=== PATIENT | male | born 1970 | race Caucasian/White ===

== ENCOUNTER 2019-09-29 08:59 | Outpatient (CLI) | payer BC, SELFPAY ==
--- NOTE | 2019-09-29 09:00 | NEURO_ITS ---
TEST: ELECTROENCEPHALOGRAM DIAGNOSIS: SEIZURE PATIENT NUMBER: [id number] EEG NUMBER: [id number] RECORDING DATE: 09/29/19 CLINICAL HISTORY: Patient reports he has been a heavy drinker for 20+ years and stopped cold turkey last week and had a seizure CONDITION OF RECORDING: Awake and drowsy EEG DESCRIPTION: Basic resting occipital frequency consists of moderate amount of well organized low voltage 8-10hz alpha mixed with low voltage 15-18hz beta. During drowsiness low voltage beta activity is seen diffusely mixed with waxing and waning posterior alpha rhythms. Hyperventilation produced normal and symmetrical build-up. Photic stimulation produced normal drive. Multiple movement and muscle artifacts are noted. Nonparoxysmal. Nonfocal. Nonlateralizing. IMPRESSION: No significant abnormalities noted. MTDD
[2019-09-29 09:46] LABS: Alanine Aminotransferase 66 U/L (4-50); Albumin Level 4.2 g/dL (3.5-5.1); Alkaline Phosphatase 90 U/L (38-126); Aspartate Amino Transferase 102 U/L (17-59); Bilirubin,Total 0.6 mg/dL (0.2-1.3); Blood Urea Nitrogen 7 mg/dL (9-20); Calcium 8.7 mg/dL (8.4-10.2); Carbon Dioxide 32 mmol/L (22-30); Chloride 97 mmol/L (98-107); Estimated Glomerular Filt Rate > 60; Glucose 160 mg/dL (75-110); Potassium 3.2 mmol/L (3.4-5.0); Sodium 136 mmol/L (137-145)
== END 2019-09-29 09:00 | disposition home or self-care (01) ==
LOC: ANHNEURO 09:02
PROVIDERS: PCP Internal Medicine; Visit Provider Internal Medicine
DX: R56.9 Unspecified convulsions (principal); F10.988 Alcohol use, unspecified with other alcohol-induced disorder; E87.1 Hypo-osmolality and hyponatremia
CPT/HCPCS: 36415; 80053; 84443; 95816

== ENCOUNTER 2020-04-28 15:28 | Inpatient (IN) | payer BC, MEDICAID, SELFPAY ==
[2020-04-28] VITALS (7 sets, daily range): BP systolic 101–119; BP diastolic 67–92; PULSE 94–115; RESP 15–21; TEMP 36.2–37.5; O2SAT 98–100; BMI 25.0
--- NOTE | ~2020-04-28 | XR_ITS ---
EXAMINATION: XR chest ET placement INDICATION: Endotracheal tube insertion TECHNIQUE: Portable AP chest at 0610 hours COMPARISON: 04/28/2020 FINDINGS: An endotracheal tube has been inserted which ends 3.3 cm above the ariana. A Dobbhoff tube is in the stomach. There are minimal opacities in the right midlung zone. The cardiomediastinal silho uette is normal. The visualized osseous structures are unremarkable. IMPRESSION: 1. Endotracheal tube in adequate position. Dobbhoff tube in the stomach. 2. Airspace opacities of the right midlung zone, consistent with atelectasis versus pneumonia. Reviewed, dictated and finalized at location A. TRY FEED SUPERVISOR IMPRESSION: 1. Endotracheal tube in adequate position. Dobbhoff tube in the stomach. 2. Airspace opacities of the right midlung zone, consistent with atelectasis ve rsus pneumonia.
--- NOTE | ~2020-04-28 | XR_ITS ---
XR chest 1V portable 05/09/2020 06:13 Indication: Respiratory failure Procedure: AP portable chest Comparison: Comparison to multiple prior studies sequentially, with oldest reviewed study dated 05/05. Findings: Left subclavian central line tip in the right atrium. Bilateral airspace disease. No pleura l effusion or pneumothorax. No acute osseous abnormality. Impression: 1: Persistent predominantly perihilar airspace disease, right greater than left. Differential diagnos is includes edema versus pneumonia. Reviewed, dictated and finalized at location A. PTION MANAGER Impression: 1: Persistent predominantly perihilar airspace disease, right greater than left . Differential diagnosis includes edema versus pneumonia.
--- NOTE | ~2020-04-28 | XR_ITS ---
XR chest 1V portable 05/08/2020 05:56 Indication: Respiratory failure Procedure: AP portable chest Comparison: Comparison to multiple prior studies sequentially, with oldest reviewed study dated 09/2020. Findings: Endotracheal tube tip 3.2 cm above the ariana. Left subclavian PICC line tip in the right a trium. NG tube in the stomach. Bilateral airspace disease, right greater than left. Elevated right di aphragm. No significant effusion or pneumothorax. Impression: 1: Bilateral airspace disease may represent edema or pneumonia. Reviewed, dictated and finalized at location A. BUSINESS PROFESSOR Impression: 1: Bilateral airspace disease may represent edema or pneumonia.
--- NOTE | ~2020-04-28 | XR_ITS ---
EXAMINATION: XR chest 1V portable EXAM DATE: 05/10/2020 05:34 INDICATION: Respiratory failure. TECHNIQUE: Portable AP frontal chest x-ray was obtained. Comparison is made to prior examination from 05/09/2020. FINDINGS: Patient has been extubated. There is a left-sided PICC line with tip projecting over the ca voatrial junction. Small amount of bilateral atelectasis and/or pneumonia with interval improvement. No sizable pleural effusion. No pneumothorax. Cardiomediastinal silhouette is normal. Mild thoracic dextroscoliosis. IMPRESSION: Noticeable interval improvement in airspace disease. Reviewed, dictated and finalized at location A. LE AND HARNESS MAKER
--- NOTE | ~2020-04-28 | XR_ITS ---
EXAMINATION: XR fl Dobhoff insert/rad w img DATE: 05/04/2020 14:43 INDICATION: Poor oral intake. TECHNIQUE: I placed a nasoenteric tube under fluoroscopic guidance. The total number of images was 2. Fluoroscopy exposure time was 0.3 minutes. COMPARISON: Abdomen MRI 05/01/2020 FINDINGS: The nasoenteric tube tip is in the stomach. IMPRESSION: 1. Fluoroscopy guided nasoenteric tube placement with tip in the stomach. Reviewed, dictated and finalized at location A. S MAKER
--- NOTE | ~2020-04-28 | CT_ITS ---
EXAMINATION: CTA chest PE abdomen pel EXAM DATE: 04/28/2020 17:48 INDICATION: Unable to stand. COPD. Seizures. Elevated lipase. TECHNIQUE: Spiral CTA of the chest (pulmonary arteries) was performed with 100 cc Omnipaque 350 intr avenous contrast injection. Images were acquired during the pulmonary arterial phase. Coronal maxi mum intensity projection 3D-reconstructions were created by the technologist on dedicated workstation . Axial, coronal and sagittal reformatted images were reviewed. Spiral CT of the abdomen and pelvis was then performed with the same intravenous contrast injection. Axial, coronal and sagittal reform atted images were reviewed. The dose-length product (DLP) for this examination was 396.79 mGy-cm. T he exposure was tailored according to patient size (auto mA exposure control), and iterative reconst ruction (ASIR) was used as additional dose reduction technique. There is no prior study for comparis on. FINDINGS: CHEST: There are no pulmonary emboli in the 1st through 3rd order (central and interlobar) pulmonary arteries. Some loss of attenuation in the left basilar segmental pulmonary arteries without evidenc e of respiratory motion, but no intraluminal filling defects suspected. No thoracic aortic dissecti on. The lungs are clear. There are no pleural or pericardial effusions. Tracheobronchial tree is patent. There is no mediastinal, hilar or axillary lymphadenopathy. There is no pneumothorax. Heart normal in size. No evidence of coronary arterial calcification. ABDOMEN PELVIS: There is hepatic steatosis without suspicious focal lesion identified. Spleen, adrena l glands, pancreas are unremarkable. Gallbladder is unremarkable. No biliary obstruction. Portal a nd splenic veins are patent. Kidneys enhance symmetrically. There is no hydronephrosis. The prost ate is unremarkable. The bladder is unremarkable. There is no retroperitoneal or pelvic lymphadenop athy. There is mild scattered arteriosclerotic disease. The appendix is normal. The stomach and small bowel are unremarkable. Some circumferential rectal w all thickening, possible proctitis, with some presacral fat stranding likely edema. There is moderate amount of colonic stool. No free intraperitoneal gas. There are no osteoblastic or osteolytic le sions identified. IMPRESSION: 1. Presacral edema and apparent distal rectal wall thickening. Proctitis? 2. Hepatic steatosis. 3. No acute cardiopulmonary findings. Reviewed, dictated and finalized at location A. ERCIAL ASSISTANT
--- NOTE | ~2020-04-28 | XR_ITS ---
EXAMINATION: XR chest 1V portable INDICATION: Respiratory failure TECHNIQUE: Portable AP chest at 0531 hours COMPARISON: 05/05/2020 FINDINGS: The endotracheal tube ends approximately 3.3 cm above the araina. A left upper extremity PI CC has been inserted which ends with its tip at the superior cavoatrial junction. The Dobbhoff tube h as been removed and replaced with a nasogastric tube which ends in the stomach. Airspace opacities rodriguez ve developed in the right lung base. There appears to be a small right pleural effusion. No pneumotho rax is identified. IMPRESSION: 1. Right basilar airspace opacity which may reflect combination of atelectasis and/or pneumonia and/o r pleural effusion. 2. Left upper extremity PICC insertion and Dobbhoff replacement with a nasogastric tube. Reviewed, dictated and finalized at location A. Y FOAM INSTALLER IMPRESSION: 1. Right basilar airspace opacity which may reflect combination of atelectasis and/or pneumonia and/or pleural effusion. 2. Left upper extremity PICC insertion and Dobbhoff replacement with a nasogast jasson tube.
--- NOTE | ~2020-04-28 | XR_ITS ---
XR chest 1V portable DATE: 04/28/2020 16:07 INDICATION: COPD. Seizures. Weakness for 3 weeks. Unable to stand. TECHNIQUE: Portable AP chest on 04/28/2020 at 1603 hours COMPARISON: None FINDINGS: Normal heart size. No hilar or mediastinal enlargement. No pulmonary infiltrate or consolid ation, pleural effusion or pulmonary vascular congestion or pneumothorax. Mild thoracic dextroscoliosis. IMPRESSION: No active cardiopulmonary disease Reviewed, dictated and finalized at location B. BINDER
--- NOTE | ~2020-04-28 | MR_ITS ---
EXAMINATION: MR MRCP wo/w con/w 3D wo ind DATE: 05/01/2020 13:59 INDICATION: Abnormal liver function tests. TECHNIQUE: Magnetic resonance imaging (MRI) of the abdomen was performed without and with 14 mL Multi Franky intravenous contrast. Sequences included coronal T2-weighted FS FSE, coronal T2-weighted FSE, a xial T1-weighted LAVA, coronal FS FIESTA, axial dual-echo T1-weighted SPGR, coronal lava-FLEX, sagitt al T2-weighted FSE, axial T2-weighted FSE, and axial DWI. Thick-slab T2-weighted FSE images were obta ined for magnetic resonance cholangiopancreatography (MRCP). Maximum intensity projection 3-D reconst ructions of the volumetric data were created by the technologist. Postcontrast sequences included cor onal LAVA-flex and time course of axial T1-weighted LAVA. COMPARISON: Abdomen ultrasound 04/30/2020, CT abdomen and pelvis 04/28/2020 FINDINGS: ABDOMEN MRI: There is diffuse hepatic steatosis. The gallbladder is distended and demonstrates wall t hickening. There is sludge in the gallbladder. The spleen, pancreas, adrenal glands, and kidneys are normal. There are no dilated loops of bowel. There is a small volume of ascites. The bladder is diste nded. There are no pathologically enlarged lymph nodes. ABDOMEN MRCP: The common duct is normal and measures 3 mm. No choledocholithiasis. IMPRESSION: 1. Acute cholecystitis. 2. Small volume of ascites. 3. Diffuse hepatic steatosis. Reviewed, dictated and finalized at location A. ON INSPECTOR
--- NOTE | ~2020-04-28 | XR_ITS ---
EXAMINATION: XR chest 1V portable INDICATION: Respiratory failure TECHNIQUE: Portable AP chest at 0545 hours COMPARISON: 05/06/2020 FINDINGS: The endotracheal tube ends approximately 2.9 cm above the ariana. The nasogastric tube is f ollowed as far as the stomach. Its tip is beyond the inferior margin of the radiograph. A left upper extremity PICC ends with its tip in the right atrium. There are increasing airspace opacities through out the right lung. A small right pleural effusion is unchanged. There is no pneumothorax. The cardio mediastinal silhouette is stable. IMPRESSION: 1. Worsening airspace opacities in the right lung, consistent with pneumonia and/or atelectasis and/o r pleural effusion. Reviewed, dictated and finalized at location A. HER STRETCHER IMPRESSION: 1. Worsening airspace opacities in the right lung, consistent with pneumonia an d/or atelectasis and/or pleural effusion.
--- NOTE | ~2020-04-28 | CT_ITS ---
EXAMINATION: CT brain wo con EXAM DATE: 04/28/2020 20:22 INDICATION: Unable to stand. Seizures. Rule out acute stroke. TECHNIQUE: Spiral CT of the head was performed without contrast. Axial, coronal and sagittal images were reviewed. The dose-length product (DLP) for this examination was 605.33 mGy-cm. The exposure w as tailored according to patient size, and iterative reconstruction (ASIR) was used as additional dos e reduction technique. There is no prior study for comparison. FINDINGS: There is no acute intraparenchymal hemorrhage. No evidence of intraparenchymal brain mass lesion. No evidence of acute infarction. Please note that initial head CT has limited sensitivity f or small or acute infarctions. There is mild periventricular and subcortical hypodensity, nonspecific but probably related to small vessel ischemic disease. There is moderate prominence of the sulci a nd ventricles related to cerebral atrophy. There is intracranial carotid arteriosclerosis. There a re no extra-axial collections. There is no mass effect or midline shift. There is old right medial orbital wall fracture. Soft tissue is unremarkable. The visualized sinuses and mastoid air cells are well aerated. IMPRESSION: 1. No acute intracranial findings. 2. Chronic age related findings. Reviewed, dictated and finalized at location A. WHAT INSPECTOR AND PACKER
--- NOTE | ~2020-04-28 | US_ITS ---
US right upper quadrant INDICATION: Elevated liver function tests PROCEDURE: Realtime right upper abdominal ultrasound. COMPARISON: No prior studies for comparison. FINDINGS: The pancreas is normal without focal mass or pancreatic ductal dilation. Fatty infiltratio n of the liver. There is normal directional flow in the portal vein. Gallbladder is dilated and contains sludge. There is gallbladder wall thickening with pericholecystic fluid. Dilated common bile duct measuring 9 mm. No sonographic Sanchez's sign. IMPRESSION: 1: Dilated gallbladder containing sludge with gallbladder wall thickening and pericholecystic fluid. Mild biliary dilatation. This constellation of findings is compatible with cholecystitis. Clinically correlate. Reviewed, dictated and finalized at location A. ER CRAFTSMAN IMPRESSION: 1: Dilated gallbladder containing sludge with gallbladder wall thickening and p ericholecystic fluid. Mild biliary dilatation. This constellation of findings i s compatible with cholecystitis. Clinically correlate.
--- NOTE | ~2020-04-28 | XR_ITS ---
EXAMINATION: XR abdomen NG/feed tube insert DATE: 05/05/2020 11:54 INDICATION: Nasogastric tube placement. TECHNIQUE: A semiupright view of the abdomen was obtained. COMPARISON: CT 04/28/2020 FINDINGS: The lower abdomen and left lateral aspect of the abdomen are excluded. There are no dilated loops of bowel. There is a nasogastric tube with tip in the stomach. There is a nasoenteric tube wit h tip in the stomach. There are airspace opacities in right mid and lower lung zones. A left upper ex tremity peripherally inserted central venous catheter (PICC) is seen with tip in the right atrium. Th e endotracheal tube tip is 1.9 cm above the ariana. IMPRESSION: 1. New nasogastric tube tip in the stomach. 2. Nasoenteric tube tip in the stomach. 3. Airspace opacities in right mid and lower lung zones, consistent with atelectasis versus pneumonia . Reviewed, dictated and finalized at location A. OD CONSULTANT IMPRESSION: 1. New nasogastric tube tip in the stomach. 2. Nasoenteric tube tip in the stomach. 3. Airspace opacities in right mid and lower lung zones, consistent with atelec tasis versus pneumonia.
--- NOTE | 2020-04-28 15:45 | ED.GENADULT ---
HPI - General Adult General Chief complaint: Weakness <GWENDOLYN Santa Last Filed: 04/28/20 18:42> Stated complaint: WEAKNESS <GWENDOLYN Santa Last Filed: 04/28/20 18:42> Time Seen by Provider: 04/28/20 15:29 <GWENDOLYN Santa Last Filed: 04/28/20 18:42> Source: patient <GWENDOLYN Santa Last Filed: 04/28/20 18:42> Mode of arrival: ambulatory <GWENDOLYN Santa Last Filed: 04/28/20 18:42> Limitations: no limitations <GWENDOLYN Santa Last Filed: 04/28/20 18:42> History of Present Illness HPI narrative: Patient is a 49-year-old male who presents to emergency department for evaluation of worsening weakness noting that he lives at home by himself is weak to the point where he has difficulty performing daily activities and requires help with mobility and daily activities his sister has been coming to help him but called [address] today with concerns of worsening condition. Patient has history of seizures and was a alcoholic in the past but denies any current alcohol or drug abuse. Patient with history of COPD and is a current smoker. On arrival per EMS patient denies any illness vomiting diarrhea chest pain or other complaints. <GWENDOLYN Santa Last Filed: 04/28/20 18:42> Related Data Home medications: Home Medications Medication Instructions Recorded Confirmed folic acid 04/28/20 04/28/20 gabapentin 04/28/20 levetiracetam PO 04/28/20 thiamine HCl (vitamin B1) [Vitamin 04/28/20 B-1] tiotropium bromide [Spiriva INHALATION 04/28/20 Respimat] trazodone 04/28/20 <GWENDOLYN Santa Last Filed: 04/28/20 18:42> Allergies/adverse reactions: Allergies Allergy/AdvReac Type Severity Reaction Status Date / Time No Known Allergies Allergy Verified 04/28/20 17:35 <GWENDOLYN Santa Last Filed: 04/28/20 18:42> Review of Systems Review of Systems: All systems reviewed & are unremarkable except as noted in HPI and below <GWENDOLYN Santa Last Filed: 04/28/20 18:42> [facility] Past Medical History Medical History: Medical History (Updated 04/28/20 @ 18:41 by Leonid Singh PA-C) Alcoholism <Leonid Singh PA-C - Last Filed: 04/28/20 18:42> Social History Social History: Social History (Updated 04/28/20 @ 18:38 by Leonid Singh PA-C) Smoking status: Current every day smoker Alcohol intake: current Substance use: unknown Gender identity (if verbalized by the patient): Male <Leonid Singh PA-C - Last Filed: 04/28/20 18:42> Exam Narrative: Exam Narrative: GENERAL: Ill-appearing, malnourished, and in no acute distress. HEAD: Normocephalic, atraumatic. EYES: PERRLA and EOMI. ENT: Nares clear, no rhinorrhea or epistaxis. Mucous membranes moist. NECK: Supple. No adenopathy or masses. CHEST: Clear to auscultation. No respiratory distress. No wheezes rales or rhonchi HEART: Regular rate and rhythm. No murmur heard. Normal peripheral pulses. ABDOMEN: Soft, nontender, nondistended EXTREMITIES: Normal range of motion. No edema. SKIN: Warm, dry, no rash. NEURO: No focal deficits. Alert and oriented x3. Cranial nerves II through XII grossly intact PSYCH: Normal mood and affect. <Leonid Singh PA-C - Last Filed: 04/28/20 18:42> Course Course Emergency Course: Patient was evaluated for deconditioning patient has been at home difficulty taking care of himself patient sister did call and note that he is actually still drinking alcohol patient will be brought in the hospital was hydrated given banana bag and will have magnesium and potassium replacement no high risk changes in the imaging at this time patient denying any pain afebrile nontoxic-appearing <Leonid Singh PA-C - Last Filed: 04/28/20 18:42> AFLOAT CRYPTOLOGIC MANAGER/PA Physician Supervision Pt with a history of alcohol abuse, who has deconditioned recently and presented for generalized
--- NOTE | 2020-04-28 16:17 | ECG_ITS ---
Measurements Intervals Riddle Rate: 111 P: 64 NJ: 144 QRS: -29 QRSD: 94 T: 28 QT: 362 QTc: 493 Interpretive Statements SINUS TACHYCARDIA DELAYED PRECORDIAL R/S TRANSITION BORDERLINE ST-T WAVE ABNORMALITY- DIFFUSE LEADS BASELINE ARTIFACT- I, II, AVR, V6 ABNORMAL ECG Electronically Signed On 04-28-2020 20:32:33 SCIENCE EDITOR by Kostas Chong D.O.
[2020-04-28 16:18] LABS: Basophils Percent Auto 0.4 % (0.2-1.2); Hematocrit 29.4 % (42.0-52.0); Hemoglobin 10.8 g/dL (14.0-18.0); Immature Granulocyte Absolute 0.04 K/mm3 (0.00-0.031); Immature Granulocyte Percent A 0.8 % (0-0.5); Immature Platelet Fraction Pct 11.5 % (0.9-11.2); Lymphocytes Absolute Auto 0.66 K/mm3 (0.9-3.2); Mean Corpuscular HGB Conc 36.7 g/dl (32-36); Mean Corpuscular Hemoglobin 35.1 pg (26-34); Mean Corpuscular Volume 95.5 fl (80-100); Mean Platelet Volume 10.5 fl (7.4-10.4); Monocytes Absolute Auto 0.5 K/mm3 (0.1-0.6); Monocytes Percent Auto 11.4 % (2.6-8.5); Neutrophils Absolute Auto 3.5 K/mm3 (1.3-6.7); Neutrophils Percent Auto 73.4 % (45.5-73.1); Nucleated Red Blood Cells Perc 0.4 % (0.0-0.2); Platelet Count Result 140 k/mm3 (150-375); Red Blood Count 3.08 M/mm3 (4.6-6.20); Red Cell Distribution Width 11.4 % (11.5-14.5); White Blood Count 4.7 K/mm3 (4.5-10.0)
--- NOTE | 2020-04-28 16:20 | PC.NURSE ---
called lab to add on d dimer
[2020-04-28 16:33] LABS: Alanine Aminotransferase 33 U/L (4-50); Albumin Level 3.9 g/dL (3.5-5.1); Alkaline Phosphatase 125 U/L (38-126); Anion Gap 9 mmol/L (8-16); Aspartate Amino Transferase 110 U/L (17-59); Bilirubin,Total 1.9 mg/dL (0.2-1.3); Blood Urea Nitrogen 8 mg/dL (9-20); Carbon Dioxide 36 mmol/L (22-30); Chloride 79 mmol/L (98-107); Estimated CRCL calculation 112 ml/min; Estimated Glomerular Filt Rate > 60; Glucose 106 mg/dL (75-110); Lipase 599 U/L (23-300); Potassium 2.5 mmol/L (3.4-5.0); Sodium 124 mmol/L (137-145)
[2020-04-28 16:34] LABS: Ethanol < 10 mg/dL (<10)
[2020-04-28 16:56] LABS: D Dimer 1.51 ug/mL (<0.48)
--- NOTE | 2020-04-28 17:05 | PC.NURSE ---
called lab to add on mg
[2020-04-28 17:11] LABS: Magnesium 1.4 mg/dL (1.6-2.3)
[2020-04-28 17:14] LABS: INR 0.9; Prothrombin Time 12.7 Seconds (11.1-14.7)
[2020-04-28 17:15] LABS: Partial Thromboplastin Time 29.9 SECONDS (22.3-36.8)
[2020-04-28 17:23] LABS: HIV 1/2 Ab P24 Ag Result Negative (Negative)
[2020-04-28] MEDS: POTASSIUM CHLORIDE 20 MEQ PACKET (FOR LIQUID) 40 MEQ PO (17:51)
[2020-04-28] MEDS: MAGNESIUM SULF 2 GM/WATER 50ML 2 GM/50 ML BAG IVPB (17:52)
--- NOTE | 2020-04-28 17:53 | PC.NURSE ---
Received call from pt's sister Janett. Given update. Pt's sister reports that the patient is a heavy drinker, drinks daily, is an alcoholic. But the last six months he's gotten worse. He quit drinking about 3 days ago. I think he has something bad, like cancer or something . Aly GREGORIO made aware.
--- NOTE | 2020-04-28 18:02 | PC.NURSE ---
during orthostatic blood pressures, patient became very weak upon standing and could not complete the standing orthostatic blood pressure.
--- NOTE | 2020-04-28 18:06 | PC.NURSE ---
Pt failed orthostatics, could not stand to complete the procedure. Report to IVANIA Monique, to continue care.
[2020-04-28] MEDS: THIAMINE HCL INJ 100 MG, FOLIC ACID INJ 1 MG, MULTIVITAMINS-12 INJ VIAL 1 5 ML, MULTIVI... IV CONT (19:02)
--- NOTE | 2020-04-28 19:25 | ADMGEN ---
This patient, Chito Gill, was admitted to Medical Room 348-01. Patient/family oriented to hospital policies and general routines including ID bracelet, bed and alarms, visiting hours, pain management, procedures, bathroom and other care routines, personal items, smoking policy, room service/diet, and visiting hours. Information on how to activate the Rapid Response Team has been discussed. Patient/Family are encouraged to report perceived risks to care and to ask questions if they do not understand what they are told or what they should do.
--- NOTE | 2020-04-28 19:48 | PM.IMHP ---
H&P: HPI History of Present Illness Date/Time: 04/28/20 19:48 Chief Complaint: Generalized weakness Narrative: This is a 49 year old male with COPD and known to be a previous alcoholic and stopped drinking about 3 weeks ago and presented to the hospital with a complaint of three weeks of generalized weakness. He complains that he can't walk or even stand without help. He explains that his sister and a friend have been helping him. He denies any recent fever, chills, headache, nausea, vomiting, chest pain, shortness of breath, cough, abdominal pain, dysuria, hematuria, decreased urine output, diarrhea, or focal symptoms. On my encounter with the patient he appears confused and very slow to answer my questions. He denies any hallucinations. Routine labs demonstrated normocytic anemia, thrombocytopenia and various electrolyte disorders. No other complaints. Review of Systems Review of Systems: All systems reviewed & are unremarkable except as noted in HPI and below PMFSH Past Medical History Medical History (Updated 04/29/20 @ 06:08 by Tom Shah MD) Alcoholism COPD (chronic obstructive pulmonary disease) Tobacco dependence Social History Social History (Updated 04/28/20 @ 20:39 by Julia Ritter RN) Smoking status: Current every day smoker Tobacco type: cigarettes Alcohol intake: current Substance use: unknown Living arrangements: alone Occupation/Education: unemployed Gender identity (if verbalized by the patient): Male Spiritual care concerns: No Comments Past surgical and family medical histories are reviewed and noncontributory. Meds Home Medications and Allergies Home Medications Medication Instructions Recorded Confirmed Type folic acid 1 mg PO DAILY 04/28/20 04/28/20 History gabapentin 300 mg PO HS 04/28/20 04/28/20 History levetiracetam 500 mg PO BID 04/28/20 04/28/20 History thiamine HCl (vitamin B1) [Vitamin 100 mg PO BID 04/28/20 04/28/20 History B-1] tiotropium bromide [Spiriva 2 puff INHALATION DAILY 04/28/20 04/28/20 History Respimat] Allergies Allergy/AdvReac Type Severity Reaction Status Date / Time No Known Allergies Allergy Verified 04/28/20 20:15 Vital Signs Vital Signs - 24 hr 04/28/20 15:38 04/28/20 17:53 04/28/20 17:55 Temperature 37.5 C Pulse Rate 114 H 103 H 109 H Respiratory Rate 18 Blood Pressure 119/92 H 102/67 104/69 Pulse Oximetry 100 04/28/20 18:28 04/28/20 19:18 Temperature 36.6 C Pulse Rate 108 H 97 Respiratory Rate 16 15 Blood Pressure 101/78 103/76 Pulse Oximetry 100 99 Exam Const: General: no acute distress, alert and awake Nutritional Appearance: thin and underweight Orientation/consciousness: oriented to person, oriented to place and confusion HENMT: Head: normal to inspection General nose exam: Normal external nose present Face and sinus: normal facial exam Mouth: Yes dry mucous membranes Eyes: Pupils: Equal, round and reactive pupils present EOM: EOMs intact bilaterally Neck: Neck: supple and no JVD Thyroid: thyroid normal Lymphatic: lymphadenopathy not noted Resp: Effort & Inspection: normal respiratory effort Auscultation: clear to auscultation bilaterally Cardio: Rate: regular rate Rhythm: regular rhythm Heart sounds: no murmurs GI: Inspection: normal to inspection Auscultation: normal bowel sounds Skin: General skin exam: normal color and no rashes or lesions noted Neuro: General: oriented to person and oriented to place Cranial nerves: Yes CN's II-XII intact bilaterally and Yes Equal, round and reactive pupils present Speech: normal speech Motor exam (neuro): 5/5 motor strength present throughout Sensory Exam: normal sensation Extrem: General: normal to inspection and no edema Psych: Mental Status: mental status grossly normal Affect: Blunted affect present H&P: Results Labs Labs: Short CBC 04/28/20 04/28/20 Range/Units 16:10 16:10 WBC 4.7 (4.5
--- NOTE | 2020-04-28 20:11 | PC.NURSE ---
Patient left room to CT via bed
--- NOTE | 2020-04-28 20:25 | PC.NURSE ---
Patient returned to room from CT via bed
[2020-04-28] MEDS: FAMOTIDINE 20 MG/2 ML VIAL IV PUSH (21:08)
[2020-04-28] MEDS: KCL 20 MEQ/SW 100 ML 100 ML 50 MEQ IVPB (21:11)
[2020-04-28 22:04] LABS: Hematocrit 26.3 % (42.0-52.0); Hemoglobin 9.6 g/dL (14.0-18.0); Immature Platelet Fraction Pct 10.8 % (0.9-11.2); Mean Corpuscular HGB Conc 36.5 g/dl (32-36); Mean Platelet Volume 10.6 fl (7.4-10.4); Platelet Count Result 129 k/mm3 (150-375); Red Blood Count 2.74 M/mm3 (4.6-6.20); Red Cell Distribution Width 11.6 % (11.5-14.5); White Blood Count 4.6 K/mm3 (4.5-10.0)
[2020-04-28 22:12] LABS: Anion Gap 3 mmol/L (8-16); Blood Urea Nitrogen 7 mg/dL (9-20); Calcium 9.3 mg/dL (8.4-10.2); Carbon Dioxide 36 mmol/L (22-30); Chloride 87 mmol/L (98-107); Estimated CRCL calculation 136 ml/min; Estimated Glomerular Filt Rate > 60; Glucose 86 mg/dL (75-110); Potassium 3.3 mmol/L (3.4-5.0); Sodium 126 mmol/L (137-145)
[2020-04-29] VITALS (12 sets, daily range): BP systolic 101–112; BP diastolic 65–73; PULSE 87–180; RESP 16–20; TEMP 36.5–37; O2SAT 94–99; BMI 25.0
[2020-04-29 01:11] LABS: Amphetamine Screen Urine Negative (Negative); Barbiturate Screen Urine Negative (Negative); Benzodiazepines Screen Urine Negative (Negative); Cannabinoid Screen Urine Negative (Negative); Cocaine Screen Urine Negative (Negative); Methadone Screen Urine Negative (Negative); Opiate Screen Urine Negative (Negative); Phencyclidine Screen Urine Negative (Negative)
[2020-04-29 01:18] LABS: Add Urine Microscopic? YES; Appearance Urine Clear (Clear); Bacteria Urine Trace /hpf; Bilirubin Urine Negative (Negative); Blood Urine Negative (Negative); Color Urine Yellow (Yellow); Glucose Urine UA Negative (Negative); Ketones Urine Trace mg/dL (Negative); Leukocyte Esterase Ur Negative LEU/UL (Negative); Nitrate Urine Negative (Negative); Protein Urine Negative (Negative); RBC Urine 0-2 /hpf (0-2); Specific Grav Ur 1.031 (1.001-1.035); WBC Urine 0-3 /hpf
[2020-04-29 05:11] LABS: Free T4 Free Thyroxine Reflex 0.62 ng/dL (0.78-2.19)
[2020-04-29 06:07] LABS: Basophils Percent Auto 0.5 % (0.2-1.2); Eosinophils Percent Auto 0.9 % (0-4.4); Hematocrit 25.9 % (42.0-52.0); Hemoglobin 9.3 g/dL (14.0-18.0); Immature Granulocyte Absolute 0.03 K/mm3 (0.00-0.031); Immature Granulocyte Percent A 0.7 % (0-0.5); Lymphocytes Absolute Auto 1.19 K/mm3 (0.9-3.2); Lymphocytes Percent Auto 27.7 % (18.3-44.2); Mean Corpuscular HGB Conc 35.9 g/dl (32-36); Mean Corpuscular Volume 97.4 fl (80-100); Mean Platelet Volume 10.8 fl (7.4-10.4); Monocytes Absolute Auto 0.5 K/mm3 (0.1-0.6); Monocytes Percent Auto 11.4 % (2.6-8.5); Neutrophils Absolute Auto 2.5 K/mm3 (1.3-6.7); Neutrophils Percent Auto 58.8 % (45.5-73.1); Platelet Count Result 127 k/mm3 (150-375); Red Blood Count 2.66 M/mm3 (4.6-6.20); Red Cell Distribution Width 11.8 % (11.5-14.5); White Blood Count 4.3 K/mm3 (4.5-10.0)
[2020-04-29 06:19] LABS: Alanine Aminotransferase 29 U/L (4-50); Alkaline Phosphatase 96 U/L (38-126); Anion Gap 3 mmol/L (8-16); Aspartate Amino Transferase 86 U/L (17-59); Blood Urea Nitrogen 8 mg/dL (9-20); Calcium 9.1 mg/dL (8.4-10.2); Carbon Dioxide 35 mmol/L (22-30); Chloride 88 mmol/L (98-107); Estimated CRCL calculation 179 ml/min; Estimated Glomerular Filt Rate > 60; Glucose 86 mg/dL (75-110); Sodium 126 mmol/L (137-145)
[2020-04-29 07:52] LABS: Sodium Urine Random < 5 meq/L
[2020-04-29 08:11] LABS: IFOB Positive Control Positive; Immunochemical Fecal Occult Bl Positive (N)
[2020-04-29] MEDS: POTASSIUM CHLORIDE 20 MEQ TABLET 40 MEQ PO (09:23)
[2020-04-29] MEDS: levETIRAcetam 500 MG TABLET PO ×2 (09:23→17:19)
[2020-04-29] MEDS: THIAMINE HCL 100 MG TABLET PO ×2 (09:23→17:19)
[2020-04-29] MEDS: FAMOTIDINE 20 MG/2 ML VIAL IV PUSH ×2 (09:23→20:00)
[2020-04-29] MEDS: FOLIC ACID 1 MG TABLET PO (09:23)
[2020-04-29 10:03] LABS: Anion Gap 7 mmol/L (8-16); Blood Urea Nitrogen 9 mg/dL (9-20); Calcium 9.4 mg/dL (8.4-10.2); Carbon Dioxide 33 mmol/L (22-30); Chloride 84 mmol/L (98-107); Estimated CRCL calculation 147 ml/min; Estimated Glomerular Filt Rate > 60; Glucose 132 mg/dL (75-110); Potassium 3.2 mmol/L (3.4-5.0); Sodium 124 mmol/L (137-145)
[2020-04-29 10:34] LABS: Magnesium 1.8 mg/dL (1.6-2.3)
--- NOTE | 2020-04-29 13:11 | PM.IMPN ---
Progress Note: A&P Assessment and Plan (1) Generalized weakness: Code(s): R53.1 - Weakness Status: Acute Assessment and Plan: Ongoing for several months. On 09/23/2019 he had seizure at work and since that time has had limited mobility. Unclear if he had an injury during this event that caused his progressive weakness. His sister reports that since that time, he had been out of work and ambulating around the home using a cane. However, since about 1 month ago, he has been essentially immobile and his sister or his friend carry him around the home. This rapid progression of weakness is unusual. He does not appear to have any neurologic deficits but a demyelinating condition or other neurologic injury may be considered to explain progressive weakness. Additionally, suspect this is worsened by deconditioning, dehydration, and overall malnutrition. TSH is slightly abnormal. Continue treatment of electrolyte imbalances and continue with rehydration. PT/OT is evaluating patient. Care coordination following and notes that patient will likely require SNF placement I will place a consult to Neurology for their opinion. patient may benefit from an MRI or a nerve conduction study. Check B12 and folate. (2) Acute encephalopathy: Code(s): G93.40 - Encephalopathy, unspecified Status: Acute Assessment and Plan: Patient noted to be acutely confused upon arrival, was somnolent, and slow to answer questions. This is probably due to multiple electrolyte disorders. Head CT was negative for acute findings. urine drug screen negative. Urinalysis unremarkable. At the time of my evaluation, patient is A&O x4 and does not exhibit confusion in conversation. Continue IV hydration and correction of electrolyte imbalances. Monitor mental status closely (3) Electrolyte abnormality: Code(s): E87.8 - Other disorders of electrolyte and fluid balance, not elsewhere classified Status: Acute Assessment and Plan: Upon presentation, patient noted to have hypokalemia, hyponatremia, and hypomagnesiumia. Suspect this is from acute dehydration and malnutrition. Patient was started on IV fluids and potassium and magnesium was supplemented. Magnesium is within normal limits today. telemetry reviewed and showed sinus rhythm with no arrhythmias. Potassium low at 3.2 and will be replaced and monitored closely. Sodium low at 124 today. This may also be explained by chronic alcoholism. Urine sodium is low and osmolality is pending. Will continue with IV fluid hydration at this time and will monitor sodium Q6H Monitor on telemetry (4) Alcohol abuse: Code(s): F10.10 - Alcohol abuse, uncomplicated Status: Chronic Assessment and Plan: patient reports he has not drank alcohol in approximately 1, however his sister noted that he is still drinking every day and requires alcohol to function. He is unable to indicate if he has any history of withdrawal seizures or other symptoms of alcohol withdrawal. CIWA score is 8. Continue CIWA protocol. Ativan p.r.n. for CIWA >8 continue thiamine and folic acid alcohol cessation will be encouraged (5) Normocytic anemia: Code(s): D64.9 - Anemia, unspecified Status: Chronic Assessment and Plan: H&H is stable. No prior labs are available to establish baseline. Fecal occult blood test was positive. Patient denies GI bleeding and has no signs or symptoms to suggest active bleeding. Vital signs are stable. Monitor H&H closely and transfuse as needed with hemoglobin threshold <7.0 he will need outpatient follow-up for fecal occult blood, likely colonoscopy. This time this can be deferred while inpatient unless acute issue arises. Will check iron panel, B12, and folate (6) Thrombocytopenia: Code(s): D69.6 - Thrombocytopenia, unspecified Status: Chronic Assessment and Plan: I suspec
[2020-04-29] MEDS: SODIUM CHLORIDE 0.9% IV 1,000 ML 75 ML IV CONT (13:48)
[2020-04-29 16:27] LABS: Anion Gap 6 mmol/L (8-16); Blood Urea Nitrogen 11 mg/dL (9-20); Calcium 9.3 mg/dL (8.4-10.2); Carbon Dioxide 33 mmol/L (22-30); Chloride 85 mmol/L (98-107); Estimated CRCL calculation 179 ml/min; Estimated Glomerular Filt Rate > 60; Glucose 151 mg/dL (75-110); Potassium 3.3 mmol/L (3.4-5.0); Sodium 124 mmol/L (137-145)
[2020-04-29 18:26] LABS: Anion Gap 3 mmol/L (8-16); Blood Urea Nitrogen 11 mg/dL (9-20); Carbon Dioxide 34 mmol/L (22-30); Chloride 86 mmol/L (98-107); Estimated CRCL calculation 179 ml/min; Estimated Glomerular Filt Rate > 60; Glucose 171 mg/dL (75-110); Potassium 3.5 mmol/L (3.4-5.0); Sodium 123 mmol/L (137-145)
[2020-04-29 23:04] LABS: Anion Gap 3 mmol/L (8-16); Blood Urea Nitrogen 10 mg/dL (9-20); Calcium 8.6 mg/dL (8.4-10.2); Carbon Dioxide 35 mmol/L (22-30); Chloride 85 mmol/L (98-107); Estimated CRCL calculation 179 ml/min; Estimated Glomerular Filt Rate > 60; Glucose 123 mg/dL (75-110); Potassium 3.2 mmol/L (3.4-5.0); Sodium 123 mmol/L (137-145)
[2020-04-30] VITALS (12 sets, daily range): BP systolic 90–101; BP diastolic 58–73; PULSE 86–110; RESP 18; TEMP 36.6–36.8; O2SAT 96–100
[2020-04-30] MEDS: SODIUM CHLORIDE 0.9% IV 1,000 ML 75 ML IV CONT (03:11)
[2020-04-30 06:22] LABS: Hematocrit 23.5 % (42.0-52.0); Hemoglobin 8.4 g/dL (14.0-18.0); Mean Corpuscular HGB Conc 35.7 g/dl (32-36); Mean Corpuscular Hemoglobin 35.1 pg (26-34); Mean Corpuscular Volume 98.3 fl (80-100); Mean Platelet Volume 10.4 fl (7.4-10.4); Platelet Count Result 141 k/mm3 (150-375); Red Blood Count 2.39 M/mm3 (4.6-6.20); Red Cell Distribution Width 11.8 % (11.5-14.5); White Blood Count 4.8 K/mm3 (4.5-10.0)
[2020-04-30 06:35] LABS: Alanine Aminotransferase 47 U/L (4-50); Albumin Level 2.9 g/dL (3.5-5.1); Alkaline Phosphatase 185 U/L (38-126); Anion Gap 2 mmol/L (8-16); Aspartate Amino Transferase 266 U/L (17-59); Bilirubin,Total 1.5 mg/dL (0.2-1.3); Blood Urea Nitrogen 7 mg/dL (9-20); Calcium 8.5 mg/dL (8.4-10.2); Carbon Dioxide 34 mmol/L (22-30); Chloride 88 mmol/L (98-107); Estimated CRCL calculation 229 ml/min; Estimated Glomerular Filt Rate > 60; Glucose 106 mg/dL (75-110); Magnesium 1.6 mg/dL (1.6-2.3); Potassium 2.8 mmol/L (3.4-5.0); Sodium 124 mmol/L (137-145)
[2020-04-30 06:40] LABS: Phosphorus < 1.0 mg/dL (2.5-4.5)
[2020-04-30 06:46] LABS: Iron 45 ug/dL (49-181)
[2020-04-30 06:55] LABS: Percent Iron Saturation 26 % (20-50)
[2020-04-30 07:35] LABS: Folic Acid 14.5 ng/mL (2.76->20)
--- NOTE | 2020-04-30 08:22 | PCOTNOTE ---
Attempted to see patient this AM for skilled OT session. Patient was in bed upon entry, fidgeting/messing with IV site on Left arm. When asked patient stated, This thing is bugging me, can you get somebody to fix it? Patient was asked and reported of pain in the back and left shoulder/arm at this time. RN was notified of patient's pain and IV bothering patient. When asked if patient would like to participated in OT activities or get out of bed at this time, patient declined stating, No, I'm really not feeling up to it. STAPLES attempted to reinforce to encourage participation, or if STAPLES could attempt session pater this date, but patient refused again stating, I really just want to hang out in bed today, but thanks anyway. Patient declined OT session this date.
[2020-04-30] MEDS: levETIRAcetam 500 MG TABLET PO ×2 (08:24→16:38)
[2020-04-30] MEDS: FOLIC ACID 1 MG TABLET PO (08:24)
[2020-04-30] MEDS: THIAMINE HCL 100 MG TABLET PO ×2 (08:24→16:38)
[2020-04-30] MEDS: FAMOTIDINE 20 MG/2 ML VIAL IV PUSH ×2 (08:24→21:36)
--- NOTE | 2020-04-30 08:50 | PM.IMPN ---
Progress Note: A&P Assessment and Plan (1) Generalized weakness: Code(s): R53.1 - Weakness Status: Acute Assessment and Plan: Ongoing for several months. On 09/23/2019 he had seizure at work and since that time has had limited mobility. Unclear if he had an injury during this event that caused his progressive weakness. His sister reports that since that time, he had been out of work and ambulating around the home using a cane. However, since about 1 month ago, he has been essentially immobile and his sister or his friend carry him around the home. This rapid progression of weakness is unusual. He does not appear to have any neurologic deficits but a demyelinating condition or other neurologic injury may be considered to explain progressive weakness. Additionally, suspect this is worsened by deconditioning, dehydration, and overall malnutrition. TSH is slightly abnormal. Continue treatment of electrolyte imbalances and continue with rehydration. PT/OT is evaluating patient. Care coordination following and notes that patient will likely require SNF placement Appreciate neurology consult. Patient may benefit from an MRI, LP, or nerve conduction study. B12 and folate wnl. Will check RPR and Lyme disease panel. Check SHREYA. Check AChR antibodies. (2) Electrolyte abnormality: Code(s): E87.8 - Other disorders of electrolyte and fluid balance, not elsewhere classified Status: Acute Assessment and Plan: Upon presentation, patient noted to have hypokalemia, hyponatremia, and hypomagnesiumia. Started on IV fluids and potassium and magnesium was supplemented. Magnesium is within normal limits today. telemetry reviewed and showed sinus tachycardia with no arrhythmias. Potassium low at 2.8 this morning. Phosphorus <1. Suspect this is all related to patients malnutrition and possible refeeding syndrome. Sodium decreased at 124. 40 mEq KCl IV given. Will repeat potassium this afternoon. Will administer neutraphos PO packets QID. Unable to replace with IV phosphorus due to potassium content as he has already received IV potassium. Will monitor phosphate levels closely. Sodium remains low. This may also be explained by chronic alcoholism. Continue with IV fluid hydration at this time and will monitor sodium Q6H. Recheck urine sodium and urine creatinine. Monitor on telemetry (3) Alcohol abuse: Code(s): F10.10 - Alcohol abuse, uncomplicated Status: Chronic Assessment and Plan: Patient reports he has not drank alcohol in approximately 1 month, however his sister noted that he is still drinking every day. He is unable to indicate if he has any history of withdrawal seizures or other symptoms of alcohol withdrawal. CIWA scores <8 yesterday but today CIWA is 11. Patient is very confused, restless, and has mild tremor Continue CIWA protocol. Will add scheduled librium 50 mg q6h with taper. PRN ativan for CIWA >8 continue thiamine and folic acid alcohol cessation will be encouraged (4) Elevated LFTs: Code(s): R79.89 - Other specified abnormal findings of blood chemistry Status: Acute Assessment and Plan: AST and ALP elevated upon presentation with slight improvement the following the day. Thought to be maybe be secondary to alcohol abuse. Increased significantly today, therefore RUQ US was obtained which showed dilated gallbladder with sludge, gallbladder wall thickening, pericholecystic fluid, and mild biliary dilation, all consistent with cholecystitis. Patient is not having any abdominal pain and this would be an unusual presentation, but could explain his poor appetite/malnourishment. Total bili slightly elevated. No evidence of jaundice at this time. Will place consult to general surgery for gallbladder evaluation. Input is appreciated. Monitor LFTs closely. (5) Malnutrition: Qualifiers: Malnutrition type: protein-calorie malnutrition P
[2020-04-30] MEDS: POTASSIUM/PHOSPHORUS/SODIUM 1.5 GM PACKET 1 PACKET PO ×4 (09:20→21:37)
[2020-04-30 09:45] LABS: Creatine Kinase 518 U/L (55-170)
[2020-04-30 10:27] LABS: Hepatitis B Surface Antigen Negative (Negative)
[2020-04-30 10:32] LABS: HAV RESULT Negative (Negative); Hepatitis B Core IgM Result Negative (Negative)
[2020-04-30 10:44] LABS: Hepatitis C Virus Antibody Negative (Negative)
[2020-04-30] MEDS: LORazepam INJ (*CRX) 2 MG/ML VIAL 0.5 MG IV PUSH (12:21)
[2020-04-30 13:29] LABS: Sodium 125 mmol/L (137-145)
--- NOTE | 2020-04-30 14:17 | PCPTNOTE ---
PT attempted to see patient this afternoon for treatment, however patient did not follow directions for exercises or attempt to participate in mobility. Patient easily distracted with poor attention. PT will continue to follow per plan of care.
--- NOTE | 2020-04-30 15:23 | WPDNEURCNPN ---
Assessment and Plan Assessment and plan (1) Electrolyte abnormality: Code(s): E87.8 - Other disorders of electrolyte and fluid balance, not elsewhere classified Status: Acute (2) Acute encephalopathy: Code(s): G93.40 - Encephalopathy, unspecified Status: Acute (3) Tobacco dependence: Code(s): F17.200 - Nicotine dependence, unspecified, uncomplicated Status: Chronic (4) COPD (chronic obstructive pulmonary disease): Qualifiers: COPD type: unspecified COPD Qualified Code(s): J44.9 - Chronic obstructive pulmonary disease, unspecified Code(s): J44.9 - Chronic obstructive pulmonary disease, unspecified Status: Chronic (5) Alcohol abuse: Code(s): F10.10 - Alcohol abuse, uncomplicated Status: Chronic (6) Generalized weakness: Code(s): R53.1 - Weakness Status: Acute Additional Plan receiving all the vitamin supplements, anti convulsant treatment will be continued as such Consult date: 04/30/20 Time Seen: 15:00 HPI: Chito Gill is a 49 year old male admitted to the hospital for the complaints of generalized weakness ,patient carries the diagnosis of COPD and alcoholism in the past as well ,has stopped drinking about 3 weeks ago and complains of generalized weakness with no history of recent acute illnesses and no history of any unusual trauma . as mentioned before patient carries the diagnosis of alcoholism, COPD, tobacco dependence. Medications included gabapentin 300 p.o. HS Keppra 500 p.o. b.i.d. on routine lab anemic hypokalemic, somewhat low on serum iron elevated hepatic enzymes rest of the labs are pending, CT scan negative for the bleed and ultrasound of the right upper quadrant with the finding suggestive of cholecystitis Review of Systems Review of Systems: All systems reviewed & are unremarkable except as noted in HPI and below PMFSH Past Medical History Medical History Alcoholism COPD (chronic obstructive pulmonary disease) Tobacco dependence Social History Social History Smoking status: Current every day smoker Tobacco type: cigarettes Alcohol intake: current Substance use: unknown Living arrangements: alone Occupation/Education: unemployed Gender identity (if verbalized by the patient): Male Spiritual care concerns: No Meds Home Medications and Allergies Home Medications Medication Instructions Recorded Confirmed Type folic acid 1 mg PO DAILY 04/28/20 04/28/20 History gabapentin 300 mg PO HS 04/28/20 04/28/20 History levetiracetam 500 mg PO BID 04/28/20 04/28/20 History thiamine HCl (vitamin B1) [Vitamin 100 mg PO BID 04/28/20 04/28/20 History B-1] tiotropium bromide [Spiriva 2 puff INHALATION DAILY 04/28/20 04/28/20 History Respimat] Allergies Allergy/AdvReac Type Severity Reaction Status Date / Time No Known Allergies Allergy Verified 04/28/20 20:15 Vital Signs Vital Signs - 24 hr 04/29/20 16:00 04/29/20 20:00 04/29/20 20:04 Temperature 37.0 C Pulse Rate 97 101 H 92 Respiratory Rate 18 Blood Pressure 101/67 112/69 Pulse Oximetry 94 04/29/20 23:56 04/30/20 00:00 04/30/20 04:00 Temperature Pulse Rate 86 95 Respiratory Rate Blood Pressure 111/73 Pulse Oximetry 04/30/20 04:15 04/30/20 08:00 04/30/20 08:30 Temperature 36.6 C Pulse Rate 91 94 Respiratory Rate 18 Blood Pressure 101/73 101/73 Pulse Oximetry 96 04/30/20 12:00 04/30/20 14:00 Temperature 36.7 C Pulse Rate 91 110 H Respiratory Rate 18 Blood Pressure 101/73 98/58 L Pulse Oximetry 100 Exam Narrative: Exam Narrative: on exam awake alert cooperative obviously her nutrition pain and underweight head normocephalic with no cranial bruit neck is supple with no cervical bruit no lymphadenopathy or thyromegaly heart regular with no murmur lungs clear to auscultat
[2020-04-30] MEDS: chlordiazePOXIDE (*CRX) 25 MG CAPSULE 50 MG PO (16:39)
[2020-04-30 17:22] LABS: SARS-CoV-2 RNA PCR Negative
[2020-04-30 18:22] LABS: Creatinine Urine 49.5 mg/dL
[2020-04-30 18:24] LABS: Sodium Urine Random 66 meq/L
--- NOTE | 2020-04-30 18:43 | PC.NURSE ---
This patient, Chito Gill, was received from [facility] on 04/30/20 at 1800. Patient/family oriented to unit policies and routines
[2020-04-30 21:49] LABS: Potassium 5.1 mmol/L (3.4-5.0)
[2020-05-01] VITALS (8 sets, daily range): BP systolic 90–96; BP diastolic 63–70; PULSE 82–100; RESP 16–20; TEMP 36.1–36.3; O2SAT 95–100
[2020-05-01] MEDS: chlordiazePOXIDE (*CRX) 25 MG CAPSULE 50 MG PO ×4 (00:43→21:33)
[2020-05-01] MEDS: SODIUM CHLORIDE 0.9% IV 1,000 ML 100 ML IV CONT ×3 (00:48→21:33)
[2020-05-01 04:31] LABS: Hematocrit 23.9 % (42.0-52.0); Hemoglobin 8.3 g/dL (14.0-18.0); Mean Corpuscular HGB Conc 34.7 g/dl (32-36); Mean Corpuscular Hemoglobin 35.2 pg (26-34); Mean Corpuscular Volume 101.3 fl (80-100); Mean Platelet Volume 9.7 fl (7.4-10.4); Platelet Count Result 157 k/mm3 (150-375); Red Blood Count 2.36 M/mm3 (4.6-6.20); Red Cell Distribution Width 12.5 % (11.5-14.5); White Blood Count 4.1 K/mm3 (4.5-10.0)
[2020-05-01 04:44] LABS: Alanine Aminotransferase 88 U/L (4-50); Albumin Level 2.8 g/dL (3.5-5.1); Alkaline Phosphatase 219 U/L (38-126); Anion Gap 3 mmol/L (8-16); Aspartate Amino Transferase 167 U/L (17-59); Bilirubin,Total 1.2 mg/dL (0.2-1.3); Blood Urea Nitrogen 5 mg/dL (9-20); Calcium 8.6 mg/dL (8.4-10.2); Carbon Dioxide 30 mmol/L (22-30); Chloride 96 mmol/L (98-107); Estimated CRCL calculation 229 ml/min; Estimated Glomerular Filt Rate > 60; Glucose 88 mg/dL (75-110); Phosphorus 2.1 mg/dL (2.5-4.5); Potassium 2.9 mmol/L (3.4-5.0); Sodium 129 mmol/L (137-145)
[2020-05-01 04:50] LABS: Magnesium 1.6 mg/dL (1.6-2.3)
[2020-05-01] MEDS: MULTIVITAMINS THERAPEUTIC TAB (*BKC) 1 TABLET PO (08:59)
[2020-05-01] MEDS: FOLIC ACID 1 MG TABLET PO (08:59)
[2020-05-01] MEDS: POTASSIUM/PHOSPHORUS/SODIUM 1.5 GM PACKET 1 PACKET PO (08:59)
[2020-05-01] MEDS: FAMOTIDINE 20 MG/2 ML VIAL IV PUSH ×2 (08:59→20:01)
[2020-05-01] MEDS: THIAMINE HCL 100 MG TABLET PO ×2 (08:59→18:01)
[2020-05-01] MEDS: levETIRAcetam 500 MG TABLET PO ×2 (08:59→18:01)
--- NOTE | 2020-05-01 10:17 | PCPTNOTE ---
Attempted therapy session, Patient refused treatment at this time. Pt stated I don't want to do anything until I eat breakfast. Informed Pt on the importance of therapy and of getting out of bed. Pt continued to refuse.
--- NOTE | 2020-05-01 10:27 | PCPTNOTE ---
patient brought to IMU last eveneing...he was aggressive and non-compliant...spoke with nursing and clinician today, and patient is doing much better, he will not require re-eval, but may continue his treatment with [employer]
--- NOTE | 2020-05-01 10:33 | PM.IMPN ---
Progress Note: A&P Assessment and Plan (1) Generalized weakness: Code(s): R53.1 - Weakness Status: Acute Assessment and Plan: Ongoing for several months. On 09/23/2019 he had seizure at work and since that time has had limited mobility. Unclear if he had an injury during this event that caused his progressive weakness. His sister reports that since that time, he had been out of work and ambulating around the home using a cane. However, since about 1 month ago, he has been essentially immobile and his sister or his friend carry him around the home. This rapid progression of weakness is unusual. He does not appear to have any neurologic deficits but a demyelinating condition or other neurologic injury may be considered to explain progressive weakness. Additionally, suspect this is worsened by deconditioning, dehydration, and overall malnutrition. TSH is slightly abnormal. Continue treatment of electrolyte imbalances and continue with rehydration. PT/OT is evaluating patient. Care coordination following and notes that patient will likely require SNF placement Appreciate neurology consult. Patient may benefit from an MRI, LP, or nerve conduction study. B12 and folate wnl. Pending tests: RPR, Lyme disease panel, SHREYA, AChR antibodies. (2) Electrolyte abnormality: Code(s): E87.8 - Other disorders of electrolyte and fluid balance, not elsewhere classified Status: Acute Assessment and Plan: Upon presentation, patient noted to have hypokalemia, hyponatremia, and hypomagnesiumia. Started on IV fluids and potassium and magnesium was supplemented. Magnesium is within normal limits today. telemetry reviewed and showed sinus tachycardia with no arrhythmias. Potassium low at 2.9 this morning. Phosphorus improved at 2.1. Suspect this is all related to patients malnutrition and possible refeeding syndrome. Sodium improved at 129. 40 mEq KCl IV given. Will repeat potassium this afternoon. Continue neutraphos PO packets QID. Repeat phosphorus this afternoon. Sodium improving but still low. This may also be explained by chronic alcoholism. Continue with IV fluid hydration at this time and repeat sodium this afternoon. FENa is 0.3% suggesting pre-renal etiology. Monitor on telemetry (3) Alcohol abuse: Code(s): F10.10 - Alcohol abuse, uncomplicated Status: Chronic Assessment and Plan: Patient reports he has not drank alcohol in approximately 1 month, however his sister noted that he is still drinking every day and his last drink was 04/27/20. His CIWA scores were very elevated yesterday up to 26 but today has been <3. Continue CIWA protocol. Taper scheduled librium to 50 mg q8h and continue taper daily. PRN ativan for CIWA >8 continue thiamine and folic acid alcohol cessation will be encouraged (4) Elevated LFTs: Code(s): R79.89 - Other specified abnormal findings of blood chemistry Status: Acute Assessment and Plan: AST and ALP elevated upon presentation with slight improvement the following the day. Thought to be maybe be secondary to alcohol abuse. Increased significantly today, therefore RUQ US was obtained which showed dilated gallbladder with sludge, gallbladder wall thickening, pericholecystic fluid, and mild biliary dilation, all consistent with cholecystitis. Patient is not having any abdominal pain and this would be an unusual presentation. Total bili has normalized today. He may have passed a stone. No evidence of jaundice at this time. Appreciate general surgery and GI consult. Plan for MRCP today. Patient currently NPO. Monitor LFTs closely. (5) Malnutrition: Qualifiers: Malnutrition type: protein-calorie malnutrition Protein-calorie malnutrition severity: moderate Qualified Code(s): E44.0 - Moderate protein-calorie malnutrition Code(s): E46 - Unspecified protein-calorie malnutrition Status: Chronic Ass
--- NOTE | 2020-05-01 10:37 | PCOTNOTE ---
patient brought to IMU last eveneing for additional observation...he was aggressive and non-compliant...spoke with nursing and clinician today, and patient is doing much better, he will not require re-eval due to no medical change, but may continue his treatment with STAPLES
[2020-05-01 11:21] LABS: Lipase 452 U/L (23-300)
--- NOTE | 2020-05-01 11:52 | WPDGICN ---
Assessment and Plan Assessment and plan (1) Alcoholic hepatitis: Code(s): K70.10 - Alcoholic hepatitis without ascites Status: Acute Assessment and Plan: history consistent of alcoholic hepatitis and underlying liver disease, unknown if may have cirrhosis findings in ultrasound can also be seen in liver disease without cholecystitis, no abdominal pain monitor liver enzymes (2) Elevated LFTs: Code(s): R79.89 - Other specified abnormal findings of blood chemistry Status: Acute Assessment and Plan: probably from alcoholic hepatitis medical treatment, thiamine, mvi hepatitis panel negative MRCP ordered but probably from alcoholic hepatitis (3) Acute encephalopathy: Code(s): G93.40 - Encephalopathy, unspecified Status: Acute Assessment and Plan: get amonia level, also from etoh abuse and monitor for DT's neurology on board, ? Wernicke encephalopathy (4) Malnutrition: Qualifiers: Malnutrition type: protein-calorie malnutrition Protein-calorie malnutrition severity: moderate Qualified Code(s): E44.0 - Moderate protein-calorie malnutrition Code(s): E46 - Unspecified protein-calorie malnutrition Status: Chronic Assessment and Plan: at risk of refeeding syndrome, continue to monitor electrolytes and replace (5) Thrombocytopenia: Code(s): D69.6 - Thrombocytopenia, unspecified Status: Chronic Assessment and Plan: from liver disease and alcohol abuse (6) Generalized weakness: Code(s): R53.1 - Weakness Status: Acute (7) Acute blood loss anemia: Code(s): D62 - Acute posthemorrhagic anemia Status: Acute Assessment and Plan: probably will benefit from scopes, ? proctitic by CT scan occult blood in stools (8) Hypokalemia: Code(s): E87.6 - Hypokalemia Status: Acute Assessment and Plan: replacing (9) COPD (chronic obstructive pulmonary disease): Qualifiers: COPD type: unspecified COPD Qualified Code(s): J44.9 - Chronic obstructive pulmonary disease, unspecified Code(s): J44.9 - Chronic obstructive pulmonary disease, unspecified Status: Chronic (10) Occult blood in stools: Code(s): R19.5 - Other fecal abnormalities Status: Acute GI Consult Note Consult date/time: 05/01/20 11:52 Reason for consult: alcoholic hepatitis, confusion HPI: Chito Gill is a 49 year old male with history of alcohol abuse who stopped drinking about 3 weeks ago here with generalized weakness and history of falls and confusion. I can not get a good history from him and got most of history after reviewed notes. ER evaluation noted anemia with hb 9-10, occult blood in stools, transaminases 80-160, tb 1.5, platelets 140. CT scan showed presacral edema and apparent distal rectal wall thickening. Proctitis?, Hepatic steatosis. Ultrasound possible cholecystitis but he denies any abdominal pain. He is also confused, he thinks that he is at a rehabilitation center, was able to tell me month and year but he thinks that he is 43 year old, has tremors and can not elaborate much more. Hepatitis panel negative. Review of Systems Constitutional: Constitutional: Reports fatigue and Reports weakness Eyes: Eyes: Reports no additional eye complaints ENT: Reports Normal hearing present Cardiovascular: Cardiovascular: Denies chest pain Respiratory: Respiratory: Denies cough Gastrointestinal: Gastrointestinal: Denies abdominal pain Genitourinary: Genitourinary: Denies dysuria Integumentary/Breasts: Skin/Breast: Denies skin pain Neurologic: Reports confusion Psychiatric: Psychiatric: Reports anxiety PMFSH Past Medical History Medical History (Updated 05/01/20 @ 12:04 by Lul Grubbs MD) Acute blood loss anemia Alcoholic hepatitis Alcoholism COPD (chronic obstructive pulmonary disease) Occult blood in stools Tobacco dependence Social History
[2020-05-01 11:58] LABS: Ammonia < 9 umol/L (9-30)
--- NOTE | 2020-05-01 12:23 | PCOTNOTE ---
Attempted OT treatment this AM. Patient refused any/all activity stating he didn't want to do anything until he was able to eat. RN aware. Will continue to attempt.
--- NOTE | 2020-05-01 12:28 | PM.CNGS ---
Assessment and Plan Assessment and plan (1) Elevated LFTs: Code(s): R79.89 - Other specified abnormal findings of blood chemistry Status: Acute Assessment and Plan: likely ETOH induced, will check MRCP to r/o biliary obstruction (2) Alcohol abuse: Code(s): F10.10 - Alcohol abuse, uncomplicated Status: Chronic Assessment and Plan: withdrawl protocols (3) Cholelithiasis: Code(s): K80.20 - Calculus of gallbladder without cholecystitis without obstruction Status: Acute Assessment and Plan: exam benign, will f/u MRCP, cont diet for now History of Present Illness Consult details Consult date: 05/01/20 Reason for consult: gallstones Requesting physician: Lilli Raines PA-C Narrative: Pt is a 49 y/o M c multiple med issues including known ETOH abuse presenting c MS changes, failure to thrive. Pt very poor historian and confused so history mostly obtained via chart, nursing. Pt c very poor appetite although does not c/o abd pain, discomfort. Pt found to have elevated LFTs and workup, including U/S, significant for cholelithiasis. Review of Systems Review of Systems: ROS unobtainable: Yes unobtainable due to mental status PMFSH Past Medical History Medical History Acute blood loss anemia Alcoholic hepatitis Alcoholism COPD (chronic obstructive pulmonary disease) Occult blood in stools Tobacco dependence Social History Social History Smoking status: Current every day smoker Tobacco type: cigarettes Alcohol intake: current Substance use: unknown Living arrangements: alone Occupation/Education: unemployed Gender identity (if verbalized by the patient): Male Spiritual care concerns: No Comments no surgical history via chart, no FH of hepatobiliary dz Meds Home Medications and Allergies Home Medications Medication Instructions Recorded Confirmed Type folic acid 1 mg PO DAILY 04/28/20 04/28/20 History gabapentin 300 mg PO HS 04/28/20 04/28/20 History levetiracetam 500 mg PO BID 04/28/20 04/28/20 History thiamine HCl (vitamin B1) [Vitamin 100 mg PO BID 04/28/20 04/28/20 History B-1] tiotropium bromide [Spiriva 2 puff INHALATION DAILY 04/28/20 04/28/20 History Respimat] Allergies Allergy/AdvReac Type Severity Reaction Status Date / Time No Known Allergies Allergy Verified 04/28/20 20:15 Vital Signs Vital Signs - 24 hr 04/30/20 14:00 04/30/20 16:00 04/30/20 18:16 Temperature 36.7 C 36.8 C Pulse Rate 110 H 100 Respiratory Rate 18 18 Blood Pressure 98/58 L 98/58 L 90/65 L Pulse Oximetry 100 100 04/30/20 18:30 04/30/20 20:00 04/30/20 22:00 Temperature 36.8 C Pulse Rate 96 89 91 Respiratory Rate 18 Blood Pressure 90/69 L Pulse Oximetry 100 05/01/20 00:00 05/01/20 02:00 05/01/20 04:00 Temperature 36.3 C L Pulse Rate 85 88 87 Respiratory Rate 18 16 Blood Pressure 92/65 L 90/70 L Pulse Oximetry 98 100 05/01/20 06:00 05/01/20 08:46 Temperature 36.3 C L Pulse Rate 82 86 Respiratory Rate 20 Blood Pressure 96/65 L Pulse Oximetry 95 Exam Const: General: no acute distress, lethargic and tired appearing Nutritional Appearance: average body habitus Orientation/consciousness: oriented to time and confusion Limitations: altered mental status HENMT: Head: normal to inspection, normocephalic and atraumatic Ears: hearing grossly normal bilaterally General nose exam: Normal external nose present Face and sinus: normal facial exam Mouth: Yes Normal oral and palatal mucosa present and Yes moist mucous membranes Eyes: General: appearance normal, both eyes and all related structures Pupils: Equal, round and reactive pupils present EOM: EOMs intact bilaterally Neck: Neck: normal visual inspection, full ROM and no lymphadenopathy Chest: Chest palpation & inspection: normal inspe
--- NOTE | 2020-05-01 13:08 | PCOTNOTE ---
Attempted to see patient for OT treatment. Patient being brought down for MRI. Will continue to attempt.
[2020-05-01 15:13] LABS: Phosphorus 2.8 mg/dL (2.5-4.5); Potassium 3.4 mmol/L (3.4-5.0)
--- NOTE | 2020-05-01 15:17 | PC.NURSE ---
This patient, Chito Gill, was transferred to [facility] on 05/01/20 at 1517. Personal belongings sent with patient. Report given to Roman RN. Appropriate documentation sent with patient.
--- NOTE | 2020-05-01 15:25 | PC.NURSE ---
This patient, Chito Gill, was received from [facility] on 05/01/20 at 1525. Patient/family oriented to unit policies and routines. Received report from IVANIA Celeste.
[2020-05-02] MEDS: SODIUM CHLORIDE 0.9% IV 1,000 ML 100 ML IV CONT ×2 (04:24→15:12)
[2020-05-02 05:00] VITALS: BP 100/67; PULSE 92; RESP 18; TEMP 36.1; O2SAT 98
[2020-05-02] MEDS: chlordiazePOXIDE (*CRX) 25 MG CAPSULE 50 MG PO (05:50)
[2020-05-02 05:58] LABS: Hemoglobin 8.9 g/dL (14.0-18.0); Mean Corpuscular HGB Conc 34.2 g/dl (32-36); Mean Corpuscular Hemoglobin 35.3 pg (26-34); Mean Corpuscular Volume 103.2 fl (80-100); Mean Platelet Volume 9.6 fl (7.4-10.4); Platelet Count Result 217 k/mm3 (150-375); Red Blood Count 2.52 M/mm3 (4.6-6.20); Red Cell Distribution Width 12.9 % (11.5-14.5); White Blood Count 4.2 K/mm3 (4.5-10.0)
[2020-05-02 06:16] LABS: Alanine Aminotransferase 66 U/L (4-50); Albumin Level 2.7 g/dL (3.5-5.1); Alkaline Phosphatase 178 U/L (38-126); Anion Gap 4 mmol/L (8-16); Aspartate Amino Transferase 74 U/L (17-59); Bilirubin,Total 1.3 mg/dL (0.2-1.3); Blood Urea Nitrogen 4 mg/dL (9-20); Calcium 8.7 mg/dL (8.4-10.2); Carbon Dioxide 29 mmol/L (22-30); Chloride 99 mmol/L (98-107); Estimated CRCL calculation 229 ml/min; Estimated Glomerular Filt Rate > 60; Glucose 82 mg/dL (75-110); Magnesium 1.5 mg/dL (1.6-2.3); Phosphorus 3.3 mg/dL (2.5-4.5); Potassium 3.4 mmol/L (3.4-5.0); Sodium 132 mmol/L (137-145)
[2020-05-02 07:47] LABS: Lipase 354 U/L (23-300)
[2020-05-02 07:56] LABS: Free T4 Free Thyroxine Reflex 0.72 ng/dL (0.78-2.19)
[2020-05-02] MEDS: MAGNESIUM SULF 1 GM/D5W 100 ML 1 GM/100 ML BAG IVPB (09:01)
[2020-05-02] MEDS: THIAMINE HCL 100 MG TABLET PO ×2 (09:01→17:39)
[2020-05-02] MEDS: FAMOTIDINE 20 MG/2 ML VIAL IV PUSH ×2 (09:01→20:36)
[2020-05-02] MEDS: levETIRAcetam 500 MG TABLET PO ×2 (09:01→17:39)
[2020-05-02] MEDS: MULTIVITAMINS THERAPEUTIC TAB (*BKC) 1 TABLET PO (09:01)
[2020-05-02] MEDS: FOLIC ACID 1 MG TABLET PO (09:01)
--- NOTE | 2020-05-02 11:16 | PM.PNGS ---
Progress Note: A&P Assessment and Plan (1) Cholelithiasis: Code(s): K80.20 - Calculus of gallbladder without cholecystitis without obstruction Status: Acute Assessment and Plan: exam cont to be benign, daniel diet, will f/u as outpt as pt cont to be completely asymptomatic (2) Alcoholic hepatitis: Code(s): K70.10 - Alcoholic hepatitis without ascites Status: Acute Assessment and Plan: MRCP shows normal CBD, LFTs trending toward normal Subjective Subjective Date/Time Seen: 05/02/20 11:16 Pt seen and examined. Somewhat less confused this am, daniel reg diet. Pt denies any abd pain. Pt reports he does not want any surgical intervention at this point. Review of Systems Review of Systems: ROS unobtainable: Yes unobtainable due to mental status Exam Const: General: comfortable, no acute distress and confusion Nutritional Appearance: average body habitus Orientation/consciousness: oriented to person, oriented to place and oriented to time Limitations: altered mental status Resp: Effort & Inspection: normal respiratory effort Auscultation: clear to auscultation bilaterally Cardio: Rate: regular rate Rhythm: regular rhythm GI: Inspection: normal to inspection, no edema and non-distended GI Palp: Yes Soft to palpation, No Firmness to palpation present (GI), No Tenderness to palpation present (GI) and No Guarding due to palpation present (GI) Objective Data Vital Signs Vital Signs: Vital Signs - 24 hr 05/01/20 21:12 05/02/20 05:00 Temperature 36.1 C L 36.1 C L Pulse Rate 100 92 Respiratory Rate 20 18 Blood Pressure 92/63 L 100/67 Pulse Oximetry 98 98 Intake/Output Intake/Output: Intake & Output 04/29/20 04/30/20 05/01/20 05/02/20 23:59 23:59 23:59 23:59 Intake Total 3803.2 2403 3177 1100 Output Total 1150 620 300 800 Balance 2653.2 1783 2877 300 Meds/Results Medications: Active Medications Generic Name Dose Route Start Last Admin Trade Name Freq PRN Reason Stop Dose Admin Chlordiazepoxide HCl 25 mg 05/02/20 12:00 Chlordiazepoxide (*Crx) 25 Mg Capsule PO Q6HR [facility] Dextrose 12.5 gm 04/28/20 18:43 Dextrose 50% 25 Gm/50 Ml Syringe IV PUSH PRN PRN Hypoglycemia Protocol Famotidine 20 mg 04/28/20 21:00 05/02/20 09:01 Famotidine 20 Mg/2 Ml Vial IV PUSH 20 mg Q12HR ANGY Administration Folic Acid 1 mg 04/29/20 09:00 05/02/20 09:01 Folic Acid 1 Mg Tablet PO 1 mg DAILY ANGY Administration Glucagon 1 mg 04/28/20 18:43 Glucagon For Inj 1 Mg Vial IM PRN PRN Hypoglycemia Protocol Glucose 15 gm 04/28/20 18:43 Glucose Oral Gel 15 Gm Of Glucse In 37.5 Gm Tube PO PRN PRN Hypoglycemia Protocol Dextrose 1,000 mls @ 100 mls/hr 04/28/20 18:43 Dextrose 5% 1,000 Ml IVPB PRN PRN Hypoglycemia Protocol Sodium Chloride 1,000 mls @ 100 mls/hr 04/29/20 13:40 05/02/20 04:24 Normal Saline Iv IV CONT 100 mls/hr .Q10H ANGY Administration Levetiracetam 500 mg 04/29/20 09:00 05/02/20 09:01 Levetiracetam 500 Mg Tablet PO 500 mg BID ANGY Administration Lorazepam 0.5 mg 04/29/20 08:46 04/30/20 12:21 Lorazepam Inj (*Crx) 2 Mg/Ml Vial IV PUSH 0.5 mg Q6H PRN Administration CIWA >8 Multivitamins Therapeutic 1 tablet 05/01/20 09:00 05/02/20 09:01 Multivitamins Therapeutic Tab (*Bkc) PO 1 tablet QAM ANGY Administration Ondansetron HCl 4 mg 04/28/20 18:43 Ondansetron Inj 4 Mg/2 Ml Vial IV PUSH Q4H PRN Nausea Thiamine HCl 100 mg 04/29/20 09:00 05/02/20 09:01 Thiamine Hcl 100 Mg Tablet PO 100 mg BID ANGY Administration Tiotropium [place] 1 cap 04/30/20 09:00 05/02/20 09:02 Tiotropium [place] 18 Mcg Cap Diskus INHALATION 1 cap QAM ANGY Administration Radiology Results: ITS Impressions Chest X-Ray 04/28/20 16:11 IMPRESSION: No active cardiopulmonary disease Chest/Abdomen/Pelvis CTA 04/28/20
[2020-05-02] MEDS: chlordiazePOXIDE (*CRX) 25 MG CAPSULE PO ×2 (12:42→17:38)
--- NOTE | 2020-05-02 13:30 | WPDGIPROGNO ---
Progress Note: A&P Assessment and Plan (1) Alcoholic hepatitis: Code(s): K70.10 - Alcoholic hepatitis without ascites Status: Acute Assessment and Plan: continue with medical support, he is eating no abdominal pain, bili is normal now MRCP reviewed with cholelithiasis, normal biliary duct, possible cholecystitis however medical exam is benign and no fever or leukocytosis (similar imaging in alcoholic hepatitis)- surgery on board and tolerating diet (2) Acute encephalopathy: Code(s): G93.40 - Encephalopathy, unspecified Status: Acute Assessment and Plan: from alcohol abuse, dt prevention (3) Malnutrition: Qualifiers: Malnutrition type: protein-calorie malnutrition Protein-calorie malnutrition severity: moderate Qualified Code(s): E44.0 - Moderate protein-calorie malnutrition Code(s): E46 - Unspecified protein-calorie malnutrition Status: Chronic Assessment and Plan: failure to thrive and risk of refeeding syndrom replete lytes (4) Cholelithiasis: Code(s): K80.20 - Calculus of gallbladder without cholecystitis without obstruction Status: Acute (5) Normocytic anemia: Code(s): D64.9 - Anemia, unspecified Status: Chronic Assessment and Plan: at some point I can do scopes but most likely as outpatient once he is stronger (6) Alcohol abuse: Code(s): F10.10 - Alcohol abuse, uncomplicated Status: Chronic Assessment and Plan: thiamine, mvi, diet (7) Generalized weakness: Code(s): R53.1 - Weakness Status: Acute Subjective Date/time seen: 05/02/20 13:30 Interval history: he tolerated diet, no nausea or vomiting, afebrile, still somehow confused and weak Review of Systems Review of Systems: All systems reviewed & are unremarkable except as noted in HPI and below Exam Const: General: no acute distress, alert, awake and ill appearing chronically Nutritional Appearance: thin and underweight Orientation/consciousness: oriented to person, oriented to place and confusion HENMT: Head: normal to inspection General nose exam: Normal external nose present and Normal nares present Face and sinus: normal facial exam Eyes: Pupils: Equal, round and reactive pupils present Neck: Neck: supple and no JVD Resp: Effort & Inspection: normal respiratory effort Auscultation: clear to auscultation bilaterally Cardio: Rate: regular rate Rhythm: regular rhythm Heart sounds: no murmurs GI: Inspection: normal to inspection and non-distended GI Palp: Yes Soft to palpation, No Tenderness to palpation present (GI) and No Guarding due to palpation present (GI) Auscultation: normal bowel sounds Other: hill sign negative Skin: General skin exam: normal color Neuro: General: oriented to person and oriented to place Speech: normal speech Motor exam (neuro): 5/5 motor strength present throughout Other: tremors Extrem: General: normal to inspection and no edema Psych: Affect: Anxious affect present and Blunted affect present Objective Data Vital Signs Vital Signs: Vital Signs - 24 hr 05/01/20 21:12 05/02/20 05:00 Temperature 97 F L 97 F L Pulse Rate 100 92 Respiratory Rate 20 18 Blood Pressure 92/63 L 100/67 Pulse Oximetry 98 98 Intake/Output Intake/Output: Intake & Output 04/29/20 04/30/20 05/01/20 05/02/20 23:59 23:59 23:59 23:59 Intake Total 3803.2 2403 3177 1100 Output Total 1150 620 300 800 Balance 2653.2 1783 2877 300 Meds/Results Medications: Active Medications Generic Name Dose Route Start Last Admin Trade Name Freq PRN Reason Stop Dose Admin Chlordiazepoxide HCl 25 mg 05/02/20 12:00 05/02/20 12:42 Chlordiazepoxide (*Crx) 25 Mg Capsule PO 25 mg Q6HR ANGY Administration Dextrose 12.5 gm 04/28/20 18:43 Dextrose 50% 25 Gm/50 Ml Syringe IV PUSH PRN PRN Hypoglycemia Protocol Famotidine 20 mg 04/28/20 21:00 05/02/20 09:01 Famotidine 20
--- NOTE | 2020-05-02 13:59 | PM.IMPN ---
Progress Note: A&P Assessment and Plan (1) Generalized weakness: Code(s): R53.1 - Weakness Status: Acute Assessment and Plan: Ongoing for several months. On 09/23/2019 he had seizure at work and since that time has had limited mobility. Unclear if he had an injury during this event that caused his progressive weakness. His sister reports that since that time, he had been out of work and ambulating around the home using a cane. However, since about 1 month ago, he has been essentially immobile and his sister or his friend carry him around the home. This rapid progression of weakness is unusual. He does not appear to have any neurologic deficits but a demyelinating condition or other neurologic injury may be considered to explain progressive weakness. Additionally, suspect this is worsened by deconditioning, dehydration, and overall malnutrition. TSH is abnormal. Continue treatment of electrolyte imbalances and continue with rehydration. PT/OT is evaluating patient. Care coordination following and notes that patient will likely require SNF placement Appreciate neurology consult. Patient may benefit from an MRI, LP, or nerve conduction study. B12 and folate wnl. HIV negative. Pending tests: RPR, Lyme disease panel, SHREYA, AChR antibodies. (2) Electrolyte abnormality: Code(s): E87.8 - Other disorders of electrolyte and fluid balance, not elsewhere classified Status: Acute Assessment and Plan: Upon presentation, patient noted to have hypokalemia, hyponatremia, and hypomagnesiumia. Started on IV fluids and potassium and magnesium was supplemented. Telemetry reviewed and showed sinus tachycardia with no arrhythmias. Potassium 3.4 today. Phosphorus now wnl. Suspect this is all related to patients malnutrition and possible refeeding syndrome. Sodium improved at 132. FENa is 0.3% suggesting pre-renal etiology. Mag low at 1.5 Will administer 10 mEq KCl PO 1 g IV magnesium. Neutraphos PO packets discontinued. Monitor phosphorus closely Sodium improving. This may also be explained by chronic alcoholism. Continue with IV fluid hydration at this time. Monitor on telemetry (3) Alcohol abuse: Code(s): F10.10 - Alcohol abuse, uncomplicated Status: Chronic Assessment and Plan: Patient reports he has not drank alcohol in approximately 1 month, however his sister noted that he is still drinking every day and his last drink was 04/27/20. His CIWA scores were very elevated on 05/01 up to 26 and he was moved to IMU for further monitoring. Scores have been <3 for over 24 hours and he has been transitioned back to medical floor. Continue CIWA protocol. Taper scheduled librium to 25 mg q6h and continue taper daily. PRN ativan for CIWA >8 continue thiamine and folic acid alcohol cessation will be encouraged. He will benefit from a formal rehab program. Will ask CC to provide resources. (4) Alcoholic hepatitis: Code(s): K70.10 - Alcoholic hepatitis without ascites Status: Acute Assessment and Plan: AST and ALP elevated upon presentation, thought to be be secondary to alcohol abuse. RUQ US showed dilated gallbladder with sludge, gallbladder wall thickening, pericholecystic fluid, and mild biliary dilation, all consistent with cholecystitis, however Dr. Duenas notes that similar findings are seen in alcoholic hepatitis. Diffuse hepatic steatosis noted on MRCP. Viral hepatitis panel is negative. Total bili wnl today. LFTs trending down. Appreciate GI consult. Monitor LFTs closely. alcohol cessation is imperative (5) Cholelithiasis: Code(s): K80.20 - Calculus of gallbladder without cholecystitis without obstruction Status: Acute Assessment and Plan: RUQ US showed gallbladder sludge and findings consistent with acute cholecystitis as noted above. He had MRCP on 05/01/2019 which also showed finding consistent with acute cholecystitis. How
[2020-05-02 14:00] VITALS: BP 97/67; PULSE 99; RESP 14; TEMP 36.3; O2SAT 99
--- NOTE | 2020-05-02 14:21 | PCPTNOTE ---
Attempted therapy session. Pt refused therapy stating Yeah, I'm not getting up today. Maybe tomorrow. explained the importance of getting up and moving to improve functional mobility, independence, and strength. Pt stated I'm sorry, but I just don't feel up to doing anything today. Will continue to attempt.
[2020-05-02] MEDS: POTASSIUM CHLORIDE 10 MEQ TABLET PO (15:12)
[2020-05-02 17:42] LABS: Osmolality, Urine 309 mOsm/kg (50-1200)
[2020-05-02 21:52] VITALS: BP 93/62; PULSE 98; RESP 16; TEMP 36.6; O2SAT 99
[2020-05-03] MEDS: chlordiazePOXIDE (*CRX) 25 MG CAPSULE PO ×5 (00:04→23:54)
[2020-05-03] MEDS: SODIUM CHLORIDE 0.9% IV 1,000 ML 100 ML IV CONT (00:04)
[2020-05-03 05:49] LABS: Hematocrit 26.8 % (42.0-52.0); Hemoglobin 9.1 g/dL (14.0-18.0); Mean Corpuscular Hemoglobin 34.7 pg (26-34); Mean Corpuscular Volume 102.3 fl (80-100); Mean Platelet Volume 9.3 fl (7.4-10.4); Platelet Count Result 293 k/mm3 (150-375); Red Blood Count 2.62 M/mm3 (4.6-6.20); Red Cell Distribution Width 12.6 % (11.5-14.5); White Blood Count 6.1 K/mm3 (4.5-10.0)
[2020-05-03 06:00] VITALS: BP 125/82; PULSE 81; RESP 16; TEMP 36.1; O2SAT 100
[2020-05-03] MEDS: LEVOTHYROXINE SODIUM 25 MCG TABLET PO (06:00)
[2020-05-03 06:15] LABS: Alanine Aminotransferase 54 U/L (4-50); Albumin Level 2.8 g/dL (3.5-5.1); Alkaline Phosphatase 164 U/L (38-126); Anion Gap 3 mmol/L (8-16); Aspartate Amino Transferase 64 U/L (17-59); Bilirubin,Total 1.4 mg/dL (0.2-1.3); Blood Urea Nitrogen 4 mg/dL (9-20); Calcium 8.1 mg/dL (8.4-10.2); Carbon Dioxide 26 mmol/L (22-30); Chloride 99 mmol/L (98-107); Estimated CRCL calculation 229 ml/min; Estimated Glomerular Filt Rate > 60; Glucose 95 mg/dL (75-110); Magnesium 1.6 mg/dL (1.6-2.3); Phosphorus 3.7 mg/dL (2.5-4.5); Sodium 128 mmol/L (137-145)
[2020-05-03 07:10] LABS: Rapid Plasma Reagin Non-Reactive (NonReactive)
[2020-05-03] MEDS: THIAMINE HCL 100 MG TABLET PO ×2 (08:40→16:44)
[2020-05-03] MEDS: FAMOTIDINE 20 MG/2 ML VIAL IV PUSH ×2 (08:40→20:26)
[2020-05-03] MEDS: FOLIC ACID 1 MG TABLET PO (08:40)
[2020-05-03] MEDS: MULTIVITAMINS THERAPEUTIC TAB (*BKC) 1 TABLET PO (08:41)
[2020-05-03] MEDS: levETIRAcetam 500 MG TABLET PO ×2 (08:41→16:44)
--- NOTE | 2020-05-03 09:26 | PCPTNOTE ---
Attempted to see patient for PT, however patient refused, reported he did not feel up for it, maybe later. Therapy will continue to attempt.
[2020-05-03 14:00] VITALS: BP 96/63; PULSE 104; RESP 12; TEMP 36.9; O2SAT 93
[2020-05-03 15:19] LABS: Sodium 125 mmol/L (137-145)
--- NOTE | 2020-05-03 15:35 | PM.IMPN ---
Progress Note: A&P Assessment and Plan (1) Generalized weakness: Code(s): R53.1 - Weakness Status: Acute Assessment and Plan: Ongoing for several months. On 09/23/2019 he had seizure at work and since that time has had limited mobility. Unclear if he had an injury during this event that caused his progressive weakness. His sister reports that since that time, he had been out of work and ambulating around the home using a cane. However, since about 1 month ago, he has been essentially immobile and his sister or his friend carry him around the home. 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 Additionally, suspect this is worsened by deconditioning, dehydration, and overall malnutrition. Neurology following and input is appreciated. Continue treatment of electrolyte imbalances and continue with rehydration. PT/OT is evaluating patient. Care coordination following and notes that patient will likely require SNF placement B12 and folate wnl. HIV negative. RPR non-reactive. Additional pending tests: Lyme disease panel, SHREYA, AChR antibodies. (2) Acute encephalopathy: Code(s): G93.40 - Encephalopathy, unspecified Status: Acute Assessment and Plan: Patient noted to be acutely confused upon arrival, was somnolent, and slow to answer questions. This is probably due to multiple electrolyte disorders as well as chronic alcohol abuse. Head CT was negative for acute findings. urine drug screen negative. Urinalysis unremarkable. Possibly related to Wernicke's encephalopathy although no nystagmus is noted. He remains confused and somnolent. A&Ox3 today. Appreciate neurology input Continue IV hydration and correction of electrolyte imbalances. Monitor mental status closely Continue thiamine and folic acid (3) Electrolyte abnormality: Code(s): E87.8 - Other disorders of electrolyte and fluid balance, not elsewhere classified Status: Acute Assessment and Plan: Upon presentation, patient noted to have hypokalemia, hyponatremia, hypomagnesiumia, and hypophosphatemia. Started on IV fluids and electrolytes have been supplemented. Telemetry reviewed and showed sinus rhythm with no arrhythmias. Suspect this is all related to patients malnutrition and possible refeeding syndrome. Sodium declined to 128 today. Potassium 3.0. Mag 1.6. Phosphorus stable 3.7. 40 mEq KCl IV administered. Neutraphos PO packets discontinued. Monitor phosphorus closely Sodium declined today. FeNA suggests pre-renal etiology. This may also be explained by chronic alcoholism. Continue with IV fluid hydration at this time. Monitor sodium q6h Monitor CMP, mag, and phosphorus daily (4) Alcohol abuse: Code(s): F10.10 - Alcohol abuse, uncomplicated Status: Chronic Assessment and Plan: Patient reports he has not drank alcohol in approximately 1 month, however his sister noted that he is still drinking daily and his last drink was 04/27/20. Reportedly he drinks 1/2 pint vodka daily as well as beer. His CIWA scores were very elevated on 05/01 up to and he was moved to IMU for further monitoring. Scores have been <1 for over 24 hours and he has been transitioned back to medical floor. Continue CIWA protocol. Reduce scheduled librium to 25 mg q8h and continue taper daily. PRN ativan for CIWA >8 continue thiamine and folic acid alcohol cessation will be encouraged. He will benefit from a formal rehab program. Will ask CC to provide resources. (5) Alcoholic hepatitis: Code(s): K70.10 - Alcoholic hepatitis without ascites Status: Acute Assessment and Plan: AST and ALP elevated upon presentation, thought to be be secondary to alcohol abuse. RUQ US showed dilated gallbladder with sludge, gallbladder wall thickening, pericholecystic fluid, and mild biliary dilation, all consistent with cholecystitis, however Dr. Duenas notes that
[2020-05-03] MEDS: SODIUM CHLORIDE 0.9% IV 1,000 ML 85 ML IV CONT (16:44)
--- NOTE | 2020-05-03 17:31 | WPDGIPROGNO ---
Progress Note: A&P Assessment and Plan (1) Alcoholic hepatitis: Code(s): K70.10 - Alcoholic hepatitis without ascites Status: Acute Assessment and Plan: continue with medical support continue with nutrition support and avoid any more alcohol (already has neuropathy, malnutrition and encephalopathy) no abdominal pain (2) Acute encephalopathy: Code(s): G93.40 - Encephalopathy, unspecified Status: Acute Assessment and Plan: from alcohol abuse, dt prevention (3) Malnutrition: Qualifiers: Malnutrition type: protein-calorie malnutrition Protein-calorie malnutrition severity: moderate Qualified Code(s): E44.0 - Moderate protein-calorie malnutrition Code(s): E46 - Unspecified protein-calorie malnutrition Status: Chronic Assessment and Plan: failure to thrive and risk of refeeding syndrome replete lytes (4) Cholelithiasis: Code(s): K80.20 - Calculus of gallbladder without cholecystitis without obstruction Status: Acute Assessment and Plan: asymptomatic, afebrile (5) Normocytic anemia: Code(s): D64.9 - Anemia, unspecified Status: Chronic Assessment and Plan: at some point I can do scopes but most likely as outpatient once he is stronger (6) Alcohol abuse: Code(s): F10.10 - Alcohol abuse, uncomplicated Status: Chronic Assessment and Plan: thiamine, mvi, diet (7) Generalized weakness: Code(s): R53.1 - Weakness Status: Acute Subjective Date/time seen: 05/03/20 17:31 Interval history: no major changes, still weak, poor mobility Review of Systems Review of Systems: All systems reviewed & are unremarkable except as noted in HPI and below Exam Const: General: no acute distress, alert, awake and ill appearing chronically Nutritional Appearance: thin and underweight Orientation/consciousness: oriented to person, oriented to place and confusion HENMT: Head: normal to inspection General nose exam: Normal external nose present and Normal nares present Face and sinus: normal facial exam Eyes: Pupils: Equal, round and reactive pupils present Neck: Neck: supple and no JVD Resp: Effort & Inspection: normal respiratory effort Auscultation: clear to auscultation bilaterally Cardio: Rate: regular rate Rhythm: regular rhythm Heart sounds: no murmurs GI: Inspection: normal to inspection and non-distended GI Palp: Yes Soft to palpation, No Tenderness to palpation present (GI) and No Guarding due to palpation present (GI) Auscultation: normal bowel sounds Other: hill sign negative Skin: General skin exam: normal color Neuro: General: oriented to person and oriented to place Speech: normal speech Motor exam (neuro): 5/5 motor strength present throughout Other: tremors, confused Extrem: General: normal to inspection and no edema Psych: Affect: Anxious affect present and Blunted affect present Objective Data Vital Signs Vital Signs: Vital Signs - 24 hr 05/02/20 21:52 05/03/20 06:00 05/03/20 14:00 Temperature 97.9 F 97.0 F L 98.5 F Pulse Rate 98 81 104 H Respiratory Rate 16 16 12 Blood Pressure 93/62 L 125/82 96/63 L Pulse Oximetry 99 100 93 Intake/Output Intake/Output: Intake & Output 04/30/20 05/01/20 05/02/20 05/03/20 23:59 23:59 23:59 23:59 Intake Total 2403 3177 2944 2206 Output Total 620 300 800 Balance 1783 2877 2144 2206 Meds/Results Medications: Active Medications Generic Name Dose Route Start Last Admin Trade Name Freq PRN Reason Stop Dose Admin Chlordiazepoxide HCl 25 mg 05/03/20 08:00 05/03/20 16:44 Chlordiazepoxide (*Crx) 25 Mg Capsule PO 25 mg Q8H ANGY Administration Dextrose 12.5 gm 04/28/20 18:43 Dextrose 50% 25 Gm/50 Ml Syringe IV PUSH PRN PRN Hypoglycemia Protocol Famotidine 20 mg 04/28/20 21:00 05/03/20 08:40 Famotidine 20 Mg/2 Ml Vial IV PUSH 20 mg Q12HR ANGY Administration Folic Acid
[2020-05-03 21:45] LABS: Sodium Urine Random 76 meq/L
[2020-05-03 22:00] VITALS: BP 106/62; PULSE 110; RESP 16; TEMP 36.2; O2SAT 97
[2020-05-04] MEDS: SODIUM CHLORIDE 0.9% IV 1,000 ML 85 ML IV CONT (03:47)
[2020-05-04] MEDS: LEVOTHYROXINE SODIUM 25 MCG TABLET PO (05:50)
[2020-05-04 06:00] VITALS: BP 96/60; PULSE 112; RESP 20; TEMP 35.8; O2SAT 98
[2020-05-04 06:35] LABS: Hematocrit 26.2 % (42.0-52.0); Mean Corpuscular HGB Conc 34.4 g/dl (32-36); Mean Corpuscular Hemoglobin 34.9 pg (26-34); Mean Corpuscular Volume 101.6 fl (80-100); Mean Platelet Volume 9.4 fl (7.4-10.4); Platelet Count Result 373 k/mm3 (150-375); Red Blood Count 2.58 M/mm3 (4.6-6.20); Red Cell Distribution Width 12.7 % (11.5-14.5); White Blood Count 11.5 K/mm3 (4.5-10.0)
[2020-05-04 06:52] LABS: Alanine Aminotransferase 44 U/L (4-50); Albumin Level 2.4 g/dL (3.5-5.1); Alkaline Phosphatase 147 U/L (38-126); Anion Gap 4 mmol/L (8-16); Aspartate Amino Transferase 60 U/L (17-59); Bilirubin,Total 1.4 mg/dL (0.2-1.3); Blood Urea Nitrogen 4 mg/dL (9-20); Calcium 7.9 mg/dL (8.4-10.2); Carbon Dioxide 26 mmol/L (22-30); Chloride 98 mmol/L (98-107); Estimated CRCL calculation 229 ml/min; Estimated Glomerular Filt Rate > 60; Glucose 73 mg/dL (75-110); Lipase 44 U/L (23-300); Magnesium 1.5 mg/dL (1.6-2.3); Phosphorus 4.5 mg/dL (2.5-4.5); Potassium 2.9 mmol/L (3.4-5.0); Sodium 128 mmol/L (137-145)
[2020-05-04] MEDS: FAMOTIDINE 20 MG/2 ML VIAL IV PUSH ×2 (08:36→21:38)
[2020-05-04] MEDS: FOLIC ACID 1 MG TABLET PO (08:36)
[2020-05-04] MEDS: MULTIVITAMINS THERAPEUTIC TAB (*BKC) 1 TABLET PO (08:36)
[2020-05-04] MEDS: chlordiazePOXIDE (*CRX) 25 MG CAPSULE PO (08:36)
[2020-05-04] MEDS: levETIRAcetam 500 MG TABLET PO (08:36)
[2020-05-04] MEDS: POTASSIUM CHLORIDE 20 MEQ TABLET 40 MEQ PO (08:36)
[2020-05-04] MEDS: THIAMINE HCL 100 MG TABLET PO ×2 (08:36→23:11)
[2020-05-04] MEDS: MAGNESIUM SULF 2 GM/WATER 50ML 2 GM/50 ML BAG IVPB (08:37)
[2020-05-04] MEDS: MAGNESIUM OXIDE 400 MG TABLET PO (08:37)
[2020-05-04 08:45] VITALS: O2SAT 97
--- NOTE | 2020-05-04 10:48 | P.PNIM_ITS ---
Progress Note: A&P Assessment and Plan (1) Generalized weakness: Code(s): R53.1 - Weakness Status: Acute Assessment and Plan: Ongoing for several months. On 09/23/2019 he had seizure at work and since that time has had limited mobility. Unclear if he had an injury during this event that caused his progressive weakness. His sister reports that since that time, he had been out of work and ambulating around the home using a cane. However, since about 1 month ago, he has been essentially immobile and his sister or his friend carry him around the home. 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 Additionally, suspect this is worsened by deconditioning, dehydration, and overall malnutrition. * Neurology following and input is appreciated. * Continue treatment of electrolyte imbalances and continue with rehydration. * PT/OT is evaluating patient. Care coordination following and notes that patient will likely require SNF placement * B12 and folate wnl. HIV negative. RPR non-reactive. Additional pending tests: Lyme disease panel, SHREYA, AChR antibodies. 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 (2) Acute encephalopathy: Code(s): G93.40 - Encephalopathy, unspecified Status: Acute Assessment and Plan: Patient noted to be acutely confused upon arrival, was somnolent, and slow to answer questions. This is probably due to multiple electrolyte disorders as well as chronic alcohol abuse. Head CT was negative for acute findings. urine drug screen negative. Urinalysis unremarkable. Possibly related to Wernicke's encephalopathy although no nystagmus is noted. He remains confused and somnolent. A&Ox3 today. * Appreciate neurology input * Continue IV hydration and correction of electrolyte imbalances. * Monitor mental status closely * Continue thiamine and folic acid (3) Electrolyte abnormality: Code(s): E87.8 - Other disorders of electrolyte and fluid balance, not elsewhere cl assified Status: Acute Assessment and Plan: Upon presentation, patient noted to have hypokalemia, hyponatremia, hypomagnesiumia, and hypophosphatemia. Started on IV fluids and electrolytes have been supplemented. Telemetry reviewed and showed sinus rhythm with no arrhythmias. Suspect this is all related to patients malnutrition and possible refeeding syndrome. Sodium declined to 128 today. Potassium 3.0. Mag 1.6. Phosphorus stable 3.7. * 40 mEq KCl IV administered. * Neutraphos PO packets discontinued. Monitor phosphorus closely * Sodium declined today. FeNA suggests pre-renal etiology. This may also be explained by chronic alcoholism. Continue with IV fluid hydration at this time. Monitor sodium q6h * Monitor CMP, mag, and phosphorus daily (4) Alcohol abuse: Code(s): F10.10 - Alcohol abuse, uncomplicated Status: Chronic Assessment and Plan: Patient reports he has not drank alcohol in approximately 1 month, however his
--- NOTE | 2020-05-04 11:04 | PCPTNOTE ---
Attempted to see patient for PT, however patient refused and had difficulty waking up, patient shook his head no and reported he is too exhausted.
[2020-05-04 12:41] LABS: Lyme Disease Ab (IgM), Blot Negative (Negative); Lyme Disease Ab(IgG), Blot Negative (Negative)
--- NOTE | 2020-05-04 13:16 | PCNFU ---
Nutrition Follow-Up Complete: Malnutrition as related to ETOH abuse as evidenced by COPD associated with malnutrition in the context of chronic disease/condition. Goal: Meet estimated nutritional needs Limited progress with goal. We will continue current goal. Pt current nutrition is 2 gm Na. Nutrition recommendation: NGT tube feedings of Jevity 1.5 at 10 ml/hr Last recorded weight is 74.7 kg. Bowel Motility:+BM noted 05/03 Labs Reviewed:Glu 132,Na 124,K 3.2,Cr 0.5, Ca 7.9,Mg 1.5 Meds Noted:Folic Acid, Vit B-1, Keppra, MVI Additional Notes: Nutrition follow up. Patient current diet order is 2 gm Na. Oral intake's x 6 days has been minimal. Patient has been refusing to eat, refusing to work with therapy. I spoke with Dr. Simental today regarding patients nutritional status. Recommending: NGT feedings of Jevity 1.5 at 10 ml/hr due to high risk for refeeding syndrome. Nursing plans to speak with patient's sister regarding NGT feedings. Monitoring: weight, labs, tube feedings daily.
[2020-05-04 14:00] VITALS: BP 90/61; PULSE 99; RESP 22; TEMP 36.7; O2SAT 98
[2020-05-04] MEDS: levETIRAcetam 500MG/NACL 100ML 500 MG/100 ML BAG 400 MG IVPB (21:38)
[2020-05-04 21:52] VITALS: BP 101/71; PULSE 88; RESP 20; TEMP 35.8; O2SAT 95
[2020-05-05] VITALS (39 sets, daily range): BP systolic 82–128; BP diastolic 59–81; PULSE 42–98; RESP 16–24; TEMP 33.1–36.9; O2SAT 93–100; BMI 25.0
[2020-05-05] MEDS: SODIUM CHLORIDE 0.9% IV 1,000 ML 85 ML IV CONT ×2 (04:32→15:13)
[2020-05-05 05:48] LABS: Glucose Point of Care 93 (65-105)
[2020-05-05 06:07] LABS: Hematocrit 27.9 % (42.0-52.0); Mean Corpuscular HGB Conc 32.3 g/dl (32-36); Mean Corpuscular Hemoglobin 34.4 pg (26-34); Mean Corpuscular Volume 106.5 fl (80-100); Mean Platelet Volume 9.3 fl (7.4-10.4); Platelet Count Result 400 k/mm3 (150-375); Red Blood Count 2.62 M/mm3 (4.6-6.20); Red Cell Distribution Width 12.8 % (11.5-14.5); White Blood Count 11.2 K/mm3 (4.5-10.0)
--- NOTE | 2020-05-05 06:20 | WPDPROCEDUR ---
Procedures Intubation Intubation Date: 05/05/20 Intubation Time: 06:00 A pre-procedural Time-Out was completed immediately before starting the procedure and confirmed: Patient Identification, Site, Procedure, Patient Position and the Availability of Requisite Equipment: No (Emergent) Sedative: etomidate Mg given: 20 Paralytic: succinylcholine Mg given: 100 Laryngoscope: fiber optic video scope Assist device used: Bougie ET tube size: 8 Tube secured depth (cm): 25 Tube secured location: lips Tube placement confirmation: visualized tube passing through cords, equal breath sounds bilaterally, no breath sounds over epigastrium and confirmation by capnometry Patient tolerated procedure: well Intubation complications: other (A cuff popped on the 1st ET tube the tube had to subsequently be exchanged over a bougie)
--- NOTE | 2020-05-05 06:25 | P.RRN_ITS ---
Critical Care Event Note Summary Code activated: No Narrative: 05/05/2020 at 4:50 a.m. Nursing staff and respiratory therapy found the patient with is poor respiratory effort. As the patient was minimally responsive. Subsequently a rapid response was called at 4:41 a.m.. Arrived at the bedside around 0450 the patient was being bagged. He was maintaining oxygen saturations with bag-valve mask. The patient's oral airway was visualized he had a large amount of secretions posteriorly. The patient had Dobbhoff tube in place with milky appearing material and posterior oropharynx. The patient only had minimal gag reflex with posterior oral pharyngeal visualization with laryngeal blade. The patient was subsequently intubated with details noted in procedure note. Chest x-ray was reviewed and ET tube was in appropriate position. A the patient was transferred to the ICU. Initial ventilator settings were given with tidal volume of 400 peep of 5 rate of 18 with 50% FiO2. I have requested ABG following intubation. The patient has started to wake up and is bucking the vent. An order for 2 mg of Versed has been given and propofol. The patient's case was discussed with with echocardiograph technician who will assume care. 30 minutes spent in critical care activities. This case had a high probability of a clinically significant, sudden, or life threatening deterioration of this patient's condition which required my full and direct attention, intervention and personal management. Critical care time: 30 - 74 mins
[2020-05-05 06:40] LABS: Alveolar/Arterial O2 Gradient 222.6 mmHg; Carboxyhemoglobin 0.3 % THb (0-2.0); Fractional Inspired Oxygen 50 %; HCO3 ABG 22.8 mEq/l (22.0-26.0); Methemoglobin ABG 0.3 %THb (0-1.5); Oxygen Saturation ABG 95.9 % (95.0-100.0); Oxyhemoglobin 94.1 % THb (90.0-100.0); PCO2 ABG 43.1 mmHg (35.0-45.0); PO2 ABG 85.4 mmHg (80.0-100.0); PO2 FiO2 Ratio Arterial Blood 1.71 %; Reduced Hemoglobin 5.3 %THb (0-5.0); Total Hemoglobin 9.3 g/dL (12.0-18.0); pH ABG 7.341 (7.350-7.450)
[2020-05-05 06:41] LABS: Device VENTILATOR; Site Drawn RIGHT BRACHIAL
[2020-05-05 06:42] LABS: Arterial Blood Gas PEEP 5 cmH2O; Arterial Blood Gas Tidal Volume 400 ml; Arterial Blood Gas Vent Mode CMV; Arterial Blood Gas Ventilator rate 18 /MIN
--- NOTE | 2020-05-05 06:45 | PC.NURSE ---
pt electively intubated in 248 for respiratory failure 8.0 et tube 25 at [address] verified by Dr hamilton on xray
--- NOTE | 2020-05-05 06:55 | PC.NURSE ---
This patient, Chito Gill, was transferred to [ICU5] on 05/05/20 at 0656. Personal belongings sent with patient. Report given to [Bhargav Austin]. Appropriate documentation sent with patient. Patient's sister Janett Gill called and notified of situation and transfer to ICU-5.
[2020-05-05] MEDS: MIDAZOLAM HCL (*CRX) 2 MG/2 ML VIAL (07:05)
[2020-05-05 07:30] LABS: Anion Gap 2 mmol/L (8-16); Blood Urea Nitrogen 3 mg/dL (9-20); Calcium 8.1 mg/dL (8.4-10.2); Carbon Dioxide 28 mmol/L (22-30); Chloride 104 mmol/L (98-107); Estimated CRCL calculation 316 ml/min; Estimated Glomerular Filt Rate > 60; Glucose 92 mg/dL (75-110); Potassium 3.3 mmol/L (3.4-5.0); Sodium 134 mmol/L (137-145)
[2020-05-05] MEDS: LORazepam INJ (*CRX) 2 MG/ML VIAL 0.5 MG IV PUSH (07:30)
[2020-05-05] MEDS: FENTANYL 2,500MCG/NS250ML(*CRX 2,500 MCG/250 ML BAG IV CONT (08:25)
[2020-05-05] MEDS: MIDAZOLAM HCL (*CRX) 2 MG/2 ML VIAL IV PUSH (08:26)
[2020-05-05 09:01] LABS: Ammonia < 9 umol/L (9-30)
[2020-05-05] MEDS: LIDOCAINE HCL 1% PF INJ 5 ML VIAL INFILTRATE (09:15)
[2020-05-05] MEDS: PROPOFOL IV EMULSION 100 ML 13.45 MG IV CONT (09:45)
--- NOTE | 2020-05-05 10:10 | PM.IMPN ---
Progress Note: A&P Assessment and Plan (1) Generalized weakness: Code(s): R53.1 - Weakness Status: Acute Assessment and Plan: Ongoing for several months. On 09/23/2019 he had seizure at work and since that time has had limited mobility. Unclear if he had an injury during this event that caused his progressive weakness. His sister reports that since that time, he had been out of work and ambulating around the home using a cane. However, since about 1 month ago, he has been essentially immobile and his sister or his friend carry him around the home. 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 Additionally, suspect this is worsened by deconditioning, dehydration, and overall malnutrition. Neurology following and input is appreciated. Continue treatment of electrolyte imbalances and continue with rehydration. PT/OT is evaluating patient. Care coordination following and notes that patient will likely require SNF placement B12 and folate wnl. HIV negative. RPR non-reactive. Additional pending tests: Lyme disease panel, SHREYA, AChR antibodies. 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 (2) Acute encephalopathy: Code(s): G93.40 - Encephalopathy, unspecified Status: Acute Assessment and Plan: Patient noted to be acutely confused upon arrival, was somnolent, and slow to answer questions. This is probably due to multiple electrolyte disorders as well as chronic alcohol abuse. Head CT was negative for acute findings. urine drug screen negative. Urinalysis unremarkable. Possibly related to Wernicke's encephalopathy although no nystagmus is noted. He remains confused and somnolent. A&Ox3 today. Appreciate neurology input Continue IV hydration and correction of electrolyte imbalances. Monitor mental status closely Continue thiamine and folic acid (3) Electrolyte abnormality: Code(s): E87.8 - Other disorders of electrolyte and fluid balance, not elsewhere classified Status: Acute Assessment and Plan: Upon presentation, patient noted to have hypokalemia, hyponatremia, hypomagnesiumia, and hypophosphatemia. Started on IV fluids and electrolytes have been supplemented. Telemetry reviewed and showed sinus rhythm with no arrhythmias. Suspect this is all related to patients malnutrition and possible refeeding syndrome. Sodium declined to 128 today. Potassium 3.0. Mag 1.6. Phosphorus stable 3.7. 40 mEq KCl IV administered. Neutraphos PO packets discontinued. Monitor phosphorus closely Sodium declined today. FeNA suggests pre-renal etiology. This may also be explained by chronic alcoholism. Continue with IV fluid hydration at this time. Monitor sodium q6h Monitor CMP, mag, and phosphorus daily (4) Alcohol abuse: Code(s): F10.10 - Alcohol abuse, uncomplicated Status: Chronic Assessment and Plan: Patient reports he has not drank alcohol in approximately 1 month, however his sister noted that he is still drinking daily and his last drink was 04/27/20. Reportedly he drinks 1/2 pint vodka daily as well as beer. His CIWA scores were very elevated on 05/01 up to 26 and he was moved to IMU for further monitoring. Scores have been <1 for over 24 hours and he has been transitioned back to [facility]
[2020-05-05] MEDS: POTASSIUM CHLORIDE 20 MEQ PACKET (FOR LIQUID) 40 MEQ FEED TUBE ×2 (10:30→13:31)
--- NOTE | 2020-05-05 10:52 | PCDIET ---
Nutrition Follow-Up Complete: Nutrition Diagnosis: Malnutrition related to ETOH abuse as evidenced by COPD associated with malnutrition in the context of chronic disease/condition. Nutrition Goal: Meet estimated nutritional needs Goal in progress. Patient now intubated with MD order to resume tube feedings. MD ordered to start Jevity 1.5 at 30mL/hr goal for today and check electrolytes tomorrow due to concern for refeeding syndrome. Last recorded weight is 74.7 kg. Recommend daily weights. Bowel Motility: BM x 2 on 05/04/20. Labs Reviewed: Hgb (9.0), Hct (27.9), BUN (3), Cr (0.2), K (3.3), Na (134), Alb (2.4), [place] Ca (9.38) Meds Noted: Albumin, Pepcid, Fentanyl, Folic Acid, Synthroid, Mag-Ox, Versed, MVI, KCl, Vitamin B1, NS at 85mL/hr Additional Notes: No documented skin breakdown. Will continue to monitor with same goal. Nutrition Monitoring and Evaluation: Follow up every Sunday/Sunday. Follow daily in ICU rounds.
--- NOTE | 2020-05-05 11:05 | WPDCNINT ---
Assessment and Plan Assessment and plan (1) Acute respiratory failure: Code(s): J96.00 - Acute respiratory failure, unspecified whether with hypoxia or hypercapnia Status: Acute Assessment and Plan: Chest x-ray ABG and vent settings reviewed Continue full mechanical ventilation support to prevent hypoxemia/hypercarbia and end organ damage. Low tidal volume ventilation strategy to prevent volutrauma Bronchodilators ? aspiration. Empiric Zosyn (2) Generalized weakness: Code(s): R53.1 - Weakness Status: Acute Assessment and Plan: Ongoing for several months. On 09/23/2019 he had seizure at work and since that time has had limited mobility. Unclear if he had an injury during this event that caused his progressive weakness. His sister reports that since that time, he had been out of work and ambulating around the home using a cane. However, since about 1 month ago, he has been essentially immobile and his sister or his friend carry him around the home. 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 Additionally, suspect this is worsened by deconditioning, dehydration, and overall malnutrition. Neurology following and input is appreciated. B12 and folate wnl. HIV negative. RPR non-reactive. Additional pending tests: Lyme disease panel, SHREYA, AChR antibodies. . (3) Acute encephalopathy: Code(s): G93.40 - Encephalopathy, unspecified Status: Acute Assessment and Plan: Multifactorial patient presented acutely confused , was somnolent, and slow to answer questions. He had multiple electrolyte abnormality as well as chronic alcohol abuse. Head CT was negative for acute findings. urine drug screen negative. Wernicke's encephalopathy was suspect. He remained confused and somnolent through hospital stay with fluctuating mental status he was also getting Librium and Ativan. Patient was seen by Neurology At this point he sedated for mechanical ventilation. Monitor Continue thiamine and folic acid Ammonia level was normal (4) Electrolyte abnormality: Code(s): E87.8 - Other disorders of electrolyte and fluid balance, not elsewhere classified Status: Acute Assessment and Plan: Upon presentation, patient noted to have hypokalemia, hyponatremia, hypomagnesiumia, and hypophosphatemia. Patient was hydrated and electrolytes were replaced. Most have improved since then Will replace low potassium Monitor level (5) Alcohol abuse: Code(s): F10.10 - Alcohol abuse, uncomplicated Status: Chronic Assessment and Plan: Patient was getting Librium and p.r.n. Ativan on the floor Currently he is sedated with Versed infusion continue thiamine and folic acid (6) Alcoholic hepatitis: Code(s): K70.10 - Alcoholic hepatitis without ascites Status: Acute Assessment and Plan: AST and ALP elevated upon presentation, thought to be be secondary to alcohol abuse. RUQ US showed dilated gallbladder with sludge, gallbladder wall thickening, pericholecystic fluid, and mild biliary dilation, all consistent with cholecystitis, however Dr. Duenas notes that similar findings are seen in alcoholic hepatitis. Diffuse hepatic steatosis noted on MRCP. Viral hepatitis panel is negative. Total bili slight increase today. LFTs trending down. Appreciate GI consult. Monitor LFTs closely. (7) Cholelithiasis: Code(s): K80.20 - Calculus of gallbladder without cholecystitis without obstruction Status: Acute Assessment and Plan: RUQ US showed gallbladder sludge and findings consistent with acute cholecystitis as noted above. He had MRCP on 05/01/2019 which also showed finding consistent with acute cholecystitis. Patient was seen by general surgery and did not recommended any treatment at that time (8) Malnutrition: Qualifiers: Malnutrition type: protein-calorie malnutrition Protein-calorie
[2020-05-05] MEDS: ALBUMIN HUMAN 25% 25 GM/100 ML 100 ML IVPB ×3 (11:45→23:51)
[2020-05-05] MEDS: CENTRAL LINE FLUSH 10 ML IV PUSH ×2 (12:52→21:31)
[2020-05-05] MEDS: SODIUM CHLORIDE 0.9% IV 500 ML 999 ML IV CONT (14:00)
--- NOTE | 2020-05-05 15:53 | WPDGIPROGNO ---
Progress Note: A&P Assessment and Plan (1) Acute respiratory failure: Code(s): J96.00 - Acute respiratory failure, unspecified whether with hypoxia or hypercapnia Status: Acute Assessment and Plan: intubated, ? aspiration icu care (2) Alcoholic hepatitis: Code(s): K70.10 - Alcoholic hepatitis without ascites Status: Acute Assessment and Plan: ok to resume feeding with aspiration precaution by DHT (3) Malnutrition: Qualifiers: Malnutrition type: protein-calorie malnutrition Protein-calorie malnutrition severity: moderate Qualified Code(s): E44.0 - Moderate protein-calorie malnutrition Code(s): E46 - Unspecified protein-calorie malnutrition Status: Chronic (4) Acute encephalopathy: Code(s): G93.40 - Encephalopathy, unspecified Status: Acute Assessment and Plan: multifactorial, he is a heavy drinker (5) Normocytic anemia: Code(s): D64.9 - Anemia, unspecified Status: Chronic (6) COPD (chronic obstructive pulmonary disease): Qualifiers: COPD type: unspecified COPD Qualified Code(s): J44.9 - Chronic obstructive pulmonary disease, unspecified Code(s): J44.9 - Chronic obstructive pulmonary disease, unspecified Status: Chronic (7) Seizure: Code(s): R56.9 - Unspecified convulsions Status: Acute (8) Cholelithiasis: Code(s): K80.20 - Calculus of gallbladder without cholecystitis without obstruction Status: Acute Subjective Date/time seen: 05/05/20 15:53 Interval history: intubated yesterday after respiratory failure, now in ICU Review of Systems Review of Systems: ROS unobtainable: Yes unobtainable due to endotracheal tube, unobtainable due to medical condition and unobtainable due to mental status Exam Const: Other: cachectic, sedated and intubated HENMT: General nose exam: Normal nares present Other: ngt in place Eyes: General: appearance normal, both eyes and all related structures Resp: Auscultation: diminished lung sounds Cardio: Rate: regular rate GI: GI Palp: Yes Soft to palpation and No Tenderness to palpation present (GI) Auscultation: normal bowel sounds Urinary Catheter: Urinary Catheter: patent and draining Skin: General skin exam: normal color Neuro: Cognition (Neuro): abnormal cognition Extrem: General: normal to inspection Objective Data Vital Signs Vital Signs: Vital Signs - 24 hr 05/04/20 21:52 05/05/20 06:24 05/05/20 08:00 Temperature 96.5 F L 98 F Pulse Rate 88 75 Respiratory Rate 20 18 Blood Pressure 101/71 98/64 L Pulse Oximetry 95 98 99 05/05/20 08:25 05/05/20 08:26 05/05/20 08:55 Temperature Pulse Rate 90 90 83 Respiratory Rate 16 18 Blood Pressure Pulse Oximetry 99 05/05/20 09:00 05/05/20 09:30 05/05/20 09:45 Temperature Pulse Rate 80 79 98 Respiratory Rate 17 18 20 Blood Pressure Pulse Oximetry 05/05/20 10:00 05/05/20 10:30 05/05/20 11:20 Temperature Pulse Rate 71 75 85 Respiratory Rate 18 18 Blood Pressure 108/72 Pulse Oximetry 99 99 05/05/20 11:30 05/05/20 12:00 05/05/20 12:30 Temperature 97.7 F Pulse Rate 73 71 65 Respiratory Rate 18 18 18 Blood Pressure 90/67 L Pulse Oximetry 99 05/05/20 13:11 05/05/20 14:35 05/05/20 15:00 Temperature 97.6 F Pulse Rate 70 69 66 Respiratory Rate 18 18 Blood Pressure 90/67 L 97/66 L Pulse Oximetry 99 99 98 Intake/Output Intake/Output: Intake & Output 05/02/20 05/03/20 05/04/20 05/05/20 23:59 23:59 23:59 23:59 Intake Total 2944 2406 2799 1610 Output Total 800 200 400 Balance 2144 2406 0839 1210 Meds/Results Medications: Active Medications Generic Name Dose Route Start Last Admin Trade Name Freq PRN Reason Stop Dose Admin Dextrose 12.5 gm 04/28/20 18:43 Dextrose 50% 25 Gm/50 Ml Syringe IV PUSH PRN PRN Hypoglycemia Protocol Enoxaparin Sodium 40 mg 05/06/20 09:00
[2020-05-05] MEDS: THIAMINE HCL 100 MG TABLET PO (17:15)
[2020-05-05] MEDS: levETIRAcetam 500 MG TABLET PO (18:26)
[2020-05-05] MEDS: FAMOTIDINE 20 MG/2 ML VIAL IV PUSH (21:31)
[2020-05-05] MEDS: NOREPINEPHRINE 8 MG/D5W 250 ML 8 MG/250 ML BAG 9.38 MG IV CONT (22:25)
[2020-05-05 22:33] LABS: Lactic Acid Reflex < 0.5 mmol/L (0.7-2.1)
[2020-05-05] MEDS: DOPamine 400 MG/D5W 250 ML 400 MG/250 ML BAG 5.6 MG IV CONT (23:21)
[2020-05-05 23:30] LABS: Phosphorus 2.9 mg/dL (2.5-4.5)
[2020-05-05 23:36] LABS: Magnesium 1.7 mg/dL (1.6-2.3)
[2020-05-06] VITALS (30 sets, daily range): BP systolic 96–131; BP diastolic 64–82; PULSE 68–119; RESP 15–18; TEMP 35.6–38.2; O2SAT 93–98
[2020-05-06 04:16] LABS: Hematocrit 22.5 % (42.0-52.0); Hemoglobin 7.7 g/dL (14.0-18.0); Mean Corpuscular HGB Conc 34.2 g/dl (32-36); Mean Corpuscular Hemoglobin 34.7 pg (26-34); Mean Corpuscular Volume 101.4 fl (80-100); Mean Platelet Volume 8.7 fl (7.4-10.4); Platelet Count Result 330 k/mm3 (150-375); Red Blood Count 2.22 M/mm3 (4.6-6.20); Red Cell Distribution Width 12.5 % (11.5-14.5); White Blood Count 6.6 K/mm3 (4.5-10.0)
[2020-05-06 04:44] LABS: Alanine Aminotransferase 84 U/L (4-50); Albumin Level 2.8 g/dL (3.5-5.1); Alkaline Phosphatase 337 U/L (38-126); Anion Gap 5 mmol/L (8-16); Aspartate Amino Transferase 170 U/L (17-59); Bilirubin,Total 1.5 mg/dL (0.2-1.3); Calcium 8.4 mg/dL (8.4-10.2); Carbon Dioxide 26 mmol/L (22-30); Chloride 105 mmol/L (98-107); Estimated CRCL calculation 229 ml/min; Estimated Glomerular Filt Rate > 60; Glucose 91 mg/dL (75-110); Magnesium 1.7 mg/dL (1.6-2.3); Phosphorus 3.2 mg/dL (2.5-4.5); Potassium 2.6 mmol/L (3.4-5.0); Sodium 136 mmol/L (137-145)
[2020-05-06 04:47] LABS: Blood Urea Nitrogen < 2 mg/dL (9-20)
[2020-05-06 04:58] LABS: Alveolar/Arterial O2 Gradient 149.6 mmHg; Base Excess ABG -0.2 mEq/l (+/-2.0); Carboxyhemoglobin 0.2 % THb (0-2.0); Fractional Inspired Oxygen 40 %; HCO3 ABG 23.4 mEq/l (22.0-26.0); Methemoglobin ABG 0.6 %THb (0-1.5); Oxygen Content ABG 12.5 %vol (16.0-22.0); Oxygen Saturation ABG 97.7 % (95.0-100.0); Oxyhemoglobin 95.5 % THb (90.0-100.0); PCO2 ABG 33.8 mmHg (35.0-45.0); PO2 ABG 96.7 mmHg (80.0-100.0); PO2 FiO2 Ratio Arterial Blood 2.42 %; Reduced Hemoglobin 3.7 %THb (0-5.0); Total Hemoglobin 9.2 g/dL (12.0-18.0); pH ABG 7.458 (7.350-7.450)
[2020-05-06 04:59] LABS: Site Drawn RIGHT BRACHIAL
[2020-05-06 05:00] LABS: Arterial Blood Gas PEEP 5 cmH2O; Arterial Blood Gas Vent Mode CMV; Arterial Blood Gas Ventilator rate 18 /MIN; Device VENTILATOR
[2020-05-06 05:01] LABS: Arterial Blood Gas Tidal Volume 400 ml
[2020-05-06] MEDS: ALBUMIN HUMAN 25% 25 GM/100 ML 100 ML IVPB ×4 (05:57→23:41)
[2020-05-06] MEDS: MAGNESIUM SULF 2 GM/WATER 50ML 2 GM/50 ML BAG IVPB ×2 (05:58→09:59)
[2020-05-06] MEDS: CENTRAL LINE FLUSH 10 ML IV PUSH ×3 (06:06→21:03)
[2020-05-06] MEDS: LEVOTHYROXINE SODIUM 125 MCG TABLET PO (06:07)
[2020-05-06] MEDS: SODIUM CHLORIDE 0.9% IV 1,000 ML 85 ML IV CONT ×2 (06:23→23:41)
[2020-05-06] MEDS: levETIRAcetam 500 MG TABLET PO ×2 (08:35→17:07)
[2020-05-06] MEDS: FAMOTIDINE 20 MG/2 ML VIAL IV PUSH ×2 (08:35→20:58)
[2020-05-06] MEDS: ENOXAPARIN 40 MG/0.4 ML SYRINGE SUB-Q (08:35)
[2020-05-06] MEDS: MULTIVITAMINS THERAPEUTIC TAB (*BKC) 1 TABLET PO (08:36)
[2020-05-06] MEDS: THIAMINE HCL 100 MG TABLET PO ×2 (08:36→17:07)
[2020-05-06 09:56] LABS: Triglycerides 75 mg/dL (<150)
[2020-05-06] MEDS: POTASSIUM CHLORIDE 20 MEQ PACKET (FOR LIQUID) 40 MEQ FEED TUBE (10:56)
--- NOTE | 2020-05-06 13:05 | PCDIET ---
ICU Rounding Note: Patient tolerating Jevity 1.5 at 20mL/hr. MD order to increase to 30mL/hr later today. Given electrolyte abnormalities, would limit rate to 30mL/hr for today. Last recorded weight is 62.5kg which is decreased from last review. Bowel Motility: Last documented BM on 05/05/20. Labs Reviewed: Hgb (7.7), Hct (22.5), BUN (<2), Cr (0.3), K (2.6), Na (136), Alb (2.8) Meds Noted: Thiamine, Albumin, Dopamine, Pepcid, Fentanyl, Folic Acid, KCl, Synthroid, Mag-Ox, Magnesium Sulfate, MVI, Zosyn, Propofol (rate of 1.875mL/hr provides 50kcal per day) Additional Notes: No documented skin breakdown. Following daily in ICU rounds. Assessing/reassessing every Sunday/Sunday.
--- NOTE | 2020-05-06 14:40 | WPDGIPROGNO ---
Progress Note: A&P Assessment and Plan (1) Acute respiratory failure: Code(s): J96.00 - Acute respiratory failure, unspecified whether with hypoxia or hypercapnia Status: Acute Assessment and Plan: still intubated, ? aspiration- on [facility] icu care (2) Alcoholic hepatitis: Code(s): K70.10 - Alcoholic hepatitis without ascites Status: Acute Assessment and Plan: tolerating tube feeding also neuropathy, seizures and failure to thrive (3) Malnutrition: Qualifiers: Malnutrition type: protein-calorie malnutrition Protein-calorie malnutrition severity: moderate Qualified Code(s): E44.0 - Moderate protein-calorie malnutrition Code(s): E46 - Unspecified protein-calorie malnutrition Status: Chronic (4) Acute encephalopathy: Code(s): G93.40 - Encephalopathy, unspecified Status: Acute Assessment and Plan: multifactorial, he is a heavy drinker (5) Normocytic anemia: Code(s): D64.9 - Anemia, unspecified Status: Chronic Assessment and Plan: RN did not report GIB, continue to monitor (6) COPD (chronic obstructive pulmonary disease): Qualifiers: COPD type: unspecified COPD Qualified Code(s): J44.9 - Chronic obstructive pulmonary disease, unspecified Code(s): J44.9 - Chronic obstructive pulmonary disease, unspecified Status: Chronic (7) Seizure: Code(s): R56.9 - Unspecified convulsions Status: Acute Assessment and Plan: on antiseizure medication (8) Cholelithiasis: Code(s): K80.20 - Calculus of gallbladder without cholecystitis without obstruction Status: Acute Subjective Date/time seen: 05/06/20 14:40 Interval history: still intubated, tolerating tube feeding by [facility] Review of Systems Review of Systems: ROS unobtainable: Yes unobtainable due to endotracheal tube and unobtainable due to mental status Exam Const: Other: cachectic, sedated and intubated HENMT: General nose exam: Normal nares present Other: OGT in place Eyes: General: appearance normal, both eyes and all related structures Resp: Auscultation: diminished lung sounds Cardio: Rate: regular rate GI: GI Palp: Yes Soft to palpation and No Tenderness to palpation present (GI) Auscultation: normal bowel sounds Urinary Catheter: Urinary Catheter: patent and draining Skin: General skin exam: normal color Neuro: Cognition (Neuro): abnormal cognition Extrem: General: normal to inspection Objective Data Vital Signs Vital Signs: Vital Signs - 24 hr 05/05/20 15:00 05/05/20 17:00 05/05/20 17:30 Temperature 97.4 F L Pulse Rate 66 66 67 Respiratory Rate 18 18 18 Blood Pressure 97/66 L 88/64 L Pulse Oximetry 98 99 05/05/20 17:33 05/05/20 18:34 05/05/20 20:00 Temperature 95.6 F L Pulse Rate 72 65 58 L Respiratory Rate 18 24 H Blood Pressure 92/62 L Pulse Oximetry 99 100 05/05/20 20:08 05/05/20 21:00 05/05/20 21:15 Temperature 91.6 F L 92.7 F L Pulse Rate 58 L 73 66 Respiratory Rate 18 18 Blood Pressure 92/65 L 85/62 L Pulse Oximetry 100 99 97 05/05/20 21:30 05/05/20 21:45 05/05/20 22:00 Temperature 92.8 F L 92.9 F L 93.1 F L Pulse Rate 66 65 66 Respiratory Rate 18 18 18 Blood Pressure 86/62 L 83/61 L 85/62 L Pulse Oximetry 97 97 96 05/05/20 22:15 05/05/20 22:25 05/05/20 22:27 Temperature 93.4 F L Pulse Rate 68 67 68 Respiratory Rate 18 18 Blood Pressure 82/63 L 82/63 L Pulse Oximetry 96 05/05/20 22:45 05/05/20 23:00 05/05/20 23:15 Temperature 94.0 F L 94.3 F L 94.6 F L Pulse Rate 42 L 44 L 83 Respiratory Rate 18 18 18 Blood Pressure 128/80 128/81 88/64 L Pulse Oximetry 94 96 94 05/05/20 23:20 05/05/20 23:21 05/05/20 23:30 Temperature 95 F L Pulse Rate 82 58 L 83 Respiratory Rate 18 Blood Pressure 88/64 L 98/59 L Pulse Oximetry 93 93 05/05/20 23:45 05/06/20 00:00 05/06/20 00:15 Temperature 95.5 F L 96.0 F L 96.5 F L P
--- NOTE | 2020-05-06 15:17 | WPDINTPN ---
Progress Note: A&P Assessment and Plan (1) Acute respiratory failure: Code(s): J96.00 - Acute respiratory failure, unspecified whether with hypoxia or hypercapnia Status: Acute Assessment and Plan: Chest x-ray ABG and vent settings reviewed Continue full mechanical ventilation support to prevent hypoxemia/hypercarbia and end organ damage. Decrease respiratory rate to 15 Low tidal volume ventilation strategy to prevent volutrauma Bronchodilators ? aspiration. Continue empiric Zosyn (2) Generalized weakness: Code(s): R53.1 - Weakness Status: Acute Assessment and Plan: Ongoing for several months. On 09/23/2019 he had seizure at work and since that time has had limited mobility. Unclear if he had an injury during this event that caused his progressive weakness. His sister reports that since that time, he had been out of work and ambulating around the home using a cane. However, since about 1 month ago, he has been essentially immobile and his sister or his friend carry him around the home. 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 Additionally, suspect this is worsened by deconditioning, dehydration, and overall malnutrition. Neurology following and input is appreciated. B12 and folate wnl. HIV negative. RPR non-reactive. Additional pending tests: Lyme disease panel, SHREYA, AChR antibodies. . (3) Acute encephalopathy: Code(s): G93.40 - Encephalopathy, unspecified Status: Acute Assessment and Plan: Multifactorial patient presented acutely confused , was somnolent, and slow to answer questions. He had multiple electrolyte abnormality as well as chronic alcohol abuse. Head CT was negative for acute findings. urine drug screen negative. Wernicke's encephalopathy was suspect. He remained confused and somnolent through hospital stay with fluctuating mental status he was also getting Librium and Ativan. Patient was seen by Neurology At this point he sedated for mechanical ventilation. Will perform sedation holiday and switched to propofol for more reliable neuro exam Continue thiamine and folic acid Ammonia level was normal (4) Electrolyte abnormality: Code(s): E87.8 - Other disorders of electrolyte and fluid balance, not elsewhere classified Status: Acute Assessment and Plan: Upon presentation, patient noted to have hypokalemia, hyponatremia, hypomagnesiumia, and hypophosphatemia. Patient was hydrated and electrolytes were replaced. Most have improved since then Will replace low potassium and magnesium Monitor level (5) Alcohol abuse: Code(s): F10.10 - Alcohol abuse, uncomplicated Status: Chronic Assessment and Plan: Patient was getting Librium and p.r.n. Ativan on the floor Currently he is sedated with Versed infusion continue thiamine and folic acid (6) Alcoholic hepatitis: Code(s): K70.10 - Alcoholic hepatitis without ascites Status: Acute Assessment and Plan: AST and ALP elevated upon presentation, thought to be be secondary to alcohol abuse. RUQ US showed dilated gallbladder with sludge, gallbladder wall thickening, pericholecystic fluid, and mild biliary dilation, all consistent with cholecystitis, however Dr. Duenas notes that similar findings are seen in alcoholic hepatitis. Diffuse hepatic steatosis noted on MRCP. Viral hepatitis panel is negative. Total bili slight increase today. LFTs trending down. Appreciate GI consult. Monitor LFTs closely. (7) Cholelithiasis: Code(s): K80.20 - Calculus of gallbladder without cholecystitis without obstruction Status: Acute Assessment and Plan: RUQ US showed gallbladder sludge and findings consistent with acute cholecystitis as noted above. He had MRCP on 05/01/2019 which also showed finding consistent with acute cholecystitis. Patient was seen by general surgery and did not recommended any treatm
[2020-05-06 16:27] LABS: Anion Gap 5 mmol/L (8-16); Calcium 8.6 mg/dL (8.4-10.2); Carbon Dioxide 25 mmol/L (22-30); Chloride 107 mmol/L (98-107); Estimated CRCL calculation 209 ml/min; Estimated Glomerular Filt Rate > 60; Glucose 119 mg/dL (75-110); Potassium 4.3 mmol/L (3.4-5.0); Sodium 137 mmol/L (137-145)
[2020-05-06 16:32] LABS: Blood Urea Nitrogen < 2 mg/dL (9-20)
[2020-05-06 17:41] LABS: Acetylchol Receptor Binding Ab <0.30 nmol/L
[2020-05-06] MEDS: DOPamine 400 MG/D5W 250 ML 400 MG/250 ML BAG IV CONT (19:02)
[2020-05-07] VITALS (31 sets, daily range): BP systolic 110–135; BP diastolic 81–95; PULSE 63–107; RESP 15–30; TEMP 36.6–38.4; O2SAT 96–99
[2020-05-07] MEDS: ACETAMINOPHEN 325 MG TABLET 650 MG PO ×2 (02:30→17:02)
[2020-05-07 05:18] LABS: Alveolar/Arterial O2 Gradient 67.3 mmHg; Base Excess ABG -2.5 mEq/l (+/-2.0); Carboxyhemoglobin 0.3 % THb (0-2.0); Fractional Inspired Oxygen 30 %; HCO3 ABG 20.9 mEq/l (22.0-26.0); Methemoglobin ABG 0.5 %THb (0-1.5); Oxygen Saturation ABG 98.3 % (95.0-100.0); Oxyhemoglobin 96.3 % THb (90.0-100.0); PCO2 ABG 30.1 mmHg (35.0-45.0); PO2 ABG 111.2 mmHg (80.0-100.0); PO2 FiO2 Ratio Arterial Blood 3.71 %; Reduced Hemoglobin 2.9 %THb (0-5.0)
[2020-05-07 05:19] LABS: Mean Corpuscular HGB Conc 33.3 g/dl (32-36); Mean Corpuscular Hemoglobin 34.7 pg (26-34); Mean Corpuscular Volume 104.2 fl (80-100); Mean Platelet Volume 9.1 fl (7.4-10.4); Platelet Count Result 253 k/mm3 (150-375); Red Cell Distribution Width 13.3 % (11.5-14.5); White Blood Count 5.3 K/mm3 (4.5-10.0)
[2020-05-07 05:21] LABS: Modified Allen's Test Pass; Site Drawn RIGHT RADIAL; Total Hemoglobin 7.2 g/dL (12.0-18.0)
[2020-05-07 05:22] LABS: Arterial Blood Gas PEEP 5 cmH2O; Arterial Blood Gas Vent Mode CMV; Arterial Blood Gas Ventilator rate 15 /MIN; Device VENTILATOR
[2020-05-07 05:23] LABS: Arterial Blood Gas Tidal Volume 400 ml
[2020-05-07 05:24] LABS: Hematocrit 19.8 % (42.0-52.0); Hemoglobin 6.6 g/dL (14.0-18.0)
[2020-05-07] MEDS: ALBUMIN HUMAN 25% 25 GM/100 ML 100 ML IVPB ×4 (05:26→23:29)
[2020-05-07] MEDS: CENTRAL LINE FLUSH 10 ML IV PUSH ×3 (05:27→21:15)
[2020-05-07 05:28] LABS: Alanine Aminotransferase 155 U/L (4-50); Albumin Level 3.3 g/dL (3.5-5.1); Alkaline Phosphatase 447 U/L (38-126); Anion Gap 3 mmol/L (8-16); Aspartate Amino Transferase 375 U/L (17-59); Bilirubin,Total 1.2 mg/dL (0.2-1.3); Calcium 8.6 mg/dL (8.4-10.2); Carbon Dioxide 27 mmol/L (22-30); Chloride 105 mmol/L (98-107); Estimated CRCL calculation 161 ml/min; Estimated Glomerular Filt Rate > 60; Glucose 112 mg/dL (75-110); Magnesium 2.1 mg/dL (1.6-2.3); Phosphorus 2.5 mg/dL (2.5-4.5); Potassium 3.6 mmol/L (3.4-5.0); Sodium 135 mmol/L (137-145)
[2020-05-07 06:23] LABS: Blood Urea Nitrogen < 2 mg/dL (9-20)
[2020-05-07] MEDS: LEVOTHYROXINE SODIUM 125 MCG TABLET PO (06:30)
[2020-05-07] MEDS: KCL 20MEQ/0.9% SOD CHL 1,000 ML 50 ML IV CONT (07:54)
[2020-05-07] MEDS: PANTOPRAZOLE SODIUM IV 40 MG VIAL IV PUSH ×2 (07:54→21:16)
[2020-05-07] MEDS: levETIRAcetam 500 MG TABLET PO ×2 (08:03→17:20)
[2020-05-07] MEDS: MULTIVITAMINS THERAPEUTIC TAB (*BKC) 1 TABLET PO (08:03)
[2020-05-07] MEDS: THIAMINE HCL 100 MG TABLET PO ×2 (08:03→17:20)
--- NOTE | 2020-05-07 09:36 | WPDINTPN ---
Progress Note: A&P Assessment and Plan (1) Acute respiratory failure: Code(s): J96.00 - Acute respiratory failure, unspecified whether with hypoxia or hypercapnia Status: Acute Assessment and Plan: Chest x-ray ABG and vent settings reviewed Chest x-ray appears worse today. He also appears to be very weak and would not be able to manage his secretions. Not ready for weaning at this time Continue full mechanical ventilation support to prevent hypoxemia/hypercarbia and end organ damage. Patient placed on ASV mode Bronchodilators Continue empiric Zosyn for aspiration pneumonia (2) Generalized weakness: Code(s): R53.1 - Weakness Status: Acute Assessment and Plan: Ongoing for several months. On 09/23/2019 he had seizure at work and since that time has had limited mobility. Unclear if he had an injury during this event that caused his progressive weakness. His sister reports that since that time, he had been out of work and ambulating around the home using a cane. However, since about 1 month ago, he has been essentially immobile and his sister or his friend carry him around the home. 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 Additionally, suspect this is worsened by deconditioning, dehydration, and overall malnutrition. Neurology following and input is appreciated. B12 and folate wnl. HIV negative. RPR non-reactive. Additional pending tests: Lyme disease panel, SHREYA, AChR antibodies. Continue monitoring of sedation as much possible (3) Acute encephalopathy: Code(s): G93.40 - Encephalopathy, unspecified Status: Acute Assessment and Plan: Multifactorial patient presented acutely confused , was somnolent, and slow to answer questions. He had multiple electrolyte abnormality as well as chronic alcohol abuse. Head CT was negative for acute findings. urine drug screen negative. Wernicke's encephalopathy was suspect. He remained confused and somnolent through hospital stay with fluctuating mental status he was also getting Librium and Ativan. Patient was seen by Neurology At this point he sedated for mechanical ventilation. Will perform sedation holiday and switched to propofol for more reliable neuro exam Continue thiamine and folic acid Ammonia level was normal (4) Electrolyte abnormality: Code(s): E87.8 - Other disorders of electrolyte and fluid balance, not elsewhere classified Status: Acute Assessment and Plan: Upon presentation, patient noted to have hypokalemia, hyponatremia, hypomagnesiumia, and hypophosphatemia. Patient was hydrated and electrolytes were replaced. Most have improved since then Will replace low potassium Monitor level (5) Alcohol abuse: Code(s): F10.10 - Alcohol abuse, uncomplicated Status: Chronic Assessment and Plan: Patient was getting Librium and p.r.n. Ativan on the floor Currently he off of all sedation. Will use propofol if needed continue thiamine and folic acid (6) Alcoholic hepatitis: Code(s): K70.10 - Alcoholic hepatitis without ascites Status: Acute Assessment and Plan: AST and ALP elevated upon presentation, thought to be be secondary to alcohol abuse. RUQ US showed dilated gallbladder with sludge, gallbladder wall thickening, pericholecystic fluid, and mild biliary dilation, all consistent with cholecystitis, however Dr. Duenas notes that similar findings are seen in alcoholic hepatitis. Diffuse hepatic steatosis noted on MRCP. Viral hepatitis panel is negative. Total bili slight increase today.. Appreciate GI consult. Monitor LFTs closely. (7) Cholelithiasis: Code(s): K80.20 - Calculus of gallbladder without cholecystitis without obstruction Status: Acute Assessment and Plan: RUQ US showed gallbladder sludge and findings consistent with acute cholecystitis as noted above. He had MRCP on 05/01/2019 which also
--- NOTE | 2020-05-07 10:55 | PCDIET ---
Nutrition Follow-Up Complete: Nutrition Diagnosis: Malnutrition related to ETOH abuse as evidenced by COPD associated with malnutrition in the context of chronic disease/condition. Nutrition Goal: Meet estimated nutritional needs Goal in progress. RN increased Jevity 1.5 to goal rate of 50mL/hr with 30mL water flush every 4 hours. Patient to receive blood transfusion today. Last recorded weight is 61.3 kg which is decreased from last review. Bowel Motility: Last documented BM on 05/04/20 x 2. Labs Reviewed: Hgb (6.6), Hct (19.8), Glu (112), Cr (0.4), Na (135), Alb (3.3) Meds Noted: Albuterol, Folic Acid, Zosyn, KCl, Dopamine, Synthroid, MVI, Protonix, Thiamine Additional Notes: No documented skin breakdown. Will continue to monitor with same goal. Nutrition Monitoring and Evaluation: Will monitor every Sunday/Sunday.
--- NOTE | 2020-05-07 13:46 | WPDGIPROGNO ---
Progress Note: A&P Assessment and Plan (1) Acute respiratory failure: Code(s): J96.00 - Acute respiratory failure, unspecified whether with hypoxia or hypercapnia Status: Acute Assessment and Plan: still intubated, possible aspiration, cxr worse today- on zosyn icu care (2) Acute on chronic blood loss anemia: Code(s): D62 - Acute posthemorrhagic anemia Status: Acute Assessment and Plan: drop in hb but no signs of bleeding, will get one unit prbc continue to monitor iv protonix (3) Alcoholic hepatitis: Code(s): K70.10 - Alcoholic hepatitis without ascites Status: Acute Assessment and Plan: tolerating tube feeding also neuropathy, seizures and failure to thrive (4) Malnutrition: Qualifiers: Malnutrition type: protein-calorie malnutrition Protein-calorie malnutrition severity: moderate Qualified Code(s): E44.0 - Moderate protein-calorie malnutrition Code(s): E46 - Unspecified protein-calorie malnutrition Status: Chronic Assessment and Plan: failure to thrive on tube feeding now (5) Acute encephalopathy: Code(s): G93.40 - Encephalopathy, unspecified Status: Acute Assessment and Plan: multifactorial, he is a heavy drinker (6) COPD (chronic obstructive pulmonary disease): Qualifiers: COPD type: unspecified COPD Qualified Code(s): J44.9 - Chronic obstructive pulmonary disease, unspecified Code(s): J44.9 - Chronic obstructive pulmonary disease, unspecified Status: Chronic (7) Seizure: Code(s): R56.9 - Unspecified convulsions Status: Acute Assessment and Plan: on antiseizure medication (8) Cholelithiasis: Code(s): K80.20 - Calculus of gallbladder without cholecystitis without obstruction Status: Acute Subjective Date/time seen: 05/07/20 13:46 Interval history: still intubated, not ready for weaning trial and worsening CXR also noted drop in hb but no overt GIB (RN reports no melena or coffee ground emesis), will get one unit prbc on tube feeding at 50 ml/h Review of Systems Review of Systems: ROS unobtainable: Yes unobtainable due to endotracheal tube and unobtainable due to medical condition Exam Const: Other: cachectic, sedated and intubated HENMT: General nose exam: Normal nares present Other: OGT in place- tube feeding is running Eyes: General: appearance normal, both eyes and all related structures Resp: Auscultation: diminished lung sounds Cardio: Rate: regular rate GI: GI Palp: Yes Soft to palpation and No Tenderness to palpation present (GI) Auscultation: normal bowel sounds Urinary Catheter: Urinary Catheter: patent and draining Skin: General skin exam: normal color Neuro: Cognition (Neuro): abnormal cognition Extrem: General: normal to inspection Objective Data Vital Signs Vital Signs: Vital Signs - 24 hr 05/06/20 14:00 05/06/20 14:30 05/06/20 16:00 Temperature 99.5 F 100 F H Pulse Rate 101 H 90 107 H Respiratory Rate 15 16 Blood Pressure 102/74 98/70 L Pulse Oximetry 97 97 96 05/06/20 17:13 05/06/20 18:00 05/06/20 18:06 Temperature 100.2 F H Pulse Rate 118 H 98 100 Respiratory Rate 16 Blood Pressure 117/80 117/80 Pulse Oximetry 94 96 05/06/20 18:17 05/06/20 19:02 05/06/20 19:56 Temperature Pulse Rate 111 H 119 H 117 H Respiratory Rate Blood Pressure 105/70 102/70 Pulse Oximetry 97 05/06/20 20:00 05/06/20 22:00 05/06/20 23:13 Temperature 100.4 F H 100.8 F H Pulse Rate 116 H 113 H 111 H Respiratory Rate 15 16 Blood Pressure 102/71 106/74 Pulse Oximetry 97 98 97 05/07/20 00:00 05/07/20 01:43 05/07/20 02:00 Temperature 100.8 F H 101.1 F H Pulse Rate 107 H 105 H 102 H Respiratory Rate 16 18 Blood Pressure 110/81 116/89 Pulse Oximetry 97 98 98 05/07/20 02:30 05/07/20 04:00 05/07/20 05:05 Temperature 101.1 F H 99.5 F Pulse Rate 86 88 Respiratory Rate 18
[2020-05-07 15:42] LABS: Hematocrit 23.9 % (42.0-52.0); Hemoglobin 7.9 g/dL (14.0-18.0)
[2020-05-07] MEDS: PROPOFOL IV EMULSION 100 ML 1.88 MG IV CONT (21:25)
[2020-05-07] MEDS: SCOPOLAMINE 1.5 MG PATCH TRANSDERM (21:29)
[2020-05-07 23:51] LABS: Hematocrit 24.2 % (42.0-52.0); Hemoglobin 8.1 g/dL (14.0-18.0)
[2020-05-08] VITALS (18 sets, daily range): BP systolic 112–139; BP diastolic 77–99; PULSE 63–97; RESP 10–36; TEMP 36.7–37.2; O2SAT 95–100
--- NOTE | 2020-05-08 | ECHO_ITS ---
Patient Info Name: Chito Gill Age: 49 years : 1970 Gender: Male Ht: 68 in Wt: 137 lbs BSA: 1.72 m2 HR: 78 bpm BP: 108 / 73 mmHg Heart Rhythm: Sinus Rhythm Technical Quality: Good Exam Date: 05/08/2020 1:45 PM Exam Location: [facility] Pulmonary Exam Room: ICU 5 Patient Status: Inpatient Admit Date: 04/29/2020 Staff Ordering Physician: John Larios MD Human Resources Manager: Yara Rodriguez RDCS Attending Provider: Jarocho Simental MD Exam Type: CA echo doppler color flow Study Info Indications - PULM EDEMA ARF Complete two-dimensional, color flow and Doppler transthoracic echocardiogram is performed. Summary 1. Complete two-dimensional, color flow and Doppler transthoracic echocardiogram is performed. 2. Left ventricular chamber dimension is normal. 3. Left ventricular systolic function is normal, estimated at 55-60%. 4. There is no increased left ventricular wall thickness. 5. The left ventricular diastolic function is grade I diastolic dysfunction. 6. Left atrial chamber dimension is mildly enlarged. 7. There is mild mitral valve regurgitation. 8. There is mild tricuspid valve regurgitation. 9. Mild pulmonary hypertension, estimated pulmonary arterial systolic pressure is 37 mmHg. Left Ventricle Left ventricular chamber dimension is normal. Left ventricular systolic function is normal, estimated at 55-60%. There is no increased left ventricular wall thickness. The left ventricular diastolic function is grade I diastolic dysfunction. Right Ventricle Right ventricular chamber dimension is normal. Right ventricular systolic function is normal. Left Atria Left atrial chamber dimension is mildly enlarged. Right Atria Right atrial chamber dimension is normal. Atrial Septum Intact interatrial septum visualized by color flow imaging. Aortic Valve The aortic valve is trileaflet. There is mild aortic valve sclerosis. There is no aortic valve stenosis. There is trace aortic valve regurgitation. Pulmonic Valve The pulmonic valve is normal. There is no pulmonic valve stenosis. There is trace pulmonic regurgitation. Mitral Valve The mitral valve has normal leaflets. There is no mitral valve stenosis. There is mild mitral valve regurgitation. Tricuspid Valve The tricuspid valve leaflets are normal. There is no significant tricuspid valve stenosis. There is mild tricuspid valve regurgitation. Mild pulmonary hypertension, estimated pulmonary arterial systolic pressure is 37 mmHg. Pericardium/Pleural The pericardium appears normal. There is trivial pericardial effusion. Inferior Vena Cava Dilated inferior vena cava with <50% collapse upon inspiration consistent with elevated right atrial pressure, 10 mmHg. Aorta The aortic root size at the sinus of Valsalva is normal. The prox ascending aorta size is normal. Left Ventricular Outflow Tract Name Value Normal LVOT 2D LVOT Diameter 2.0 cm LVOT Doppler LVOT Peak Gradient 5 mmHg LVOT Mean Gradient 3 mmHg LVOT VTI 23 cm
[2020-05-08 04:40] LABS: Alveolar/Arterial O2 Gradient 52.4 mmHg; Base Excess ABG -4.1 mEq/l (+/-2.0); Carboxyhemoglobin 0.3 % THb (0-2.0); Fractional Inspired Oxygen 30 %; HCO3 ABG 19.4 mEq/l (22.0-26.0); Methemoglobin ABG 0.2 %THb (0-1.5); Oxygen Content ABG 13.4 %vol (16.0-22.0); Oxygen Saturation ABG 98.6 % (95.0-100.0); Oxyhemoglobin 97.3 % THb (90.0-100.0); PO2 ABG 126.3 mmHg (80.0-100.0); PO2 FiO2 Ratio Arterial Blood 4.21 %; Reduced Hemoglobin 2.2 %THb (0-5.0); Total Hemoglobin 9.6 g/dL (12.0-18.0); pH ABG 7.429 (7.350-7.450)
[2020-05-08 04:41] LABS: Device VENTILATOR; Modified Allen's Test Unable to perform; Site Drawn LEFT RADIAL
[2020-05-08 04:42] LABS: Arterial Blood Gas PEEP 5 cmH2O; Arterial Blood Gas Vent Mode ASV
[2020-05-08] MEDS: ALBUMIN HUMAN 25% 25 GM/100 ML 100 ML IVPB (05:24)
[2020-05-08] MEDS: CENTRAL LINE FLUSH 10 ML IV PUSH ×3 (05:25→20:20)
[2020-05-08] MEDS: LEVOTHYROXINE SODIUM 125 MCG TABLET PO (05:26)
[2020-05-08 05:38] LABS: Hematocrit 23.8 % (42.0-52.0); Hemoglobin 7.9 g/dL (14.0-18.0); Mean Corpuscular HGB Conc 33.2 g/dl (32-36); Mean Corpuscular Hemoglobin 33.6 pg (26-34); Mean Corpuscular Volume 101.3 fl (80-100); Platelet Count Result 230 k/mm3 (150-375); Red Blood Count 2.35 M/mm3 (4.6-6.20); Red Cell Distribution Width 15.4 % (11.5-14.5); White Blood Count 6.6 K/mm3 (4.5-10.0)
[2020-05-08 05:48] LABS: Alanine Aminotransferase 104 U/L (4-50); Albumin Level 3.7 g/dL (3.5-5.1); Alkaline Phosphatase 297 U/L (38-126); Anion Gap 6 mmol/L (8-16); Aspartate Amino Transferase 104 U/L (17-59); Bilirubin,Total 1.6 mg/dL (0.2-1.3); Blood Urea Nitrogen 5 mg/dL (9-20); Calcium 9.1 mg/dL (8.4-10.2); Carbon Dioxide 24 mmol/L (22-30); Chloride 104 mmol/L (98-107); Estimated CRCL calculation 208 ml/min; Estimated Glomerular Filt Rate > 60; Glucose 127 mg/dL (75-110); Phosphorus 2.3 mg/dL (2.5-4.5); Potassium 3.8 mmol/L (3.4-5.0); Sodium 134 mmol/L (137-145)
[2020-05-08] MEDS: KCL 20MEQ/0.9% SOD CHL 1,000 ML 50 ML IV CONT (06:56)
[2020-05-08] MEDS: levETIRAcetam 500 MG TABLET PO ×2 (08:24→17:51)
[2020-05-08] MEDS: THIAMINE HCL 100 MG TABLET PO ×2 (08:24→17:51)
[2020-05-08] MEDS: PANTOPRAZOLE SODIUM IV 40 MG VIAL IV PUSH ×2 (08:25→20:20)
[2020-05-08] MEDS: MULTIVITAMINS THERAPEUTIC TAB (*BKC) 1 TABLET PO (08:25)
[2020-05-08] MEDS: POTASSIUM PHOS,M-BASIC-D-BASIC 20 MMOL in SODIUM CHLORIDE 0.9% IV 250 ML 62.5 MMOL IVPB (09:15)
--- NOTE | 2020-05-08 09:28 | WPDINTPN ---
Progress Note: A&P Assessment and Plan (1) Acute respiratory failure: Code(s): J96.00 - Acute respiratory failure, unspecified whether with hypoxia or hypercapnia Status: Acute Assessment and Plan: Chest x-ray ABG and vent settings reviewed Chest x-ray appears worse today. Scopolamine patch started yesterday for secretions Sedation holiday and weaning trial today Discontinue IV fluids Continue full mechanical ventilation support to prevent hypoxemia/hypercarbia and end organ damage. Bronchodilators Continue empiric Zosyn for aspiration pneumonia Check BNP and echocardiogram (2) Generalized weakness: Code(s): R53.1 - Weakness Status: Acute Assessment and Plan: Ongoing for several months. On 09/23/2019 he had seizure at work and since that time has had limited mobility. Unclear if he had an injury during this event that caused his progressive weakness. His sister reports that since that time, he had been out of work and ambulating around the home using a cane. However, since about 1 month ago, he has been essentially immobile and his sister or his friend carry him around the home. 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 Additionally, suspect this is worsened by deconditioning, dehydration, and overall malnutrition. Neurology following and input is appreciated. B12 and folate wnl. HIV negative. RPR non-reactive. Additional pending tests: Lyme disease panel, SHREYA, AChR antibodies. Continue monitoring of sedation as much possible (3) Acute encephalopathy: Code(s): G93.40 - Encephalopathy, unspecified Status: Acute Assessment and Plan: Multifactorial patient presented acutely confused , was somnolent, and slow to answer questions. He had multiple electrolyte abnormality as well as chronic alcohol abuse. Head CT was negative for acute findings. urine drug screen negative. Wernicke's encephalopathy was suspect. He remained confused and somnolent through hospital stay with fluctuating mental status he was also getting Librium and Ativan. Patient was seen by Neurology At this point he sedated for mechanical ventilation. Will perform sedation holiday and switched to propofol for more reliable neuro exam Continue thiamine and folic acid Ammonia level was normal (4) Electrolyte abnormality: Code(s): E87.8 - Other disorders of electrolyte and fluid balance, not elsewhere classified Status: Acute Assessment and Plan: Upon presentation, patient noted to have hypokalemia, hyponatremia, hypomagnesiumia, and hypophosphatemia. Patient was hydrated and electrolytes were replaced. Most have improved since then Monitor level (5) Alcohol abuse: Code(s): F10.10 - Alcohol abuse, uncomplicated Status: Chronic Assessment and Plan: Patient was getting Librium and p.r.n. Ativan on the floor Currently is on low-dose propofol continue thiamine and folic acid (6) Alcoholic hepatitis: Code(s): K70.10 - Alcoholic hepatitis without ascites Status: Acute Assessment and Plan: AST and ALP elevated upon presentation, thought to be be secondary to alcohol abuse. RUQ US showed dilated gallbladder with sludge, gallbladder wall thickening, pericholecystic fluid, and mild biliary dilation, all consistent with cholecystitis, however Dr. Duenas notes that similar findings are seen in alcoholic hepatitis. Diffuse hepatic steatosis noted on MRCP. Viral hepatitis panel is negative. Total bili slight increase today.. Appreciate GI consult. Monitor LFTs closely which are improving (7) Cholelithiasis: Code(s): K80.20 - Calculus of gallbladder without cholecystitis without obstruction Status: Acute Assessment and Plan: RUQ US showed gallbladder sludge and findings consistent with acute cholecystitis as noted above. He had MRCP on 05/01/2019 which also showed finding consistent with acute
[2020-05-08 10:17] LABS: NT Pro B Type Natriuretic Pept 1320 PG/ML (5-100)
--- NOTE | 2020-05-08 10:48 | WPDGIPROGNO ---
Progress Note: A&P Assessment and Plan (1) Acute respiratory failure: Code(s): J96.00 - Acute respiratory failure, unspecified whether with hypoxia or hypercapnia Status: Acute Assessment and Plan: Patient remains intubated on ventilator in the intensive care unit. (2) Acute on chronic blood loss anemia: Code(s): D62 - Acute posthemorrhagic anemia Status: Acute Assessment and Plan: Patient remains on IV Protonix empirically. Stress ulceration cannot be excluded. Continue monitor hemoglobin closely. (3) Alcoholic hepatitis: Code(s): K70.10 - Alcoholic hepatitis without ascites Status: Acute Assessment and Plan: Patient appears to have underlying alcoholic liver disease. Elevated LFTs likely on this basis. (4) Cholelithiasis: Code(s): K80.20 - Calculus of gallbladder without cholecystitis without obstruction Status: Acute Assessment and Plan: Gallstones identified by scanning are felt to be asymptomatic. Surgery services follow the patient as well. Continued follow conservatively at this time. (5) COPD (chronic obstructive pulmonary disease): Qualifiers: COPD type: unspecified COPD Qualified Code(s): J44.9 - Chronic obstructive pulmonary disease, unspecified Code(s): J44.9 - Chronic obstructive pulmonary disease, unspecified Status: Chronic Subjective Date/time seen: 05/08/20 10:48 patient seen in the absence of Dr. Duenas. Patient remains on the ventilator in the ICU. Nursing service review reports no evidence for blood loss at this time. Review of Systems Review of Systems: ROS unobtainable: Yes unobtainable due to endotracheal tube Exam Narrative: Exam Narrative: Patient may and on the ventilator. Orogastric tube in place. Tolerating tube feedings currently. Abdomen is soft and nontender. No organomegaly evident. Objective Data Vital Signs Vital Signs: Vital Signs - 24 hr 05/07/20 10:56 05/07/20 11:17 05/07/20 11:56 Temperature 98.7 F 98.8 F Pulse Rate 88 82 85 Respiratory Rate 21 H 22 H Blood Pressure 128/95 H 119/87 Pulse Oximetry 99 96 98 05/07/20 12:00 05/07/20 12:56 05/07/20 14:00 Temperature 99.1 F 99.1 F 99.7 F H Pulse Rate 83 87 77 Respiratory Rate 18 30 H 18 Blood Pressure 126/89 135/94 H 130/91 H Pulse Oximetry 97 98 98 05/07/20 14:14 05/07/20 16:00 05/07/20 17:02 Temperature 100.3 F H 100.4 F H Pulse Rate 75 84 Respiratory Rate 16 Blood Pressure 122/88 Pulse Oximetry 98 98 05/07/20 17:05 05/07/20 17:59 05/07/20 18:00 Temperature 100.3 F H Pulse Rate 97 93 95 Respiratory Rate 16 Blood Pressure 116/81 Pulse Oximetry 98 97 05/07/20 18:02 05/07/20 19:47 05/07/20 20:00 Temperature 100.3 F H 99.5 F Pulse Rate 97 80 Respiratory Rate 22 H Blood Pressure 133/95 H Pulse Oximetry 97 98 05/07/20 21:25 05/07/20 22:00 05/07/20 22:28 Temperature 98.5 F Pulse Rate 79 80 65 Respiratory Rate 15 20 Blood Pressure 127/91 H Pulse Oximetry 99 98 05/08/20 00:00 05/08/20 01:49 05/08/20 02:00 Temperature 98.4 F 98.0 F Pulse Rate 72 75 78 Respiratory Rate 15 19 Blood Pressure 116/82 120/82 Pulse Oximetry 98 98 98 05/08/20 04:00 05/08/20 04:55 05/08/20 06:00 Temperature 98.0 F 98.0 F Pulse Rate 67 77 80 Respiratory Rate 12 19 Blood Pressure 124/82 114/77 Pulse Oximetry 98 98 100 05/08/20 07:46 05/08/20 08:00 05/08/20 08:15 Temperature 98.1 F Pulse Rate 77 90 90 Respiratory Rate 10 L 10 L Blood Pressure 124/95 H Pulse Oximetry 99 95 05/08/20 10:00 05/08/20 10:09 Temperature 98.7 F Pulse Rate 82 92 Respiratory Rate 14 Blood Pressure 127/80 Pulse Oximetry 100 99 Intake/Output Intake/Output: Intake & Output 05/05/20 05/06/20 05/07/20 05/08/20 23:59 23:59 23:59 23:59 Intake Total 2296.8 3337.2 8 1942 Output Total 750 3400 2375 1400 Balance 1546.8 -62.8 -287 542 Meds/Results M
[2020-05-08 12:52] LABS: Alveolar/Arterial O2 Gradient 58.4 mmHg; Base Excess ABG -3.7 mEq/l (+/-2.0); Device VENTILATOR; Fractional Inspired Oxygen 30 %; HCO3 ABG 19.8 mEq/l (22.0-26.0); Modified Allen's Test Pass; Oxygen Saturation ABG 98.5 % (95.0-100.0); Oxyhemoglobin 96.9 % THb (90.0-100.0); PCO2 ABG 29.7 mmHg (35.0-45.0); PO2 ABG 120.6 mmHg (80.0-100.0); PO2 FiO2 Ratio Arterial Blood 4.02 %; Site Drawn RIGHT RADIAL; Total Hemoglobin 8.6 g/dL (12.0-18.0); pH ABG 7.441 (7.350-7.450)
[2020-05-08 12:53] LABS: Arterial Blood Gas PEEP 5 cmH2O; Arterial Blood Gas Pressure Support 5 cmH2O; Arterial Blood Gas Vent Mode SPONTANEOUS
--- NOTE | 2020-05-08 17:06 | PM.IMPN ---
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 (2) Acute encephalopathy: Code(s): G93.40 - Encephalopathy, unspecified Status: Acute Assessment and Plan: Patient noted to be acutely confused upon arrival, was somnolent, and slow to answer questions. This is probably due to multiple electrolyte disorders as well as chronic alcohol abuse. Head CT was negative for acute findings. urine drug screen negative. Urinalysis unremarkable. Possibly related to Wernicke's encephalopathy although no nystagmus is noted. He remains confused and somnolent. A&Ox3 today. (3) Electrolyte abnormality: Code(s): E87.8 - Other disorders of electrolyte and fluid balance, not elsewhere classified Status: Acute Assessment and Plan: Upon presentation, patient noted to have hypokalemia, hyponatremia, hypomagnesiumia, and hypophosphatemia. Started on IV fluids and electrolytes have been supplemented. Telemetry reviewed and showed sinus rhythm with no arrhythmias. Suspect this is all related to patients malnutrition and possible refeeding syndrome. (4) Alcohol abuse: Code(s): F10.10 - Alcohol abuse, uncomplicated Status: Chronic Assessment and Plan: Patient reports he has not drank alcohol in approximately 1 month, however his sister noted that he is still drinking daily and his last drink was 04/27/20. Reportedly he drinks 1/2 pint vodka daily as well as beer. continue ciwa in icu (5) Alcoholic hepatitis: Code(s): K70.10 - Alcoholic hepatitis without ascites Status: Acute Assessment and Plan: AST and ALP elevated upon presentation, thought to be be secondary to alcohol abuse. RUQ US showed dilated gallbladder with sludge, gallbladder wall thickening, pericholecystic fluid, and mild biliary dilation, all consistent with cholecystitis, however Dr. Duenas notes that similar findings are seen in alcoholic hepatitis. Diffuse hepatic steatosis noted on MRCP. Viral hepatitis panel is negative. Total bili slight increase today. LFTs trending down. (6) Cholelithiasis: Code(s): K80.20 - Calculus of gallbladder without cholecystitis without obstruction Status: Acute Assessment and Plan: RUQ US showed gallbladder sludge and findings consistent with acute cholecystitis as noted above. He had MRCP on 05/01/2019 which also showed finding consistent with acute cholecystitis. Howeve, his abdominal exam was benign. He is tolerating a regular diet. He remains asymptomatic. (7) Malnutrition: Qualifiers: Malnutrition type: protein-calorie malnutrition Protein-calorie malnutrition severity: moderate Qualified Code(s): E44.0 - Moderate protein-calorie malnutrition Code(s): E46 - Unspecified protein-calorie malnutrition Status: Chronic Assessment and Plan: Patient reports poor p.o. intake and appears malnourished. Total protein and albumin are low. His BMI is 25. His labs demonstrated signs of refeeding syndrome with severely low phosphorus, low potassium and magnesium. (8) Normocytic anemia: Code(s): D64.9 - Anemia, unspecified
[2020-05-09] VITALS (13 sets, daily range): BP systolic 98–129; BP diastolic 66–96; PULSE 60–116; RESP 16–32; TEMP 36.4–37.4; O2SAT 94–100; BMI 11.0
[2020-05-09 04:43] LABS: Alveolar/Arterial O2 Gradient 28.4 mmHg; Base Excess ABG -2.8 mEq/l (+/-2.0); Fractional Inspired Oxygen 23 %; HCO3 ABG 20.5 mEq/l (22.0-26.0); Methemoglobin ABG 0.2 %THb (0-1.5); Oxygen Content ABG 12.8 %vol (16.0-22.0); Oxygen Saturation ABG 97.9 % (95.0-100.0); Oxyhemoglobin 96.5 % THb (90.0-100.0); PCO2 ABG 30.1 mmHg (35.0-45.0); PO2 ABG 99.7 mmHg (80.0-100.0); PO2 FiO2 Ratio Arterial Blood 4.33 %; Reduced Hemoglobin 3.3 %THb (0-5.0); Total Hemoglobin 9.3 g/dL (12.0-18.0); pH ABG 7.451 (7.350-7.450)
[2020-05-09 04:44] LABS: Device NASAL CANNULA; Liters per Minute 0.5 LPM; Modified Allen's Test Pass; Site Drawn RIGHT RADIAL
[2020-05-09] MEDS: CENTRAL LINE FLUSH 10 ML IV PUSH ×3 (05:36→19:35)
[2020-05-09 05:52] LABS: Hematocrit 23.5 % (42.0-52.0); Hemoglobin 7.9 g/dL (14.0-18.0); Mean Corpuscular HGB Conc 33.6 g/dl (32-36); Mean Corpuscular Hemoglobin 33.2 pg (26-34); Mean Corpuscular Volume 98.7 fl (80-100); Mean Platelet Volume 9.3 fl (7.4-10.4); Platelet Count Result 265 k/mm3 (150-375); Red Blood Count 2.38 M/mm3 (4.6-6.20); White Blood Count 5.4 K/mm3 (4.5-10.0)
[2020-05-09 06:04] LABS: Alanine Aminotransferase 92 U/L (4-50); Albumin Level 3.8 g/dL (3.5-5.1); Alkaline Phosphatase 265 U/L (38-126); Anion Gap 6 mmol/L (8-16); Aspartate Amino Transferase 66 U/L (17-59); Bilirubin,Total 1.6 mg/dL (0.2-1.3); Blood Urea Nitrogen 7 mg/dL (9-20); Calcium 9.4 mg/dL (8.4-10.2); Carbon Dioxide 27 mmol/L (22-30); Chloride 102 mmol/L (98-107); Estimated CRCL calculation 209 ml/min; Estimated Glomerular Filt Rate > 60; Glucose 77 mg/dL (75-110); Magnesium 1.9 mg/dL (1.6-2.3); Phosphorus 4.1 mg/dL (2.5-4.5); Potassium 3.6 mmol/L (3.4-5.0); Sodium 135 mmol/L (137-145)
[2020-05-09 06:10] LABS: Triglycerides 112 mg/dL (<150)
[2020-05-09] MEDS: levETIRAcetam 500 MG TABLET PO ×2 (08:42→17:10)
[2020-05-09] MEDS: ENOXAPARIN 40 MG/0.4 ML SYRINGE SUB-Q (08:42)
[2020-05-09] MEDS: MULTIVITAMINS THERAPEUTIC TAB (*BKC) 1 TABLET PO (08:42)
[2020-05-09] MEDS: THIAMINE HCL 100 MG TABLET PO ×2 (08:42→17:10)
[2020-05-09] MEDS: PANTOPRAZOLE SODIUM IV 40 MG VIAL IV PUSH ×2 (08:42→19:35)
--- NOTE | 2020-05-09 09:08 | WPDINTPN ---
Progress Note: A&P Assessment and Plan (1) Acute respiratory failure: Code(s): J96.00 - Acute respiratory failure, unspecified whether with hypoxia or hypercapnia Status: Acute Assessment and Plan: Patient extubated yesterday after a successful weaning trial Currently on nasal cannula Incentive spirometer, out of bed, physical therapy, up in chair Scopolamine patch for secretions Bronchodilators Continue empiric Zosyn for aspiration pneumonia BNP 1320 right atrial pressures as suggested by dilated IVC on echo. Will give a small dose of Lasix ECHO 1. Complete two-dimensional, color flow and Doppler transthoracic echocardiogram is performed. 2. Left ventricular chamber dimension is normal. 3. Left ventricular systolic function is normal, estimated at 55-60%. 4. There is no increased left ventricular wall thickness. 5. The left ventricular diastolic function is grade I diastolic dysfunction. 6. Left atrial chamber dimension is mildly enlarged. 7. There is mild mitral valve regurgitation. 8. There is mild tricuspid valve regurgitation. 9. Mild pulmonary hypertension, estimated pulmonary arterial systolic pressure is 37 mmHg. (2) Generalized weakness: Code(s): R53.1 - Weakness Status: Acute Assessment and Plan: Ongoing for several months. On 09/23/2019 he had seizure at work and since that time has had limited mobility. Unclear if he had an injury during this event that caused his progressive weakness. His sister reports that since that time, he had been out of work and ambulating around the home using a cane. However, since about 1 month ago, he has been essentially immobile and his sister or his friend carry him around the home. 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 Additionally, suspect this is worsened by deconditioning, dehydration, and overall malnutrition. Neurology following and input is appreciated. B12 and folate wnl. HIV negative. RPR non-reactive. Additional pending tests: Lyme disease panel, SHREYA, AChR antibodies. Physical therapy and occupational therapy (3) Acute encephalopathy: Code(s): G93.40 - Encephalopathy, unspecified Status: Acute Assessment and Plan: Multifactorial patient presented acutely confused , was somnolent, and slow to answer questions. He had multiple electrolyte abnormality as well as chronic alcohol abuse. Head CT was negative for acute findings. urine drug screen negative. Wernicke's encephalopathy was suspect. He remained confused and somnolent through hospital stay with fluctuating mental status he was also getting Librium and Ativan. Patient was seen by Neurology At this point he sedated for mechanical ventilation. Will perform sedation holiday and switched to propofol for more reliable neuro exam Continue thiamine and folic acid Ammonia level was normal (4) Electrolyte abnormality: Code(s): E87.8 - Other disorders of electrolyte and fluid balance, not elsewhere classified Status: Acute Assessment and Plan: Upon presentation, patient noted to have hypokalemia, hyponatremia, hypomagnesiumia, and hypophosphatemia. Patient was hydrated and electrolytes were replaced. Most have improved since then Monitor level (5) Alcohol abuse: Code(s): F10.10 - Alcohol abuse, uncomplicated Status: Chronic Assessment and Plan: Patient was getting Librium and p.r.n. Ativan on the floor Currently is on low-dose propofol continue thiamine and folic acid (6) Alcoholic hepatitis: Code(s): K70.10 - Alcoholic hepatitis without ascites Status: Acute Assessment and Plan: AST and ALP elevated upon presentation, thought to be be secondary to alcohol abuse. RUQ US showed dilated gallbladder with sludge, gallbladder wall thickening, pericholecystic fluid, and mild biliary dilation, all consistent with cholecystitis, however Dr. Duenas note
[2020-05-09] MEDS: FUROSEMIDE INJ 40 MG/4 ML VIAL 20 MG IV PUSH (09:30)
--- NOTE | 2020-05-09 09:36 | WPDGIPROGNO ---
Progress Note: A&P Assessment and Plan (1) Acute respiratory failure: Code(s): J96.00 - Acute respiratory failure, unspecified whether with hypoxia or hypercapnia Status: Acute Assessment and Plan: Patient remains short of breath. No longer on the ventilator. (2) Acute encephalopathy: Code(s): G93.40 - Encephalopathy, unspecified Status: Acute Assessment and Plan: Not totally alert with at this morning. May be related to liver disease or comorbid medical problems. Continue supportive care. (3) Alcoholic hepatitis: Code(s): K70.10 - Alcoholic hepatitis without ascites Status: Acute Assessment and Plan: Elevated LFTs appear to be related to alcoholic hepatitis. Continue monitor closely. No specific therapy at this time. (4) Elevated LFTs: Code(s): R79.89 - Other specified abnormal findings of blood chemistry Status: Acute (5) Alcohol abuse: Code(s): F10.10 - Alcohol abuse, uncomplicated Status: Chronic Assessment and Plan: Long-term alcohol absent strongly encourage. (6) Cholelithiasis: Code(s): K80.20 - Calculus of gallbladder without cholecystitis without obstruction Status: Acute Assessment and Plan: Gallstones noted felt to be incidental. Abnormalities around gallbladder likely related to alcoholic hepatitis. Additional Plan Dr. Duenas returns in the morning will assume care. Subjective Date/time seen: 05/09/20 09:36 patient remains in the ICU. Now extubated. Very weak. No evidence for acute blood loss described. No active bleeding. Patient denies abdominal pain. Review of Systems Review of Systems: All systems reviewed & are unremarkable except as noted in HPI and below Exam Narrative: Exam Narrative: Physical exam repeat feels patient be somewhat it is somnolent. Slow to answer. Not able to give much history. HEENT exam reveals No obvious icterus. Abdomen is soft. Perhaps mild hepatomegaly. No edema noted peripherally. Objective Data Vital Signs Vital Signs: Vital Signs - 24 hr 05/08/20 10:00 05/08/20 10:09 05/08/20 12:00 Temperature 98.7 F 99 F Pulse Rate 82 92 76 Respiratory Rate 14 26 H Blood Pressure 127/80 118/91 H Pulse Oximetry 100 99 100 05/08/20 13:18 05/08/20 14:00 05/08/20 16:00 Temperature 98.5 F 98.4 F Pulse Rate 96 97 Respiratory Rate 28 H 36 H Blood Pressure 112/91 H 124/99 H Pulse Oximetry 98 97 99 05/08/20 18:00 05/08/20 20:00 05/08/20 22:00 Temperature 98.6 F 98.5 F 98.4 F Pulse Rate 78 70 63 Respiratory Rate 28 H 28 H 30 H Blood Pressure 127/91 H 128/88 139/89 Pulse Oximetry 98 95 95 05/09/20 00:00 05/09/20 02:00 05/09/20 04:00 Temperature 98.0 F 97.6 F 97.6 F Pulse Rate 69 68 66 Respiratory Rate 28 H 27 H 26 H Blood Pressure 129/92 H 129/92 H 122/84 Pulse Oximetry 95 95 95 05/09/20 06:00 Temperature 98.4 F Pulse Rate 85 Respiratory Rate 27 H Blood Pressure 128/96 H Pulse Oximetry 97 Intake/Output Intake/Output: Intake & Output 05/06/20 05/07/20 05/08/20 05/09/20 23:59 23:59 23:59 23:59 Intake Total 3337.2 2088 2730 100 Output Total 3400 2375 2750 1300 Balance -62.8 - Meds/Results Medications: Active Medications Generic Name Dose Route Start Last Admin Trade Name Gelacio PRN Reason Stop Dose Admin Acetaminophen 650 mg 05/06/20 15:32 05/07/20 17:02 Acetaminophen 325 Mg Tablet PO 650 mg Q4H PRN Administration Fever > 100.4 Dextrose 12.5 gm 04/28/20 18:43 Dextrose 50% 25 Gm/50 Ml Syringe IV PUSH PRN PRN Hypoglycemia Protocol Enoxaparin Sodium 40 mg 05/06/20 09:00 05/09/20 08:42 Enoxaparin 40 Mg/0.4 Ml Syringe SUB-Q 40 mg DAILY ANGY Administration Folic Acid 1 mg 04/29/20 09:00 05/04/20 08:36 Folic Acid 1 Mg Tablet PO 1 mg DAILY ANGY Administration Glucagon 1 mg 04/28/20 18:43 Glucagon For Inj 1 Mg Vial IM PRN
--- NOTE | 2020-05-09 10:00 | PCSTNOTE ---
Please refer to the Bedside Swallow Evaluation in the EMR. Please note, silent aspiration cannot be ruled out at bedside.
--- NOTE | 2020-05-09 16:04 | PM.IMPN ---
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 05/09/20 16:04 Chito Gill is a 49-year-old male with history of alcoholism and COPD who is seen in follow-up for generalized weakness and alcohol dependence. transferred to icu because of Acute respiratory failure 05/05, and extubated successfully on 05/08. 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 (2) Acute encephalopathy: Code(s): G93.40 - Encephalopathy, unspecified Status: Acute Assessment and Plan: Patient noted to be acutely confused upon arrival, was somnolent, and slow to answer questions. This is probably due to multiple electrolyte disorders as well as chronic alcohol abuse. Head CT was negative for acute findings. urine drug screen negative. Urinalysis unremarkable. Possibly related to Wernicke's encephalopathy although no nystagmus is noted. He remains confused and somnolent. A&Ox3 today. (3) Electrolyte abnormality: Code(s): E87.8 - Other disorders of electrolyte and fluid balance, not elsewhere classified Status: Acute Assessment and Plan: Upon presentation, patient noted to have hypokalemia, hyponatremia, hypomagnesiumia, and hypophosphatemia. Started on IV fluids and electrolytes have been supplemented. Telemetry reviewed and showed sinus rhythm with no arrhythmias. Suspect this is all related to patients malnutrition and possible refeeding syndrome. (4) Alcohol abuse: Code(s): F10.10 - Alcohol abuse, uncomplicated Status: Chronic Assessment and Plan: Patient reports he has not drank alcohol in approximately 1 month, however his sister noted that he is still drinking daily and his last drink was 04/27/20. Reportedly he drinks 1/2 pint vodka daily as well as beer. continue ciwa in icu (5) Alcoholic hepatitis: Code(s): K70.10 - Alcoholic hepatitis without ascites Status: Acute Assessment and Plan: AST and ALP elevated upon presentation, thought to be be secondary to alcohol abuse. RUQ US showed dilated gallbladder with sludge, gallbladder wall thickening, pericholecystic fluid, and mild biliary dilation, all consistent with cholecystitis, however Dr. Duenas notes that similar findings are seen in alcoholic hepatitis. Diffuse hepatic steatosis noted on MRCP. Viral hepatitis panel is negative. Total bili slight increase today. LFTs trending down. (6) Cholelithiasis: Code(s): K80.20 - Calculus of gallbladder without cholecystitis without obstruction Status: Acute Assessment and Plan: RUQ US showed gallbladder sludge and findings consistent with acute cholecystitis as noted above. He had MRCP on 05/01/2019 which also showed finding consistent with acute cholecystitis. Howeve, his abdominal exam was benign. He is tolerating a regular diet. He remains asymptomatic. (7) Malnutri
[2020-05-10] VITALS (8 sets, daily range): BP systolic 111–126; BP diastolic 71–88; PULSE 57–85; RESP 14–26; TEMP 36.1–36.4; O2SAT 93–97
[2020-05-10] MEDS: CENTRAL LINE FLUSH 10 ML IV PUSH ×3 (06:07→20:31)
[2020-05-10] MEDS: LEVOTHYROXINE SODIUM 125 MCG TABLET PO (06:07)
[2020-05-10 06:24] LABS: Hematocrit 25.2 % (42.0-52.0); Hemoglobin 8.5 g/dL (14.0-18.0); Mean Corpuscular HGB Conc 33.7 g/dl (32-36); Mean Corpuscular Hemoglobin 32.8 pg (26-34); Mean Corpuscular Volume 97.3 fl (80-100); Mean Platelet Volume 9.6 fl (7.4-10.4); Platelet Count Result 270 k/mm3 (150-375); Red Blood Count 2.59 M/mm3 (4.6-6.20); Red Cell Distribution Width 14.1 % (11.5-14.5); White Blood Count 4.4 K/mm3 (4.5-10.0)
[2020-05-10 06:36] LABS: Alanine Aminotransferase 84 U/L (4-50); Albumin Level 3.7 g/dL (3.5-5.1); Alkaline Phosphatase 248 U/L (38-126); Anion Gap 8 mmol/L (8-16); Aspartate Amino Transferase 56 U/L (17-59); Bilirubin,Total 1.2 mg/dL (0.2-1.3); Blood Urea Nitrogen 11 mg/dL (9-20); Calcium 9.4 mg/dL (8.4-10.2); Carbon Dioxide 29 mmol/L (22-30); Chloride 100 mmol/L (98-107); Estimated CRCL calculation 196 ml/min; Estimated Glomerular Filt Rate > 60; Glucose 84 mg/dL (75-110); Magnesium 1.9 mg/dL (1.6-2.3); Phosphorus 4.2 mg/dL (2.5-4.5); Potassium 3.2 mmol/L (3.4-5.0); Sodium 137 mmol/L (137-145)
[2020-05-10] MEDS: MULTIVITAMINS THERAPEUTIC TAB (*BKC) 1 TABLET PO (08:15)
[2020-05-10] MEDS: levETIRAcetam 500 MG TABLET PO ×2 (08:15→17:18)
[2020-05-10] MEDS: ENOXAPARIN 40 MG/0.4 ML SYRINGE SUB-Q (08:15)
[2020-05-10] MEDS: THIAMINE HCL 100 MG TABLET PO ×2 (08:16→17:18)
[2020-05-10] MEDS: PANTOPRAZOLE SODIUM IV 40 MG VIAL IV PUSH ×2 (08:16→20:31)
[2020-05-10] MEDS: POTASSIUM CHLORIDE 20 MEQ PACKET (FOR LIQUID) 40 MEQ PO (08:21)
--- NOTE | 2020-05-10 11:01 | WPDINTPN ---
Progress Note: A&P Assessment and Plan (1) Acute respiratory failure: Code(s): J96.00 - Acute respiratory failure, unspecified whether with hypoxia or hypercapnia Status: Acute Assessment and Plan: Patient extubated on 05/08/2020 Currently on nasal cannula Incentive spirometer, out of bed, physical therapy, up in chair Scopolamine patch for secretions Bronchodilators Continue empiric Zosyn for aspiration pneumonia BNP 1320 right atrial pressures as suggested by dilated IVC on echo. Patient diuresed well ECHO 1. Complete two-dimensional, color flow and Doppler transthoracic echocardiogram is performed. 2. Left ventricular chamber dimension is normal. 3. Left ventricular systolic function is normal, estimated at 55-60%. 4. There is no increased left ventricular wall thickness. 5. The left ventricular diastolic function is grade I diastolic dysfunction. 6. Left atrial chamber dimension is mildly enlarged. 7. There is mild mitral valve regurgitation. 8. There is mild tricuspid valve regurgitation. 9. Mild pulmonary hypertension, estimated pulmonary arterial systolic pressure is 37 mmHg. (2) Generalized weakness: Code(s): R53.1 - Weakness Status: Acute Assessment and Plan: Ongoing for several months. On 09/23/2019 he had seizure at work and since that time has had limited mobility. Unclear if he had an injury during this event that caused his progressive weakness. His sister reports that since that time, he had been out of work and ambulating around the home using a cane. However, since about 1 month ago, he has been essentially immobile and his sister or his friend carry him around the home. 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 Additionally, suspect this is worsened by deconditioning, dehydration, and overall malnutrition. Neurology following and input is appreciated. B12 and folate wnl. HIV negative. RPR non-reactive. Additional pending tests: Lyme disease panel, SHREYA, AChR antibodies. Physical therapy and occupational therapy (3) Acute encephalopathy: Code(s): G93.40 - Encephalopathy, unspecified Status: Acute Assessment and Plan: Multifactorial patient presented acutely confused , was somnolent, and slow to answer questions. He had multiple electrolyte abnormality as well as chronic alcohol abuse. Head CT was negative for acute findings. urine drug screen negative. Wernicke's encephalopathy was suspect. He remained confused and somnolent through hospital stay with fluctuating mental status he was also getting Librium and Ativan. Patient was seen by Neurology At this point he sedated for mechanical ventilation. Will perform sedation holiday and switched to propofol for more reliable neuro exam Continue thiamine and folic acid Ammonia level was normal (4) Electrolyte abnormality: Code(s): E87.8 - Other disorders of electrolyte and fluid balance, not elsewhere classified Status: Acute Assessment and Plan: Upon presentation, patient noted to have hypokalemia, hyponatremia, hypomagnesiumia, and hypophosphatemia. Patient was hydrated and electrolytes were replaced. Most have improved since then Monitor level (5) Alcohol abuse: Code(s): F10.10 - Alcohol abuse, uncomplicated Status: Chronic Assessment and Plan: Patient was getting Librium and p.r.n. Ativan on the floor Currently is on low-dose propofol continue thiamine and folic acid (6) Alcoholic hepatitis: Code(s): K70.10 - Alcoholic hepatitis without ascites Status: Acute Assessment and Plan: AST and ALP elevated upon presentation, thought to be be secondary to alcohol abuse. RUQ US showed dilated gallbladder with sludge, gallbladder wall thickening, pericholecystic fluid, and mild biliary dilation, all consistent with cholecystitis, however Dr. Duenas notes that similar findings are seen in alc
--- NOTE | 2020-05-10 11:23 | PCDIET ---
Nutrition Follow-Up Complete: Nutrition Diagnosis: Malnutrition related to ETOH abuse as evidenced by COPD associated with malnutrition in the context of chronic disease/condition. Nutrition Goal: Meet estimated nutritional needs Goal in progress. Patient extubated and had not been eating much; RN reports patient took about 1/2 of breakfast tray this morning on minced and moist diet. Recommend Ensure Compact (220kcal, 9g protein) BID. Recommending this moderate calorie supplement to increase intake gradually, as patient did have signs of refeeding syndrome while on tube feedings. Still requiring potassium replacement. Last recorded weight is 58.6 kg which is decreased from last review. Bowel Motility: Last documented BM on 05/04/20 x 2. If medically appropriate, would consider medication to promote BM. Labs Reviewed: Hgb (8.5), Hct (25.2), Cr (0.3), K (3.2) Meds Noted: Folic Acid, MVI, Zosyn, Thiamine, KCl, Synthroid, Protonix Additional Notes: Magnesium and phosphorus normal today. No skin breakdown documented. Will continue to monitor with same goal. Nutrition Monitoring and Evaluation: Will monitor every 3 days.
--- NOTE | 2020-05-10 13:31 | WPDGIPROGNO ---
Progress Note: A&P Assessment and Plan (1) Acute respiratory failure: Code(s): J96.00 - Acute respiratory failure, unspecified whether with hypoxia or hypercapnia Status: Acute Assessment and Plan: extubated, slowly better still in icu (2) Acute encephalopathy: Code(s): G93.40 - Encephalopathy, unspecified Status: Acute Assessment and Plan: multifactorial, alcoholic, possible wernicke's supportive care will follow from [place], call if questions (3) Alcoholic hepatitis: Code(s): K70.10 - Alcoholic hepatitis without ascites Status: Acute Assessment and Plan: Elevated LFTs appear to be related to alcoholic hepatitis, stable numbers. no pain encourage to keep eating (4) Elevated LFTs: Code(s): R79.89 - Other specified abnormal findings of blood chemistry Status: Acute (5) Alcohol abuse: Code(s): F10.10 - Alcohol abuse, uncomplicated Status: Chronic Assessment and Plan: Long-term alcohol absent strongly encourage. (6) Cholelithiasis: Code(s): K80.20 - Calculus of gallbladder without cholecystitis without obstruction Status: Acute Assessment and Plan: Gallstones noted felt to be incidental. Abnormalities around gallbladder likely related to alcoholic hepatitis. Subjective Date/time seen: 05/10/20 13:31 Interval history: generalized weakness lying in bed, awake, extubated recently and stable condition. No signs of bleeding. Review of Systems Review of Systems: All systems reviewed & are unremarkable except as noted in HPI and below Exam Const: Other: cachectic, awake and alert HENMT: General nose exam: Normal nares present Eyes: General: appearance normal, both eyes and all related structures Resp: Auscultation: diminished lung sounds Cardio: Rate: regular rate GI: GI Palp: Yes Soft to palpation, No Tenderness to palpation present (GI) and No Guarding due to palpation present (GI) Auscultation: normal bowel sounds Skin: General skin exam: normal color Neuro: Cognition (Neuro): abnormal cognition Extrem: General: normal to inspection Objective Data Vital Signs Vital Signs: Vital Signs - 24 hr 05/09/20 14:00 05/09/20 16:00 05/09/20 18:00 Temperature 99 F 99.4 F 98.7 F Pulse Rate 74 81 82 Respiratory Rate 18 16 Blood Pressure 117/77 107/88 100/66 Pulse Oximetry 96 97 95 05/09/20 20:00 05/09/20 22:00 05/10/20 00:00 Temperature 98.8 F 98.8 F Pulse Rate 73 67 69 Respiratory Rate 26 H 26 H 26 H Blood Pressure 118/88 126/75 118/83 Pulse Oximetry 95 94 93 05/10/20 02:00 05/10/20 04:00 05/10/20 06:00 Temperature 97.0 F L 97.5 F L 97.4 F L Pulse Rate 68 64 57 L Respiratory Rate 21 H 21 H 18 Blood Pressure 124/84 126/88 Pulse Oximetry 94 95 96 05/10/20 08:00 05/10/20 10:06 Temperature 97 F L Pulse Rate 85 Respiratory Rate 22 H Blood Pressure 119/71 Pulse Oximetry 96 95 Intake/Output Intake/Output: Intake & Output 05/07/20 05/08/20 05/09/20 05/10/20 23:59 23:59 23:59 23:59 Intake Total 208 2730 300 150 Output Total 2375 2750 3000 350 Balance - -200 Meds/Results Medications: Active Medications Generic Name Dose Route Start Last Admin Trade Name Freq PRN Reason Stop Dose Admin Acetaminophen 650 mg 05/06/20 15:32 05/07/20 17:02 Acetaminophen 325 Mg Tablet PO 650 mg Q4H PRN Administration Fever > 100.4 Dextrose 12.5 gm 04/28/20 18:43 Dextrose 50% 25 Gm/50 Ml Syringe IV PUSH PRN PRN Hypoglycemia Protocol Enoxaparin Sodium 40 mg 05/06/20 09:00 05/10/20 08:15 Enoxaparin 40 Mg/0.4 Ml Syringe SUB-Q 40 mg DAILY ANGY Administration Folic Acid 1 mg 04/29/20 09:00 05/04/20 08:36 Folic Acid 1 Mg Tablet PO 1 mg DAILY ANGY Administration Glucagon 1 mg 04/28/20 18:43 Glucagon For Inj 1 Mg Vial IM PRN PRN Hypoglycemia Protocol Glucose 15 gm 04/28/20 18:43 Gl
--- NOTE | 2020-05-10 15:06 | PM.IMPN ---
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 05/10/20 15:06 05/09 Chito Gill is a 49-year-old male with history of alcoholism and COPD who is seen in follow-up for generalized weakness and alcohol dependence. transferred to icu because of Acute respiratory failure 05/05, and extubated successfully on 05/08. 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 (2) Acute encephalopathy: Code(s): G93.40 - Encephalopathy, unspecified Status: Acute Assessment and Plan: Patient noted to be acutely confused upon arrival, was somnolent, and slow to answer questions. This is probably due to multiple electrolyte disorders as well as chronic alcohol abuse. Head CT was negative for acute findings. urine drug screen negative. Urinalysis unremarkable. Possibly related to Wernicke's encephalopathy although no nystagmus is noted. He remains confused and somnolent. A&Ox3 today. (3) Electrolyte abnormality: Code(s): E87.8 - Other disorders of electrolyte and fluid balance, not elsewhere classified Status: Acute Assessment and Plan: Upon presentation, patient noted to have hypokalemia, hyponatremia, hypomagnesiumia, and hypophosphatemia. Started on IV fluids and electrolytes have been supplemented. Telemetry reviewed and showed sinus rhythm with no arrhythmias. Suspect this is all related to patients malnutrition and possible refeeding syndrome. (4) Alcohol abuse: Code(s): F10.10 - Alcohol abuse, uncomplicated Status: Chronic Assessment and Plan: Patient reports he has not drank alcohol in approximately 1 month, however his sister noted that he is still drinking daily and his last drink was 04/27/20. Reportedly he drinks 1/2 pint vodka daily as well as beer. continue ciwa in icu (5) Alcoholic hepatitis: Code(s): K70.10 - Alcoholic hepatitis without ascites Status: Acute Assessment and Plan: AST and ALP elevated upon presentation, thought to be be secondary to alcohol abuse. RUQ US showed dilated gallbladder with sludge, gallbladder wall thickening, pericholecystic fluid, and mild biliary dilation, all consistent with cholecystitis, however Dr. Duenas notes that similar findings are seen in alcoholic hepatitis. Diffuse hepatic steatosis noted on MRCP. Viral hepatitis panel is negative. Total b
--- NOTE | 2020-05-10 17:42 | PC.NURSE ---
Patient downgraded to medical status. Room 243 assigned, report given to IVANIA Pal. Patient traveled to new room via bed with medications handed off to secretary administrative assistant on [facility]. Patient arrived to [facility] at 1735.
[2020-05-11 04:00] VITALS: BP 132/77; PULSE 71; RESP 18; TEMP 36.2; O2SAT 98
[2020-05-11 05:20] LABS: Hematocrit 25.1 % (42.0-52.0); Hemoglobin 8.5 g/dL (14.0-18.0); Mean Corpuscular HGB Conc 33.9 g/dl (32-36); Mean Corpuscular Hemoglobin 33.5 pg (26-34); Mean Corpuscular Volume 98.8 fl (80-100); Mean Platelet Volume 9.5 fl (7.4-10.4); Platelet Count Result 251 k/mm3 (150-375); Red Blood Count 2.54 M/mm3 (4.6-6.20); Red Cell Distribution Width 14.1 % (11.5-14.5); White Blood Count 3.9 K/mm3 (4.5-10.0)
[2020-05-11 05:34] LABS: Magnesium 1.8 mg/dL (1.6-2.3)
[2020-05-11] MEDS: LEVOTHYROXINE SODIUM 125 MCG TABLET PO (06:01)
[2020-05-11] MEDS: CENTRAL LINE FLUSH 10 ML IV PUSH ×3 (06:01→21:42)
[2020-05-11] MEDS: THIAMINE HCL 100 MG TABLET PO ×2 (08:33→18:27)
[2020-05-11] MEDS: MULTIVITAMINS THERAPEUTIC TAB (*BKC) 1 TABLET PO (08:33)
[2020-05-11] MEDS: levETIRAcetam 500 MG TABLET PO ×2 (08:33→18:27)
[2020-05-11] MEDS: ENOXAPARIN 40 MG/0.4 ML SYRINGE SUB-Q (08:34)
[2020-05-11] MEDS: PANTOPRAZOLE SODIUM IV 40 MG VIAL IV PUSH ×2 (08:34→21:42)
[2020-05-11 08:56] LABS: Alanine Aminotransferase 73 U/L (4-50); Albumin Level 3.5 g/dL (3.5-5.1); Alkaline Phosphatase 198 U/L (38-126); Anion Gap 3 mmol/L (8-16); Aspartate Amino Transferase 45 U/L (17-59); Bilirubin,Total 0.7 mg/dL (0.2-1.3); Blood Urea Nitrogen 8 mg/dL (9-20); Calcium 9.4 mg/dL (8.4-10.2); Carbon Dioxide 31 mmol/L (22-30); Chloride 103 mmol/L (98-107); Estimated CRCL calculation 190 ml/min; Estimated Glomerular Filt Rate > 60; Glucose 83 mg/dL (75-110); Potassium 3.2 mmol/L (3.4-5.0); Sodium 137 mmol/L (137-145)
[2020-05-11 13:02] VITALS: BMI 11.0
[2020-05-11 14:00] VITALS: BP 124/76; PULSE 71; RESP 16; TEMP 36.8; O2SAT 97
--- NOTE | 2020-05-11 14:02 | PM.IMPN ---
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 05/10/20 15:06 05/09 Chito Gill is a 49-year-old male with history of alcoholism and COPD who is seen in follow-up for generalized weakness and alcohol dependence. transferred to icu because of Acute respiratory failure 05/05, and extubated successfully on 05/08. 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 05/11 patient was transferred out of ICU yesterday, he is still quite weak and at times hallucinating, unable to provide detailed review of symptom, patient will benefit going into SNF for gentle rehab, patient seen by dietitian and working on his nutrition status, will continue to monitor, awaiting authorization from insurance company to discharge the patient to SNF. (2) Acute encephalopathy: Code(s): G93.40 - Encephalopathy, unspecified Status: Acute Assessment and Plan: Patient noted to be acutely confused upon arrival, was somnolent, and slow to answer questions. This is probably due to multiple electrolyte disorders as well as chronic alcohol abuse. Head CT was negative for acute findings. urine drug screen negative. Urinalysis unremarkable. Possibly related to Wernicke's encephalopathy although no nystagmus is noted. He remains confused and somnolent. A&Ox3 today. (3) Electrolyte abnormality: Code(s): E87.8 - Other disorders of electrolyte and fluid balance, not elsewhere classified Status: Acute Assessment and Plan: Upon presentation, patient noted to have hypokalemia, hyponatremia, hypomagnesiumia, and hypophosphatemia. Started on IV fluids and electrolytes have been supplemented. Telemetry reviewed and showed sinus rhythm with no arrhythmias. Suspect this is all related to patients malnutrition and possible refeeding syndrome. (4) Alcohol abuse: Code(s): F10.10 - Alcohol abuse, uncomplicated Status: Chronic Assessment and Plan: Patient reports he has not drank alcohol in approximately 1 month, however his sister noted that he is still drinking daily and his last drink was 04/27/20. Reportedly he drinks 1/2 pint vodka daily as well as beer. continue ciwa in icu (5) Alcoholic hepatitis: Code(s): K70.10 - Alcoholic hepatitis without ascites Status: Acute Assessment and Plan: AST and ALP elevated upo
[2020-05-11 18:38] LABS: SARS-CoV-2 RNA PCR Negative
[2020-05-11 22:00] VITALS: BP 114/70; PULSE 77; RESP 18; TEMP 36.7; O2SAT 97
[2020-05-12 05:40] VITALS: BP 123/76; PULSE 67; RESP 18; TEMP 36.7; O2SAT 100
[2020-05-12] MEDS: CENTRAL LINE FLUSH 10 ML IV PUSH ×3 (06:01→21:23)
[2020-05-12] MEDS: LEVOTHYROXINE SODIUM 125 MCG TABLET PO (06:01)
[2020-05-12 06:45] LABS: Hematocrit 27.3 % (42.0-52.0); Hemoglobin 8.9 g/dL (14.0-18.0); Mean Corpuscular HGB Conc 32.6 g/dl (32-36); Mean Corpuscular Hemoglobin 33.1 pg (26-34); Mean Corpuscular Volume 101.5 fl (80-100); Mean Platelet Volume 9.7 fl (7.4-10.4); Platelet Count Result 269 k/mm3 (150-375); Red Blood Count 2.69 M/mm3 (4.6-6.20); Red Cell Distribution Width 14.1 % (11.5-14.5); White Blood Count 4.6 K/mm3 (4.5-10.0)
[2020-05-12 07:08] LABS: Alanine Aminotransferase 60 U/L (4-50); Albumin Level 3.7 g/dL (3.5-5.1); Alkaline Phosphatase 175 U/L (38-126); Anion Gap 5 mmol/L (8-16); Aspartate Amino Transferase 35 U/L (17-59); Bilirubin,Total 0.6 mg/dL (0.2-1.3); Blood Urea Nitrogen 5 mg/dL (9-20); Calcium 9.4 mg/dL (8.4-10.2); Carbon Dioxide 32 mmol/L (22-30); Chloride 103 mmol/L (98-107); Estimated CRCL calculation 151 ml/min; Estimated Glomerular Filt Rate > 60; Glucose 83 mg/dL (75-110); Potassium 3.3 mmol/L (3.4-5.0); Sodium 140 mmol/L (137-145)
[2020-05-12 07:09] LABS: Triglycerides 147 mg/dL (<150)
[2020-05-12] MEDS: MULTIVITAMINS THERAPEUTIC TAB (*BKC) 1 TABLET PO (08:10)
[2020-05-12] MEDS: ENOXAPARIN 40 MG/0.4 ML SYRINGE SUB-Q (08:10)
[2020-05-12] MEDS: THIAMINE HCL 100 MG TABLET PO ×2 (08:10→17:48)
[2020-05-12] MEDS: levETIRAcetam 500 MG TABLET PO ×2 (08:10→17:48)
[2020-05-12] MEDS: PANTOPRAZOLE SODIUM IV 40 MG VIAL IV PUSH ×2 (08:10→21:23)
--- NOTE | 2020-05-12 12:22 | PM.IMPN ---
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 05/10/20 15:06 05/09 Chito Gill is a 49-year-old male with history of alcoholism and COPD who is seen in follow-up for generalized weakness and alcohol dependence. transferred to icu because of Acute respiratory failure 05/05, and extubated successfully on 05/08. 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 05/11 patient was transferred out of ICU yesterday, he is still quite weak and at times hallucinating, unable to provide detailed review of symptom, patient will benefit going into SNF for gentle rehab, patient seen by dietitian and working on his nutrition status, will continue to monitor, awaiting authorization from insurance company to discharge the patient to SNF. 05/12 patient was transferred out of ICU on 05/10 he is currently on medical floor, stats doing well participiting in PT/OT, patient does not like his current diet, will talk to acoustical logging engineer change his diet as he is quite malnourished due to his alcohol history. patient will benefit going to SNF for rehab, awaiting insurance authorization (2) Acute encephalopathy: Code(s): G93.40 - Encephalopathy, unspecified Status: Acute Assessment and Plan: Patient noted to be acutely confused upon arrival, was somnolent, and slow to answer questions. This is probably due to multiple electrolyte disorders as well as chronic alcohol abuse. Head CT was negative for acute findings. urine drug screen negative. Urinalysis unremarkable. Possibly related to Wernicke's encephalopathy although no nystagmus is noted. He remains confused and somnolent. A&Ox3 today. (3) Electrolyte abnormality: Code(s): E87.8 - Other disorders of electrolyte and fluid balance, not elsewhere classified Status: Acute Assessment and Plan: Upon presentation, patient noted to have hypokalemia, hyponatremia, hypomagnesiumia, and hypophosphatemia. Started on IV fluids and electrolytes have been supplemented. Telemetry reviewed and showed sinus rhythm with no arrhythmias. Suspect this is all related to patients malnutrition and possible refeeding syndrome. (4) Alcohol abuse: Code(s): F10.10 - Alcohol abuse, uncomplicated Status: Chronic Assessment and Plan: Patient reports he has not drank alcohol in approximately 1 mon
--- NOTE | 2020-05-12 12:52 | PC.NURSE ---
call to pharm to request missing dose of potassium, one time order from earlier a.m
[2020-05-12 14:00] VITALS: BP 121/74; PULSE 77; RESP 18; TEMP 36.4; O2SAT 98
[2020-05-12] MEDS: POTASSIUM CHLORIDE 20 MEQ PACKET (FOR LIQUID) 40 MEQ PO (15:48)
[2020-05-12 21:39] VITALS: BP 121/79; PULSE 73; RESP 18; TEMP 36.4; O2SAT 98
[2020-05-13] MEDS: LEVOTHYROXINE SODIUM 125 MCG TABLET PO (05:56)
[2020-05-13] MEDS: CENTRAL LINE FLUSH 10 ML IV PUSH ×3 (05:56→21:31)
[2020-05-13 06:00] VITALS: BP 130/79; PULSE 72; RESP 16; TEMP 36.4; O2SAT 98
[2020-05-13 06:19] LABS: Hematocrit 28.1 % (42.0-52.0); Hemoglobin 9.2 g/dL (14.0-18.0); Mean Corpuscular HGB Conc 32.7 g/dl (32-36); Mean Corpuscular Hemoglobin 33.1 pg (26-34); Mean Corpuscular Volume 101.1 fl (80-100); Mean Platelet Volume 9.6 fl (7.4-10.4); Platelet Count Result 309 k/mm3 (150-375); Red Blood Count 2.78 M/mm3 (4.6-6.20); Red Cell Distribution Width 13.9 % (11.5-14.5); White Blood Count 4.7 K/mm3 (4.5-10.0)
[2020-05-13 06:30] LABS: Alanine Aminotransferase 48 U/L (4-50); Albumin Level 3.7 g/dL (3.5-5.1); Alkaline Phosphatase 149 U/L (38-126); Anion Gap 6 mmol/L (8-16); Aspartate Amino Transferase 29 U/L (17-59); Bilirubin,Total 0.6 mg/dL (0.2-1.3); Blood Urea Nitrogen 4 mg/dL (9-20); Calcium 9.5 mg/dL (8.4-10.2); Carbon Dioxide 30 mmol/L (22-30); Chloride 104 mmol/L (98-107); Estimated CRCL calculation 144 ml/min; Estimated Glomerular Filt Rate > 60; Glucose 83 mg/dL (75-110); Potassium 3.8 mmol/L (3.4-5.0); Sodium 140 mmol/L (137-145)
[2020-05-13] MEDS: MULTIVITAMINS THERAPEUTIC TAB (*BKC) 1 TABLET PO (08:36)
[2020-05-13] MEDS: ENOXAPARIN 40 MG/0.4 ML SYRINGE SUB-Q (08:36)
[2020-05-13] MEDS: levETIRAcetam 500 MG TABLET PO ×2 (08:36→16:21)
[2020-05-13] MEDS: THIAMINE HCL 100 MG TABLET PO ×2 (08:36→16:21)
[2020-05-13] MEDS: PANTOPRAZOLE SODIUM IV 40 MG VIAL IV PUSH (08:39)
--- NOTE | 2020-05-13 13:12 | PCNFU ---
Nutrition Follow-Up Complete: Malnutrition as related to ETOH abuse as evidenced by COPD assiciated with malnutrition in the context of chronic disease/condition. Goal: Meet estimated nutritional needs Progressing towards goal. No new goal. Pt current nutrition is Regular. Last recorded weight is 54.8 kg down from 57.6 reported on 05/12 Bowel Motility:+BM reported 05/11 Labs Reviewed:Cr 0.4,BUN 4, Hct 28.1,Hgb 9.2 Meds Noted:MVI, Keppra,Thiamine,Folic Acid,Zocyn Additional Notes: Nutrition follow up. Plans to discharged to SNF when insurance authorized is approved. Patient had a bedside swallow 05/12-recommending a regular diet. Oral Intake has been 50-75% of meals. Diet supplements: Ensure compact BID providing patient with 220 kcals and 9 gms protein. Agree with diet orders. Recommend diet supplements to continue at discharge. Monitoring: weight, labs, meds, oral intake every 5 days.
--- NOTE | 2020-05-13 13:13 | PM.IMPN ---
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 05/10/20 15:06 05/09 Chito Gill is a 49-year-old male with history of alcoholism and COPD who is seen in follow-up for generalized weakness and alcohol dependence. transferred to icu because of Acute respiratory failure 05/05, and extubated successfully on 05/08. 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 05/11 patient was transferred out of ICU yesterday, he is still quite weak and at times hallucinating, unable to provide detailed review of symptom, patient will benefit going into SNF for gentle rehab, patient seen by dietitian and working on his nutrition status, will continue to monitor, awaiting authorization from insurance company to discharge the patient to SNF. 05/12 patient was transferred out of ICU on 05/10 he is currently on medical floor, stats doing well participiting in PT/OT, patient does not like his current diet, will talk to safety lead change his diet as he is quite malnourished due to his alcohol history. patient will benefit going to SNF for rehab, awaiting insurance authorization 05/13 today patient stats doing well and ate is breakfast, spoke with speech therapist on 05/12 patient is unable to feed himself and requires assistance with feeding as he has severe alcohol myopathy. will arrange for someone to feed the patient and he will need help with ADL, at home his sister and friends take care of him, waiting for insurance authorization discharge to SNF possibly tomorrow. (2) Acute encephalopathy: Code(s): G93.40 - Encephalopathy, unspecified Status: Acute Assessment and Plan: Patient noted to be acutely confused upon arrival, was somnolent, and slow to answer questions. This is probably due to multiple electrolyte disorders as well as chronic alcohol abuse. Head CT was negative for acute findings. urine drug screen negative. Urinalysis unremarkable. Possibly related to Wernicke's encephalopathy although no nystagmus is noted. He remains confused and somnolent. A&Ox3 today. (3) Electrolyte abnormality: Code(s): E87.8 - Other disorders of electrolyte and fluid balance, not elsewhere classified Status: Acute Assessment and Plan: Upon presentation, patient noted to have hypokalemia, hyponatremia, hypomagnesiumia, and hypophosphatemia. Started
[2020-05-13 14:00] VITALS: BP 98/63; PULSE 91; RESP 17; TEMP 36.3; O2SAT 100
[2020-05-13] MEDS: PANTOPRAZOLE 40 MG TABLET PO (21:31)
[2020-05-13 22:00] VITALS: BP 114/70; PULSE 75; RESP 16; TEMP 36.8; O2SAT 98
[2020-05-14] MEDS: ALTEPLASE 2 MG VIAL (CATHFLO) IV PUSH (02:10)
[2020-05-14 05:51] VITALS: BP 156/77; PULSE 73; RESP 16; TEMP 36.6; O2SAT 99
[2020-05-14] MEDS: CENTRAL LINE FLUSH 10 ML IV PUSH ×3 (06:27→20:54)
[2020-05-14] MEDS: LEVOTHYROXINE SODIUM 125 MCG TABLET PO (06:27)
[2020-05-14 07:11] LABS: Hematocrit 26.7 % (42.0-52.0); Hemoglobin 8.6 g/dL (14.0-18.0); Mean Corpuscular HGB Conc 32.2 g/dl (32-36); Mean Corpuscular Hemoglobin 32.7 pg (26-34); Mean Corpuscular Volume 101.5 fl (80-100); Mean Platelet Volume 9.8 fl (7.4-10.4); Platelet Count Result 355 k/mm3 (150-375); Red Blood Count 2.63 M/mm3 (4.6-6.20); White Blood Count 4.8 K/mm3 (4.5-10.0)
[2020-05-14 07:18] LABS: Alanine Aminotransferase 37 U/L (4-50); Albumin Level 3.4 g/dL (3.5-5.1); Alkaline Phosphatase 114 U/L (38-126); Anion Gap 3 mmol/L (8-16); Aspartate Amino Transferase 27 U/L (17-59); Bilirubin,Total 0.5 mg/dL (0.2-1.3); Blood Urea Nitrogen 6 mg/dL (9-20); Calcium 9.1 mg/dL (8.4-10.2); Carbon Dioxide 31 mmol/L (22-30); Chloride 107 mmol/L (98-107); Estimated CRCL calculation 151 ml/min; Estimated Glomerular Filt Rate > 60; Glucose 101 mg/dL (75-110); Potassium 3.3 mmol/L (3.4-5.0); Sodium 141 mmol/L (137-145)
[2020-05-14] MEDS: levETIRAcetam 500 MG TABLET PO ×2 (08:02→17:22)
[2020-05-14] MEDS: MULTIVITAMINS THERAPEUTIC TAB (*BKC) 1 TABLET PO (08:02)
[2020-05-14] MEDS: THIAMINE HCL 100 MG TABLET PO ×2 (08:02→17:22)
[2020-05-14] MEDS: ENOXAPARIN 40 MG/0.4 ML SYRINGE SUB-Q (08:02)
[2020-05-14] MEDS: PANTOPRAZOLE 40 MG TABLET PO ×2 (08:02→20:54)
[2020-05-14] MEDS: POTASSIUM CHLORIDE 20 MEQ PACKET (FOR LIQUID) 40 MEQ PO (11:57)
[2020-05-14 14:00] VITALS: BP 115/72; PULSE 77; RESP 16; TEMP 36.8; O2SAT 99
--- NOTE | 2020-05-14 14:23 | PM.IMPN ---
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 05/10/20 15:06 05/09 Chito Gill is a 49-year-old male with history of alcoholism and COPD who is seen in follow-up for generalized weakness and alcohol dependence. transferred to icu because of Acute respiratory failure 05/05, and extubated successfully on 05/08. 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 05/10 today patient is more awake and able to communicate states feeling better participating in physical therapy, discussed with neurologist suspect most likely secondary to alcoholic myopathy will benefit from going SNF for gentle therapy he would not able to tolerate [facility]C presently, patient was extubated on 05/08 he is now clinically stable will transfer patient out of ICU to medical floor, and continue nutrition supple continue physical therapy awaiting recommendation from critical care technician for transfer to SNF. 05/11 patient was transferred out of ICU yesterday, he is still quite weak and at times hallucinating, unable to provide detailed review of symptom, patient will benefit going into SNF for gentle rehab, patient seen by dietitian and working on his nutrition status, will continue to monitor, awaiting authorization from insurance company to discharge the patient to SNF. 05/12 patient was transferred out of ICU on 05/10 he is currently on medical floor, stats doing well participiting in PT/OT, patient does not like his current diet, will talk to boiling off winder change his diet as he is quite malnourished due to his alcohol history. patient will benefit going to SNF for rehab, awaiting insurance authorization 05/13 today patient stats doing well and ate is breakfast, spoke with speech therapist on 05/12 patient is unable to feed himself and requires assistance with feeding as he has severe alcohol myopathy. will arrange for someone to feed the patient and he will need help with ADL, at home his sister and friends take care of him, waiting for insurance authorization discharge to SNF possibly tomorrow. 05/14 today patient clinically stable, ate his lunch, discussed with the dietitian, patient is on all the supplement to help him with nourishment, patient is participating in PT OT, patient is awaiting authorization from insurance company to discharge to rehab, will continue to monitor electrolytes and supplement (2) Acute encephalopathy: Code(s): G93.40 - Encephalopathy, unspecified Status: Acute Assessment and Plan: Patient noted to be acutely confused upon arrival, was somnolent, and slow to answer questions. This is probably due to multiple electrolyte disorders as well as chronic alcohol abuse. Head CT was negative for acute findings. urine drug screen negative. Urinalysis unremarkable. Possibly related to Wernicke's encephalopathy although no nystagmus is noted. He remains confused and somnole
[2020-05-14 22:00] VITALS: BP 105/68; PULSE 78; RESP 16; TEMP 36.3; O2SAT 99
[2020-05-15] MEDS: CENTRAL LINE FLUSH 20 ML IV PUSH (05:14)
[2020-05-15 06:00] VITALS: BP 122/67; PULSE 75; RESP 16; TEMP 36.3; O2SAT 99
[2020-05-15] MEDS: LEVOTHYROXINE SODIUM 125 MCG TABLET PO (06:07)
[2020-05-15 06:08] LABS: Hematocrit 26.7 % (42.0-52.0); Hemoglobin 8.7 g/dL (14.0-18.0); Mean Corpuscular HGB Conc 32.6 g/dl (32-36); Mean Corpuscular Hemoglobin 33.2 pg (26-34); Mean Corpuscular Volume 101.9 fl (80-100); Mean Platelet Volume 9.7 fl (7.4-10.4); Platelet Count Result 406 k/mm3 (150-375); Red Blood Count 2.62 M/mm3 (4.6-6.20); Red Cell Distribution Width 13.7 % (11.5-14.5); White Blood Count 5.5 K/mm3 (4.5-10.0)
[2020-05-15 06:15] LABS: Alanine Aminotransferase 34 U/L (4-50); Albumin Level 3.4 g/dL (3.5-5.1); Alkaline Phosphatase 111 U/L (38-126); Anion Gap 4 mmol/L (8-16); Aspartate Amino Transferase 29 U/L (17-59); Bilirubin,Total 0.4 mg/dL (0.2-1.3); Blood Urea Nitrogen 6 mg/dL (9-20); Calcium 8.9 mg/dL (8.4-10.2); Carbon Dioxide 29 mmol/L (22-30); Chloride 105 mmol/L (98-107); Estimated CRCL calculation 149 ml/min; Estimated Glomerular Filt Rate > 60; Glucose 86 mg/dL (75-110); Potassium 3.5 mmol/L (3.4-5.0); Sodium 138 mmol/L (137-145)
--- NOTE | 2020-05-15 08:25 | PC.NURSE ---
call to care coordination to update on pt stating he is wanting to go home rather than to facility, I reviewed with pt that he is extremely weak still and unable to ambulate independently
[2020-05-15] MEDS: levETIRAcetam 500 MG TABLET PO ×2 (08:35→17:09)
[2020-05-15] MEDS: THIAMINE HCL 100 MG TABLET PO ×2 (08:35→17:10)
[2020-05-15] MEDS: MULTIVITAMINS THERAPEUTIC TAB (*BKC) 1 TABLET PO (08:35)
[2020-05-15] MEDS: PANTOPRAZOLE 40 MG TABLET PO ×2 (08:35→20:24)
[2020-05-15] MEDS: ENOXAPARIN 40 MG/0.4 ML SYRINGE SUB-Q (08:36)
--- NOTE | 2020-05-15 08:42 | PC.NURSE ---
call to PT to see if they were going to see this pt today and that he is stating he wants to sign out AMA
[2020-05-15 08:43] LABS: Triglycerides 136 mg/dL (<150)
--- NOTE | 2020-05-15 10:40 | PC.NURSE ---
pt continues to state he wants to go home and will sign himself out told pt he is not safe to go home and will benefit from a short stay in rehab, pt insistent, myself and CARPENTER FOREMAN attempted to walk pt in room, we each stood with him as he was not able to stand alone, he was able to take very small shuffle steps with each of us also supporting his weight and steading him, he made it aprox 12 feet to chair and agreed to sit up, he sat up for aprox 20 minutes and asked to return to bed
[2020-05-15] MEDS: POTASSIUM CHLORIDE 20 MEQ PACKET (FOR LIQUID) 40 MEQ PO (11:01)
--- NOTE | 2020-05-15 11:02 | PC.NURSE ---
call to pharm for dose of magnesium which is a new order
--- NOTE | 2020-05-15 11:55 | PM.IMPN ---
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 05/10/20 15:06 05/09 Chito Gill is a 49-year-old male with history of alcoholism and COPD who is seen in follow-up for generalized weakness and alcohol dependence. transferred to icu because of Acute respiratory failure 05/05, and extubated successfully on 05/08. 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 05/10 today patient is more awake and able to communicate states feeling better participating in physical therapy, discussed with neurologist suspect most likely secondary to alcoholic myopathy will benefit from going SNF for gentle therapy he would not able to tolerate [facility] presently, patient was extubated on 05/08 he is now clinically stable will transfer patient out of ICU to medical floor, and continue nutrition supple continue physical therapy awaiting recommendation from home care companion for transfer to SNF. 05/11 patient was transferred out of ICU yesterday, he is still quite weak and at times hallucinating, unable to provide detailed review of symptom, patient will benefit going into SNF for gentle rehab, patient seen by dietitian and working on his nutrition status, will continue to monitor, awaiting authorization from insurance company to discharge the patient to SNF. 05/12 patient was transferred out of ICU on 05/10 he is currently on medical floor, stats doing well participiting in PT/OT, patient does not like his current diet, will talk to integrated specialist change his diet as he is quite malnourished due to his alcohol history. patient will benefit going to SNF for rehab, awaiting insurance authorization 05/13 today patient stats doing well and ate is breakfast, spoke with speech therapist on 05/12 patient is unable to feed himself and requires assistance with feeding as he has severe alcohol myopathy. will arrange for someone to feed the patient and he will need help with ADL, at home his sister and friends take care of him, waiting for insurance authorization discharge to SNF possibly tomorrow. 05/14 today patient clinically stable, ate his lunch, discussed with the dietitian, patient is on all the supplement to help him with nourishment, patient is participating in PT OT, patient is awaiting authorization from insurance company to discharge to rehab, will continue to monitor electrolytes and supplement 05/15 today patient is insisting to go home and wants to sign out AMA however he is 2 persons assist and unable to ambulate without assistance, try to call his sister who is his caregiver there was no response, patient is clinically stable, will continue to monitor, will have PT/OT work with the patient, awaiting response from insurance [employer] and further recommendation to follow. (2) Acute encephalopathy: Code(s): G93.40 - Encephalopathy, unspecified Status: Acute Assessment and Plan: [place]
[2020-05-15 14:00] VITALS: BP 115/69; PULSE 71; RESP 18; TEMP 36.7; O2SAT 98
[2020-05-15] MEDS: MAGNESIUM OXIDE 400 MG TABLET PO (14:14)
[2020-05-15] MEDS: CENTRAL LINE FLUSH 10 ML IV PUSH ×2 (14:14→20:24)
[2020-05-15 22:00] VITALS: BP 117/76; PULSE 79; RESP 16; TEMP 37.3; O2SAT 99
[2020-05-16] MEDS: CENTRAL LINE FLUSH 10 ML IV PUSH ×3 (05:39→21:22)
[2020-05-16] MEDS: LEVOTHYROXINE SODIUM 125 MCG TABLET PO (05:39)
[2020-05-16 06:00] VITALS: BP 103/67; PULSE 72; RESP 16; TEMP 36.7; O2SAT 97
[2020-05-16 06:23] LABS: Hematocrit 28.2 % (42.0-52.0); Hemoglobin 9.2 g/dL (14.0-18.0); Mean Corpuscular HGB Conc 32.6 g/dl (32-36); Mean Corpuscular Hemoglobin 33.1 pg (26-34); Mean Corpuscular Volume 101.4 fl (80-100); Mean Platelet Volume 9.7 fl (7.4-10.4); Platelet Count Result 444 k/mm3 (150-375); Red Blood Count 2.78 M/mm3 (4.6-6.20); Red Cell Distribution Width 13.6 % (11.5-14.5); White Blood Count 5.4 K/mm3 (4.5-10.0)
[2020-05-16 06:48] LABS: Alanine Aminotransferase 31 U/L (4-50); Albumin Level 3.6 g/dL (3.5-5.1); Alkaline Phosphatase 110 U/L (38-126); Anion Gap 6 mmol/L (8-16); Aspartate Amino Transferase 28 U/L (17-59); Bilirubin,Total 0.5 mg/dL (0.2-1.3); Blood Urea Nitrogen 5 mg/dL (9-20); Calcium 9.4 mg/dL (8.4-10.2); Carbon Dioxide 27 mmol/L (22-30); Chloride 103 mmol/L (98-107); Estimated CRCL calculation 149 ml/min; Estimated Glomerular Filt Rate > 60; Glucose 86 mg/dL (75-110); Potassium 3.8 mmol/L (3.4-5.0); Sodium 136 mmol/L (137-145)
[2020-05-16] MEDS: MULTIVITAMINS THERAPEUTIC TAB (*BKC) 1 TABLET PO (08:06)
[2020-05-16] MEDS: levETIRAcetam 500 MG TABLET PO ×2 (08:06→17:15)
[2020-05-16] MEDS: PANTOPRAZOLE 40 MG TABLET PO ×2 (08:06→21:20)
[2020-05-16] MEDS: ENOXAPARIN 40 MG/0.4 ML SYRINGE SUB-Q (08:06)
[2020-05-16] MEDS: MAGNESIUM OXIDE 400 MG TABLET PO (08:06)
[2020-05-16] MEDS: THIAMINE HCL 100 MG TABLET PO ×2 (08:07→17:15)
--- NOTE | 2020-05-16 10:18 | PM.IMPN ---
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 05/10/20 15:06 05/09 Chito Gill is a 49-year-old male with history of alcoholism and COPD who is seen in follow-up for generalized weakness and alcohol dependence. transferred to icu because of Acute respiratory failure 05/05, and extubated successfully on 05/08. 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 05/10 today patient is more awake and able to communicate states feeling better participating in physical therapy, discussed with neurologist suspect most likely secondary to alcoholic myopathy will benefit from going SNF for gentle therapy he would not able to tolerate [facility] presently, patient was extubated on 05/08 he is now clinically stable will transfer patient out of ICU to medical floor, and continue nutrition supple continue physical therapy awaiting recommendation from child care supervisor for transfer to SNF. 05/11 patient was transferred out of ICU yesterday, he is still quite weak and at times hallucinating, unable to provide detailed review of symptom, patient will benefit going into SNF for gentle rehab, patient seen by dietitian and working on his nutrition status, will continue to monitor, awaiting authorization from insurance company to discharge the patient to SNF. 05/12 patient was transferred out of ICU on 05/10 he is currently on medical floor, stats doing well participiting in PT/OT, patient does not like his current diet, will talk to cattle producers change his diet as he is quite malnourished due to his alcohol history. patient will benefit going to SNF for rehab, awaiting insurance authorization 05/13 today patient stats doing well and ate is breakfast, spoke with speech therapist on 05/12 patient is unable to feed himself and requires assistance with feeding as he has severe alcohol myopathy. will arrange for someone to feed the patient and he will need help with ADL, at home his sister and friends take care of him, waiting for insurance authorization discharge to SNF possibly tomorrow. 05/14 today patient clinically stable, ate his lunch, discussed with the dietitian, patient is on all the supplement to help him with nourishment, patient is participating in PT OT, patient is awaiting authorization from insurance company to discharge to rehab, will continue to monitor electrolytes and supplement 05/15 today patient is insisting to go home and wants to sign out AMA however he is 2 persons assist and unable to ambulate without assistance, try to call his sister who is his caregiver there was no response, patient is clinically stable, will continue to monitor, will have PT/OT work with the patient, awaiting response from insurance [employer] and further recommendation to follow. 05/16 today patient is more calmer, willing to stay 1 more day plan to be discharged tomorrow awaiting insurance authorization, patient
[2020-05-16 14:00] VITALS: BP 118/57; PULSE 93; RESP 20; TEMP 36.7; O2SAT 100
[2020-05-16 21:20] VITALS: BP 108/64; PULSE 78; RESP 16; TEMP 36.8; O2SAT 100
[2020-05-17 04:31] LABS: Hematocrit 28.5 % (42.0-52.0); Hemoglobin 9.2 g/dL (14.0-18.0); Mean Corpuscular HGB Conc 32.3 g/dl (32-36); Mean Corpuscular Hemoglobin 32.3 pg (26-34); Mean Platelet Volume 9.3 fl (7.4-10.4); Platelet Count Result 480 k/mm3 (150-375); Red Blood Count 2.85 M/mm3 (4.6-6.20); Red Cell Distribution Width 13.5 % (11.5-14.5); White Blood Count 6.3 K/mm3 (4.5-10.0)
[2020-05-17 04:44] LABS: Alanine Aminotransferase 27 U/L (4-50); Albumin Level 3.6 g/dL (3.5-5.1); Alkaline Phosphatase 92 U/L (38-126); Anion Gap 9 mmol/L (8-16); Aspartate Amino Transferase 25 U/L (17-59); Bilirubin,Total 0.5 mg/dL (0.2-1.3); Blood Urea Nitrogen 7 mg/dL (9-20); Calcium 9.2 mg/dL (8.4-10.2); Carbon Dioxide 28 mmol/L (22-30); Chloride 100 mmol/L (98-107); Estimated CRCL calculation 149 ml/min; Estimated Glomerular Filt Rate > 60; Glucose 89 mg/dL (75-110); Potassium 3.8 mmol/L (3.4-5.0); Sodium 137 mmol/L (137-145)
[2020-05-17 05:52] VITALS: BP 106/64; PULSE 83; RESP 16; TEMP 36.2; O2SAT 98
[2020-05-17] MEDS: CENTRAL LINE FLUSH 10 ML IV PUSH (06:10)
[2020-05-17] MEDS: LEVOTHYROXINE SODIUM 125 MCG TABLET PO (06:10)
[2020-05-17] MEDS: THIAMINE HCL 100 MG TABLET PO (08:06)
[2020-05-17] MEDS: PANTOPRAZOLE 40 MG TABLET PO (08:06)
[2020-05-17] MEDS: levETIRAcetam 500 MG TABLET PO (08:06)
[2020-05-17] MEDS: MULTIVITAMINS THERAPEUTIC TAB (*BKC) 1 TABLET PO (08:06)
[2020-05-17] MEDS: MAGNESIUM OXIDE 400 MG TABLET PO (08:07)
[2020-05-17] MEDS: ENOXAPARIN 40 MG/0.4 ML SYRINGE SUB-Q (08:07)
--- NOTE | 2020-05-17 10:18 | PM.DS ---
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 05/10/20 15:06 05/09 Chito Gill is a 49-year-old male with history of alcoholism and COPD who is seen in follow-up for generalized weakness and alcohol dependence. transferred to icu because of Acute respiratory failure 05/05, and extubated successfully on 05/08. 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 05/11 patient was transferred out of ICU yesterday, he is still quite weak and at times hallucinating, unable to provide detailed review of symptom, patient will benefit going into SNF for gentle rehab, patient seen by dietitian and working on his nutrition status, will continue to monitor, awaiting authorization from insurance company to discharge the patient to SNF. 05/12 patient was transferred out of ICU on 05/10 he is currently on medical floor, stats doing well participiting in PT/OT, patient does not like his current diet, will talk to oil well cable tool operator change his diet as he is quite malnourished due to his alcohol history. patient will benefit going to SNF for rehab, awaiting insurance authorization 05/13 today patient stats doing well and ate is breakfast, spoke with speech therapist on 05/12 patient is unable to feed himself and requires assistance with feeding as he has severe alcohol myopathy. will arrange for someone to feed the patient and he will need help with ADL, at home his sister and friends take care of him, waiting for insurance authorization discharge to SNF possibly tomorrow. 05/14 today patient clinically stable, ate his lunch, discussed with the dietitian, patient is on all the supplement to help him with nourishment, patient is participating in PT OT, patient is awaiting authorization from insurance company to discharge to rehab, will continue to monitor electrolytes and supplement 05/15 today patient is insisting to go home and wants to sign out AMA however he is 2 persons assist and unable to ambulate without assistance, try to call his sister who is his caregiver there was no response, patient is clinically stable, will continue to monitor, will have PT/OT work with the patient, awaiting response from insurance company and further recommendation to follow. 05/16 today patient is
[2020-05-17 13:50] VITALS: BP 98/58; PULSE 93; RESP 17; TEMP 36.6; O2SAT 100
== END 2020-05-17 14:05 | DRG 91 ==
LOC: ANHED 18:41 → ANH3MED 20:06 → ANH2MED 05-04 06:56 → ANHICU 05-07 07:16 → ANH2MED 05-13 13:11 → ANH3MED 05-18 13:21 → ANHICU 05-18 13:21 → ANHIMU 05-18 13:21
PROVIDERS: Emergency Medicine Emergency Medical Services; Family Medicine; Internal Medicine; Physician Assistant; Admitting Provider Family Medicine; Emergency Provider Emergency Medicine; PCP Family Medicine; Visit Provider Internal Medicine
DX: G72.1 Alcoholic myopathy (principal); J96.00 Acute respiratory failure, unspecified whether with hypoxia or hypercapnia; G93.41 Metabolic encephalopathy; E44.0 Moderate protein-calorie malnutrition; K86.0 Alcohol-induced chronic pancreatitis; E87.1 Hypo-osmolality and hyponatremia; Z68.1 Body mass index [BMI] 19.9 or less, adult; E51.2 Wernicke's encephalopathy; D62 Acute posthemorrhagic anemia; K92.1 Melena; R44.3 Hallucinations, unspecified; Z20.822 Contact with and (suspected) exposure to COVID-19; G62.1 Alcoholic polyneuropathy; R56.9 Unspecified convulsions; E86.0 Dehydration; E87.8 Other disorders of electrolyte and fluid balance, not elsewhere classified; Y90.9 Presence of alcohol in blood, level not specified; R79.89 Other specified abnormal findings of blood chemistry; D69.59 Other secondary thrombocytopenia; D64.9 Anemia, unspecified; F17.210 Nicotine dependence, cigarettes, uncomplicated; R74.8 Abnormal levels of other serum enzymes; F10.20 Alcohol dependence, uncomplicated; J44.9 Chronic obstructive pulmonary disease, unspecified; E87.6 Hypokalemia; E83.42 Hypomagnesemia; E83.39 Other disorders of phosphorus metabolism; K76.0 Fatty (change of) liver, not elsewhere classified; K70.11 Alcoholic hepatitis with ascites; K62.89 Other specified diseases of anus and rectum; E03.9 Hypothyroidism, unspecified; I95.2 Hypotension due to drugs; T42.75XA Adverse effect of unspecified antiepileptic and sedative-hypnotic drugs, initial encounter; Y92.230 Patient room in hospital as the place of occurrence of the external cause; K80.20 Calculus of gallbladder without cholecystitis without obstruction
CPT/HCPCS: 31500; 36415; 36430; 36569; 36600; 43752; 70450; 71045; 71275; 74177; 74183; 76376; 76705; 80048; 80053; 80074; 80307; 81001; 82140; 82274; 82375; 82550; 82570; 82607; 82728; 82746; 82805; 83050; 83540; 83550; 83605; 83690; 83735; 83880; 83935; 84100; 84132; 84238; 84295; 84300; 84439; 84443; 84478; 84481; 85014; 85018; 85025; 85027; 85055; 85380; 85610; 85730; 86592; 86617; 86703; 86850; 86900; 86901; 86923; 92610; 93005; 93306; 94002; 94003; 94640; 96365; 96366; 96367; 96375; 96376; 97110; 97116; 97162; 97163; 97164; 97165; 97166; 97530; 97535; 99285; A9270; A9577; C1751; C9113; C9803; G0378; G0432; J0330; J1265; J1650; J1940; J1953; J2060; J2250; J2543; J2704; J2997; J3010; J3411; J3475; J3480; J7030; J7040; J7050; J7120; P9016; P9047; Q9967; U0003; U0005

== ENCOUNTER 2021-02-19 11:40 | Inpatient (IN) | payer MEDICAID, SELFPAY ==
[2021-02-19] VITALS (9 sets, daily range): BP systolic 89–147; BP diastolic 61–108; PULSE 110–136; RESP 16–24; TEMP 36.9–37.3; O2SAT 96–100
--- NOTE | ~2021-02-19 | XR_ITS ---
EXAMINATION: XR chest 1V portable INDICATION: Hypotension TECHNIQUE: Portable AP chest at 1513 hours COMPARISON: 02/24/2021 FINDINGS: Patchy opacities of the mid and lower lung zones, right greater than left, persist without significant change. There is no pleural effusion or pneumothorax. The cardiomediastinal silhouette is stable. Thoracolumbar levocurvature is noted. IMPRESSION: 1. Stable opacities of the mid and lower lung zones, consistent with atelectasis versus pneumonia. Reviewed, dictated and finalized at location B. IMPRESSION: 1. Stable opacities of the mid and lower lung zones, consistent with atelectasi s versus pneumonia.
--- NOTE | ~2021-02-19 | XR_ITS ---
EXAMINATION: XR chest 1V DATE: 03/01/2021 13:53 INDICATION: Right upper lobe rhonchi. TECHNIQUE: A single frontal view of the chest was obtained. COMPARISON: Chest single view 02/25/2021, chest CT 04/28/2020 FINDINGS: There are airspace opacities in the mid and lower lung zones with a perihilar and left basi lar predominance. Calcified left lung nodules are consistent with old granulomatous disease. No pleur al effusion or pneumothorax. The heart size is normal. IMPRESSION: 1. Worsened airspace opacities in the mid and lower lung zones, consistent with atelectasis versus pn eumonia. Reviewed, dictated and finalized at location A. ER INFLATED PAD IMPRESSION: 1. Worsened airspace opacities in the mid and lower lung zones, consistent with atelectasis versus pneumonia.
--- NOTE | ~2021-02-19 | XR_ITS ---
XR abdomen NG/feed tube insert DATE: 02/24/2021 19:07 INDICATION: NG tube placement TECHNIQUE: Portable AP view on 02/24/2021 at 1902 hours COMPARISON: KUB FINDINGS: NG tube tip overlies the gastric fundus, the NG tube extending approximately 12 cm distal t o the diaphragmatic hiatus. IMPRESSION: NG tube in gastric fundus Reviewed, dictated and finalized at Location A. Reviewed, dictated and finalized at location A. IMPRESSION: NG tube in gastric fundus
--- NOTE | ~2021-02-19 | CT_ITS ---
EXAMINATION: CT brain [facility] EXAM DATE: 02/19/2021 13:34 INDICATION: Altered mental status. Weakness. TECHNIQUE: Spiral CT of the head was performed without contrast. Axial, coronal and sagittal images were reviewed. The dose-length product (DLP) for this examination was 908.00 mGy-cm. The exposure w as tailored according to patient size, and iterative reconstruction (ASIR) was used as additional dos e reduction technique. Comparison is made to prior examination from 04/28/2020. FINDINGS: Prominent for age atrophy. Mild microangiopathy. There is no acute intraparenchymal hemorrh age. No evidence of intraparenchymal brain mass lesion. No evidence of acute infarction. There is no mass effect or midline shift. The ventricles are normal in size. There are no extra-axial collec tions. There are no acute calvarial fractures. The orbits are unremarkable. Soft tissue is unremark able. Mild left maxillary sinus mucoperiosteal thickening. There is no significant interval change. IMPRESSION: 1. No acute intracranial findings. 2. Microangiopathy and atrophy. Reviewed, dictated and finalized at location A.
--- NOTE | ~2021-02-19 | XR_ITS ---
XR chest 1V portable DATE: 02/24/2021 17:47 INDICATION: Aspiration TECHNIQUE: Portable AP chest on 02/2021 at 1540 hours COMPARISON: 02/19/2021 AP and lateral chest FINDINGS: There is extensive patchy infiltrate in the right mid and lower lung zones and to a lesser extent left mid and lower lung zones. Findings may be consistent with aspiration pneumonitis, bilater al pneumonia and/or pulmonary edema. Clinical correlation is advised.. Normal heart size. No pleural effusion or pneumothorax. IMPRESSION: Patchy bilateral mid and lower lung zone infiltrates, right greater than left Reviewed, dictated and finalized at location A.
--- NOTE | ~2021-02-19 | XR_ITS ---
MODIFIED ESOPHAGRAM HISTORY: Choking sensation. Evaluate for aspiration. TECHNIQUE: Modified barium esophagram was performed by speech pathologist under radiologist fluorosco pic guidance. This was recorded on tape. The exam was reviewed on 03/01/2021 14:16 CV TECH. The DAP for this procedure was 3.5 Gycm2. Fluoroscopy time is 3.1 minutes. FINDINGS: Lateral projection of the cervical spine demonstrates normal alignment. There is delayed oral transit time. There is premature spill of material into the vallecula and piriform sinuses prior to swallow. There is reduced tongue base retraction. No evidence for penetration or aspiration.. IMPRESSION: 1: No evidence for penetration or aspiration. 2: Please refer to speech pathologist report for additional detail. Reviewed, dictated and finalized at location A. TECH
--- NOTE | ~2021-02-19 | XR_ITS ---
EXAMINATION: XR chest 2V EXAM DATE: 02/19/2021 13:24 INDICATION: Shortness of breath, weakness. TECHNIQUE: Frontal and lateral projections of the chest obtained and reviewed. Comparison is made to prior examination from 05/10/2020. FINDINGS: The lungs are clear. There are no pleural effusions. The cardiomediastinal silhouette is within normal limits. There is no pneumothorax suspected. Mild thoracic dextroscoliosis. IMPRESSION: No acute cardiopulmonary findings. Reviewed, dictated and finalized at location A.
--- NOTE | ~2021-02-19 | US_ITS ---
EXAMINATION: US abdomen limited EXAM DATE: 02/21/2021 11:14 INDICATION: Elevated liver function tests. TECHNIQUE: Multiple grayscale and Doppler images of the abdomen were obtained (by a technologist who performed the scan) and subsequently reviewed. Comparison is made to prior examination from 04/30/2020. FINDINGS: The pancreatic head and body are normal in appearance. The pancreatic tail is not visualized. There is echogenic liver parenchyma, hepatic steatosis. There are no focal liver lesions identified. There is no evidence of intrahepatic biliary duct dilation. Portal venous flow was seen in the he patopedal, normal direction and has normal Doppler waveform. Common bile duct measures 4 mm, which is normal. The gallbladder wall is normal in thickness, with ex pected amount of distention. No sonographic evidence of pericholecystic fluid. Gallbladder is only mildly distended. There is echogenic material within the gallbladder lumen, most likely sludge correl ating with prior exam. No vascularity was demonstrated within this, and no gallbladder mass was ident ified on MRCP and April. No calcified cholelithiasis identified. Technologist performing exam repo rts patient did not demonstrate sonographic Sanchez's sign. Please note that this sign is less reliab le in patients who have received pain medication. IMPRESSION: 1. Echogenic material within gallbladder, could be sludge given prior study and no evidence of mass on MRCP from April. 2. Resolution of findings which were suspicious for cholecystitis. 3. Hepatic steatosis. Reviewed, dictated and finalized at location A. IMPRESSION: 1. Echogenic material within gallbladder, could be sludge given prior study an d no evidence of mass on MRCP from April. 2. Resolution of findings which were suspicious for cholecystitis. 3. Hepatic steatosis.
--- NOTE | ~2021-02-19 | CT_ITS ---
EXAMINATION: CT chest high resolution wo ma DATE: 03/02/2021 14:32 INDICATION: Shortness of breath and worsening chest radiograph TECHNIQUE: Computed tomography (CT) of the chest was performed without intravenous contrast. The dose -length product (DLP) was 120.17 mGy-cm. Automated exposure control and iterative reconstruction tech Rivono were employed. COMPARISON: 03/01/2021 FINDINGS: There are moderate size right and small left pleural effusions. Cardiomegaly is noted. Felipe on artifact somewhat limits evaluation of the lungs. There appear to be widespread groundglass opacit ies throughout the lungs. Dependent atelectasis is noted. There is no pneumothorax. Right lower parat tiffany lymphadenopathy is noted. The liver is diffusely low in attenuation when compared with the sp bartolo, consistent with hepatic steatosis. IMPRESSION: 1. Diffuse groundglass opacities throughout the lungs, likely pulmonary edema and/or atypical pneumon ia. 2. Moderate size right and small left pleural effusions. 3. Mediastinal lymphadenopathy, likely reactive. Reviewed, dictated and finalized at location B. ITE CARE PROVIDER IMPRESSION: 1. Diffuse groundglass opacities throughout the lungs, likely pulmonary edema a nd/or atypical pneumonia. 2. Moderate size right and small left pleural effusions. 3. Mediastinal lymphadenopathy, likely reactive.
--- NOTE | ~2021-02-19 | XR_ITS ---
EXAMINATION: XR abdomen NG/feed tube insert DATE: 02/23/2021 12:03 INDICATION: Nasogastric tube placement TECHNIQUE: A supine view of the abdomen and chest was obtained for evaluation of feeding tube placem ent. COMPARISON: None. FINDINGS: Nasogastric tube tip in proximal side port in the body of the stomach. There are a few nondilated gas -filled loops of bowel in the visualized upper abdomen. The lower abdomen and pelvis are excluded fro m the [id number]. Visualized portions of the lungs are clear. Cardiomediastinal silhouette is norm al. IMPRESSION: 1. Nasogastric tube in the stomach. Reviewed, dictated and finalized at location A.
--- NOTE | 2021-02-19 12:15 | PC.NURSE ---
per sister pt has been nonambulatory for approx 1 month due to decreased mobility and weakness. reported that pt has not eaten any meals for approx 5 days with very little po fluids. pr drinks vodka daily but not able to give exact amount. pt is incont of urine and stools and wears adult incont briefs. pt arrived in heavily soiled adult briefs. pts pants soaked with urine. pt skin dirty with lg amount brown substance under fingernails. when adult brief changes a stage 2 ulcer observed on coccyx
--- NOTE | 2021-02-19 12:58 | PC.NURSE ---
unable to draw all ordered labs. multiple attempts by 2 staff
[2021-02-19 13:02] LABS: Basophils Percent Auto 1.1 % (0.2-1.2); Eosinophils Percent Auto 0.4 % (0-4.4); Hematocrit 29.3 % (42.0-52.0); Hemoglobin 10.7 g/dL (14.0-18.0); Immature Granulocyte Absolute 0.22 K/mm3 (0.00-0.031); Immature Granulocyte Percent A 7.8 % (0-0.5); Lymphocytes Percent Auto 24.9 % (18.3-44.2); Mean Corpuscular HGB Conc 36.5 g/dl (32-36); Mean Corpuscular Volume 101.4 fl (80-100); Mean Platelet Volume 11.2 fl (7.4-10.4); Monocytes Absolute Auto 0.3 K/mm3 (0.1-0.6); Monocytes Percent Auto 9.3 % (2.6-8.5); Neutrophils Absolute Auto 1.6 K/mm3 (1.3-6.7); Neutrophils Percent Auto 56.5 % (45.5-73.1); Platelet Count Result 131 k/mm3 (150-375); Red Blood Count 2.89 M/mm3 (4.6-6.20); Red Cell Distribution Width 12.6 % (11.5-14.5); White Blood Count 2.8 K/mm3 (4.5-10.0)
[2021-02-19 13:04] LABS: Immature Platelet Fraction Pct 11.7 % (0.9-11.2)
[2021-02-19 13:06] LABS: Add Urine Microscopic? YES; Appearance Urine Cloudy (Clear); Bacteria Urine Trace /hpf; Bilirubin Urine 1+ (Negative); Blood Urine Negative (Negative); Color Urine Amber (Yellow); Glucose Urine UA Negative (Negative); Ketones Urine Trace mg/dL (Negative); Leukocyte Esterase Ur Negative LEU/UL (Negative); Nitrate Urine Negative (Negative); Protein Urine Negative (Negative); Specific Grav Ur 1.006 (1.001-1.035)
[2021-02-19 13:16] LABS: Ethanol < 10 mg/dL (<10)
[2021-02-19 13:20] LABS: Alanine Aminotransferase 153 U/L (4-50); Albumin Level 2.7 g/dL (3.5-5.1); Alkaline Phosphatase 417 U/L (38-126); Anion Gap 7 mmol/L (8-16); Aspartate Amino Transferase 299 U/L (17-59); Bilirubin,Total 6.9 mg/dL (0.2-1.3); Blood Urea Nitrogen 5 mg/dL (9-20); Calcium 8.3 mg/dL (8.4-10.2); Carbon Dioxide 37 mmol/L (22-30); Chloride 76 mmol/L (98-107); Estimated CRCL calculation 256 ml/min; Estimated Glomerular Filt Rate > 60; Glucose 92 mg/dL (65-110); Lipase 30 U/L (23-300); Potassium 2.5 mmol/L (3.4-5.0); Sodium 120 mmol/L (137-145)
[2021-02-19 13:30] LABS: Ammonia < 9 umol/L (9-30)
[2021-02-19] MEDS: THIAMINE HCL 200 MG/2 ML VIAL 500 MG IV PUSH (13:36)
[2021-02-19] MEDS: LACTATED RINGERS 1,000 ML 999 ML IV CONT (13:36)
[2021-02-19 13:38] LABS: Lactate Dehydrogenase 836 U/L (313-618)
[2021-02-19 13:39] LABS: Amphetamine Screen Urine Negative (Negative); Barbiturate Screen Urine Negative (Negative); Benzodiazepines Screen Urine Negative (Negative); Cannabinoid Screen Urine Negative (Negative); Cocaine Screen Urine Negative (Negative); Methadone Screen Urine Negative (Negative); Opiate Screen Urine Negative (Negative); Phencyclidine Screen Urine Negative (Negative)
--- NOTE | 2021-02-19 14:01 | ECG_ITS ---
Measurements Intervals [place] Rate: 111 P: 76 DE: 112 QRS: -1 QRSD: 94 T: 73 QT: 359 QTc: 489 Interpretive Statements SINUS TACHYCARDIA BORDERLINE T WAVE ABNORMALITY- ANTERIOR LEADS ABNORMAL ECG Electronically Signed On 02-19-2021 15:58:56 CDT by Kostas Chong D.O.
[2021-02-19] MEDS: ALBUMIN HUMAN 25% 25 GM/100 ML 200 ML IVPB (14:03)
[2021-02-19] MEDS: PANTOPRAZOLE SODIUM IV 40 MG VIAL 80 MG IV PUSH (14:13)
[2021-02-19 14:15] LABS: Magnesium 1.5 mg/dL (1.6-2.3)
--- NOTE | 2021-02-19 14:15 | PM.IMHP ---
H&P: HPI History of Present Illness Date/Time: 02/19/21 14:15 Chief Complaint: Not eating or drinking. Narrative: This is a 50-year-old male smoker with longstanding history of alcohol abuse who presented to the emergency department earlier today via EMS from home for evaluation as he has not been eating or drinking anything except vodka for the past 5 days. The patient is encephalopathic and is unable to provide me with much history and as such a majority of the following is obtained via review of his electronic medical records as well as discussions with his sister Janett via phone. He is known to the hospital service as he was admitted to us in April 2020 for similar circumstances and he has been living with his sister since that time as she is his primary wing mailer machine operator. He has been unable to work since September 2019 and he has gotten increasingly more weak since that time. In fact for the last several months he has essentially been couch-bound, using a urinal and wearing adult incontinence briefs for bowel movements. According to Janett, the patient drinks approximately 1 gallon of vodka every 2 to 3 days and he begins having shakes within 7 to 8 hours of his last drink. Over the past 5 days or so he has not been eating or drinking much aside from the vodka, and has had intermittent episodes of emesis. Janett has noticed that he has become increasingly confused over the last 2 days and she was finally able to talk him into coming to the emergency department today for evaluation. He is withdrawn and does not answer majority of questions asked although he does deny pain and shortness of breath. Review of Systems Review of Systems: Review of systems was attempted but impossible to complete accurately as the patient is confused and he does not answer a majority of the questions that I ask of him. [facility] Past Medical History Medical History (Updated 02/19/21 @ 21:51 by Sarah Hernandez PA-C) Alcohol withdrawal seizure Alcoholic hepatitis Alcoholism Chronic anemia Chronic obstructive pulmonary disease Seizures Tobacco dependence Surgical History Surgical History Surgical history unknown Family History Family History Other Family history unknown Social History Social History Social History: Surrogate decision-maker: Janett Gill, sibling. CODE STATUS: Full code. Smoking packs per day: 1 Smoking cigarettes per day: 20.0 Years smoked: 32 Smoking pack-years: 32.00 Smoking status: Current every day smoker Tobacco type: cigarettes Additional smoking assessment comments: 1-1.5 packs of cigarettes a day. Alcohol intake: current Alcohol use details: Consumes 1 gallon of vodka every 2 to 3 days. Substance use: never Additional living arrangements comments: The patient lives with his sister in [place]. Additional occupation/education comments: Unemployed. Spiritual care concerns: No Meds Home Medications and Allergies Home Medications Medication Instructions Recorded Confirmed Type Spiriva Respimat 2 puff INHALATION DAILY 04/28/20 02/19/21 History folic acid 1 mg PO DAILY 04/28/20 02/19/21 History gabapentin 300 mg PO HS 04/28/20 02/19/21 History levetiracetam 500 mg PO BID 04/28/20 02/19/21 History thiamine HCl (vitamin B1) [Vitamin 100 mg PO BID 04/28/20 02/19/21 History B-1] multivitamin with folic acid 1 tablet PO QAM #100 tablet 05/17/20 02/19/21 Rx [Thera] tiotropium bromide [Spiriva with 1 cap INHALATION QAM #30 inh 05/17/20 02/19/21 Rx HandiHaler] trazodone 50 mg PO HS 02/19/21 02/19/21 History Allergies Allergy/AdvReac Type Severity Reaction Status Date / Time No Known Allergies Allergy Verified 02/19/21 12:01 Vital Signs Vital Signs - 24 hr 02/19/21 11:51 02/19/21 13:41 Te
[2021-02-19 14:35] LABS: Prothrombin Time 12.9 Seconds (11.1-14.7)
[2021-02-19 14:36] LABS: Partial Thromboplastin Time 30.1 SECONDS (22.3-36.8)
--- NOTE | 2021-02-19 15:42 | PCCCNOTE ---
Called to ER for concerns of neglect from charge nurse Radha Daniels that were expressed by ER physician Alexander Rojas, and bedside RN Omaira attempted to discuss concerns with patient but he was withdrawn, closed his eyes and did not want to speak with care coordination. Decision made for care coordination report to Adult Protective services. Called to Adult Protective services at 1540 spoke with Marielena who took report and stated that it would be sent to [facility] do no provide case #'s on after hour calls but intake Sadee's name is attached to the case. The phone number for [facility] is [phone].
[2021-02-19 15:52] LABS: Creatine Kinase 352 U/L (55-170)
--- NOTE | 2021-02-19 16:32 | ED.GENADULT ---
HPI - General Adult General Chief complaint: Alcohol Stated complaint: ETOH WITHDRAWAL Time Seen by Provider: 02/19/21 12:34 Source: EMS Mode of arrival: EMS Limitations: altered mental status, physical limitation and clinical condition History of Present Illness HPI narrative: 50-year-old male Arrives via EMS We have very little history to go by with this patient Apparently EMS was called by his relative who he lives with to transport him due to increasing weakness and confusion The patient is a chronic alcoholic who apparently has become increasingly bedbound recently Although he somehow continues to drink vodka It is unclear how long he may have been abstinent now No seizures are reported Sounds like he has had decreased p.o. intake for several days and may have vomited Related Data Home Medications Medication Instructions Recorded Confirmed Spiriva Respimat 2 puff INHALATION DAILY 04/28/20 04/28/20 folic acid 1 mg PO DAILY 04/28/20 04/28/20 gabapentin 300 mg PO HS 04/28/20 04/28/20 levetiracetam 500 mg PO BID 04/28/20 04/28/20 thiamine HCl (vitamin B1) [Vitamin 100 mg PO BID 04/28/20 04/28/20 B-1] trazodone 02/19/21 Allergies Allergy/AdvReac Type Severity Reaction Status Date / Time No Known Allergies Allergy Verified 02/19/21 12:01 Review of Systems Review of Systems: ROS unobtainable: Yes unobtainable due to medical condition, unobtainable due to mental status and other (ROS not obtainable, patient lethargic/O x0-1) PMFSH Past Medical History Medical History Alcohol withdrawal seizure Alcoholic hepatitis Alcoholism Chronic anemia Chronic obstructive pulmonary disease Tobacco dependence Surgical History Surgical History Surgical history unknown Family History Family History Other Family history unknown Social History Social History Social History: Surrogate decision-maker: Janett Gill, sibling. CODE STATUS: Full code. Smoking status: Current every day smoker Tobacco type: cigarettes Additional smoking assessment comments: 1-1.5 packs of cigarettes a day. Alcohol intake: current Alcohol use details: Consumes 1 gallon of vodka every 2 to 3 days. Substance use: unknown Additional living arrangements comments: The patient lives with his sister in [place]. Additional occupation/education comments: Unemployed. Exam Const: General: cooperative, confusion and ill appearing Nutritional Appearance: thin Limitations: altered mental status Other: Chronically ill, cachectic, malnourished, jaundiced HENMT: Head: normocephalic, atraumatic, no contusions and no hematomas Ears: external ears normal General nose exam: no epistaxis Eyes: EOM: EOMs intact bilaterally Other: Scleral icterus Neck: Neck: normal visual inspection, supple and no JVD Resp: Effort & Inspection: not labored Auscultation: clear to auscultation bilaterally, no rales, no rhonchi, no wheezes and other (BS =) Other: Shallow Cardio: Rate: regular rate and tachycardic Rhythm: regular rhythm Heart sounds: no murmurs GI: Inspection: non-distended GI Palp: No Guarding due to palpation present (GI) and No Rebound tenderness present : Other: Diapered Skin: General skin exam: no rashes or lesions noted Other: Jaundiced Neuro: General: moves all extremities Other: O x0-1, lethargic, usually does not follow directions Extrem: General: normal to inspection Course Course Emergency Course: Hydrated, received crystalloid and albumin, PPI, antibiotics , IV potassium and magnesium Additional history attempted by nursing staff contacting family Remains tachycardic, but blood pressures are improved approximately 110/70 at time of admission Discussed with hospital
[2021-02-19 16:33] LABS: Magnesium 1.5 mg/dL (1.6-2.3)
[2021-02-19 16:39] LABS: Sodium Urine Random < 5 meq/L
[2021-02-19] MEDS: MAGNESIUM SULF 2 GM/WATER 50ML 2 GM/50 ML BAG IVPB (17:01)
[2021-02-19] MEDS: SODIUM CHLORIDE 0.9% IV 1,000 ML 75 ML IV CONT (17:02)
[2021-02-19 18:18] LABS: Iron 56 ug/dL (49-181)
[2021-02-19 18:22] LABS: Folic Acid 17.5 ng/mL (2.76->20); Vitamin B12 > 1000.0 pg/mL (239-931)
[2021-02-19 18:28] LABS: Percent Iron Saturation 67 % (20-50)
--- NOTE | 2021-02-19 18:30 | ADMGEN ---
This patient, Chito Gill, was admitted to Intensive Care Unit-2. Patient/family oriented to hospital policies and general routines including ID bracelet, bed and alarms, visiting hours, pain management, procedures, bathroom and other care routines, personal items, smoking policy, room service/diet, and visiting hours. Information on how to activate the Rapid Response Team has been discussed. Patient/Family are encouraged to report perceived risks to care and to ask questions if they do not understand what they are told or what they should do.
[2021-02-19] MEDS: SODIUM CHLORIDE 0.9% IV 1,000 ML 150 ML IV CONT (18:50)
[2021-02-19 19:48] LABS: Anion Gap 5 mmol/L (8-16); Blood Urea Nitrogen 3 mg/dL (9-20); Calcium 8.3 mg/dL (8.4-10.2); Carbon Dioxide 35 mmol/L (22-30); Chloride 81 mmol/L (98-107); Estimated CRCL calculation 256 ml/min; Estimated Glomerular Filt Rate > 60; Glucose 121 mg/dL (65-110); Magnesium 1.7 mg/dL (1.6-2.3); Potassium 3.1 mmol/L (3.4-5.0); Sodium 121 mmol/L (137-145)
[2021-02-19 21:04] LABS: Ferritin > 2000.00 ng/mL (17.9-464)
[2021-02-19] MEDS: ALBUMIN HUMAN 25% 25 GM/100 ML 100 ML IVPB (21:16)
[2021-02-19] MEDS: SODIUM CHLORIDE 0.9% IV 1,000 ML 999 ML IV CONT (21:16)
[2021-02-19] MEDS: PANTOPRAZOLE SODIUM IV 40 MG VIAL IV PUSH (21:17)
[2021-02-20] VITALS (20 sets, daily range): BP systolic 78–104; BP diastolic 64–76; PULSE 90–115; RESP 15–25; TEMP 36.3–37.2; O2SAT 95–100
[2021-02-20 00:45] LABS: Glucose Point of Care 115 mg/dl (65-105)
[2021-02-20 02:34] LABS: Anion Gap 4 mmol/L (8-16); Blood Urea Nitrogen < 2 mg/dL (9-20); Calcium 8.2 mg/dL (8.4-10.2); Carbon Dioxide 36 mmol/L (22-30); Chloride 91 mmol/L (98-107); Estimated CRCL calculation 256 ml/min; Estimated Glomerular Filt Rate > 60; Glucose 90 mg/dL (65-110); Magnesium 2.1 mg/dL (1.6-2.3); Potassium 2.5 mmol/L (3.4-5.0); Sodium 131 mmol/L (137-145)
[2021-02-20] MEDS: POTASSIUM CHLORIDE 20 MEQ PACKET (FOR LIQUID) 40 MEQ PO (04:07)
[2021-02-20] MEDS: SODIUM CHLORIDE 0.9% IV 1,000 ML 150 ML IV CONT (04:10)
[2021-02-20] MEDS: chlordiazePOXIDE (*CRX) 25 MG CAPSULE PO (05:25)
[2021-02-20 05:33] LABS: Glucose Point of Care 82 mg/dl (65-105)
[2021-02-20 06:28] LABS: Basophils Percent Auto 0.7 % (0.2-1.2); Eosinophils Percent Auto 0.3 % (0-4.4); Hematocrit 21.2 % (42.0-52.0); Hemoglobin 7.7 g/dL (14.0-18.0); Immature Granulocyte Absolute 0.03 K/mm3 (0.00-0.031); Immature Platelet Fraction Pct 7.7 % (0.9-11.2); Lymphocytes Absolute Auto 0.97 K/mm3 (0.9-3.2); Lymphocytes Percent Auto 31.8 % (18.3-44.2); Mean Corpuscular HGB Conc 36.3 g/dl (32-36); Mean Corpuscular Hemoglobin 37.4 pg (26-34); Mean Corpuscular Volume 102.9 fl (80-100); Monocytes Absolute Auto 0.3 K/mm3 (0.1-0.6); Monocytes Percent Auto 10.5 % (2.6-8.5); Neutrophils Absolute Auto 1.7 K/mm3 (1.3-6.7); Neutrophils Percent Auto 55.7 % (45.5-73.1); Platelet Count Result 110 k/mm3 (150-375); Red Blood Count 2.06 M/mm3 (4.6-6.20); Red Cell Distribution Width 13.2 % (11.5-14.5); White Blood Count 3.1 K/mm3 (4.5-10.0)
[2021-02-20 06:38] LABS: Alanine Aminotransferase 101 U/L (4-50); Alkaline Phosphatase 297 U/L (38-126); Anion Gap 1 mmol/L (8-16); Aspartate Amino Transferase 170 U/L (17-59); Bilirubin Direct 2.1 mg/dL (0-0.3); Bilirubin,Total 4.9 mg/dL (0.2-1.3); Calcium 8.7 mg/dL (8.4-10.2); Carbon Dioxide 33 mmol/L (22-30); Chloride 97 mmol/L (98-107); Creatine Kinase 182 U/L (55-170); Estimated CRCL calculation 254 ml/min; Estimated Glomerular Filt Rate > 60; Glucose 88 mg/dL (65-110); Magnesium 2.1 mg/dL (1.6-2.3); Potassium 3.8 mmol/L (3.4-5.0); Sodium 131 mmol/L (137-145)
[2021-02-20 06:53] LABS: Blood Urea Nitrogen < 2 mg/dL (9-20)
[2021-02-20] MEDS: SODIUM CHLORIDE 0.9% IV 1,000 ML 999 ML IV CONT (07:55)
[2021-02-20] MEDS: ALBUMIN HUMAN 25% 25 GM/100 ML 100 ML IVPB (08:02)
[2021-02-20] MEDS: levETIRAcetam 500 MG TABLET PO ×2 (08:03→20:10)
[2021-02-20] MEDS: MULTIVITAMINS THERAPEUTIC TAB (*BKC) 1 TABLET PO (08:03)
[2021-02-20] MEDS: PANTOPRAZOLE SODIUM IV 40 MG VIAL IV PUSH ×2 (08:03→20:10)
[2021-02-20] MEDS: THIAMINE HCL 100 MG TABLET PO (08:04)
[2021-02-20] MEDS: FOLIC ACID 1 MG TABLET PO (08:04)
[2021-02-20] MEDS: LORazepam INJ (*CRX) 2 MG/ML VIAL 1 MG IV PUSH (08:13)
--- NOTE | 2021-02-20 11:47 | WPDCNINT ---
Assessment and Plan Assessment and plan (1) Metabolic encephalopathy: Code(s): G93.41 - Metabolic encephalopathy Status: Acute Assessment and Plan: Likely related to alcohol intoxication, dehydrated, decreased p.o. intake, hyponatremia, elevated CK levels -continue supportive care, -continue to hydrate patient (2) Alcoholism: Code(s): F10.20 - Alcohol dependence, uncomplicated Status: Acute Assessment and Plan: Alcoholism, patient drinks a gallon of vodka every other day -continue Librium -will have to watch for signs and symptoms of alcohol withdrawal, -continue CIWA protocol -Ativan p.r.n. -continue folic acid, thiamine (3) Acute hypokalemia: Code(s): E87.6 - Hypokalemia Status: Acute Assessment and Plan: Resolved (4) Acute hyponatremia: Code(s): E87.1 - Hypo-osmolality and hyponatremia Status: Acute Assessment and Plan: Sodium levels improving -continue normal saline hydration (5) Chronic obstructive pulmonary disease: Code(s): J44.9 - Chronic obstructive pulmonary disease, unspecified Status: Acute Assessment and Plan: Continue Spiriva (6) Seizure: Code(s): R56.9 - Unspecified convulsions Status: Acute Assessment and Plan: Continue Keppra (7) Elevated LFTs: Code(s): R79.89 - Other specified abnormal findings of blood chemistry Status: Acute Assessment and Plan: LFTs and bilirubin trending down -could be related to alcohol, hypovolemia/dehydration (8) Tobacco dependence: Code(s): F17.200 - Nicotine dependence, unspecified, uncomplicated Status: Acute Assessment and Plan: Patient is a tobacco use and smokes about 20 cigarettes per day, currently is somnolent and unable to peer financial counselor patient on cessation of smoking -once he is more awake will peer financial counselor patient on cessation of smoking (9) DVT prophylaxis: Code(s): Z29.9 - Encounter for prophylactic measures, unspecified Status: Acute Assessment and Plan: SCDs Additional Plan Code status: Full code Critical care time spent: 41 minutes This dictation may have been done utilizing a voice recognition system. Attempts have been made to correct errors. However, there may be uncorrected grammatical, spelling, and recognition errors present. Due to a high probability of clinically significant, life threatening deterioration, the patient required my highest level of preparedness to intervene emergently and I personally spent this critical care time directly and personally managing the patient. This critical care time included obtaining a history; examining the patient; pulse oximetry; ordering and review of studies; arranging urgent treatment with development of a management plan; evaluation of patient's response to treatment; frequent reassessment; and discussions with other providers. It was exclusive of separately billable procedures and treating other patients and teaching time. Please see Assessment and Plan section and the rest of the note for further information on patient assessment and treatment Clinical Professor Consult Note Consult date: 02/20/21 Time Seen: 07:02 Reason for consult: Alcohol intoxication/withdrawal, metabolic encephalopathy, dehydration, hyponatremia HPI: Chito Gill is a 50 year old male with significant past medical history of alcoholism, alcoholic hepatitis, alcohol withdrawal seizures, chronic anemia, COPD, seizures, tobacco dependence presented the ED via EMS from home for evaluation as he has not be eating or drinking anything except vodka for the past 5 days. During the medical records patient has been encephalopathic according to the sister who is the primary caregiver. According to the sister he drinks about a gallon of vodka every other day. He has been getting increasingly confused for the last 2 days and that is why he was brought into the ED. in the ED patient was found t
[2021-02-20 12:23] LABS: Hemoglobin 6.9 g/dL (14.0-18.0)
[2021-02-20] MEDS: chlordiazePOXIDE (*CRX) 25 MG CAPSULE 50 MG PO ×3 (13:40→23:29)
[2021-02-20] MEDS: THIAMINE HCL 200 MG/2 ML VIAL 100 MG IV PUSH ×2 (13:41→18:29)
[2021-02-20] MEDS: SODIUM CHLORIDE 0.9% IV 1,000 ML 100 ML IV CONT ×3 (13:59→23:35)
--- NOTE | 2021-02-20 14:19 | PM.IMPN ---
Progress Note: A&P Assessment and Plan (1) Alcohol intoxication: Qualifiers: Complication of substance-induced condition: with delirium Qualified Code(s): F10.921 - Alcohol use, unspecified with intoxication delirium Code(s): F10.929 - Alcohol use, unspecified with intoxication, unspecified Status: Acute (2) Metabolic encephalopathy: Code(s): G93.41 - Metabolic encephalopathy Status: Acute (3) Hyponatremia: Code(s): E87.1 - Hypo-osmolality and hyponatremia Status: Acute (4) Hypokalemia: Code(s): E87.6 - Hypokalemia Status: Acute (5) Dehydration: Code(s): E86.0 - Dehydration Status: Acute (6) Respiratory alkalosis: Code(s): E87.3 - Alkalosis Status: Acute (7) Alcoholic hepatitis: Qualifiers: Ascites presence: unspecified Qualified Code(s): K70.10 - Alcoholic hepatitis without ascites Code(s): K70.10 - Alcoholic hepatitis without ascites Status: Acute (8) Acute blood loss anemia: Code(s): D62 - Acute posthemorrhagic anemia Status: Acute (9) Pancytopenia: Code(s): D61.818 - Other pancytopenia Status: Acute (10) Elevated d-dimer: Code(s): R79.89 - Other specified abnormal findings of blood chemistry Status: Acute (11) Transaminitis: Code(s): R74.01 - Elevation of levels of liver transaminase levels Status: Acute (12) Elevated bilirubin: Code(s): R17 - Unspecified jaundice Status: Acute (13) Tachycardia: Code(s): R00.0 - Tachycardia, unspecified Status: Acute (14) Seizure disorder: Code(s): G40.909 - Epilepsy, unspecified, not intractable, without status epilepticus Status: Acute Additional Plan 1. Alcohol intoxication with impending withdrawal: -last drink was about 12-15 hours ago. -patient is too difficult to be aroused, however there is a chance of withdrawal in within the next 24 hours -continue to monitor and Ativan can be given as p.r.n. -patient will be started on IV thiamine 100 mg t.i.d. for the 1st 5 days and it could be converted to p.o. times -continue folic acid -CIWA monitoring 2. Alcoholic hepatitis: -MDF score of 13.6; at this time patient does not qualify for steroids -MELD score of 19 -continue to monitor 3. Elevated transaminases and hyperbilirubinemia: -multifactorial causes -this could be potentially related to alcoholic hepatitis however, T bili is noted to be 4.9 and direct bili is 2.1 which raises the suspicion of possible hemolysis - In addition to this LDH is also noted to be elevated. Haptoglobin and retic count are pending - patient was also noted to acute cholecystitis back in April 2020 as prior MRCP performed at that time. However after review of the MRCP by GI physician was decided that possibly this finding is due to acute alcoholic hepatitis and he was not treated for it. Hence this raises a suspicion the patient may be going through an acute episode of cholecystitis again. Because of this we will get an ultrasound gallbladder 4. Acute blood loss anemia: -hemoglobin is noted to be down trended from 10.7-7.7 and now to 6.9 -will transfuse 1 unit of blood -IV pantoprazole b.i.d. -GI consult appreciated -patient may need to continue with IV ceftriaxone given possibility of GI bleed in this patient with chronic alcohol use and potential cirrhosis. This is for SBP prophylaxis -will appreciate GI recommendations regarding the need for starting the patient on octreotide drip. -please draw iron, ferritin and TIBC panel prior to transfusion -will get fecal occult blood test as well -there is a slight concern for hemolysis as well given the elevated bilirubin. Haptoglobin and retic count have been ordered 5. Pancytopenia: -possibly secondary to alcohol use 6. Electrolyte abnormalities including hypokalemia and hyponatremia: -secondary to alcohol use 7. Altered mentation secondary t
[2021-02-20 15:23] LABS: Alanine Aminotransferase 88 U/L (4-50); Albumin Level 3.1 g/dL (3.5-5.1); Alkaline Phosphatase 231 U/L (38-126); Aspartate Amino Transferase 182 U/L (17-59); Bilirubin Direct 1.4 mg/dL (0-0.3); Bilirubin,Total 3.8 mg/dL (0.2-1.3)
[2021-02-20 16:15] LABS: Iron 35 ug/dL (49-181)
[2021-02-20 16:24] LABS: Percent Iron Saturation 46 % (20-50)
[2021-02-20 16:56] LABS: Ferritin > 1000.00 ng/mL (17.9-464)
[2021-02-20] MEDS: SODIUM CHLORIDE 0.9% IV 250 ML 30 ML IV CONT ×2 (18:29→18:30)
[2021-02-20] MEDS: TUBING, BLOOD PLUM PUMP TUBING 1 EACH XX (18:42)
[2021-02-20] MEDS: HEPARIN SODIUM 5,000 UNITS/ML VIAL 5000 UNITS SUB-Q (20:11)
[2021-02-21] VITALS (13 sets, daily range): BP systolic 80–113; BP diastolic 62–82; PULSE 97–115; RESP 24–31; TEMP 36.6–37.3; O2SAT 90–99; BMI 19.7
[2021-02-21 00:41] LABS: Glucose Point of Care 111 mg/dl (65-105)
[2021-02-21 04:36] LABS: Immature Reticulocyte Fraction 23.1 % (3.0-15.9); Reticulocyte Hemoglobin Conten 42.1 pg (28.2-35.7); Reticulocyte Percent 1.83 % (0.7-4.3); Reticulocytes Absolute 0.06 B/L (32.2-175.7)
[2021-02-21 04:38] LABS: Basophils Absolute Auto 0.1 K/mm3 (0.0-0.1); Basophils Percent Auto 1.6 % (0.2-1.2); Eosinophils Absolute Auto 0.1 K/mm3 (0-0.3); Eosinophils Percent Auto 2.9 % (0-4.4); Hematocrit 30.7 % (42.0-52.0); Immature Granulocyte Absolute 0.01 K/mm3 (0.00-0.031); Immature Granulocyte Percent A 0.3 % (0-0.5); Lymphocytes Absolute Auto 1.07 K/mm3 (0.9-3.2); Lymphocytes Percent Auto 34.1 % (18.3-44.2); Mean Corpuscular HGB Conc 35.8 g/dl (32-36); Mean Corpuscular Hemoglobin 34.4 pg (26-34); Mean Corpuscular Volume 95.9 fl (80-100); Mean Platelet Volume 9.9 fl (7.4-10.4); Monocytes Absolute Auto 0.2 K/mm3 (0.1-0.6); Monocytes Percent Auto 6.7 % (2.6-8.5); Neutrophils Absolute Auto 1.7 K/mm3 (1.3-6.7); Neutrophils Percent Auto 54.4 % (45.5-73.1); Platelet Count Result 94 k/mm3 (150-375); Red Cell Distribution Width 17.2 % (11.5-14.5); White Blood Count 3.1 K/mm3 (4.5-10.0)
[2021-02-21 04:51] LABS: Lactic Acid Reflex 1.3 mmol/L (0.7-2.1)
[2021-02-21 04:56] LABS: INR 1.1
[2021-02-21] MEDS: chlordiazePOXIDE (*CRX) 25 MG CAPSULE 50 MG PO ×4 (05:34→23:49)
[2021-02-21 05:36] LABS: Alanine Aminotransferase 97 U/L (4-50); Albumin Level 2.8 g/dL (3.5-5.1); Alkaline Phosphatase 302 U/L (38-126); Anion Gap 4 mmol/L (8-16); Aspartate Amino Transferase 158 U/L (17-59); Bilirubin,Total 3.5 mg/dL (0.2-1.3); Calcium 8.3 mg/dL (8.4-10.2); Carbon Dioxide 28 mmol/L (22-30); Chloride 104 mmol/L (98-107); Estimated CRCL calculation 254 ml/min; Estimated Glomerular Filt Rate > 60; Glucose 84 mg/dL (65-110); Lipase 52 U/L (23-300); Magnesium 1.7 mg/dL (1.6-2.3); Phosphorus 1.2 mg/dL (2.5-4.5); Potassium 2.7 mmol/L (3.4-5.0); Sodium 136 mmol/L (137-145)
[2021-02-21] MEDS: POTASSIUM CHLORIDE 20 MEQ TABLET 40 MEQ PO (06:21)
[2021-02-21] MEDS: SODIUM CHLORIDE 0.9% IV 1,000 ML 75 ML IV CONT ×2 (08:04→20:02)
[2021-02-21] MEDS: MULTIVITAMINS THERAPEUTIC TAB (*BKC) 1 TABLET PO (08:04)
[2021-02-21] MEDS: HEPARIN SODIUM 5,000 UNITS/ML VIAL 5000 UNITS SUB-Q (08:04)
[2021-02-21] MEDS: POTASSIUM/PHOSPHORUS/SODIUM 1.5 GM PACKET 1 PACKET PO (08:04)
[2021-02-21] MEDS: THIAMINE HCL 200 MG/2 ML VIAL 100 MG IV PUSH ×3 (08:04→17:57)
[2021-02-21] MEDS: PANTOPRAZOLE SODIUM IV 40 MG VIAL IV PUSH ×2 (08:04→20:03)
[2021-02-21] MEDS: levETIRAcetam 500 MG TABLET PO ×2 (08:04→20:03)
[2021-02-21] MEDS: FOLIC ACID 1 MG TABLET PO (08:04)
[2021-02-21] MEDS: MAGNESIUM SULF 2 GM/WATER 50ML 2 GM/50 ML BAG IVPB (08:04)
[2021-02-21 08:12] LABS: Blood Urea Nitrogen < 2 mg/dL (9-20)
--- NOTE | 2021-02-21 09:41 | WPDINTPN ---
Progress Note: A&P Assessment and Plan (1) Metabolic encephalopathy: Code(s): G93.41 - Metabolic encephalopathy Status: Acute Assessment and Plan: Likely related to alcohol intoxication, dehydrated, decreased p.o. intake, hyponatremia, elevated CK levels -continue supportive care, -continue to hydrate patient -will start oral diet (2) Alcoholism: Code(s): F10.20 - Alcohol dependence, uncomplicated Status: Acute Assessment and Plan: Alcoholism, patient drinks a gallon of vodka every other day -continue Librium -will have to watch for signs and symptoms of alcohol withdrawal, -continue CIWA protocol -Ativan p.r.n. -continue folic acid, thiamine (3) Acute hypokalemia: Code(s): E87.6 - Hypokalemia Status: Acute Assessment and Plan: Severe hypokalemia, hypophosphatemia placed potassium and phosphorus (4) Acute hyponatremia: Code(s): E87.1 - Hypo-osmolality and hyponatremia Status: Acute Assessment and Plan: Resolved -likely due to increased alcohol intake -continue normal saline hydration (5) Chronic obstructive pulmonary disease: Code(s): J44.9 - Chronic obstructive pulmonary disease, unspecified Status: Acute Assessment and Plan: Continue Spiriva (6) Seizure: Code(s): R56.9 - Unspecified convulsions Status: Acute Assessment and Plan: Continue Keppra (7) Elevated LFTs: Code(s): R79.89 - Other specified abnormal findings of blood chemistry Status: Acute Assessment and Plan: LFTs and bilirubin trending down -could be related to alcohol, hypovolemia/dehydration (8) Tobacco dependence: Code(s): F17.200 - Nicotine dependence, unspecified, uncomplicated Status: Acute Assessment and Plan: Patient is a tobacco use and smokes about 20 cigarettes per day, currently is somnolent and unable to college and career counselor patient on cessation of smoking -once he is more awake will college and career counselor patient on cessation of smoking (9) DVT prophylaxis: Code(s): Z29.9 - Encounter for prophylactic measures, unspecified Status: Acute Assessment and Plan: SCDs (10) Thrombocytopenia: Code(s): D69.6 - Thrombocytopenia, unspecified Status: Acute Assessment and Plan: Likely related to alcohol use -platelet count is 94k, will continue to monitor -no sign of bleeding at this time Additional Plan Code status: Full code Critical care time spent: 33 minutes This dictation may have been done utilizing a voice recognition system. Attempts have been made to correct errors. However, there may be uncorrected grammatical, spelling, and recognition errors present. Due to a high probability of clinically significant, life threatening deterioration, the patient required my highest level of preparedness to intervene emergently and I personally spent this critical care time directly and personally managing the patient. This critical care time included obtaining a history; examining the patient; pulse oximetry; ordering and review of studies; arranging urgent treatment with development of a management plan; evaluation of patient's response to treatment; frequent reassessment; and discussions with other providers. It was exclusive of separately billable procedures and treating other patients and teaching time. Please see Assessment and Plan section and the rest of the note for further information on patient assessment and treatment Subjective Date/time seen: 02/21/21 09:41 Interval history: Reason for consult: Alcohol intoxication/withdrawal, metabolic encephalopathy, dehydration, hyponatremia, anemia 02/20/2021: Received 1 unit of packed RBCs 02/21/2021: Patient seen and examined, opens his eyes, answers questions, follows simple commands in all extremities. Hemodynamically stable, remains afebrile, adequate urine output hemodynamically stable LFTs trending down, potassium a, phosphorus
--- NOTE | 2021-02-21 13:54 | PCCCNOTE ---
VM received from Shaw Waller, return call to requested # [phone] ex [phone], no answer left tyra with contact details and requested a return call.
--- NOTE | 2021-02-21 14:42 | WPDGICN ---
Assessment and Plan Assessment and plan (1) Alcoholic hepatitis: Qualifiers: Ascites presence: unspecified Qualified Code(s): K70.10 - Alcoholic hepatitis without ascites Code(s): K70.10 - Alcoholic hepatitis without ascites Status: Acute Assessment and Plan: again here with alcoholic hepatitis, monitor liver enzymes supportive care, thiamine, nutrition support (2) Alcohol intoxication: Qualifiers: Complication of substance-induced condition: with delirium Qualified Code(s): F10.921 - Alcohol use, unspecified with intoxication delirium Code(s): F10.929 - Alcohol use, unspecified with intoxication, unspecified Status: Acute Assessment and Plan: risk for DT's, he is in ICU for now (3) Elevated LFTs: Code(s): R79.89 - Other specified abnormal findings of blood chemistry Status: Acute Assessment and Plan: monitor (4) Acute encephalopathy: Code(s): G93.40 - Encephalopathy, unspecified Status: Acute (5) Transaminitis: Code(s): R74.01 - Elevation of levels of liver transaminase levels Status: Acute (6) Thrombocytopenia: Code(s): D69.6 - Thrombocytopenia, unspecified Status: Acute Assessment and Plan: from alcohol abuse and liver disease, monitor (7) Acute hypokalemia: Code(s): E87.6 - Hypokalemia Status: Acute (8) Acute hyponatremia: Code(s): E87.1 - Hypo-osmolality and hyponatremia Status: Acute (9) Chronic anemia: Code(s): D64.9 - Anemia, unspecified Status: Acute Assessment and Plan: no overt gib but continue to monitor protonix pancytopenia could be from liver disease, alcohol abuse, malnutrition if obvious bleeding then will need egd (10) Malnutrition: Qualifiers: Malnutrition type: protein-calorie malnutrition Protein-calorie malnutrition severity: moderate Qualified Code(s): E44.0 - Moderate protein-calorie malnutrition Code(s): E46 - Unspecified protein-calorie malnutrition Status: Chronic Assessment and Plan: nutritional support he is at risk of refeeding syndrome, monitor lytes and replace GI Consult Note Consult date/time: 02/21/21 14:42 Reason for consult: alcoholic hepatitis HPI: Chito Gill is a 50 year old male with history of alcoholism, alcoholic hepatitis, alcohol withdrawal seizures, chronic anemia, COPD, seizures, tobacco dependence who I met during previous hospitalization 04/2020 when he was here for alcoholic hepatitis. He is back to the ED via EMS from home because lack of appetite for last 5 days and also confusion. Sister mentioned to other providers that he has only been drinking about a gallon of vodka every other day and has been more confused. ED evaluation revealed WBC count of 2.8, INR is 1.0, hb 10.7 then down 6.7 and received blood transfusion (no report of GIB)- similar hb values last hospitalization and did not have scopes, no gross bleeding noted. Other labs, sodium 131, potassium 2.5, bili 3.5, transaminases 180's, platelets 90. CT of the head reviewed, negative for acute intracranial findings. He was admitted to ICU because withdrawals. He is awake and told me that he is here because I am drunk . Ultrasound reviewed, had echogenic material within gallbladder, could be sludge given prior study and no evidence of mass on MRCP from April, resolution of findings which were suspicious for cholecystitis. Review of Systems Constitutional: Constitutional: Reports weakness Eyes: Eyes: Denies blurry vision ENT: Reports Normal hearing present Cardiovascular: Cardiovascular: Denies chest pain Respiratory: Respiratory: Denies dyspnea Gastrointestinal: Gastrointestinal: Denies abdominal pain Genitourinary: Genitourinary: Denies dysuria Musculoskeletal: Musculoskeletal: Denies neck pain Integumentary/Breasts: Skin/Breast: Denies dry skin Neurologic: Reports confusion Psyc
[2021-02-22] VITALS (13 sets, daily range): BP systolic 97–126; BP diastolic 75–110; PULSE 110–124; RESP 23–32; TEMP 36–37.5; O2SAT 95–99
[2021-02-22] MEDS: chlordiazePOXIDE (*CRX) 25 MG CAPSULE 50 MG PO ×2 (05:55→12:02)
[2021-02-22] MEDS: SODIUM CHLORIDE 0.9% IV 1,000 ML 75 ML IV CONT (05:55)
[2021-02-22 06:03] LABS: Basophils Absolute Auto 0.1 K/mm3 (0.0-0.1); Basophils Percent Auto 1.4 % (0.2-1.2); Eosinophils Absolute Auto 0.1 K/mm3 (0-0.3); Eosinophils Percent Auto 1.7 % (0-4.4); Hematocrit 30.9 % (42.0-52.0); Hemoglobin 10.5 g/dL (14.0-18.0); Immature Granulocyte Absolute 0.03 K/mm3 (0.00-0.031); Immature Granulocyte Percent A 0.8 % (0-0.5); Immature Platelet Fraction Pct 4.6 % (0.9-11.2); Lymphocytes Absolute Auto 1.19 K/mm3 (0.9-3.2); Lymphocytes Percent Auto 33.6 % (18.3-44.2); Mean Corpuscular Hemoglobin 34.8 pg (26-34); Mean Corpuscular Volume 102.3 fl (80-100); Monocytes Absolute Auto 0.4 K/mm3 (0.1-0.6); Monocytes Percent Auto 12.1 % (2.6-8.5); Neutrophils Absolute Auto 1.8 K/mm3 (1.3-6.7); Neutrophils Percent Auto 50.4 % (45.5-73.1); Platelet Count Result 110 k/mm3 (150-375); Red Blood Count 3.02 M/mm3 (4.6-6.20); Red Cell Distribution Width 18.7 % (11.5-14.5); White Blood Count 3.5 K/mm3 (4.5-10.0)
[2021-02-22 06:17] LABS: Alanine Aminotransferase 106 U/L (4-50); Albumin Level 2.8 g/dL (3.5-5.1); Alkaline Phosphatase 358 U/L (38-126); Anion Gap 5 mmol/L (8-16); Aspartate Amino Transferase 149 U/L (17-59); Bilirubin,Total 3.8 mg/dL (0.2-1.3); Blood Urea Nitrogen 3 mg/dL (9-20); Calcium 8.2 mg/dL (8.4-10.2); Carbon Dioxide 25 mmol/L (22-30); Chloride 107 mmol/L (98-107); Estimated CRCL calculation 283 ml/min; Estimated Glomerular Filt Rate > 60; Glucose 69 mg/dL (65-110); Magnesium 2.1 mg/dL (1.6-2.3); Phosphorus 1.2 mg/dL (2.5-4.5); Potassium 3.1 mmol/L (3.4-5.0); Sodium 137 mmol/L (137-145)
[2021-02-22 06:19] LABS: INR 1.2; Prothrombin Time 14.6 Seconds (11.1-14.7)
--- NOTE | 2021-02-22 08:12 | PCRCNOTE ---
pt. unable to do inhaler properly at this time.
[2021-02-22] MEDS: THIAMINE HCL 200 MG/2 ML VIAL 100 MG IV PUSH ×3 (08:35→17:18)
[2021-02-22] MEDS: FOLIC ACID 1 MG TABLET PO (08:35)
[2021-02-22] MEDS: levETIRAcetam 500 MG TABLET PO (08:35)
[2021-02-22] MEDS: MULTIVITAMINS THERAPEUTIC TAB (*BKC) 1 TABLET PO (08:35)
[2021-02-22] MEDS: PANTOPRAZOLE SODIUM IV 40 MG VIAL IV PUSH ×2 (08:36→20:08)
[2021-02-22] MEDS: LORazepam INJ (*CRX) 2 MG/ML VIAL 1 MG IV PUSH ×4 (08:48→21:52)
[2021-02-22] MEDS: POTASSIUM PHOS/SODIUM PHOS 250 MG TABLET PO (12:02)
--- NOTE | 2021-02-22 12:35 | WPDGIPROGNO ---
Progress Note: A&P Assessment and Plan (1) Alcohol withdrawal: Code(s): F10.239 - Alcohol dependence with withdrawal, unspecified Status: Acute Assessment and Plan: medical support in icu ciwa protocol (2) Metabolic encephalopathy: Code(s): G93.41 - Metabolic encephalopathy Status: Acute Assessment and Plan: stil in icu, confused (3) Alcoholic hepatitis: Qualifiers: Ascites presence: unspecified Qualified Code(s): K70.10 - Alcoholic hepatitis without ascites Code(s): K70.10 - Alcoholic hepatitis without ascites Status: Acute Assessment and Plan: elevated liver enzymes but stable numbers (4) Thrombocytopenia: Code(s): D69.6 - Thrombocytopenia, unspecified Status: Acute (5) Acute hypokalemia: Code(s): E87.6 - Hypokalemia Status: Acute Assessment and Plan: repleting, risk for refeeding syndrome nutritional support (6) Malnutrition: Qualifiers: Malnutrition type: protein-calorie malnutrition Protein-calorie malnutrition severity: moderate Qualified Code(s): E44.0 - Moderate protein-calorie malnutrition Code(s): E46 - Unspecified protein-calorie malnutrition Status: Chronic (7) Pancytopenia: Code(s): D61.818 - Other pancytopenia Status: Acute Assessment and Plan: hb stable after transfusion, no report of gib monitor Subjective Date/time seen: 02/22/21 12:35 Interval history: he is more tremolus today and anxious, CIWA score higher per RN. No report of GIB Review of Systems Review of Systems: All systems reviewed & are unremarkable except as noted in HPI and below Exam Const: General: no acute distress and ill appearing chronically Other: anxious HENMT: Mouth: Yes moist mucous membranes Eyes: Sclera: scleral abnormality (Sclera is icteric) Pupils: Equal, round and reactive pupils present Neck: Neck: supple Resp: Effort & Inspection: normal respiratory effort Auscultation: clear to auscultation bilaterally Cardio: Rate: regular rate Rhythm: regular rhythm GI: Inspection: non-distended GI Palp: Yes Soft to palpation and No Tenderness to palpation present (GI) Auscultation: normal bowel sounds : Other: Cook catheter in place Urinary Catheter: Urinary Catheter: patent and draining and urine dark Skin: Other: Jaundiced Neuro: Cranial nerves: Yes Equal, round and reactive pupils present Other: Patient opens eyes, answers to questions, follows simple commands in all extremities but confused, more tremors today Extrem: General: normal to inspection, no edema and no pedal edema Psych: Affect: Anxious affect present Objective Data Vital Signs Vital Signs: Vital Signs - 24 hr 02/21/21 14:00 02/21/21 16:00 02/21/21 18:00 Temperature 98.0 F Pulse Rate 105 H 97 109 H Pulse Rate [Apical Monitor] Pulse Rate [Bilateral Radial] Respiratory Rate 30 H Blood Pressure 90/77 L Pulse Oximetry 97 02/21/21 20:00 02/21/21 20:02 02/21/21 22:00 Temperature 98.3 F Pulse Rate 107 H 107 H 115 H Pulse Rate [Apical Monitor] Pulse Rate [Bilateral Radial] 104 H Respiratory Rate 31 H 25 H Blood Pressure 93/62 L Pulse Oximetry 93 98 02/22/21 00:00 02/22/21 02:00 02/22/21 04:00 Temperature 99.5 F 98.7 F Pulse Rate 110 H 112 H 112 H Pulse Rate [Apical Monitor] Pulse Rate [Bilateral Radial] 110 H 112 H Respiratory Rate 27 H 32 H Blood Pressure 126/110 H 114/75 Pulse Oximetry 98 97 02/22/21 06:00 02/22/21 08:00 Temperature 96.8 F L Pulse Rate 115 H 118 H Pulse Rate [Apical Monitor] 116 H Pulse Rate [Bilateral Radial] Respiratory Rate 29 H Blood Pressure 101/80 Pulse Oximetry 95 Intake/Output Intake/Output: Intake & Output 02/19/21 02/20/21 02/21/21 02/22/21 23:59 23:59 23:59 23:59 Intake Total 1350 6961 2360.0 979 Output Total 200 2950 2575 800 Balance 1150 4011 -215.0 179 Meds/Results
--- NOTE | 2021-02-22 15:22 | PM.IMPN ---
Progress Note: A&P Assessment and Plan (1) Refeeding syndrome: Code(s): E87.8 - Other disorders of electrolyte and fluid balance, not elsewhere classified Status: Acute (2) Alcohol withdrawal: Qualifiers: Complication of substance-induced condition: with delirium Qualified Code(s): F10.231 - Alcohol dependence with withdrawal delirium Code(s): F10.239 - Alcohol dependence with withdrawal, unspecified Status: Acute (3) Seizure disorder: Code(s): G40.909 - Epilepsy, unspecified, not intractable, without status epilepticus Status: Acute (4) Thrombocytopenia: Code(s): D69.6 - Thrombocytopenia, unspecified Status: Acute (5) Elevated bilirubin: Code(s): R17 - Unspecified jaundice Status: Acute (6) Transaminitis: Code(s): R74.01 - Elevation of levels of liver transaminase levels Status: Acute (7) Pancytopenia: Code(s): D61.818 - Other pancytopenia Status: Acute (8) Hyponatremia: Code(s): E87.1 - Hypo-osmolality and hyponatremia Status: Acute (9) Alcohol intoxication: Qualifiers: Complication of substance-induced condition: with delirium Qualified Code(s): F10.921 - Alcohol use, unspecified with intoxication delirium Code(s): F10.929 - Alcohol use, unspecified with intoxication, unspecified Status: Acute (10) Seizures: Code(s): R56.9 - Unspecified convulsions Status: Acute (11) Alcoholism: Code(s): F10.20 - Alcohol dependence, uncomplicated Status: Acute (12) Metabolic encephalopathy: Code(s): G93.41 - Metabolic encephalopathy Status: Acute (13) Hyponatremia: Code(s): E87.1 - Hypo-osmolality and hyponatremia Status: Acute (14) Hypokalemia: Code(s): E87.6 - Hypokalemia Status: Acute (15) Acute blood loss anemia: Code(s): D62 - Acute posthemorrhagic anemia Status: Acute (16) Alcoholic hepatitis: Qualifiers: Ascites presence: unspecified Qualified Code(s): K70.10 - Alcoholic hepatitis without ascites Code(s): K70.10 - Alcoholic hepatitis without ascites Status: Acute (17) COPD (chronic obstructive pulmonary disease): Qualifiers: COPD type: unspecified COPD Qualified Code(s): J44.9 - Chronic obstructive pulmonary disease, unspecified Code(s): J44.9 - Chronic obstructive pulmonary disease, unspecified Status: Chronic (18) Hypophosphatemia: Code(s): E83.39 - Other disorders of phosphorus metabolism Status: Acute (19) Bone marrow suppression: Code(s): D75.89 - Other specified diseases of blood and blood-forming organs Status: Acute (20) Dysphagia: Qualifiers: Dysphagia type: oral phase Qualified Code(s): R13.11 - Dysphagia, oral phase Code(s): R13.10 - Dysphagia, unspecified Status: Acute Additional Plan 1. Alcohol withdrawal; at risk for DT's: - Patient noted to be in significant withdrawal; CIWA of 14 - given his prior hx of seizures, he is at risk of seizures with withdrawal- will continue seizure precautions - patient has been getting scheduled dosing of PO Librium, however has been increasingly drowsy and not able to safely swallow - will hold scheduled librium for now - IV Ativan 4mg Q4PRN for CIWA >12 -IV Ativan 2 mg q.4h p.r.n. for CIWA >8 -IV Ativan 1 mg q.4 p.r.n. for CIWA >5 -last drink was about 12-15 hours ago. - will keep a low threshold for starting patient on precedex drip, if need be -continue IV thiamine 100 mg t.i.d. and PO folic acid 2. Dysphagia: -inability to safely swallow due to concerns with altered mental status -will put the patient NPO -get swallow eval in a.m.. 3. Pancytopenia due to bone marrow suppression: - Noted to have all 3 cell lines down possibly secondary to bone marrow suppression given alcohol use -this is suggested by the low corrected retic coun
[2021-02-22 16:53] LABS: Anion Gap 4 mmol/L (8-16); Blood Urea Nitrogen 4 mg/dL (9-20); Calcium 8.2 mg/dL (8.4-10.2); Carbon Dioxide 25 mmol/L (22-30); Chloride 107 mmol/L (98-107); Estimated CRCL calculation 283 ml/min; Estimated Glomerular Filt Rate > 60; Glucose 88 mg/dL (65-110); Magnesium 2.1 mg/dL (1.6-2.3); Phosphorus 1.7 mg/dL (2.5-4.5); Potassium 3.2 mmol/L (3.4-5.0); Sodium 136 mmol/L (137-145)
[2021-02-22] MEDS: KCL 40 MEQ/D5/0.9% SOD CHL 1,000 ML 100 ML IV CONT (17:17)
[2021-02-22] MEDS: levETIRAcetam 500MG/NACL 100ML 500 MG/100 ML BAG 400 MG IVPB (21:09)
[2021-02-22 23:38] LABS: Glucose Point of Care 98 mg/dl (65-105)
[2021-02-23] VITALS (14 sets, daily range): BP systolic 83–91; BP diastolic 66–74; PULSE 101–120; RESP 22–29; TEMP 36.4–37.1; O2SAT 94–100
[2021-02-23] MEDS: KCL 40 MEQ/D5/0.9% SOD CHL 1,000 ML 100 ML IV CONT ×2 (03:58→23:36)
[2021-02-23] MEDS: LORazepam INJ (*CRX) 2 MG/ML VIAL IV PUSH ×2 (04:47→11:43)
[2021-02-23 05:35] LABS: Glucose Point of Care 100 mg/dl (65-105)
[2021-02-23 05:58] LABS: Ammonia < 9 umol/L (9-30); Basophils Percent Auto 1.2 % (0.2-1.2); Eosinophils Percent Auto 0.9 % (0-4.4); Hematocrit 32.5 % (42.0-52.0); Hemoglobin 11.4 g/dL (14.0-18.0); Immature Granulocyte Absolute 0.03 K/mm3 (0.00-0.031); Immature Granulocyte Percent A 0.9 % (0-0.5); Immature Platelet Fraction Pct 4.9 % (0.9-11.2); Lymphocytes Absolute Auto 1.13 K/mm3 (0.9-3.2); Lymphocytes Percent Auto 35.2 % (18.3-44.2); Mean Corpuscular HGB Conc 35.1 g/dl (32-36); Mean Corpuscular Hemoglobin 34.9 pg (26-34); Mean Corpuscular Volume 99.4 fl (80-100); Mean Platelet Volume 9.9 fl (7.4-10.4); Monocytes Absolute Auto 0.5 K/mm3 (0.1-0.6); Monocytes Percent Auto 14.6 % (2.6-8.5); Neutrophils Absolute Auto 1.5 K/mm3 (1.3-6.7); Neutrophils Percent Auto 47.2 % (45.5-73.1); Platelet Count Result 136 k/mm3 (150-375); Red Blood Count 3.27 M/mm3 (4.6-6.20); Red Cell Distribution Width 18.8 % (11.5-14.5); White Blood Count 3.2 K/mm3 (4.5-10.0)
[2021-02-23 06:00] LABS: Alanine Aminotransferase 108 U/L (4-50); Albumin Level 3.1 g/dL (3.5-5.1); Alkaline Phosphatase 374 U/L (38-126); Anion Gap 8 mmol/L (8-16); Aspartate Amino Transferase 111 U/L (17-59); Blood Urea Nitrogen 5 mg/dL (9-20); Calcium 8.7 mg/dL (8.4-10.2); Carbon Dioxide 24 mmol/L (22-30); Chloride 107 mmol/L (98-107); Creatine Kinase 103 U/L (55-170); Estimated CRCL calculation 270 ml/min; Estimated Glomerular Filt Rate > 60; Glucose 95 mg/dL (65-110); Magnesium 1.8 mg/dL (1.6-2.3); Phosphorus 1.8 mg/dL (2.5-4.5); Potassium 3.3 mmol/L (3.4-5.0); Sodium 139 mmol/L (137-145)
[2021-02-23 07:55] LABS: Osmolality, Urine 133 mOsm/kg (50-1200)
--- NOTE | 2021-02-23 10:30 | PCOTNOTE ---
Attempted OT evaluation, per RN hold for today due to continued confusion and inability to follow commands at this time, will follow and attempt tomorrow.
--- NOTE | 2021-02-23 10:44 | PCPTNOTE ---
Attempted PT evaluation, per RN hold for today due to continued confusion and inability to follow commands at this time, will follow and attempt tomorrow.
[2021-02-23] MEDS: PANTOPRAZOLE SODIUM IV 40 MG VIAL IV PUSH ×2 (11:32→20:09)
[2021-02-23] MEDS: levETIRAcetam 500MG/NACL 100ML 500 MG/100 ML BAG 400 MG IVPB ×2 (11:33→20:02)
[2021-02-23] MEDS: THIAMINE HCL 200 MG/2 ML VIAL 100 MG IV PUSH ×2 (11:33→16:23)
[2021-02-23 11:39] LABS: Glucose Point of Care 79 mg/dl (65-105)
--- NOTE | 2021-02-23 11:49 | PM.IMPN ---
Progress Note: A&P Assessment and Plan (1) Refeeding syndrome: Code(s): E87.8 - Other disorders of electrolyte and fluid balance, not elsewhere classified Status: Acute (2) Alcohol withdrawal: Qualifiers: Complication of substance-induced condition: with delirium Qualified Code(s): F10.231 - Alcohol dependence with withdrawal delirium Code(s): F10.239 - Alcohol dependence with withdrawal, unspecified Status: Acute (3) Seizure disorder: Code(s): G40.909 - Epilepsy, unspecified, not intractable, without status epilepticus Status: Acute (4) Thrombocytopenia: Code(s): D69.6 - Thrombocytopenia, unspecified Status: Acute Assessment and Plan: Likely related to alcohol use -platelet count is 94k, will continue to monitor -no sign of bleeding at this time (5) Elevated bilirubin: Code(s): R17 - Unspecified jaundice Status: Acute (6) Transaminitis: Code(s): R74.01 - Elevation of levels of liver transaminase levels Status: Acute (7) Pancytopenia: Code(s): D61.818 - Other pancytopenia Status: Acute (8) Hyponatremia: Code(s): E87.1 - Hypo-osmolality and hyponatremia Status: Acute (9) Alcohol intoxication: Qualifiers: Complication of substance-induced condition: with delirium Qualified Code(s): F10.921 - Alcohol use, unspecified with intoxication delirium Code(s): F10.929 - Alcohol use, unspecified with intoxication, unspecified Status: Acute (10) Seizures: Code(s): R56.9 - Unspecified convulsions Status: Acute (11) Alcoholism: Code(s): F10.20 - Alcohol dependence, uncomplicated Status: Acute (12) Metabolic encephalopathy: Code(s): G93.41 - Metabolic encephalopathy Status: Acute (13) Hypokalemia: Code(s): E87.6 - Hypokalemia Status: Acute (14) Acute blood loss anemia: Code(s): D62 - Acute posthemorrhagic anemia Status: Acute (15) Alcoholic hepatitis: Qualifiers: Ascites presence: unspecified Qualified Code(s): K70.10 - Alcoholic hepatitis without ascites Code(s): K70.10 - Alcoholic hepatitis without ascites Status: Acute (16) COPD (chronic obstructive pulmonary disease): Qualifiers: COPD type: unspecified COPD Qualified Code(s): J44.9 - Chronic obstructive pulmonary disease, unspecified Code(s): J44.9 - Chronic obstructive pulmonary disease, unspecified Status: Chronic (17) Hypophosphatemia: Code(s): E83.39 - Other disorders of phosphorus metabolism Status: Acute (18) Bone marrow suppression: Code(s): D75.89 - Other specified diseases of blood and blood-forming organs Status: Acute (19) Dysphagia: Qualifiers: Dysphagia type: oral phase Qualified Code(s): R13.11 - Dysphagia, oral phase Code(s): R13.10 - Dysphagia, unspecified Status: Acute Additional Plan 1. Alcohol withdrawal; at risk for DT's: - Patient noted to be in significant withdrawal - given his prior hx of seizures, he is at risk of seizures with withdrawal- will continue seizure precautions - patient has been getting scheduled dosing of PO Librium, however has been increasingly drowsy and not able to safely swallow. He is off of scheduled Librium for now on p.r.n. IV Ativan regimen - IV Ativan 4mg Q4PRN for CIWA >12 -IV Ativan 2 mg q.4h p.r.n. for CIWA >8 -IV Ativan 1 mg q.4 p.r.n. for CIWA >5 -continue IV thiamine 100 mg t.i.d. and PO folic acid 2. Dysphagia: -inability to safely swallow due to concerns with altered mental status -will put the patient NPO - patient did not participate with speech therapy for swallow evaluation - will place NG and start cautious tube feeding 3. Pancytopenia due to bone marrow suppression: - Noted to have all 3 cell lines down possibly secondary to bone marrow suppression given alcohol use -this is sug
--- NOTE | 2021-02-23 11:55 | PCDIET ---
Nutrition Follow-Up Complete: Nutrition Diagnosis: Suboptimal oral intake related to possible GI bleed as evidenced by clear liquid diet. Nutrition Goal: Patient to meet estimated nutritional needs. Goal not met. Patient evaluated by MANUFACTURING QUALITY TECHNICIAN today with recommendation for non-oral feedings. Recommend Jevity 1.2 tube feedings once gastric access is achieved. Recommend starting at 25mL/hr on day one and advancing by 25mL/hr each day to goal of 75mL/hr which will provide 1980kcal, 91g protein and 1331mL free water over 22 hours/day. Recommend 30mL water flush every 4 hours and continued replacement of electrolytes, as indicated. Last recorded weight is 59.2 kg which is stable with last review. Bowel Motility: Last documented BM on 02/20/21. Labs Reviewed: WBC (3.2), RBC (3.27), Hgb (11.4), Hct (32.5), BUN (5), Cr (0.2), K (3.3), Alb (3.1), PO4 (1.8) Meds Noted: Rocephin, Librium, Folic Acid, Keppra, Spiriva, MVI, Protonix, Thiamine, K-Phos, D5NS with 40mEq KCl at 100mL/hr Additional Notes: Noted magnesium WNL. Bilateral buttocks with documented friction areas. Will continue to monitor with same goal. Nutrition Monitoring and Evaluation: Follow up every 3 days.
--- NOTE | 2021-02-23 12:13 | WPDGIPROGNO ---
Progress Note: A&P Assessment and Plan (1) Alcohol withdrawal: Qualifiers: Complication of substance-induced condition: with delirium Qualified Code(s): F10.231 - Alcohol dependence with withdrawal delirium Code(s): F10.239 - Alcohol dependence with withdrawal, unspecified Status: Acute Assessment and Plan: medical support in icu more confused and agitated, on iv ativan for now (can not swallow librium) on ciwa protocol, low threshold for precedex (2) Dysphagia: Qualifiers: Dysphagia type: oral phase Qualified Code(s): R13.11 - Dysphagia, oral phase Code(s): R13.10 - Dysphagia, unspecified Status: Acute Assessment and Plan: from confusion and agitation NGT just placed, will start tube feeding aspiration precaution (3) Refeeding syndrome: Code(s): E87.8 - Other disorders of electrolyte and fluid balance, not elsewhere classified Status: Acute Assessment and Plan: repleting low lytes and continue monitoring (4) Metabolic encephalopathy: Code(s): G93.41 - Metabolic encephalopathy Status: Acute Assessment and Plan: stil in icu, confused from etoh abuse/withdrawals (5) Alcoholic hepatitis: Qualifiers: Ascites presence: unspecified Qualified Code(s): K70.10 - Alcoholic hepatitis without ascites Code(s): K70.10 - Alcoholic hepatitis without ascites Status: Acute Assessment and Plan: elevated liver enzymes but stable numbers (6) Thrombocytopenia: Code(s): D69.6 - Thrombocytopenia, unspecified Status: Acute (7) Acute hypokalemia: Code(s): E87.6 - Hypokalemia Status: Acute Assessment and Plan: repleting, risk for refeeding syndrome nutritional support (8) Malnutrition: Qualifiers: Malnutrition type: protein-calorie malnutrition Protein-calorie malnutrition severity: moderate Qualified Code(s): E44.0 - Moderate protein-calorie malnutrition Code(s): E46 - Unspecified protein-calorie malnutrition Status: Chronic (9) Pancytopenia: Code(s): D61.818 - Other pancytopenia Status: Acute Assessment and Plan: hb stable after transfusion, no report of gib monitor from etoh abuse, liver disease, malnutrition Subjective Date/time seen: 02/23/21 12:13 Interval history: awake but more confused and agitated, could not even complete swallowing study and NGT was just placed. Review of Systems Review of Systems: All systems reviewed & are unremarkable except as noted in HPI and below Exam Const: General: no acute distress and ill appearing chronically Other: quite anxious HENMT: Mouth: Yes moist mucous membranes Other: new NGT in place Eyes: Sclera: scleral abnormality (Sclera is icteric) Pupils: Equal, round and reactive pupils present Neck: Neck: supple Resp: Effort & Inspection: normal respiratory effort Auscultation: rhonchi (few) Cardio: Rate: regular rate Rhythm: regular rhythm GI: Inspection: non-distended GI Palp: Yes Soft to palpation and No Tenderness to palpation present (GI) Auscultation: normal bowel sounds : Other: Cook catheter in place Urinary Catheter: Urinary Catheter: patent and draining and urine dark Skin: Other: Jaundiced Neuro: Cranial nerves: Yes Equal, round and reactive pupils present Other: Patient opens eyes, answers to questions, follows simple commands in all extremities but even more confused and agitated today Extrem: General: normal to inspection, no edema and no pedal edema Psych: Affect: Anxious affect present Objective Data Vital Signs Vital Signs: Vital Signs - 24 hr 02/22/21 14:00 02/22/21 16:00 02/22/21 18:00 Temperature 98.0 F Pulse Rate 117 H 117 H 118 H Pulse Rate [Apical Monitor] 112 H Respiratory Rate 25 H Blood Pressure 97/81 L Pulse Oximetry 98 02/22/21 20:00 02/22/21 21:12 02/22/21 22:00 Temperature 98.6 F Pulse Ra
[2021-02-23] MEDS: POTASSIUM PHOS,M-BASIC-D-BASIC 40 MMOL in SODIUM CHLORIDE 0.9% IV 250 ML 43.89 MMOL IVPB (12:28)
[2021-02-23] MEDS: MULTIVITAMINS THERAPEUTIC TAB (*BKC) 1 TABLET PO (12:29)
[2021-02-23] MEDS: FOLIC ACID 1 MG TABLET PO (12:29)
[2021-02-23] MEDS: HEPARIN SODIUM 5,000 UNITS/ML VIAL 5000 UNITS SUB-Q ×2 (12:29→20:09)
[2021-02-23 17:52] LABS: Glucose Point of Care 82 mg/dl (65-105)
[2021-02-24] VITALS (16 sets, daily range): BP systolic 81–105; BP diastolic 62–84; PULSE 72–119; RESP 19–30; TEMP 36.1–37.2; O2SAT 94–100; BMI 11.0
[2021-02-24 00:24] LABS: Glucose Point of Care 103 mg/dl (65-105)
[2021-02-24 05:35] LABS: Hematocrit 29.4 % (42.0-52.0); Hemoglobin 9.7 g/dL (14.0-18.0); Mean Corpuscular Hemoglobin 34.5 pg (26-34); Mean Corpuscular Volume 104.6 fl (80-100); Mean Platelet Volume 10.3 fl (7.4-10.4); Platelet Count Result 174 k/mm3 (150-375); Red Blood Count 2.81 M/mm3 (4.6-6.20); Red Cell Distribution Width 19.9 % (11.5-14.5); White Blood Count 2.5 K/mm3 (4.5-10.0)
[2021-02-24 05:42] LABS: Alanine Aminotransferase 83 U/L (4-50); Albumin Level 2.5 g/dL (3.5-5.1); Alkaline Phosphatase 354 U/L (38-126); Anion Gap 5 mmol/L (8-16); Aspartate Amino Transferase 86 U/L (17-59); Bilirubin,Total 2.5 mg/dL (0.2-1.3); Blood Urea Nitrogen 5 mg/dL (9-20); Calcium 8.1 mg/dL (8.4-10.2); Carbon Dioxide 23 mmol/L (22-30); Chloride 112 mmol/L (98-107); Estimated CRCL calculation 199 ml/min; Estimated Glomerular Filt Rate > 60; Glucose 90 mg/dL (65-110); Magnesium 1.7 mg/dL (1.6-2.3); Sodium 140 mmol/L (137-145)
[2021-02-24] MEDS: PANTOPRAZOLE SODIUM IV 40 MG VIAL IV PUSH ×2 (08:27→20:09)
[2021-02-24] MEDS: THIAMINE HCL 200 MG/2 ML VIAL 100 MG IV PUSH ×3 (08:27→16:04)
[2021-02-24] MEDS: MULTIVITAMINS THERAPEUTIC TAB (*BKC) 1 TABLET PO (08:27)
[2021-02-24] MEDS: HEPARIN SODIUM 5,000 UNITS/ML VIAL 5000 UNITS SUB-Q ×2 (08:27→20:08)
[2021-02-24] MEDS: FOLIC ACID 1 MG TABLET PO (08:27)
[2021-02-24] MEDS: levETIRAcetam 500MG/NACL 100ML 500 MG/100 ML BAG 400 MG IVPB ×2 (08:43→21:14)
--- NOTE | 2021-02-24 10:42 | PCDIET ---
Nutrition Follow-Up Complete: Nutrition Diagnosis: Suboptimal oral intake related to possible GI bleed as evidenced by clear liquid diet. Nutrition Goal: Patient to meet estimated nutritional needs. Goal in progress. Patient tolerating Jevity 1.2 boluses of 140mL every 6 hours. Recommend increasing to 275mL every 6 hours today. Recommend giving 100mL water flushes QID after each feed (ordered as every 4 hours). Last recorded weight is 60.1 kg which is increased from last review. +I/O. Bowel Motility: BM x 1 today. Labs Reviewed: WBC (2.5), RBC (2.81), Hgb (9.7), Hct (29.4), BUN (5), Cr (0.3), Alb (2.5), Georgiana Ca (9.3), PO4 (5.0), Mg (1.7) Meds Noted: Rocephin, Folic Acid, Keppra, MVI, Protonix, Thiamine, Spiriva Additional Notes: Potassium and magnesium WNL today. PO4 elevated after previous replacement. Friction to bilateral buttock documented. Will continue to monitor with same goal. Nutrition Monitoring and Evaluation: Follow up every Sunday/Sunday.
[2021-02-24 13:00] LABS: Glucose Point of Care 100 mg/dl (65-105)
--- NOTE | 2021-02-24 14:30 | PM.IMPN ---
Progress Note: A&P Assessment and Plan (1) Alcohol withdrawal: Qualifiers: Complication of substance-induced condition: with delirium Qualified Code(s): F10.231 - Alcohol dependence with withdrawal delirium Code(s): F10.239 - Alcohol dependence with withdrawal, unspecified Status: Acute (2) Refeeding syndrome: Code(s): E87.8 - Other disorders of electrolyte and fluid balance, not elsewhere classified Status: Acute (3) Seizure disorder: Code(s): G40.909 - Epilepsy, unspecified, not intractable, without status epilepticus Status: Acute (4) Thrombocytopenia: Code(s): D69.6 - Thrombocytopenia, unspecified Status: Acute Assessment and Plan: Likely related to alcohol use and have improved - will continue to monitor -no sign of bleeding at this time (5) Elevated bilirubin: Code(s): R17 - Unspecified jaundice Status: Acute (6) Transaminitis: Code(s): R74.01 - Elevation of levels of liver transaminase levels Status: Acute (7) Pancytopenia: Code(s): D61.818 - Other pancytopenia Status: Acute (8) Seizures: Code(s): R56.9 - Unspecified convulsions Status: Acute (9) Alcoholism: Code(s): F10.20 - Alcohol dependence, uncomplicated Status: Acute (10) Metabolic encephalopathy: Code(s): G93.41 - Metabolic encephalopathy Status: Acute (11) Acute blood loss anemia: Code(s): D62 - Acute posthemorrhagic anemia Status: Acute (12) Alcoholic hepatitis: Qualifiers: Ascites presence: unspecified Qualified Code(s): K70.10 - Alcoholic hepatitis without ascites Code(s): K70.10 - Alcoholic hepatitis without ascites Status: Acute (13) COPD (chronic obstructive pulmonary disease): Qualifiers: COPD type: unspecified COPD Qualified Code(s): J44.9 - Chronic obstructive pulmonary disease, unspecified Code(s): J44.9 - Chronic obstructive pulmonary disease, unspecified Status: Chronic (14) Hypophosphatemia: Code(s): E83.39 - Other disorders of phosphorus metabolism Status: Acute (15) Bone marrow suppression: Code(s): D75.89 - Other specified diseases of blood and blood-forming organs Status: Acute (16) Dysphagia: Qualifiers: Dysphagia type: oral phase Qualified Code(s): R13.11 - Dysphagia, oral phase Code(s): R13.10 - Dysphagia, unspecified Status: Acute Additional Plan 1. Alcohol withdrawal; - Patient noted to be in significant withdrawal - given his prior hx of seizures, he is at risk of seizures with withdrawal- will continue seizure precautions - off scheduled dosing of PO Librium at this time will continue p.r.n. IV Ativan regimen - IV Ativan 4mg Q4PRN for CIWA >12 -IV Ativan 2 mg q.4h p.r.n. for CIWA >8 -IV Ativan 1 mg q.4 p.r.n. for CIWA >5 -continue IV thiamine 100 mg t.i.d. and PO folic acid 2. Dysphagia: -inability to safely swallow due to concerns with altered mental status - NG tube was placed yesterday and patient was started on bolus tube feeding with free water flushes - patient did not participate with speech therapy for swallow evaluation 3. Pancytopenia due to bone marrow suppression: - Noted to have all 3 cell lines down possibly secondary to bone marrow suppression given alcohol use -this is suggested by the low corrected retic count of 0.8 - Hb was note to have dropped to 6.9 requiring PRBC trabfusion, GI evaluated paient and agree with assessment of bone marrow suppression - hemoglobin continues to trend down will closely monitor as there is no obvious sign of bleeding at this time - will continue PPI BID for now 4. Refeeding syndrome: - electrolytes have improved after replacement will continue to monitor - off IV fluids as he is on tube feeds now 5. Alcoholic hepatitis: -MDF score of 13.6; at this time patient does not qualify for steroids -MELD sc
--- NOTE | 2021-02-24 16:04 | WPDGIPROGNO ---
Progress Note: A&P Assessment and Plan (1) Alcohol withdrawal: Qualifiers: Complication of substance-induced condition: with delirium Qualified Code(s): F10.231 - Alcohol dependence with withdrawal delirium Code(s): F10.239 - Alcohol dependence with withdrawal, unspecified Status: Acute Assessment and Plan: medical support in icu still quite confused and agitated on ciwa protocol (2) Dysphagia: Qualifiers: Dysphagia type: oral phase Qualified Code(s): R13.11 - Dysphagia, oral phase Code(s): R13.10 - Dysphagia, unspecified Status: Acute Assessment and Plan: from confusion and agitation NGT receiving tube feeding aspiration precaution (3) Refeeding syndrome: Code(s): E87.8 - Other disorders of electrolyte and fluid balance, not elsewhere classified Status: Acute Assessment and Plan: repleting low lytes and continue monitoring (4) Metabolic encephalopathy: Code(s): G93.41 - Metabolic encephalopathy Status: Acute Assessment and Plan: stil in icu, quite confused from etoh abuse/withdrawals (5) Alcoholic hepatitis: Qualifiers: Ascites presence: unspecified Qualified Code(s): K70.10 - Alcoholic hepatitis without ascites Code(s): K70.10 - Alcoholic hepatitis without ascites Status: Acute Assessment and Plan: trending down and improving nutrition support, thiamine, icu care (6) Thrombocytopenia: Code(s): D69.6 - Thrombocytopenia, unspecified Status: Acute (7) Acute hypokalemia: Code(s): E87.6 - Hypokalemia Status: Acute Assessment and Plan: repleting, risk for refeeding syndrome nutritional support (8) Malnutrition: Qualifiers: Malnutrition type: protein-calorie malnutrition Protein-calorie malnutrition severity: moderate Qualified Code(s): E44.0 - Moderate protein-calorie malnutrition Code(s): E46 - Unspecified protein-calorie malnutrition Status: Chronic (9) Pancytopenia: Code(s): D61.818 - Other pancytopenia Status: Acute Assessment and Plan: from etoh abuse, liver disease, malnutrition no signs of bleeding Subjective Date/time seen: 02/24/21 16:04 Interval history: still on active withdrawals and confused, shaking. DHT in place and tolerating tube feeding. Review of Systems Review of Systems: All systems reviewed & are unremarkable except as noted in HPI and below Exam Const: General: ill appearing chronically Other: quite anxious HENMT: Mouth: Yes moist mucous membranes Other: on tube feeding by NGT Eyes: Sclera: scleral abnormality (Sclera is icteric) Pupils: Equal, round and reactive pupils present Neck: Neck: supple Resp: Auscultation: rales and rhonchi (few) Cardio: Rate: regular rate Rhythm: regular rhythm GI: Inspection: non-distended GI Palp: Yes Soft to palpation and No Tenderness to palpation present (GI) Auscultation: normal bowel sounds : Other: Cook catheter in place Urinary Catheter: Urinary Catheter: patent and draining Skin: General skin exam: no rashes or lesions noted Neuro: Cranial nerves: Yes Equal, round and reactive pupils present Other: Patient opens eyes, answers to questions, still confused and agitated Extrem: General: normal to inspection, no edema and no pedal edema Psych: Affect: Anxious affect present Objective Data Vital Signs Vital Signs: Vital Signs - 24 hr 02/23/21 18:00 02/23/21 20:00 02/23/21 22:00 Temperature 97.7 F Pulse Rate 114 H 119 H 114 H Pulse Rate [Bilateral Pedal (Dorsalis Pedis)] Respiratory Rate 26 H Blood Pressure 83/71 L Pulse Oximetry 98 02/24/21 00:00 02/24/21 02:00 02/24/21 04:00 Temperature 98.9 F 99 F Pulse Rate 112 H 119 H 117 H Pulse Rate [Bilateral Pedal (Dorsalis Pedis)] 117 H Respiratory Rate 26 H 19 Blood Pressure 90/71 L 105/84 Pulse Oximetry 97 97 02/24/21 06:00
[2021-02-24 16:20] LABS: Glucose Point of Care 101 mg/dl (65-105)
--- NOTE | 2021-02-24 16:35 | PC.NURSE ---
This patient, Chito Gill, was transferred to [[facility]] on 02/24/21 at 1635. Personal belongings sent with patient. Report given to [KADY Cole]. Appropriate documentation sent with patient.
--- NOTE | 2021-02-24 18:02 | PM.EVENT ---
Event Note Event Note Event Note: I was contacted by nursing regarding this patient was recently transferred out of the ICU. Was under my service as of 2 days ago however have not followed this patient in the last 2 days. I was informed that the patient has an NG tube in place due to inability to participate for swallow eval with speech therapy and malnutrition. However his NG tube was noted to be malpositioned per nursing and the patient was noted to have an abnormal gurgling sound on respiration. He did however appear comfortable and his vitals were stable and unchanged from before. He was saturating 100% on room air NG tube was removed A chest x-ray was performed the read for which is still pending however after having personally reviewed it I feel that there are some opacities in haziness more so on the right side For this reason we will start the patient on Zosyn for possibility of aspiration pneumonia/pneumonitis. This would become self evident if a chest x-ray was repeated in 72 hours I will also start patient on some IV fluids He was noted to be on Rocephin which I will discontinue All his labs were reviewed and are noted to be improving He overcomes continues to remains encephalopathic Elsa Corbett MD
[2021-02-24] MEDS: SODIUM CHLORIDE 0.9% IV 500 ML IV CONT (18:52)
[2021-02-24 21:33] LABS: Haptoglobin 113 mg/dL (43-212)
[2021-02-24 23:53] LABS: Glucose Point of Care 81 mg/dl (65-105)
[2021-02-25] VITALS (24 sets, daily range): BP systolic 71–136; BP diastolic 48–89; PULSE 80–111; RESP 18–36; TEMP 35.6–37.2; O2SAT 92–100
[2021-02-25 06:22] LABS: Glucose Point of Care 73 mg/dl (65-105)
[2021-02-25 06:38] LABS: Hematocrit 29.2 % (42.0-52.0); Hemoglobin 9.4 g/dL (14.0-18.0); Mean Corpuscular HGB Conc 32.2 g/dl (32-36); Mean Corpuscular Hemoglobin 34.7 pg (26-34); Mean Corpuscular Volume 107.7 fl (80-100); Mean Platelet Volume 10.2 fl (7.4-10.4); Platelet Count Result 186 k/mm3 (150-375); Red Blood Count 2.71 M/mm3 (4.6-6.20); Red Cell Distribution Width 19.7 % (11.5-14.5); White Blood Count 2.8 K/mm3 (4.5-10.0)
[2021-02-25 06:49] LABS: Alanine Aminotransferase 78 U/L (4-50); Albumin Level 2.6 g/dL (3.5-5.1); Alkaline Phosphatase 354 U/L (38-126); Anion Gap 3 mmol/L (8-16); Aspartate Amino Transferase 71 U/L (17-59); Bilirubin,Total 2.4 mg/dL (0.2-1.3); Blood Urea Nitrogen 6 mg/dL (9-20); Calcium 8.3 mg/dL (8.4-10.2); Carbon Dioxide 27 mmol/L (22-30); Chloride 109 mmol/L (98-107); Estimated CRCL calculation 274 ml/min; Estimated Glomerular Filt Rate > 60; Glucose 89 mg/dL (65-110); Magnesium 1.7 mg/dL (1.6-2.3); Phosphorus 4.6 mg/dL (2.5-4.5); Potassium 3.2 mmol/L (3.4-5.0); Sodium 139 mmol/L (137-145)
[2021-02-25] MEDS: ALBUTEROL SULFATE NEB 2.5 MG/0.5 ML INH INHALATION ×3 (07:53→21:00)
[2021-02-25] MEDS: IPRATROPIUM BR 0.02% INH SOLN 0.5 MG/2.5 ML VIAL INHALATION ×3 (07:53→21:00)
[2021-02-25] MEDS: MULTIVITAMINS THERAPEUTIC TAB (*BKC) 1 TABLET PO (08:38)
[2021-02-25] MEDS: THIAMINE HCL 200 MG/2 ML VIAL 100 MG IV PUSH ×3 (08:38→17:36)
[2021-02-25] MEDS: PANTOPRAZOLE SODIUM IV 40 MG VIAL IV PUSH ×2 (08:38→20:23)
[2021-02-25] MEDS: HEPARIN SODIUM 5,000 UNITS/ML VIAL 5000 UNITS SUB-Q ×2 (08:38→20:23)
[2021-02-25] MEDS: FOLIC ACID 1 MG TABLET PO (08:38)
[2021-02-25] MEDS: levETIRAcetam 500MG/NACL 100ML 500 MG/100 ML BAG 400 MG IVPB ×2 (08:39→20:23)
--- NOTE | 2021-02-25 10:42 | PM.IMPN ---
Progress Note: A&P Assessment and Plan (1) Alcohol withdrawal: Qualifiers: Complication of substance-induced condition: with delirium Qualified Code(s): F10.231 - Alcohol dependence with withdrawal delirium Code(s): F10.239 - Alcohol dependence with withdrawal, unspecified Status: Acute (2) Refeeding syndrome: Code(s): E87.8 - Other disorders of electrolyte and fluid balance, not elsewhere classified Status: Acute (3) Seizure disorder: Code(s): G40.909 - Epilepsy, unspecified, not intractable, without status epilepticus Status: Acute (4) Thrombocytopenia: Code(s): D69.6 - Thrombocytopenia, unspecified Status: Acute Assessment and Plan: Likely related to alcohol use and have improved - will continue to monitor -no sign of bleeding at this time (5) Elevated bilirubin: Code(s): R17 - Unspecified jaundice Status: Acute (6) Transaminitis: Code(s): R74.01 - Elevation of levels of liver transaminase levels Status: Acute (7) Pancytopenia: Code(s): D61.818 - Other pancytopenia Status: Acute (8) Seizures: Code(s): R56.9 - Unspecified convulsions Status: Acute (9) Alcoholism: Code(s): F10.20 - Alcohol dependence, uncomplicated Status: Acute (10) Metabolic encephalopathy: Code(s): G93.41 - Metabolic encephalopathy Status: Acute (11) Acute blood loss anemia: Code(s): D62 - Acute posthemorrhagic anemia Status: Acute (12) Alcoholic hepatitis: Qualifiers: Ascites presence: unspecified Qualified Code(s): K70.10 - Alcoholic hepatitis without ascites Code(s): K70.10 - Alcoholic hepatitis without ascites Status: Acute (13) COPD (chronic obstructive pulmonary disease): Qualifiers: COPD type: unspecified COPD Qualified Code(s): J44.9 - Chronic obstructive pulmonary disease, unspecified Code(s): J44.9 - Chronic obstructive pulmonary disease, unspecified Status: Chronic (14) Hypophosphatemia: Code(s): E83.39 - Other disorders of phosphorus metabolism Status: Acute (15) Bone marrow suppression: Code(s): D75.89 - Other specified diseases of blood and blood-forming organs Status: Acute (16) Dysphagia: Qualifiers: Dysphagia type: oral phase Qualified Code(s): R13.11 - Dysphagia, oral phase Code(s): R13.10 - Dysphagia, unspecified Status: Acute Additional Plan # Alcohol withdrawal; - Patient noted to be in significant withdrawal - given his prior hx of seizures, he is at risk of seizures with withdrawal- will continue seizure precautions - off scheduled dosing of PO Librium at this time will continue p.r.n. IV Ativan regimen - IV Ativan 4mg Q4PRN for CIWA >12 -IV Ativan 2 mg q.4h p.r.n. for CIWA >8 -IV Ativan 1 mg q.4 p.r.n. for CIWA >5 -continue IV thiamine 100 mg t.i.d. and PO folic acid He is still quite encephalopathic related to his alcohol withdrawal +/-aspiration pneumonia # Dysphagia: -inability to safely swallow due to concerns with altered mental status - NG tube was placed yesterday and patient was started on bolus tube feeding with free water flushes - patient did not participate with speech therapy for swallow evaluation -NG malpositioned 02/24 and hence replaced # Pancytopenia due to bone marrow suppression: - Noted to have all 3 cell lines down possibly secondary to bone marrow suppression given alcohol use -this is suggested by the low corrected retic count of 0.8 - Hb was note to have dropped to 6.9 requiring PRBC trabfusion, GI evaluated paient and agree with assessment of bone marrow suppression - hemoglobin continues to trend down will closely monitor as there is no obvious sign of bleeding at this time - will continue PPI BID for now # Refeeding syndrome: - electrolytes have improved after replacement will continue to monitor - off IV fluids as he is
--- NOTE | 2021-02-25 11:43 | PCDIET ---
Nutrition Follow-Up Complete: Nutrition Diagnosis: Suboptimal oral intake related to possible GI bleed as evidenced by clear liquid diet. Nutrition Goal: Patient to meet estimated nutritional needs. Goal in progress. Patient tolerating 140mL Jevity 1.2 every 6 hours with 100mL water flush every 4 hours. Recommend advancing by 140mL (280mL boluses) today toward ultimate goal of 400mL every 6 hours for 1920kcal, 89g protein and 1291mL free water. If patient tolerates 280mL boluses x 24 hours, would increase to 400mL boluses and continue to replace electrolytes, as indicated. Last recorded weight is 60.1 kg which is stable with last review. Bowel Motility: Last documented BM on 02/24/21 x 1. Labs Reviewed: WBC (2.8), RBC (2.71), Hgb (9.4), Hct (29.2), BUN (6), Cr (0.2), K (3.2), Alb (2.6), Georgiana Ca (9.42), PO4 (4.6) Meds Noted: Albuterol, Folic Acid, Atrovent, Keppra, MVI/minerals, Protonix, Zosyn, KCl, Thiamine, Spiriva Additional Notes: Documented maceration to bilateral buttocks. Will continue to monitor with same goal. Nutrition Monitoring and Evaluation: Follow up every Sunday/Sunday.
[2021-02-25 12:26] LABS: Glucose Point of Care 114 mg/dl (65-105)
[2021-02-25] MEDS: SODIUM CHLORIDE 0.9% IV 500 ML 999 ML IV CONT (13:06)
--- NOTE | 2021-02-25 14:30 | PC.NURSE ---
On 02/25/21, the student, [Saida Cai], provided care and completed [facility] documentation on this patient. I have reviewed the student's documentation and agree with the findings.
--- NOTE | 2021-02-25 14:41 | WPDGIPROGNO ---
Progress Note: A&P Assessment and Plan (1) Alcohol withdrawal: Qualifiers: Complication of substance-induced condition: with delirium Qualified Code(s): F10.231 - Alcohol dependence with withdrawal delirium Code(s): F10.239 - Alcohol dependence with withdrawal, unspecified Status: Acute Assessment and Plan: still quite confused and agitated on ciwa protocol (2) Dysphagia: Qualifiers: Dysphagia type: oral phase Qualified Code(s): R13.11 - Dysphagia, oral phase Code(s): R13.10 - Dysphagia, unspecified Status: Acute Assessment and Plan: from confusion and agitation NGT receiving tube feeding aspiration precaution started on iv zosyn since CXR showed patchy bilateral mid and lower lung zone infiltrates, right greater than left (3) Refeeding syndrome: Code(s): E87.8 - Other disorders of electrolyte and fluid balance, not elsewhere classified Status: Acute Assessment and Plan: repleting low lytes and continue monitoring (4) Metabolic encephalopathy: Code(s): G93.41 - Metabolic encephalopathy Status: Acute Assessment and Plan: unchanged from etoh abuse/withdrawals (5) Alcoholic hepatitis: Qualifiers: Ascites presence: unspecified Qualified Code(s): K70.10 - Alcoholic hepatitis without ascites Code(s): K70.10 - Alcoholic hepatitis without ascites Status: Acute Assessment and Plan: liver enzymes stable nutrition support, thiamine (6) Malnutrition: Qualifiers: Malnutrition type: protein-calorie malnutrition Protein-calorie malnutrition severity: moderate Qualified Code(s): E44.0 - Moderate protein-calorie malnutrition Code(s): E46 - Unspecified protein-calorie malnutrition Status: Chronic Assessment and Plan: on nutrition support now (7) Pancytopenia: Code(s): D61.818 - Other pancytopenia Status: Acute Assessment and Plan: from etoh abuse, liver disease, malnutrition no signs of bleeding Subjective Date/time seen: 02/25/21 14:41 Interval history: transferred to floor from ICU, still somnolent and confused, he is on tube feeding. Review of Systems Review of Systems: All systems reviewed & are unremarkable except as noted in HPI and below Exam Const: General: ill appearing chronically Other: somnolent, tremoluous HENMT: Mouth: Yes moist mucous membranes Other: on tube feeding by NGT Eyes: Sclera: scleral abnormality (Sclera is icteric) Pupils: Equal, round and reactive pupils present Neck: Neck: supple Resp: Auscultation: rhonchi (few) Cardio: Rate: regular rate Rhythm: regular rhythm GI: Inspection: non-distended GI Palp: Yes Soft to palpation and No Tenderness to palpation present (GI) Auscultation: normal bowel sounds : Other: Cook catheter in place Urinary Catheter: Urinary Catheter: patent and draining Skin: General skin exam: no rashes or lesions noted Neuro: Cranial nerves: Yes Equal, round and reactive pupils present Other: Patient opens eyes, answers to questions, still confused and agitated Extrem: General: normal to inspection, no edema and no pedal edema Psych: Affect: Anxious affect present Objective Data Vital Signs Vital Signs: Vital Signs - 24 hr 02/24/21 16:00 02/24/21 17:37 02/24/21 18:00 Temperature 97.7 F Pulse Rate 105 H 110 H Pulse Rate [Bilateral Pedal (Dorsalis Pedis)] Respiratory Rate 30 H Blood Pressure 81/69 L 86/65 L Pulse Oximetry 95 98 02/24/21 18:23 02/24/21 19:51 02/24/21 20:00 Temperature 97 F L 97.1 F L Pulse Rate 104 H 115 H 109 H Pulse Rate [Bilateral Pedal (Dorsalis Pedis)] 105 H Respiratory Rate 24 H 25 H Blood Pressure 88/65 L 105/67 Pulse Oximetry 98 100 02/24/21 22:00 02/25/21 00:00 02/25/21 02:00 Temperature 98.4 F Pulse Rate 105 H 104 H 108 H Pulse Rate [Bilateral Pedal (Dorsalis Pedis)] Respiratory Rate 24 H Bl
[2021-02-25] MEDS: SODIUM CHLORIDE 0.9% IV 500 ML IV CONT (14:53)
[2021-02-25] MEDS: MAGNESIUM SULF 2 GM/WATER 50ML 2 GM/50 ML BAG IVPB (16:13)
[2021-02-25] MEDS: MIDODRINE HCL 2.5 MG TABLET 5 MG PO (16:22)
[2021-02-25 16:29] LABS: Lactic Acid Reflex 1.8 mmol/L (0.7-2.1)
[2021-02-25 16:36] LABS: Glucose Point of Care 84 mg/dl (65-105)
[2021-02-25 16:36] LABS: Glucose Point of Care 92 mg/dl (65-105)
[2021-02-25] MEDS: ALBUMIN HUMAN 25% 25 GM/100 ML 100 ML IVPB ×2 (17:35→23:31)
[2021-02-25 23:55] LABS: Glucose Point of Care 81 mg/dl (65-105)
[2021-02-26] VITALS (24 sets, daily range): BP systolic 82–96; BP diastolic 60–69; PULSE 74–93; RESP 18–28; TEMP 35.6–36.5; O2SAT 96–99
[2021-02-26 02:09] LABS: Glucose Point of Care 71 mg/dl (65-105)
[2021-02-26] MEDS: IPRATROPIUM BR 0.02% INH SOLN 0.5 MG/2.5 ML VIAL INHALATION ×3 (02:21→14:33)
[2021-02-26] MEDS: ALBUTEROL SULFATE NEB 2.5 MG/0.5 ML INH INHALATION ×3 (02:21→14:33)
[2021-02-26] MEDS: KCL 20 MEQ/D5/0.45% SOD CHL 1,000 ML 50 ML IV CONT (02:55)
[2021-02-26] MEDS: ALBUMIN HUMAN 25% 25 GM/100 ML 100 ML IVPB ×4 (05:10→23:23)
[2021-02-26 05:50] LABS: Hematocrit 27.1 % (42.0-52.0); Hemoglobin 8.7 g/dL (14.0-18.0); Mean Corpuscular HGB Conc 32.1 g/dl (32-36); Mean Corpuscular Hemoglobin 34.8 pg (26-34); Mean Corpuscular Volume 108.4 fl (80-100); Mean Platelet Volume 10.6 fl (7.4-10.4); Platelet Count Result 174 k/mm3 (150-375); Red Cell Distribution Width 19.8 % (11.5-14.5); White Blood Count 2.3 K/mm3 (4.5-10.0)
[2021-02-26 06:04] LABS: Alanine Aminotransferase 57 U/L (4-50); Alkaline Phosphatase 243 U/L (38-126); Anion Gap 5 mmol/L (8-16); Aspartate Amino Transferase 52 U/L (17-59); Bilirubin,Total 1.8 mg/dL (0.2-1.3); Blood Urea Nitrogen 5 mg/dL (9-20); Calcium 8.5 mg/dL (8.4-10.2); Carbon Dioxide 24 mmol/L (22-30); Chloride 109 mmol/L (98-107); Estimated CRCL calculation 274 ml/min; Estimated Glomerular Filt Rate > 60; Glucose 83 mg/dL (65-110); Magnesium 2.2 mg/dL (1.6-2.3); Phosphorus 4.7 mg/dL (2.5-4.5); Potassium 3.4 mmol/L (3.4-5.0); Sodium 138 mmol/L (137-145)
[2021-02-26 06:06] LABS: Glucose Point of Care 84 mg/dl (65-105)
--- NOTE | 2021-02-26 08:16 | WPDGIPROGNO ---
Progress Note: A&P Assessment and Plan (1) Alcohol withdrawal: Qualifiers: Complication of substance-induced condition: with delirium Qualified Code(s): F10.231 - Alcohol dependence with withdrawal delirium Code(s): F10.239 - Alcohol dependence with withdrawal, unspecified Status: Acute Assessment and Plan: Patient still tremulous. Appears to be withdrawing from alcohol. Continue CIWA protocol. (2) Metabolic encephalopathy: Code(s): G93.41 - Metabolic encephalopathy Status: Acute Assessment and Plan: Patient is still not very alert. His likely from alcohol withdrawal. And alcohol abuse. (3) Alcoholic hepatitis: Qualifiers: Ascites presence: unspecified Qualified Code(s): K70.10 - Alcoholic hepatitis without ascites Code(s): K70.10 - Alcoholic hepatitis without ascites Status: Acute Assessment and Plan: LFTs have been stable. Continue thiamine. (4) Pancytopenia: Code(s): D61.818 - Other pancytopenia Status: Acute Assessment and Plan: No signs of bleeding. Pancytopenia appears to be from alcohol abuse. Subjective Date/time seen: 02/26/21 08:16 Patient still withdrawn. Still somewhat confused. No longer on tube feedings. Review of Systems Review of Systems: All systems reviewed & are unremarkable except as noted in HPI and below Exam Narrative: Physical exam he is somewhat ill in chronic chronically ill-appearing. HEENT exam reveals no icterus. Lungs are clear. Abdomen is soft flat not distended. No obvious tenderness no organomegaly evident. Objective Data Vital Signs Vital Signs: Vital Signs - 24 hr 02/25/21 09:02 02/25/21 10:00 02/25/21 12:00 Temperature 96.9 F L Pulse Rate 111 H 111 H 99 Pulse Rate [Bilateral Pedal (Dorsalis Pedis)] Respiratory Rate 20 Blood Pressure 87/62 L Pulse Oximetry 98 02/25/21 12:40 02/25/21 13:41 02/25/21 14:00 Temperature 96.4 F L Pulse Rate 101 H 93 Pulse Rate [Bilateral Pedal (Dorsalis Pedis)] Respiratory Rate 36 H Blood Pressure 75/48 L 76/50 L Pulse Oximetry 97 02/25/21 14:03 02/25/21 14:40 02/25/21 16:00 Temperature Pulse Rate 92 Pulse Rate [Bilateral Pedal (Dorsalis Pedis)] Respiratory Rate Blood Pressure 72/48 L 71/48 L Pulse Oximetry 02/25/21 16:32 02/25/21 18:00 02/25/21 20:00 Temperature 96.0 F L 99 F Pulse Rate 96 90 85 Pulse Rate [Bilateral Pedal (Dorsalis Pedis)] Respiratory Rate 24 H 24 H Blood Pressure 136/89 96/71 L Pulse Oximetry 100 97 02/25/21 20:30 02/25/21 21:00 02/25/21 21:09 Temperature Pulse Rate 82 80 Pulse Rate [Bilateral Pedal (Dorsalis Pedis)] 85 Respiratory Rate 18 18 Blood Pressure Pulse Oximetry 92 02/25/21 22:00 02/26/21 00:00 02/26/21 01:59 Temperature 97.6 F Pulse Rate 85 80 85 Pulse Rate [Bilateral Pedal (Dorsalis Pedis)] 79 Respiratory Rate 28 H Blood Pressure 82/60 L Pulse Oximetry 97 02/26/21 02:12 02/26/21 02:21 02/26/21 02:28 Temperature Pulse Rate 80 75 Pulse Rate [Bilateral Pedal (Dorsalis Pedis)] Respiratory Rate 18 18 Blood Pressure 94/66 L Pulse Oximetry 02/26/21 03:20 02/26/21 04:00 02/26/21 06:00 Temperature 97.7 F Pulse Rate 87 82 Pulse Rate [Bilateral Pedal (Dorsalis Pedis)] 88 Respiratory Rate 24 H Blood Pressure 96/60 L Pulse Oximetry 98 Intake/Output Intake/Output: Intake & Output 02/23/21 02/24/21 02/25/21 02/26/21 23:59 23:59 23:59 23:59 Intake Total 2760 1370 2580 150 Output Total 700 850 500 300 Balance 2060 520 2080 -150 Meds/Results Medications: Active Medications Generic Name Dose Route Start Last Admin Trade Name Freq PRN Reason Stop Dose Admin Albuterol 2.5 mg 02/24/21 20:00 02/26/21 02:21 Albuterol Sulfate Neb 2.5 Mg/0.5 Ml Inh INHALATION 2.5 mg Q6HRT ANGY Administration Folic Acid 1 mg 02/20/21 09:00 02/25/21 08:38
[2021-02-26] MEDS: THIAMINE HCL 200 MG/2 ML VIAL 100 MG IV PUSH ×2 (09:56→12:53)
[2021-02-26] MEDS: PANTOPRAZOLE SODIUM IV 40 MG VIAL IV PUSH ×2 (09:56→22:07)
[2021-02-26] MEDS: MIDODRINE HCL 2.5 MG TABLET 5 MG PO ×3 (09:56→17:10)
[2021-02-26] MEDS: HEPARIN SODIUM 5,000 UNITS/ML VIAL 5000 UNITS SUB-Q ×2 (09:57→22:02)
[2021-02-26] MEDS: MULTIVITAMINS THERAPEUTIC TAB (*BKC) 1 TABLET PO (09:57)
[2021-02-26] MEDS: FOLIC ACID 1 MG TABLET PO (09:57)
[2021-02-26] MEDS: levETIRAcetam 500MG/NACL 100ML 500 MG/100 ML BAG 400 MG IVPB ×2 (10:03→22:06)
[2021-02-26 12:08] LABS: Glucose Point of Care 73 mg/dl (65-105)
--- NOTE | 2021-02-26 16:23 | PM.IMPN ---
Progress Note: A&P Assessment and Plan (1) Alcohol withdrawal: Qualifiers: Complication of substance-induced condition: with delirium Qualified Code(s): F10.231 - Alcohol dependence with withdrawal delirium Code(s): F10.239 - Alcohol dependence with withdrawal, unspecified Status: Acute (2) Refeeding syndrome: Code(s): E87.8 - Other disorders of electrolyte and fluid balance, not elsewhere classified Status: Acute (3) Seizure disorder: Code(s): G40.909 - Epilepsy, unspecified, not intractable, without status epilepticus Status: Acute (4) Thrombocytopenia: Code(s): D69.6 - Thrombocytopenia, unspecified Status: Acute Assessment and Plan: Likely related to alcohol use and have improved - will continue to monitor -no sign of bleeding at this time (5) Elevated bilirubin: Code(s): R17 - Unspecified jaundice Status: Acute (6) Transaminitis: Code(s): R74.01 - Elevation of levels of liver transaminase levels Status: Acute (7) Pancytopenia: Code(s): D61.818 - Other pancytopenia Status: Acute (8) Seizures: Code(s): R56.9 - Unspecified convulsions Status: Acute (9) Alcoholism: Code(s): F10.20 - Alcohol dependence, uncomplicated Status: Acute (10) Metabolic encephalopathy: Code(s): G93.41 - Metabolic encephalopathy Status: Acute (11) Acute blood loss anemia: Code(s): D62 - Acute posthemorrhagic anemia Status: Acute (12) Alcoholic hepatitis: Qualifiers: Ascites presence: unspecified Qualified Code(s): K70.10 - Alcoholic hepatitis without ascites Code(s): K70.10 - Alcoholic hepatitis without ascites Status: Acute (13) COPD (chronic obstructive pulmonary disease): Qualifiers: COPD type: unspecified COPD Qualified Code(s): J44.9 - Chronic obstructive pulmonary disease, unspecified Code(s): J44.9 - Chronic obstructive pulmonary disease, unspecified Status: Chronic (14) Hypophosphatemia: Code(s): E83.39 - Other disorders of phosphorus metabolism Status: Acute (15) Bone marrow suppression: Code(s): D75.89 - Other specified diseases of blood and blood-forming organs Status: Acute (16) Dysphagia: Qualifiers: Dysphagia type: oral phase Qualified Code(s): R13.11 - Dysphagia, oral phase Code(s): R13.10 - Dysphagia, unspecified Status: Acute Additional Plan # Alcohol withdrawal; - Patient noted to be in significant withdrawal - given his prior hx of seizures, he is at risk of seizures with withdrawal- will continue seizure precautions - off scheduled dosing of PO Librium at this time will continue p.r.n. IV Ativan regimen - IV Ativan 4mg Q4PRN for CIWA >12 -IV Ativan 2 mg q.4h p.r.n. for CIWA >8 -IV Ativan 1 mg q.4 p.r.n. for CIWA >5 -continue IV thiamine 100 mg t.i.d. and PO folic acid He is still quite encephalopathic related to his alcohol withdrawal +/-aspiration pneumonia 02/26/2021 more awake and alert today and conversant continue supportive care # Dysphagia: -inability to safely swallow due to concerns with altered mental status - NG tube was placed yesterday and patient was started on bolus tube feeding with free water flushes - patient did not participate with speech therapy for swallow evaluation -NG malpositioned 02/24 and hence replaced Swallow study done at bedside and he will be placed on dysphagia diet # Pancytopenia due to bone marrow suppression: - Noted to have all 3 cell lines down possibly secondary to bone marrow suppression given alcohol use -this is suggested by the low corrected retic count of 0.8 - Hb was note to have dropped to 6.9 requiring PRBC trabfusion, GI evaluated paient and agree with assessment of bone marrow suppression - hemoglobin continues to trend down will closely monitor as there is no obvious sign of bleeding at this time - will c
[2021-02-26 17:44] LABS: Glucose Point of Care 97 mg/dl (65-105)
--- NOTE | 2021-02-26 21:48 | PCRCNOTE ---
pt agitated, trying to kick and hit people. therapist unable to give treatment to pt.
[2021-02-26 23:55] LABS: Glucose Point of Care 81 mg/dl (65-105)
[2021-02-27] VITALS (16 sets, daily range): BP systolic 99–116; BP diastolic 66–73; PULSE 80–102; RESP 18–24; TEMP 36.2–36.8; O2SAT 93–98
--- NOTE | 2021-02-27 01:06 | PC.NURSE ---
Daylight Savings Time For Daylight Savings Time Ending in the Fall - Clocks are moved back. For Daylight Savings Time Beginning in the Spring - Clocks are moved ahead. For [facility], the time of change occurs at 0200 hrs. Time is taken from the cocktail server. This entry on the patient's chart recognizes the change in time reflected during documentation. Example: 2 entries for vital signs may be charted for 0200 hrs.
--- NOTE | 2021-02-27 02:29 | PCRCNOTE ---
Pt was combative today and nursing has given him multiple forms of anti-anxiety medications and sedatives. I asked if it was okay to give treatment and nursing informed me not to wake him, due to him becoming combative when awoken. Therapist did not give treatment to keep pt from becoming combative.
[2021-02-27] MEDS: KCL 20 MEQ/D5/0.45% SOD CHL 1,000 ML 50 ML IV CONT (02:38)
[2021-02-27 06:08] LABS: Glucose Point of Care 70 mg/dl (65-105)
[2021-02-27 06:33] LABS: Hematocrit 26.2 % (42.0-52.0); Hemoglobin 8.5 g/dL (14.0-18.0); Mean Corpuscular HGB Conc 32.4 g/dl (32-36); Mean Corpuscular Hemoglobin 35.1 pg (26-34); Mean Corpuscular Volume 108.3 fl (80-100); Mean Platelet Volume 10.8 fl (7.4-10.4); Platelet Count Result 200 k/mm3 (150-375); Red Blood Count 2.42 M/mm3 (4.6-6.20); Red Cell Distribution Width 20.2 % (11.5-14.5); White Blood Count 2.8 K/mm3 (4.5-10.0)
[2021-02-27] MEDS: ALBUMIN HUMAN 25% 25 GM/100 ML 100 ML IVPB ×4 (06:35→23:26)
[2021-02-27 06:44] LABS: Alanine Aminotransferase 46 U/L (4-50); Albumin Level 3.7 g/dL (3.5-5.1); Alkaline Phosphatase 208 U/L (38-126); Anion Gap 9 mmol/L (8-16); Aspartate Amino Transferase 45 U/L (17-59); Bilirubin,Total 1.8 mg/dL (0.2-1.3); Blood Urea Nitrogen 2 mg/dL (9-20); Carbon Dioxide 24 mmol/L (22-30); Chloride 106 mmol/L (98-107); Estimated CRCL calculation 198 ml/min; Estimated Glomerular Filt Rate > 60; Glucose 75 mg/dL (65-110); Phosphorus 4.1 mg/dL (2.5-4.5); Potassium 4.1 mmol/L (3.4-5.0); Sodium 139 mmol/L (137-145)
[2021-02-27] MEDS: ALBUTEROL SULFATE NEB 2.5 MG/0.5 ML INH INHALATION ×3 (07:50→20:02)
[2021-02-27] MEDS: IPRATROPIUM BR 0.02% INH SOLN 0.5 MG/2.5 ML VIAL INHALATION ×3 (07:50→20:02)
--- NOTE | 2021-02-27 08:03 | WPDGIPROGNO ---
Progress Note: A&P Assessment and Plan (1) Alcoholic hepatitis: Qualifiers: Ascites presence: unspecified Qualified Code(s): K70.10 - Alcoholic hepatitis without ascites Code(s): K70.10 - Alcoholic hepatitis without ascites Status: Acute Assessment and Plan: Patient with alcoholic hepatitis. Been going through alcohol withdrawal as well. Plan for supportive care. Decrease use of sedation as his mental status improves. Continue to support alcohol abstinence. Continue lactulose. (2) Dysphagia: Qualifiers: Dysphagia type: oral phase Qualified Code(s): R13.11 - Dysphagia, oral phase Code(s): R13.10 - Dysphagia, unspecified Status: Acute Assessment and Plan: Patient on dysphagia diet. Advance diet as tolerated. Hopefully will maintain more intake as his mental status improves. (3) Pancytopenia: Code(s): D61.818 - Other pancytopenia Status: Acute Assessment and Plan: Pancytopenia as a result of his alcoholic liver disease. No evidence for active bleeding at this time hemoglobin stable. (4) Seizures: Code(s): R56.9 - Unspecified convulsions Status: Acute Assessment and Plan: Patient with seizure disorder. On Keppra. Will continue to watch closely as he withdraws from alcohol abuse. Subjective Date/time seen: 02/27/21 08:03 Patient more alert and able to converse this morning. Tolerating oral medications. Starting on dysphagia diet. Review of Systems Review of Systems: All systems reviewed & are unremarkable except as noted in HPI and below Exam Narrative: Physical exam is more alert. Less encephalopathic. Lungs reveal rhonchi bilaterally. Heart murmur. Abdomen bowel sounds present soft and nontender. Objective Data Vital Signs Vital Signs: Vital Signs - 24 hr 02/26/21 09:36 02/26/21 09:45 02/26/21 10:00 Temperature Pulse Rate 77 80 93 Respiratory Rate 20 22 H Blood Pressure Pulse Oximetry 02/26/21 11:07 02/26/21 12:00 02/26/21 12:11 Temperature 96.1 F L Pulse Rate 86 84 84 Respiratory Rate 24 H 20 Blood Pressure 91/69 L Pulse Oximetry 98 02/26/21 14:00 02/26/21 14:33 02/26/21 14:51 Temperature Pulse Rate 78 78 80 Respiratory Rate 20 22 H Blood Pressure Pulse Oximetry 02/26/21 15:55 02/26/21 16:00 02/26/21 18:00 Temperature 96.1 F L Pulse Rate 81 82 83 Respiratory Rate 20 Blood Pressure 89/66 L Pulse Oximetry 98 02/26/21 20:00 02/26/21 22:00 02/27/21 00:00 Temperature 97.7 F 97.6 F Pulse Rate 74 82 83 Respiratory Rate 20 18 Blood Pressure 96/62 L 99/66 L Pulse Oximetry 96 97 02/27/21 01:03 FIELD CARE COORDINATOR 02/27/21 04:00 Temperature 97.7 F Pulse Rate 88 87 Respiratory Rate 19 Blood Pressure 101/69 Pulse Oximetry 97 Intake/Output Intake/Output: Intake & Output 02/24/21 02/25/21 02/26/21 02/27/21 23:59 23:59 23:59 22:59 Intake Total 1370 2580 2300 250 Output Total 850 500 525 800 Balance 520 2080 1775 -550 Meds/Results Medications: Active Medications Generic Name Dose Route Start Last Admin Trade Name Gelacio PRN Reason Stop Dose Admin Albuterol 2.5 mg 02/24/21 20:00 02/27/21 02:28 Albuterol Sulfate Neb 2.5 Mg/0.5 Ml Inh INHALATION Not Given Q6HRT ANGY Folic Acid 1 mg 02/20/21 09:00 02/26/21 09:57 Folic Acid 1 Mg Tablet PO 1 mg DAILY ANGY Administration Heparin Sodium (Porcine) 5,000 units 02/20/21 21:00 02/26/21 22:02 Heparin Sodium 5,000 Units/Ml Vial SUB-Q 5,000 units Q12HR ANGY Administration Levetiracetam 500 mg in 100 mls @ 400 mls/hr 02/22/21 21:00 02/26/21 22:21 Keppra Iv IVPB Infused Q12HR ANGY Infusion Piperacillin/Tazobactam/Dextrose 3.375 gm in 50 mls @ 100 mls/hr 02/24/21 18:00 02/27/21 06:33 Zosyn 3.375 Gm/D5w 50ml Pm IVPB 100 mls/hr Q6H ANGY Administration Albumin Human 100 mls @ 60 mls/hr 02/25/21 18:00 02/27/21 06:35 Albutein IVPB 60 mls
--- NOTE | 2021-02-27 08:29 | PCSTNOTE ---
02/26/21 Please refer to the Bedside Swallow Evaluation in the EMR. Please note, silent aspiration cannot be ruled out at bedside.
[2021-02-27 08:55] LABS: Glucose Point of Care 71 mg/dl (65-105)
[2021-02-27] MEDS: MULTIVITAMINS THERAPEUTIC TAB (*BKC) 1 TABLET PO (09:39)
[2021-02-27] MEDS: THIAMINE HCL 200 MG/2 ML VIAL 100 MG IV PUSH (09:39)
[2021-02-27] MEDS: PANTOPRAZOLE SODIUM IV 40 MG VIAL IV PUSH ×2 (09:39→20:56)
[2021-02-27] MEDS: MIDODRINE HCL 2.5 MG TABLET 5 MG PO ×3 (09:40→16:20)
[2021-02-27] MEDS: levETIRAcetam 500MG/NACL 100ML 500 MG/100 ML BAG 400 MG IVPB ×2 (09:40→20:55)
[2021-02-27] MEDS: FOLIC ACID 1 MG TABLET PO (09:40)
[2021-02-27] MEDS: HEPARIN SODIUM 5,000 UNITS/ML VIAL 5000 UNITS SUB-Q ×2 (11:54→20:55)
[2021-02-27 12:33] LABS: Glucose Point of Care 86 mg/dl (65-105)
--- NOTE | 2021-02-27 15:41 | PM.IMPN ---
Progress Note: A&P Assessment and Plan (1) Alcohol withdrawal: Qualifiers: Complication of substance-induced condition: with delirium Qualified Code(s): F10.231 - Alcohol dependence with withdrawal delirium Code(s): F10.239 - Alcohol dependence with withdrawal, unspecified Status: Acute (2) Refeeding syndrome: Code(s): E87.8 - Other disorders of electrolyte and fluid balance, not elsewhere classified Status: Acute (3) Seizure disorder: Code(s): G40.909 - Epilepsy, unspecified, not intractable, without status epilepticus Status: Acute (4) Thrombocytopenia: Code(s): D69.6 - Thrombocytopenia, unspecified Status: Acute (5) Elevated bilirubin: Code(s): R17 - Unspecified jaundice Status: Acute (6) Transaminitis: Code(s): R74.01 - Elevation of levels of liver transaminase levels Status: Acute (7) Pancytopenia: Code(s): D61.818 - Other pancytopenia Status: Acute (8) Seizures: Code(s): R56.9 - Unspecified convulsions Status: Acute (9) Alcoholism: Code(s): F10.20 - Alcohol dependence, uncomplicated Status: Acute (10) Metabolic encephalopathy: Code(s): G93.41 - Metabolic encephalopathy Status: Acute (11) Acute blood loss anemia: Code(s): D62 - Acute posthemorrhagic anemia Status: Acute (12) Alcoholic hepatitis: Qualifiers: Ascites presence: unspecified Qualified Code(s): K70.10 - Alcoholic hepatitis without ascites Code(s): K70.10 - Alcoholic hepatitis without ascites Status: Acute (13) COPD (chronic obstructive pulmonary disease): Qualifiers: COPD type: unspecified COPD Qualified Code(s): J44.9 - Chronic obstructive pulmonary disease, unspecified Code(s): J44.9 - Chronic obstructive pulmonary disease, unspecified Status: Chronic (14) Hypophosphatemia: Code(s): E83.39 - Other disorders of phosphorus metabolism Status: Acute (15) Bone marrow suppression: Code(s): D75.89 - Other specified diseases of blood and blood-forming organs Status: Acute (16) Dysphagia: Qualifiers: Dysphagia type: oral phase Qualified Code(s): R13.11 - Dysphagia, oral phase Code(s): R13.10 - Dysphagia, unspecified Status: Acute Additional Plan # Alcohol withdrawal; - Patient noted to be in significant withdrawal - given his prior hx of seizures, he is at risk of seizures with withdrawal- will continue seizure precautions - off scheduled dosing of PO Librium at this time will continue p.r.n. IV Ativan regimen - IV Ativan 4mg Q4PRN for CIWA >12 -IV Ativan 2 mg q.4h p.r.n. for CIWA >8 -IV Ativan 1 mg q.4 p.r.n. for CIWA >5 -continue IV thiamine 100 mg t.i.d. and PO folic acid He is still quite encephalopathic related to his alcohol withdrawal +/-aspiration pneumonia 02/26/2021 more awake and alert today and conversant continue supportive care # Dysphagia: -inability to safely swallow due to concerns with altered mental status - NG tube was placed yesterday and patient was started on bolus tube feeding with free water flushes - patient did not participate with speech therapy for swallow evaluation -NG malpositioned 02/24 and hence replaced Swallow study done at bedside and he will be placed on dysphagia diet # Pancytopenia due to bone marrow suppression: - Noted to have all 3 cell lines down possibly secondary to bone marrow suppression given alcohol use -this is suggested by the low corrected retic count of 0.8 - Hb was note to have dropped to 6.9 requiring PRBC trabfusion, GI evaluated paient and agree with assessment of bone marrow suppression - hemoglobin continues to trend down will closely monitor as there is no obvious sign of bleeding at this time - will continue PPI BID for now # Refeeding syndrome: - electrolytes have improved after replacement will continue to monitor - off IV fluids as
[2021-02-27 17:54] LABS: Glucose Point of Care 81 mg/dl (65-105)
[2021-02-27 22:53] LABS: Glucose Point of Care 77 mg/dl (65-105)
[2021-02-27] MEDS: LORazepam INJ (*CRX) 2 MG/ML VIAL IV PUSH (23:25)
[2021-02-28] VITALS (18 sets, daily range): BP systolic 103–125; BP diastolic 71–89; PULSE 85–104; RESP 16–36; TEMP 36.1–37.4; O2SAT 93–100; BMI 10.0
[2021-02-28] MEDS: IPRATROPIUM BR 0.02% INH SOLN 0.5 MG/2.5 ML VIAL INHALATION ×4 (01:26→20:21)
[2021-02-28] MEDS: ALBUTEROL SULFATE NEB 2.5 MG/0.5 ML INH INHALATION ×4 (01:26→20:21)
[2021-02-28] MEDS: ALBUMIN HUMAN 25% 25 GM/100 ML 100 ML IVPB ×3 (05:12→17:42)
[2021-02-28 07:38] LABS: Glucose Point of Care 72 mg/dl (65-105)
[2021-02-28] MEDS: levETIRAcetam 500MG/NACL 100ML 500 MG/100 ML BAG 400 MG IVPB ×2 (08:43→21:17)
[2021-02-28] MEDS: MIDODRINE HCL 2.5 MG TABLET 5 MG PO ×3 (08:43→17:41)
[2021-02-28] MEDS: HEPARIN SODIUM 5,000 UNITS/ML VIAL 5000 UNITS SUB-Q ×2 (08:43→20:16)
[2021-02-28] MEDS: MULTIVITAMINS THERAPEUTIC TAB (*BKC) 1 TABLET PO (08:43)
[2021-02-28] MEDS: PANTOPRAZOLE SODIUM IV 40 MG VIAL IV PUSH ×2 (08:43→20:18)
[2021-02-28] MEDS: FOLIC ACID 1 MG TABLET PO (08:44)
[2021-02-28] MEDS: THIAMINE HCL 200 MG/2 ML VIAL 100 MG IV PUSH (08:44)
[2021-02-28 09:09] LABS: Hemoglobin 8.1 g/dL (14.0-18.0); Mean Corpuscular HGB Conc 32.4 g/dl (32-36); Mean Corpuscular Hemoglobin 35.4 pg (26-34); Mean Corpuscular Volume 109.2 fl (80-100); Mean Platelet Volume 10.5 fl (7.4-10.4); Platelet Count Result 224 k/mm3 (150-375); Red Blood Count 2.29 M/mm3 (4.6-6.20); Red Cell Distribution Width 20.8 % (11.5-14.5); White Blood Count 3.4 K/mm3 (4.5-10.0)
[2021-02-28 09:23] LABS: Alanine Aminotransferase 34 U/L (4-50); Albumin Level 4.8 g/dL (3.5-5.1); Alkaline Phosphatase 155 U/L (38-126); Anion Gap 11 mmol/L (8-16); Aspartate Amino Transferase 35 U/L (17-59); Bilirubin,Total 1.6 mg/dL (0.2-1.3); Blood Urea Nitrogen 2 mg/dL (9-20); Calcium 9.9 mg/dL (8.4-10.2); Carbon Dioxide 25 mmol/L (22-30); Chloride 108 mmol/L (98-107); Estimated CRCL calculation 226 ml/min; Estimated Glomerular Filt Rate > 60; Glucose 72 mg/dL (65-110); Magnesium 2.1 mg/dL (1.6-2.3); Phosphorus 4.5 mg/dL (2.5-4.5); Potassium 3.3 mmol/L (3.4-5.0); Sodium 144 mmol/L (137-145)
[2021-02-28 12:17] LABS: Glucose Point of Care 100 mg/dl (65-105)
--- NOTE | 2021-02-28 13:47 | WPDGIPROGNO ---
Progress Note: A&P Assessment and Plan (1) Alcohol withdrawal: Qualifiers: Complication of substance-induced condition: with delirium Qualified Code(s): F10.231 - Alcohol dependence with withdrawal delirium Code(s): F10.239 - Alcohol dependence with withdrawal, unspecified Status: Acute Assessment and Plan: medical management (2) Dysphagia: Qualifiers: Dysphagia type: oral phase Qualified Code(s): R13.11 - Dysphagia, oral phase Code(s): R13.10 - Dysphagia, unspecified Status: Acute Assessment and Plan: on dysphagia diet, NGT removed on aspiration precaution (3) Refeeding syndrome: Code(s): E87.8 - Other disorders of electrolyte and fluid balance, not elsewhere classified Status: Acute Assessment and Plan: repleting low lytes and continue monitoring (4) Metabolic encephalopathy: Code(s): G93.41 - Metabolic encephalopathy Status: Acute Assessment and Plan: from etoh abuse/withdrawals seems more alert (5) Alcoholic hepatitis: Qualifiers: Ascites presence: unspecified Qualified Code(s): K70.10 - Alcoholic hepatitis without ascites Code(s): K70.10 - Alcoholic hepatitis without ascites Status: Acute Assessment and Plan: liver enzymes stable with low discriminant function nutrition support, thiamine (6) Malnutrition: Qualifiers: Malnutrition type: protein-calorie malnutrition Protein-calorie malnutrition severity: moderate Qualified Code(s): E44.0 - Moderate protein-calorie malnutrition Code(s): E46 - Unspecified protein-calorie malnutrition Status: Chronic Assessment and Plan: on nutrition support now (7) Pancytopenia: Code(s): D61.818 - Other pancytopenia Status: Acute Assessment and Plan: from etoh abuse, liver disease, malnutrition no signs of bleeding ppi daily Subjective Date/time seen: 02/28/21 13:47 Interval history: no major changes, on dysphagia diet, more alert but still tremulous Review of Systems Review of Systems: All systems reviewed & are unremarkable except as noted in HPI and below Exam Const: General: ill appearing chronically Other: more awake, still tremoluous HENMT: Mouth: Yes moist mucous membranes Other: on tube feeding by NGT Eyes: Sclera: scleral abnormality (Sclera is icteric) Pupils: Equal, round and reactive pupils present Neck: Neck: supple Resp: Auscultation: rhonchi (few) Cardio: Rate: regular rate Rhythm: regular rhythm GI: Inspection: non-distended GI Palp: Yes Soft to palpation and No Tenderness to palpation present (GI) Auscultation: normal bowel sounds : Other: Cook catheter in place Urinary Catheter: Urinary Catheter: patent and draining Skin: General skin exam: no rashes or lesions noted Neuro: Cranial nerves: Yes Equal, round and reactive pupils present Other: Patient opens eyes, answers to questions, still confused and agitated Extrem: General: normal to inspection, no edema and no pedal edema Psych: Affect: Anxious affect present Objective Data Vital Signs Vital Signs: Vital Signs - 24 hr 02/27/21 14:00 02/27/21 14:26 02/27/21 16:14 Temperature 97.3 F L Pulse Rate 92 83 82 Pulse Rate [Bilateral Pedal (Dorsalis Pedis)] Respiratory Rate 18 22 H Blood Pressure 107/73 Pulse Oximetry 98 02/27/21 20:00 02/27/21 20:03 02/27/21 20:09 Temperature 98.3 F Pulse Rate 94 94 94 Pulse Rate [Bilateral Pedal (Dorsalis Pedis)] 88 Respiratory Rate 20 22 H 20 Blood Pressure 116/71 Pulse Oximetry 93 93 02/28/21 00:00 02/28/21 01:26 02/28/21 01:34 Temperature Pulse Rate 90 92 Pulse Rate [Bilateral Pedal (Dorsalis Pedis)] 88 Respiratory Rate 20 20 Blood Pressure 116/71 Pulse Oximetry 02/28/21 04:00 02/28/21 07:39 02/28/21 07:41 Temperature 97.5 F L 97.2 F L Pulse Rate 89 85 97 Pulse Rate [Bilateral Pedal (Dorsali
--- NOTE | 2021-02-28 15:28 | PM.IMPN ---
Progress Note: A&P Assessment and Plan (1) Alcohol withdrawal: Qualifiers: Complication of substance-induced condition: with delirium Qualified Code(s): F10.231 - Alcohol dependence with withdrawal delirium Code(s): F10.239 - Alcohol dependence with withdrawal, unspecified Status: Acute (2) Refeeding syndrome: Code(s): E87.8 - Other disorders of electrolyte and fluid balance, not elsewhere classified Status: Acute (3) Seizure disorder: Code(s): G40.909 - Epilepsy, unspecified, not intractable, without status epilepticus Status: Acute (4) Thrombocytopenia: Code(s): D69.6 - Thrombocytopenia, unspecified Status: Acute (5) Elevated bilirubin: Code(s): R17 - Unspecified jaundice Status: Acute (6) Transaminitis: Code(s): R74.01 - Elevation of levels of liver transaminase levels Status: Acute (7) Pancytopenia: Code(s): D61.818 - Other pancytopenia Status: Acute (8) Seizures: Code(s): R56.9 - Unspecified convulsions Status: Acute (9) Alcoholism: Code(s): F10.20 - Alcohol dependence, uncomplicated Status: Acute (10) Metabolic encephalopathy: Code(s): G93.41 - Metabolic encephalopathy Status: Acute (11) Acute blood loss anemia: Code(s): D62 - Acute posthemorrhagic anemia Status: Acute (12) Alcoholic hepatitis: Qualifiers: Ascites presence: unspecified Qualified Code(s): K70.10 - Alcoholic hepatitis without ascites Code(s): K70.10 - Alcoholic hepatitis without ascites Status: Acute (13) COPD (chronic obstructive pulmonary disease): Qualifiers: COPD type: unspecified COPD Qualified Code(s): J44.9 - Chronic obstructive pulmonary disease, unspecified Code(s): J44.9 - Chronic obstructive pulmonary disease, unspecified Status: Chronic (14) Hypophosphatemia: Code(s): E83.39 - Other disorders of phosphorus metabolism Status: Acute (15) Bone marrow suppression: Code(s): D75.89 - Other specified diseases of blood and blood-forming organs Status: Acute (16) Dysphagia: Qualifiers: Dysphagia type: oral phase Qualified Code(s): R13.11 - Dysphagia, oral phase Code(s): R13.10 - Dysphagia, unspecified Status: Acute Additional Plan # Alcohol withdrawal; - Patient noted to be in significant withdrawal - given his prior hx of seizures, he is at risk of seizures with withdrawal- will continue seizure precautions - off scheduled dosing of PO Librium at this time will continue p.r.n. IV Ativan regimen - IV Ativan 4mg Q4PRN for CIWA >12 -IV Ativan 2 mg q.4h p.r.n. for CIWA >8 -IV Ativan 1 mg q.4 p.r.n. for CIWA >5 -continue IV thiamine 100 mg t.i.d. and PO folic acid He is still quite encephalopathic related to his alcohol withdrawal +/-aspiration pneumonia 02/26/2021 more awake and alert today and conversant continue supportive care 02/28/2021 continue to be more alert but still weak and frail needs rehabilitation # Dysphagia: -inability to safely swallow due to concerns with altered mental status - NG tube was placed yesterday and patient was started on bolus tube feeding with free water flushes - patient did not participate with speech therapy for swallow evaluation -NG malpositioned 02/24 and hence replaced Swallow study done at bedside and he will be placed on dysphagia diet Poor p.o. intake encouraged to eat more # Pancytopenia due to bone marrow suppression: - Noted to have all 3 cell lines down possibly secondary to bone marrow suppression given alcohol use -this is suggested by the low corrected retic count of 0.8 - Hb was note to have dropped to 6.9 requiring PRBC trabfusion, GI evaluated paient and agree with assessment of bone marrow suppression - hemoglobin continues to trend down will closely monitor as there is no obvious sign of bleeding at this time - will continue PPI BID f
[2021-02-28 16:34] LABS: Glucose Point of Care 68 mg/dl (65-105)
[2021-02-28] MEDS: POTASSIUM CHLORIDE 20 MEQ TABLET 40 MEQ PO (17:42)
[2021-02-28] MEDS: LORazepam INJ (*CRX) 2 MG/ML VIAL IV PUSH (20:13)
[2021-02-28 20:42] LABS: Glucose Point of Care 66 mg/dl (65-105)
--- NOTE | 2021-02-28 21:18 | PC.NURSE ---
Pt transfer to room 255 from U 205. Report received from Bobbi.
[2021-02-28 23:32] LABS: Glucose Point of Care 74 mg/dl (65-105)
[2021-03-01] VITALS (12 sets, daily range): BP systolic 104–143; BP diastolic 78–81; PULSE 55–98; RESP 18–20; TEMP 36.3–36.4; O2SAT 97–99
[2021-03-01] MEDS: ALBUMIN HUMAN 25% 25 GM/100 ML 100 ML IVPB ×2 (00:25→05:56)
[2021-03-01] MEDS: ALBUTEROL SULFATE NEB 2.5 MG/0.5 ML INH INHALATION ×4 (02:16→21:36)
[2021-03-01] MEDS: IPRATROPIUM BR 0.02% INH SOLN 0.5 MG/2.5 ML VIAL INHALATION ×4 (02:16→21:36)
--- NOTE | 2021-03-01 02:29 | PCRCNOTE ---
pt lungs sound clear, congestion sounds like it is coming from throat (GRUNTING)
[2021-03-01 05:55] LABS: Basophils Absolute Auto 0.1 K/mm3 (0.0-0.1); Basophils Percent Auto 1.8 % (0.2-1.2); Eosinophils Absolute Auto 0.1 K/mm3 (0-0.3); Eosinophils Percent Auto 1.3 % (0-4.4); Hematocrit 24.9 % (42.0-52.0); Hemoglobin 7.9 g/dL (14.0-18.0); Immature Granulocyte Absolute 0.01 K/mm3 (0.00-0.031); Immature Granulocyte Percent A 0.3 % (0-0.5); Lymphocytes Absolute Auto 1.53 K/mm3 (0.9-3.2); Lymphocytes Percent Auto 39.9 % (18.3-44.2); Mean Corpuscular HGB Conc 31.7 g/dl (32-36); Mean Corpuscular Volume 110.2 fl (80-100); Mean Platelet Volume 10.6 fl (7.4-10.4); Monocytes Absolute Auto 0.4 K/mm3 (0.1-0.6); Monocytes Percent Auto 11.5 % (2.6-8.5); Neutrophils Absolute Auto 1.7 K/mm3 (1.3-6.7); Neutrophils Percent Auto 45.2 % (45.5-73.1); Platelet Count Result 227 k/mm3 (150-375); Red Blood Count 2.26 M/mm3 (4.6-6.20); Red Cell Distribution Width 21.7 % (11.5-14.5); White Blood Count 3.8 K/mm3 (4.5-10.0)
[2021-03-01 05:58] LABS: Glucose Point of Care 76 mg/dl (65-105)
[2021-03-01 06:14] LABS: Alanine Aminotransferase 28 U/L (4-50); Albumin Level 4.4 g/dL (3.5-5.1); Alkaline Phosphatase 119 U/L (38-126); Anion Gap 12 mmol/L (8-16); Aspartate Amino Transferase 29 U/L (17-59); Bilirubin,Total 1.4 mg/dL (0.2-1.3); Blood Urea Nitrogen 3 mg/dL (9-20); Calcium 9.7 mg/dL (8.4-10.2); Carbon Dioxide 22 mmol/L (22-30); Chloride 110 mmol/L (98-107); Estimated CRCL calculation 312 ml/min; Estimated Glomerular Filt Rate > 60; Glucose 84 mg/dL (65-110); Potassium 3.5 mmol/L (3.4-5.0); Sodium 144 mmol/L (137-145)
[2021-03-01] MEDS: levETIRAcetam 500 MG TABLET PO ×2 (09:20→20:19)
[2021-03-01] MEDS: MULTIVITAMINS THERAPEUTIC TAB (*BKC) 1 TABLET PO (09:20)
[2021-03-01] MEDS: HEPARIN SODIUM 5,000 UNITS/ML VIAL 5000 UNITS SUB-Q ×2 (09:20→20:19)
[2021-03-01] MEDS: THIAMINE HCL 200 MG/2 ML VIAL 100 MG IV PUSH (09:20)
[2021-03-01] MEDS: FOLIC ACID 1 MG TABLET PO (09:20)
[2021-03-01] MEDS: MIDODRINE HCL 2.5 MG TABLET 5 MG PO (09:20)
[2021-03-01] MEDS: PANTOPRAZOLE SODIUM IV 40 MG VIAL IV PUSH ×2 (09:21→20:19)
--- NOTE | 2021-03-01 11:45 | PM.IMPN ---
Progress Note: A&P Assessment and Plan (1) Alcohol withdrawal: Qualifiers: Complication of substance-induced condition: with delirium Qualified Code(s): F10.231 - Alcohol dependence with withdrawal delirium Code(s): F10.239 - Alcohol dependence with withdrawal, unspecified Status: Acute (2) Refeeding syndrome: Code(s): E87.8 - Other disorders of electrolyte and fluid balance, not elsewhere classified Status: Acute (3) Seizure disorder: Code(s): G40.909 - Epilepsy, unspecified, not intractable, without status epilepticus Status: Acute (4) Thrombocytopenia: Code(s): D69.6 - Thrombocytopenia, unspecified Status: Acute (5) Elevated bilirubin: Code(s): R17 - Unspecified jaundice Status: Acute (6) Transaminitis: Code(s): R74.01 - Elevation of levels of liver transaminase levels Status: Acute (7) Pancytopenia: Code(s): D61.818 - Other pancytopenia Status: Acute (8) Seizures: Code(s): R56.9 - Unspecified convulsions Status: Acute (9) Alcoholism: Code(s): F10.20 - Alcohol dependence, uncomplicated Status: Acute (10) Metabolic encephalopathy: Code(s): G93.41 - Metabolic encephalopathy Status: Acute (11) Acute blood loss anemia: Code(s): D62 - Acute posthemorrhagic anemia Status: Acute (12) Alcoholic hepatitis: Qualifiers: Ascites presence: unspecified Qualified Code(s): K70.10 - Alcoholic hepatitis without ascites Code(s): K70.10 - Alcoholic hepatitis without ascites Status: Acute (13) COPD (chronic obstructive pulmonary disease): Qualifiers: COPD type: unspecified COPD Qualified Code(s): J44.9 - Chronic obstructive pulmonary disease, unspecified Code(s): J44.9 - Chronic obstructive pulmonary disease, unspecified Status: Chronic (14) Hypophosphatemia: Code(s): E83.39 - Other disorders of phosphorus metabolism Status: Acute (15) Bone marrow suppression: Code(s): D75.89 - Other specified diseases of blood and blood-forming organs Status: Acute (16) Dysphagia: Qualifiers: Dysphagia type: oral phase Qualified Code(s): R13.11 - Dysphagia, oral phase Code(s): R13.10 - Dysphagia, unspecified Status: Acute Additional Plan # Alcohol withdrawal; - Patient noted to be in significant withdrawal - given his prior hx of seizures, he is at risk of seizures with withdrawal- will continue seizure precautions - off scheduled dosing of PO Librium at this time will continue p.r.n. IV Ativan regimen -IV Ativan 2 mg q.4h p.r.n. for CIWA >8 -IV Ativan 1 mg q.4 p.r.n. for CIWA >5 -continue IV thiamine 100 mg t.i.d. and PO folic acid He is still quite encephalopathic related to his alcohol withdrawal +/-aspiration pneumonia 03/01/2021: Seems to be awake/alert, still very weak and frail, but was able to talk with me. Believe he is doing well and could be his new baseline. # Dysphagia: - inability to safely swallow due to concerns with altered mental status - NG tube was placed and he had been started on bolus tube feeding with free water flushes - Bedside Swallow Repeated 02/26/21 showed he did well and recommended Thin Liquids and Soft and Bite sized diet. - Concerned that he coughed/aspirated this morning. Will talk with Speech Therapy about further evaluation and recommendations. - Needs to Sit upright, one on one supervision, small bites and sips Continue Aspiration precautions. # Pancytopenia due to bone marrow suppression: - Noted to have all 3 cell lines down possibly secondary to bone marrow suppression given alcohol use -this is suggested by the low corrected retic count of 0.8 - Hgb was note to have dropped to 6.9 requiring PRBC transfusion (02/20/21), GI evaluated patient and agree with assessment of bone marrow suppression - hemoglobin continues to trend down will closely monitor as
[2021-03-01 11:51] LABS: Glucose Point of Care 92 mg/dl (65-105)
--- NOTE | 2021-03-01 14:14 | PCNFU ---
Nutrition Follow-Up Complete: Suboptimal oral intake related to possible GI bleed as evidenced by clear liquid diet. Goal: Patient to meet estimated nutritional needs. Patient has limited progress towards goal. We will continue current goal. Pt current nutrition is NPO. Last recorded weight is 68.5 kg, up from 58.9 kg. Bowel Motility:+BM reported 02/27 Labs Reviewed:Cr 0.2,BUN 3, Hct 24.9,Hgb 7.9 Meds Noted:Heparin, MVI, ProAmatine, Keppra, Spiriva, Zosyn, Thiamine, Folic Acid, Protonix. Skin:WNL Additional Notes: Patient seen today for nutrition follow up. Nursing states to some coughing today with liquids. MBS ordered 03/01 recommending Minced and Moist, Level 5 and Mildly Thick liquids, Level 2. Wound recommend to continue diet supplements of Ensure Compact BID providing an additional 220 kcals and 9 gms protein. Monitoring: Follow up every 3 days.
--- NOTE | 2021-03-01 14:27 | PCSTNOTE ---
Please refer to the Modified Barium Swallow Evaluation in the EMR.
--- NOTE | 2021-03-01 14:59 | WPDGIPROGNO ---
Progress Note: A&P Assessment and Plan (1) Alcohol withdrawal: Qualifiers: Complication of substance-induced condition: with delirium Qualified Code(s): F10.231 - Alcohol dependence with withdrawal delirium Code(s): F10.239 - Alcohol dependence with withdrawal, unspecified Status: Acute Assessment and Plan: medical management will follow from afar, call if questions (2) Dysphagia: Qualifiers: Dysphagia type: oral phase Qualified Code(s): R13.11 - Dysphagia, oral phase Code(s): R13.10 - Dysphagia, unspecified Status: Acute Assessment and Plan: on dysphagia diet, NGT removed and tolerating but still on aspiration precaution (3) Refeeding syndrome: Code(s): E87.8 - Other disorders of electrolyte and fluid balance, not elsewhere classified Status: Acute Assessment and Plan: lytes corrected and better now (4) Metabolic encephalopathy: Code(s): G93.41 - Metabolic encephalopathy Status: Acute Assessment and Plan: from etoh abuse/withdrawals seems more alert on thiamine, nutritional support (5) Alcoholic hepatitis: Qualifiers: Ascites presence: unspecified Qualified Code(s): K70.10 - Alcoholic hepatitis without ascites Code(s): K70.10 - Alcoholic hepatitis without ascites Status: Acute Assessment and Plan: normal transaminases and also improvement of bili nutrition support, thiamine (6) Malnutrition: Qualifiers: Malnutrition type: protein-calorie malnutrition Protein-calorie malnutrition severity: moderate Qualified Code(s): E44.0 - Moderate protein-calorie malnutrition Code(s): E46 - Unspecified protein-calorie malnutrition Status: Chronic Assessment and Plan: on nutrition support now (7) Pancytopenia: Code(s): D61.818 - Other pancytopenia Status: Acute Assessment and Plan: from etoh abuse, liver disease, malnutrition no signs of bleeding ppi daily Subjective Date/time seen: 03/01/21 14:59 Interval history: he is sleeping but easily arousable, denies any pain. Review of Systems Review of Systems: All systems reviewed & are unremarkable except as noted in HPI and below Exam Const: General: ill appearing chronically Other: more awake, less tremoluous HENMT: Mouth: Yes moist mucous membranes Other: on tube feeding by NGT Eyes: Sclera: scleral abnormality (Sclera is icteric) Pupils: Equal, round and reactive pupils present Neck: Neck: supple Resp: Effort & Inspection: normal respiratory effort Cardio: Rate: regular rate Rhythm: regular rhythm GI: Inspection: non-distended GI Palp: Yes Soft to palpation and No Tenderness to palpation present (GI) Auscultation: normal bowel sounds : Other: Cook catheter in place Urinary Catheter: Urinary Catheter: patent and draining Skin: General skin exam: no rashes or lesions noted Neuro: Cranial nerves: Yes Equal, round and reactive pupils present Other: less confused Extrem: General: normal to inspection, no edema and no pedal edema Psych: Affect: Anxious affect present Objective Data Vital Signs Vital Signs: Vital Signs - 24 hr 02/28/21 15:26 02/28/21 15:34 02/28/21 16:53 Temperature 99.4 F Pulse Rate 89 94 91 Pulse Rate [Bilateral Pedal (Dorsalis Pedis)] Respiratory Rate 20 20 20 Blood Pressure 113/87 Pulse Oximetry 98 02/28/21 20:00 02/28/21 20:24 02/28/21 20:36 Temperature Pulse Rate 88 92 96 Pulse Rate [Bilateral Pedal (Dorsalis Pedis)] 88 Respiratory Rate 22 H 20 22 H Blood Pressure 113/87 Pulse Oximetry 98 02/28/21 22:45 02/28/21 22:52 03/01/21 02:21 Temperature 96.9 F L Pulse Rate 97 91 Pulse Rate [Bilateral Pedal (Dorsalis Pedis)] Respiratory Rate 16 18 Blood Pressure 103/83 Pulse Oximetry 100 93 03/01/21 02:28 03/01/21 03:42 03/01/21 08:21 Temperature 97.3 F L Pulse Rate 95 98 88 Pulse Ra
[2021-03-01 16:36] LABS: Glucose Point of Care 69 mg/dl (65-105)
[2021-03-01 19:31] LABS: Glucose Point of Care 70 mg/dl (65-105)
[2021-03-02] MEDS: IPRATROPIUM BR 0.02% INH SOLN 0.5 MG/2.5 ML VIAL INHALATION (02:15)
[2021-03-02] MEDS: ALBUTEROL SULFATE NEB 2.5 MG/0.5 ML INH INHALATION (02:15)
[2021-03-02 02:16] VITALS: PULSE 69; RESP 18
[2021-03-02 02:25] VITALS: PULSE 65; RESP 18
[2021-03-02 03:55] VITALS: BP 109/85; PULSE 93; RESP 16; TEMP 36.6; O2SAT 98
[2021-03-02 05:59] LABS: Basophils Absolute Auto 0.1 K/mm3 (0.0-0.1); Basophils Percent Auto 1.5 % (0.2-1.2); Eosinophils Absolute Auto 0.1 K/mm3 (0-0.3); Eosinophils Percent Auto 1.8 % (0-4.4); Hematocrit 25.1 % (42.0-52.0); Hemoglobin 8.1 g/dL (14.0-18.0); Immature Granulocyte Absolute 0.02 K/mm3 (0.00-0.031); Immature Granulocyte Percent A 0.5 % (0-0.5); Lymphocytes Absolute Auto 1.24 K/mm3 (0.9-3.2); Lymphocytes Percent Auto 31.2 % (18.3-44.2); Mean Corpuscular HGB Conc 32.3 g/dl (32-36); Mean Corpuscular Hemoglobin 35.4 pg (26-34); Mean Corpuscular Volume 109.6 fl (80-100); Mean Platelet Volume 10.5 fl (7.4-10.4); Monocytes Absolute Auto 0.4 K/mm3 (0.1-0.6); Monocytes Percent Auto 8.8 % (2.6-8.5); Neutrophils Absolute Auto 2.2 K/mm3 (1.3-6.7); Neutrophils Percent Auto 56.2 % (45.5-73.1); Platelet Count Result 232 k/mm3 (150-375); Red Blood Count 2.29 M/mm3 (4.6-6.20); Red Cell Distribution Width 21.2 % (11.5-14.5)
[2021-03-02 06:05] LABS: Anion Gap 6 mmol/L (8-16); Blood Urea Nitrogen 4 mg/dL (9-20); Calcium 9.5 mg/dL (8.4-10.2); Carbon Dioxide 28 mmol/L (22-30); Chloride 107 mmol/L (98-107); Estimated CRCL calculation 226 ml/min; Estimated Glomerular Filt Rate > 60; Glucose 71 mg/dL (65-110); Magnesium 2.1 mg/dL (1.6-2.3); Potassium 3.5 mmol/L (3.4-5.0); Sodium 141 mmol/L (137-145)
[2021-03-02 06:16] LABS: Glucose Point of Care 63 mg/dl (65-105)
[2021-03-02 06:16] LABS: Glucose Point of Care 85 mg/dl (65-105)
[2021-03-02] MEDS: MIDODRINE HCL 2.5 MG TABLET 5 MG PO ×3 (09:00→17:06)
[2021-03-02] MEDS: THIAMINE HCL 200 MG/2 ML VIAL 100 MG IV PUSH (09:00)
[2021-03-02] MEDS: MULTIVITAMINS THERAPEUTIC TAB (*BKC) 1 TABLET PO (09:00)
[2021-03-02] MEDS: FOLIC ACID 1 MG TABLET PO (09:00)
[2021-03-02] MEDS: levETIRAcetam 500 MG TABLET PO ×2 (09:00→21:01)
[2021-03-02] MEDS: HEPARIN SODIUM 5,000 UNITS/ML VIAL 5000 UNITS SUB-Q ×2 (09:00→21:01)
[2021-03-02] MEDS: PANTOPRAZOLE SODIUM IV 40 MG VIAL IV PUSH ×2 (09:01→21:00)
[2021-03-02 09:32] LABS: IFOB Positive Control Positive; Immunochemical Fecal Occult Bl Negative (N)
--- NOTE | 2021-03-02 11:52 | PM.IMPN ---
Progress Note: A&P Assessment and Plan (1) Alcohol withdrawal: Qualifiers: Complication of substance-induced condition: with delirium Qualified Code(s): F10.231 - Alcohol dependence with withdrawal delirium Code(s): F10.239 - Alcohol dependence with withdrawal, unspecified Status: Acute (2) Refeeding syndrome: Code(s): E87.8 - Other disorders of electrolyte and fluid balance, not elsewhere classified Status: Acute (3) Seizure disorder: Code(s): G40.909 - Epilepsy, unspecified, not intractable, without status epilepticus Status: Acute (4) Thrombocytopenia: Code(s): D69.6 - Thrombocytopenia, unspecified Status: Acute (5) Elevated bilirubin: Code(s): R17 - Unspecified jaundice Status: Acute (6) Transaminitis: Code(s): R74.01 - Elevation of levels of liver transaminase levels Status: Acute (7) Pancytopenia: Code(s): D61.818 - Other pancytopenia Status: Acute (8) Seizures: Code(s): R56.9 - Unspecified convulsions Status: Acute (9) Alcoholism: Code(s): F10.20 - Alcohol dependence, uncomplicated Status: Acute (10) Metabolic encephalopathy: Code(s): G93.41 - Metabolic encephalopathy Status: Acute (11) Acute blood loss anemia: Code(s): D62 - Acute posthemorrhagic anemia Status: Acute (12) Alcoholic hepatitis: Qualifiers: Ascites presence: unspecified Qualified Code(s): K70.10 - Alcoholic hepatitis without ascites Code(s): K70.10 - Alcoholic hepatitis without ascites Status: Acute (13) COPD (chronic obstructive pulmonary disease): Qualifiers: COPD type: unspecified COPD Qualified Code(s): J44.9 - Chronic obstructive pulmonary disease, unspecified Code(s): J44.9 - Chronic obstructive pulmonary disease, unspecified Status: Chronic (14) Hypophosphatemia: Code(s): E83.39 - Other disorders of phosphorus metabolism Status: Acute (15) Bone marrow suppression: Code(s): D75.89 - Other specified diseases of blood and blood-forming organs Status: Acute (16) Dysphagia: Qualifiers: Dysphagia type: oral phase Qualified Code(s): R13.11 - Dysphagia, oral phase Code(s): R13.10 - Dysphagia, unspecified Status: Acute Additional Plan # Aspiration pneumonia- antibiotics switched to Zosyn #7. Concerned for coughing/aspiration 03/01/21 and CXR showed Worsened airspace opacities in the mid and lower lung zones, consistent with atelectasis versus pneumonia. Will order CT Chest to further evaluate for worsening aspiration pneumonia. He has normal oxygenation at this time. # Hypotension lowish borderline blood pressure- Placed on midodrine 5 mg 3 times a day which has actually helped him. BP stable at this time. # Alcohol withdrawal; - Patient noted to be in significant withdrawal - given his prior hx of seizures, he is at risk of seizures with withdrawal- will continue seizure precautions - off scheduled dosing of PO Librium at this time will continue p.r.n. IV Ativan regimen -IV Ativan 2 mg q.4h p.r.n. for CIWA >8 -IV Ativan 1 mg q.4 p.r.n. for CIWA >5 -continue IV thiamine 100 mg t.i.d. and PO folic acid He is still quite encephalopathic related to his alcohol withdrawal +/-aspiration pneumonia 03/02/2021: Seems to be more awake/alert, still very weak and frail, but was able to talk with me. Believe he is doing well and could be his new baseline. # Dysphagia: - Initially on arrival, concerns for safe swallowing due to AMS so an NG tube was placed and was on nolus tube feeding with free water flushes - Bedside Swallow Repeated 02/26/21 showed he did well and recommended Thin Liquids and Soft and Bite sized diet. - Concerned that he coughed/aspirated 03/01/21. Speech Therapy recommended Modified which showed at times he was slow to swallow and would have some penetration. But every time he did s
[2021-03-02 12:18] LABS: Glucose Point of Care 76 mg/dl (65-105)
[2021-03-02 15:34] LABS: Glucose Point of Care 59 mg/dl (65-105)
[2021-03-02] MEDS: GLUCOSE ORAL GEL 15 GM OF GLUCSE IN 37.5 GM TUBE PO ×2 (15:35→15:38)
[2021-03-02] MEDS: FUROSEMIDE INJ 40 MG/4 ML VIAL 20 MG IV PUSH (15:38)
[2021-03-02 15:55] LABS: Glucose Point of Care 67 mg/dl (65-105)
[2021-03-02 16:12] LABS: Glucose Point of Care 74 mg/dl (65-105)
[2021-03-02 16:15] VITALS: BP 104/72; PULSE 78; RESP 12; TEMP 36.3; O2SAT 98
[2021-03-02 19:34] VITALS: BP 100/66; PULSE 88; RESP 18; TEMP 36.6; O2SAT 99
[2021-03-02] MEDS: LORazepam INJ (*CRX) 2 MG/ML VIAL IV PUSH (21:11)
[2021-03-02 21:42] LABS: Glucose Point of Care 90 mg/dl (65-105)
[2021-03-03 03:29] VITALS: BP 109/72; PULSE 89; RESP 16; TEMP 36.6; O2SAT 98
[2021-03-03 06:21] LABS: Glucose Point of Care 67 mg/dl (65-105)
[2021-03-03 07:37] LABS: Glucose Point of Care 83 mg/dl (65-105)
[2021-03-03 08:02] LABS: Glucose Point of Care 88 mg/dl (65-105)
[2021-03-03] MEDS: levETIRAcetam 500 MG TABLET PO (08:36)
[2021-03-03] MEDS: MIDODRINE HCL 2.5 MG TABLET 5 MG PO ×2 (08:37→12:00)
[2021-03-03] MEDS: MULTIVITAMINS THERAPEUTIC TAB (*BKC) 1 TABLET PO (08:37)
[2021-03-03] MEDS: THIAMINE HCL 200 MG/2 ML VIAL 100 MG IV PUSH (08:37)
[2021-03-03] MEDS: HEPARIN SODIUM 5,000 UNITS/ML VIAL 5000 UNITS SUB-Q (08:37)
[2021-03-03] MEDS: PANTOPRAZOLE SODIUM IV 40 MG VIAL IV PUSH (08:37)
[2021-03-03] MEDS: FOLIC ACID 1 MG TABLET PO (08:37)
[2021-03-03 09:34] LABS: Anion Gap 9 mmol/L (8-16); Blood Urea Nitrogen 5 mg/dL (9-20); Calcium 9.3 mg/dL (8.4-10.2); Carbon Dioxide 27 mmol/L (22-30); Chloride 107 mmol/L (98-107); Estimated CRCL calculation 218 ml/min; Estimated Glomerular Filt Rate > 60; Glucose 73 mg/dL (65-110); Magnesium 1.9 mg/dL (1.6-2.3); Potassium 3.4 mmol/L (3.4-5.0); Sodium 143 mmol/L (137-145)
[2021-03-03] MEDS: POTASSIUM CHLORIDE 20 MEQ TABLET 40 MEQ PO (11:53)
--- NOTE | 2021-03-03 13:01 | PM.DS ---
DS: Admitting Diagnosis Discharge Date 03/03/21 Admitting Diagnosis Weakness DS: Discharge Diagnosis Discharge Diagnosis (1) Alcohol withdrawal: Qualifiers: Complication of substance-induced condition: with delirium Qualified Code(s): F10.231 - Alcohol dependence with withdrawal delirium Code(s): F10.239 - Alcohol dependence with withdrawal, unspecified Status: Acute Assessment and Plan: Patient is a 50-year-old man with a history of smoking, alcohol abuse, who presented to emergency room via EMS from home after he had not been eating or drinking anything except for vodka for the past 5 days. The patient has not worked since September of 2019 and since then he is becoming more weak, and lately he has not been able to ambulate secondary to weakness. He lives with his sister who states he drinks about 1 gal of vodka every 2-3 days and has significant withdrawals 7-8 hours after his last drink. Patient's sister noticed him becoming more confused the last few days and decided to call 911 for further evaluation monitoring. Initial labs is found to be tachycardic at 128 beats per minute, elevated blood pressure 147/108, afebrile, normal oxygenation on room air. Initial labs showed pancytopenia with a white blood cell count of 2.8, macrocytic anemia with a hemoglobin of 10.7, hematocrit 29%, thrombopenia at 131,000 most likely secondary to alcoholism and possible cirrhosis. Normal coag panel. Hyponatremia at 131, hypokalemia at 2.5, creatinine 0.2, BUN less than 2, elevated CO2 at 36, elevated LFTs with a total bili of 4.9, AST 170, ALT 101, alk-phos 297. Total CK 182 mildly elevated. Urinalysis showing cloudy urine with urine bilirubin, WBCs 4-6, RBCs 3-5. Toxicology was normal. Ethyl alcohol was less than 10. Initial chest x-ray showed no acute cardiopulmonary findings. CT head showed no acute intracranial findings, microangiopathy and atrophy. Due to elevated LFTs and abdominal ultrasound was completed showing Echogenic material within gallbladder, could be sludge and resolution of findings which were suspicious for cholecystitis. Due to patient's weakness and altered mental status he had NG tube placed for nutrition. He became hypoxic on 02/23/2021 and chest x-ray showed patchy bilateral mid and lower lung zone infiltrates right greater than left. It is believed he had aspirated at that time and IV Zosyn had been started for treatment. He continued to slowly improve with his mental status. He had a modified barium swallow completed which showed he required soft diet and mildly thickened liquids to decrease the chances of aspiration. He still needs a follow aspiration precautions and recommendations by speech therapy. The patient continued to have increased crackles and rhonchi so a CT chest was completed which showed Diffuse groundglass opacities throughout the lungs, likely pulmonary edema and/or atypical pneumonia. Moderate size right and small left pleural effusions. IV diuretics were ordered and he had a negative fluid balance of almost 3 L over last 24 hours. His lungs are much more clear at this time. The patient feels much better with his breathing. Denies any coughing. He is stable to be discharged to a SNF facility where he can continue his rehab and avoid alcohol use. He will continue on a few more days of Augmentin for continued treatment of possible aspiration pneumonia. Return to ER warnings given. Follow-up instructions given for PCP and GI specialist. The patient understands and agrees the plan all questions answered. (2) Refeeding syndrome: Code(s): E87.8 - Other disorders of electrolyte and fluid balance, not elsewhere classified Status: Acute (3) Seizure disorder: Code(s): G40.909 - Epilepsy, unspecified, not intractable, without status epilepticus Status: Acute (4) Thrombocytopenia: Code(s): D69.6 - Thrombocytopenia, unspecified Status: Acute (5) [place]
[2021-03-03 13:15] LABS: Glucose Point of Care 69 mg/dl (65-105)
[2021-03-03 13:15] LABS: Glucose Point of Care 74 mg/dl (65-105)
[2021-03-03 14:45] VITALS: BP 104/68; PULSE 76; RESP 20; TEMP 35.9; O2SAT 98
== END 2021-03-03 15:53 | DRG 775 ==
LOC: ANHED 16:42 → ANHICU 16:52 → ANH2MED 03-01 07:12 → ANHICU 03-04 10:39 → ANHIMU 03-04 10:39
PROVIDERS: Internal Medicine; Physician Assistant; Admitting Provider Internal Medicine; Emergency Provider Emergency Medicine; PCP Family Medicine; Visit Provider Family Medicine
DX: F10.231 Alcohol dependence with withdrawal delirium (principal); F17.200 Nicotine dependence, unspecified, uncomplicated; J44.9 Chronic obstructive pulmonary disease, unspecified; F17.210 Nicotine dependence, cigarettes, uncomplicated; G93.41 Metabolic encephalopathy; E86.0 Dehydration; E87.6 Hypokalemia; E83.42 Hypomagnesemia; E87.1 Hypo-osmolality and hyponatremia; K70.10 Alcoholic hepatitis without ascites; Z68.22 Body mass index [BMI] 22.0-22.9, adult; D61.818 Other pancytopenia; Z74.01 Bed confinement status; E87.3 Alkalosis; D62 Acute posthemorrhagic anemia; E87.8 Other disorders of electrolyte and fluid balance, not elsewhere classified; G40.909 Epilepsy, unspecified, not intractable, without status epilepticus; R13.10 Dysphagia, unspecified; D75.89 Other specified diseases of blood and blood-forming organs; J69.0 Pneumonitis due to inhalation of food and vomit; E83.39 Other disorders of phosphorus metabolism; I95.9 Hypotension, unspecified; K81.0 Acute cholecystitis; E44.0 Moderate protein-calorie malnutrition; Y90.0 Blood alcohol level of less than 20 mg/100 ml
CPT/HCPCS: 36415; 36430; 51701; 70450; 71045; 71046; 71250; 76705; 80048; 80053; 80076; 80307; 81001; 82140; 82274; 82550; 82570; 82607; 82728; 82746; 82948; 83010; 83540; 83550; 83605; 83615; 83690; 83735; 83930; 83935; 84100; 84300; 84443; 85014; 85018; 85025; 85027; 85046; 85055; 85610; 85730; 86850; 86900; 86901; 86920; 92610; 92611; 93005; 94640; 96361; 96365; 96366; 96367; 96375; 97110; 97162; 97165; 97530; 97535; 99285; A9270; C9113; J0696; J1644; J1940; J1953; J2060; J2543; J3411; J3475; J3480; J7030; J7040; J7050; J7060; J7120; P9016; P9047

== ENCOUNTER 2021-03-05 19:27 | Emergency (ER) | payer MEDICAID, SELFPAY ==
--- NOTE | ~2021-03-05 | XR_ITS ---
EXAMINATION: XR pelvis 1-2V INDICATION: Pain after fall TECHNIQUE: AP view the pelvis is obtained. COMPARISON: None available FINDINGS: Hyperattenuating bowel contents in the rectum obscure visualization of the coccyx. Bone ali gnment is normal. No fracture is identified. There is mild osteoarthritis of the hips. IMPRESSION: 1. No acute osseous abnormality. Reviewed, dictated and finalized at location A. [employer]
--- NOTE | ~2021-03-05 | CT_ITS ---
EXAMINATION: CT cervical spine wo con DATE: 03/05/2021 20:25 INDICATION: Head injury TECHNIQUE: Computed tomography (CT) of the cervical spine was performed without intravenous contrast. The dose-length product (DLP) was 383.20 mGy-cm. Automated exposure control and iterative reconstruc tion technique were employed. COMPARISON: None FINDINGS: There is no fracture, dislocation, or subluxation. There is severe loss of intervertebral d isc space height at C5-6 and mild loss of disc space height at C3-4. Small degenerative osteophytes p roject from the anterior endplates of multiple vertebral bodies. The odontoid is intact. There are sm all pleural effusions. There appears to be interlobular septal thickening of the visualized lung apic es. IMPRESSION: 1. Moderate cervical spondylosis without acute findings. 2. Small pleural effusions with possible mild pulmonary edema the visualized lung apices. Reviewed, dictated and finalized at location A. [employer] IMPRESSION: 1. Moderate cervical spondylosis without acute findings. 2. Small pleural effusions with possible mild pulmonary edema the visualized manpreet ng apices.
--- NOTE | ~2021-03-05 | CT_ITS ---
EXAMINATION: CT brain wo con INDICATION: Head injury COMPARISON: 02/19/2021 TECHNIQUE: Standard unenhanced head CT. The dose-length product (DLP) was 1135.00 mGy-cm. The mA was adjusted according to patient size. Iterative reconstruction technique was employed. FINDINGS: There is no intracranial hemorrhage, acute infarction, or abnormal mass lesion. The ventric les are normal. There is no abnormal mass effect or midline shift. The benitez-white matter differentiat ion is normal. The basal cisterns are patent. The orbits are normal. There is mild mucosal thickening of the paranasal sinuses. IMPRESSION: 1. No acute intracranial abnormality. Reviewed, dictated and finalized at location A. [employer]
[2021-03-05 19:35] VITALS: BP 150/80; PULSE 75; RESP 18; TEMP 36.6; O2SAT 98
--- NOTE | 2021-03-05 21:11 | ED.GENADULT ---
HPI - General Adult General Chief complaint: Head Injury Stated complaint: fall tailbone pain Time Seen by Provider: 03/05/21 19:58 History of Present Illness HPI narrative: Patient is a 50-year-old gentleman who presents the emergency department with complaint of fall from bed. Patient is a resident of a local longterm was reaching to a table that slid and he rolled out of the bed. Patient states that he struck his head and reports pain in his tailbone region. The patient denies loss of consciousness reports that there is a red karan on his forehead reports that he may have a little bit of neck pain with this as well patient denies laceration. Related Data Home Medications Medication Instructions Recorded Confirmed Spiriva Respimat 2 puff INHALATION DAILY 04/28/20 02/19/21 folic acid 1 mg PO DAILY 04/28/20 02/19/21 gabapentin 300 mg PO HS 04/28/20 02/19/21 levetiracetam 500 mg PO BID 04/28/20 02/19/21 thiamine HCl (vitamin B1) [Vitamin 100 mg PO BID 04/28/20 02/19/21 B-1] trazodone 50 mg PO HS 02/19/21 02/19/21 Allergies Allergy/AdvReac Type Severity Reaction Status Date / Time No Known Allergies Allergy Verified 03/05/21 19:41 Review of Systems Review of Systems: A 10 system review of systems was completed on the patient and is negative except for what is stated in the HPI. Nursing and ancillary documentation was reviewed. ON LICENSE OF [facility] Past Medical History Medical History Alcohol withdrawal Alcohol withdrawal seizure Alcoholic hepatitis Alcoholism Chronic anemia Chronic obstructive pulmonary disease Seizures Tobacco dependence Surgical History Surgical History Surgical history unknown Family History Family History Other Family history unknown Social History Social History Social History: Surrogate decision-maker: Janett Gill, sibling. CODE STATUS: Full code. Smoking packs per day: 1 Smoking cigarettes per day: 20.0 Years smoked: 32 Smoking pack-years: 32.00 Smoking status: Current every day smoker Tobacco type: cigarettes Additional smoking assessment comments: 1-1.5 packs of cigarettes a day. Alcohol intake: current Alcohol use details: Consumes 1 gallon of vodka every 2 to 3 days. Substance use: never Additional living arrangements comments: The patient lives with his sister in [place]. Additional occupation/education comments: Unemployed. Spiritual care concerns: No Exam Narrative: GENERAL: Well-appearing, well-nourished, and in no acute distress. HEAD: Normocephalic, atraumatic. EYES: PERRLA and EOMI. ENT: Nares clear, no rhinorrhea or epistaxis. Mucous membranes moist. NECK: Supple. CHEST: Clear to auscultation. No respiratory distress. HEART: Regular rate and rhythm. No murmur heard. Normal peripheral pulses. ABDOMEN: Soft, nontender, nondistended, normal active bowel sounds. EXTREMITIES: Normal range of motion. No edema. SKIN: Warm, dry, no rash. NEURO: No focal deficits. Alert and oriented x3. PSYCH: Normal mood and affect. Course Vital Signs Vital signs: Vital Signs Temperature 36.6 C 03/05/21 19:35 Pulse Rate 75 03/05/21 19:35 Respiratory Rate 18 03/05/21 19:35 Blood Pressure 150/80 H 03/05/21 19:35 Pulse Oximetry 98 03/05/21 19:35 Temperature 36.6 C 03/05/21 19:35 Pulse Rate 75 03/05/21 19:35 Respiratory Rate 18 03/05/21 19:35 Blood Pressure 150/80 H 03/05/21 19:35 Pulse Oximetry 98 03/05/21 19:35 Medical Decision Making Vital Signs Vital Signs: Vital Signs Temperature 36.6 C 03/05/21 19:35 Pulse Rate 75 03/05/21 19:35 Respiratory Rate 18 03/05/21 19:35 Blood Pressure 150/80 H 03/05/21 19:35 Pulse Oximetry 98 1
[2021-03-05 22:01] VITALS: BP 113/86; PULSE 87; RESP 18; O2SAT 95
--- NOTE | 2021-03-05 22:06 | PC.NURSE ---
Unable to reach assigned staff member at [facility] [place] to give pt. report; told 3 different people pt. was returning.
[2021-03-05 22:38] VITALS: BP 132/86; PULSE 78; RESP 18; O2SAT 100
== END 2021-03-05 22:40 | disposition home or self-care (01) ==
PROVIDERS: Emergency Provider Emergency Medicine; PCP Family Medicine
DX: S09.90XA Unspecified injury of head, initial encounter (principal); S30.0XXA Contusion of lower back and pelvis, initial encounter; J44.9 Chronic obstructive pulmonary disease, unspecified; R56.9 Unspecified convulsions; F17.210 Nicotine dependence, cigarettes, uncomplicated; Z86.2 Personal history of diseases of the blood and blood-forming organs and certain disorders involving the immune mechanism; W06.XXXA Fall from bed, initial encounter
CPT/HCPCS: 70450; 72125; 72170; 99284